=== PATIENT | female | born 1955 | race Caucasian/White ===

== ENCOUNTER 2017-08-16 20:03 | Emergency (ER) | payer BC, OTHER ==
[~2017-08-16] VITALS: Ht 167.6 cm; Wt 54.0 kg
[2017-08-16 20:08] VITALS: TEMP 37.1
[2017-08-16] MEDS ORDERED: SODIUM CHLORIDE 0.9% 1000ML 1,000 ML IV STA ×2 (20:14→21:42)
--- NOTE | 2017-08-16 20:18 | EMERGENCY ROOM VISIT NOTE ---
History Report prepared by Pearl: Efrain Hedrick Under the Supervision of: Dr. Leno Tanner M.D. First contact with patient: 20:05 Chief Complaint: ILLNESS Stated Complaint: ILLNESS History of Present Illness The patient is a 61 year old female who presents to the Emergency Room with complaints of worsening weakness beginning a few days ago. EMS states the patient has had a poor intake for the past few days with worsening lethargy, weakness, and a low grade fever. They report the patient has a history of a brain aneurysm and craniotomy. EMS notes the patient patient's daughter notes she lives at [facility], and she is typically walking around and social. The patient states she is having pain around her right hip. She denies shortness of breath and weakness. HPI limited secondary to the patient's mental state. Source of History: patient, EMS History Limited By: other (mental state) Review of Systems ROS limited secondary to the patient's mental state. Past Medical & Surgical Surgical Problems: (1) H/O craniotomy Family History Unobtainable secondary to the patient's mental state. Social History Marital Status: Housing Status: assisted living Current/Historical Medications Scheduled Acetaminophen (Tylenol), 650 MG PO BID Atorvastatin (Lipitor), 20 MG PO HS Bacitracin-Polymyxin B (Polysporin), 1 APPLN TD Q8 Cefdinir (Omnicef), 300 MG PO Q12H Dextrose W/ Sodium Chloride (Dextrose 5%/Nacl 0.9%), 80 ML IV Q1H Ferrous Sulfate (Ferrous Sulfate), 220 MG PO TID Lansoprazole (Prevacid Solutab), 15 MG PO QAM Levetiractam (Levetiracetam), 1,000 MG PO AMHS Scheduled PRN Acetaminophen (Tylenol), 650 MG PO Q6H PRN for Pain or Fever Bisacodyl (Dulcolax), 1 SUPP [place] DAILY PRN for NO BM IN 3 DAYS. Magnesium Hydroxide (Milk of Magnesia), 30 ML PO DAILY PRN for NO BM IN 3 DAYS. Menthol-Methyl Salicylate (Vonda (Bengay Greaseless), 1 APPLN TD Q8 PRN for RIGHT RIB PAIN Sodium Phosphate/Biphosphate (Fleet Enema), 1 EA IL DAILY PRN for NO BM IN 3 DAYS. Allergies Coded Allergies: Ferrous Sulfate (Verified Allergy, Unknown, [facility] LIST, 08/16/17) Penicillins (Verified Allergy, Unknown, [facility], 08/16/17) Physical Exam Vital Signs Date Time Temp Pulse Resp B/P (MAP) Pulse Ox O2 Delivery O2 Flow Rate FiO2 08/16/17 22:38 90 16 151/99 99 Room Air 08/16/17 21:37 89 16 153/94 96 Room Air 08/16/17 20:43 98 Room Air 08/16/17 20:35 102 08/16/17 20:08 37.1 102 16 136/91 98 Room Air Physical Exam GENERAL: Awake, alert, fatigued, uncomfortable and cachetic-appearing, in no distress HENT: Normocephalic, atraumatic. Oropharynx and mucous membranes are dry and cracked, otherwise unremarkable. EYES: Normal conjunctiva. Sclera non-icteric. NECK: Supple. No nuchal rigidity. FROM. No JVD. RESPIRATORY: Clear to auscultation. CARDIAC: Regular rate, normal rhythm. Extremities warm and well perfused. Pulses equal. ABDOMEN: Soft, non-distended. No tenderness to palpation. No rebound or guarding. No masses. RECTAL: Deferred. MUSCULOSKELETAL: Chest examination reveals no tenderness. The back is symmetrical on inspection without obvious abnormality. There is no CVA tenderness to palpation. No joint edema. LOWER EXTREMITIES: Calves are equal size bilaterally and non-tender. No edema. No discoloration. NEURO: Normal sensorium. No sensory or motor deficits noted. SKIN: No rash or jaundice noted. Medical Decision & Procedures ER Provider Diagnostic Interpretation: Radiology results as stated below per my review and radiologist interpretation: CT SCAN OF THE BRAIN WITHOUT IV CONTRAST CLINICAL HISTORY: Change in mental status. COMPARISON STUDY: No priors. TECHNIQUE: Unenhanced axial CT scan of the brain is performed from the vertex to the skull base. A dose lowering technique was utilized adhering to the principles of ALARA. The examination is degraded by streak artifact from metallic surgical hardware. CT DOSE: 614.27 mGy.cm FINDINGS: Brain parenchyma: Bitemporal encephalomalacia is consistent with a remote insult. There are age-related involutional changes noting advanced confluent subcortical and periventricular microangiopathic change. There is no hemorrhage, mass effect, or evidence of acute territorial ischemia by CT criteria. Reveles-white matter is preserved. No extra-axial fluid collection is seen. Postoperative findings are noted in the suprasellar region bilaterally. Ventricles, sulci, cisterns: Prominent secondary to involutional change. Intracranial vasculature: There is atherosclerotic calcification of the cavernous carotid and vertebral arteries. Calvarium: There are postoperative changes from right temporal craniectomy, left temporal craniotomy, and right frontoparietal craniotomy. Sinuses and mastoids: The visualized paranasal sinuses are clear. There is a small right mastoid effusion. The left mastoid air cells are well pneumatized. Orbits: The bony orbits are grossly intact. There are bilateral ocular lens implants. IMPRESSION: 1. There is no hemorrhage, mass effect, or evidence of acute territorial ischemia by CT criteria. 2. Chronic and postoperative changes as above. Electronically signed by: Angel Anders M.D. 08/16/2017 9:16 PM Dictated Date/Time: 08/16/2017 9:13 PM SINGLE VIEW CHEST CLINICAL HISTORY: Fever. Sepsis. FINDINGS: An AP, portable, upright semierect radiograph is obtained. No prior studies are available for comparison at the time of dictation. The examination is degraded by portable technique and patient rotation. The cardiomediastinal silhouette is unremarkable. Nonspecific interstitial thickening is likely chronic. Emphysematous change is questioned. No airspace consolidation or pleural effusion is identified. No pneumothorax is seen. The skeletal structures are osteopenic. Chronic appearing posterior matter deformity is noted in the right humerus. IMPRESSION: No acute cardiopulmonary abnormality. Electronically signed by: Angel Anders M.D. 08/16/2017 8:52 PM Dictated Date/Time: 08/16/2017 8:50 PM Laboratory Results 08/16/17 20:33 Red Blood Count 4.68, Mean Corpuscular Volume 93.6, Mean Corpuscular Hemoglobin 30.3, Mean Corpuscular Hemoglobin Concent 32.4, Mean Platelet Volume 10.0, Neutrophils (%) (Auto) 81.4, Lymphocytes (%) (Auto) 9.4, Monocytes (%) (Auto) 8.7, Eosinophils (%) (Auto) 0.1, Basophils (%) (Auto) 0.2, Neutrophils # (Auto) 9.79, Lymphocytes # (Auto) 1.13, Monocytes # (Auto) 1.04, Eosinophils # (Auto) 0.01, Basophils # (Auto) 0.03 08/16/17 20:33 Test 08/16/17 20:33 08/16/17 20:40 08/16/17 20:44 White Blood Count 12.02 K/uL (4.8-10.8) Red Blood Count 4.68 M/uL (4.2-5.4) Hemoglobin 14.2 g/dL (12.0-16.0) Hematocrit 43.8 % (37-47) Mean Corpuscular Volume 93.6 fL (80-100) Mean Corpuscular Hemoglobin 30.3 pg (25-34) Mean Corpuscular Hemoglobin Concent 32.4 g/dl (32-36) Platelet Count 300 K/uL (130-400) Mean Platelet Volume 10.0 fL (7.4-10.4) Neutrophils (%) (Auto) 81.4 % Lymphocytes (%) (Auto) 9.4 % Monocytes (%) (Auto) 8.7 % Eosinophils (%) (Auto) 0.1 % Basophils (%) (Auto) 0.2 % Neutrophils # (Auto) 9.79 K/uL (1.4-6.5) Lymphocytes # (Auto) 1.13 K/uL (1.2-3.4) Monocytes # (Auto) 1.04 K/uL (0.11-0.59) Eosinophils # (Auto) 0.01 K/uL (0-0.5) Basophils # (Auto) 0.03 K/uL (0-0.2) RDW Standard Deviation 47.3 fL (36.4-46.3) RDW Coefficient of Variation 13.9 % (11.5-14.5) Immature Granulocyte % (Auto) 0.2 % Immature Granulocyte # (Auto) 0.02 K/uL (0.00-0.02) Prothrombin Time 11.3 SECONDS (9.0-12.0) Prothromb Time International Ratio 1.1 (0.9-1.1) Venous Blood pH 7.47 (7.36-7.41) Venous Blood Partial Pressure CO2 40 mmHg (38.0-50.0) Venous Blood Partial Pressure O2 75 mmHg Venous Blood HCO3 29 mmol/L Venous Blood Oxygen Saturation 95.2 % Venous Blood Base Excess 4.7 mEq/L Anion Gap 8.0 mmol/L (3-11) Est Creatinine Clear Calc Drug Dose 69.0 ml/min Estimated GFR () 103.0 Estimated GFR (Non- 88.9 BUN/Creatinine Ratio 36.7 (10-20) Bedside Lactic Acid Venous 0.98 mmol/L (0.90-1.70) Calcium Level 9.4 mg/dl (8.5-10.1) Phosphorus Level 2.5 mg/dl (2.5-4.9) Magnesium Level 2.3 mg/dl (1.8-2.4) Total Bilirubin 0.6 mg/dl (0.2-1) Direct Bilirubin 0.2 mg/dl (0-0.2) Aspartate Amino Transf (AST/SGOT) 26 U/L (15-37) Alanine Aminotransferase (ALT/SGPT) 16 U/L (12-78) Alkaline Phosphatase 83 U/L (45-117) Troponin I < 0.015 ng/ml (0-0.045) Total Protein 8.1 gm/dl (6.4-8.2) Albumin 3.4 gm/dl (3.4-5.0) Lipase 89 U/L (73-393) Influenza Type A (RT-PCR) Neg for Influ A (NEG) Influenza Type B (RT-PCR) Neg for Influ B (NEG) Urine Color DK YELLOW Urine Appearance TURBID (CLEAR) Urine pH 7.5 (4.5-7.5) Urine Specific [place] 1.023 (1.000-1.030) Urine Protein 2+ (NEG) Urine Glucose (UA) NEG (NEG) Urine Ketones TRACE (NEG) Urine Occult Blood 2+ (NEG) Urine Nitrite POS (NEG) Urine Bilirubin NEG (NEG) Urine Urobilinogen NEG (NEG) Urine Leukocyte Esterase LARGE (NEG) Urine WBC (Auto) >30 /hpf (0-5) Urine RBC (Auto) >30 /hpf (0-4) Urine Hyaline Casts (Auto) 5-10 /lpf (0-5) Urine Epithelial Cells (Auto) >30 /lpf (0-5) Urine Bacteria (Auto) 4+ (NEG) Urine Crystals TRIPLE PHOSPHATE Urine Pathogenic Casts 0-3 GRANULAR CASTS /lpf (0) Urine Yeast (Auto) (NONE PRSENT) Laboratory results reviewed by me Medications Administered Medications (Trade) Dose Ordered Sig/Larry Route Start Time Stop Time Status Last Admin Dose Admin Sodium Chloride 1,000 ml @ 999 mls/hr Q1H1M STAT IV 08/16/17 20:14 08/16/17 21:14 DC 08/16/17 20:51 999 MLS/HR Sodium Chloride 1,000 ml @ 999 mls/hr Q1H1M STAT IV 08/16/17 21:42 08/16/17 22:42 DC 08/16/17 21:51 999 MLS/HR Ceftriaxone Sodium (Rocephin Inj) 1 gm NOW STAT IV 08/16/17 21:55 08/16/17 21:56 DC 08/16/17 21:55 1 GM Nystatin (Mycostatin Susp) 5 ml NOW STAT PO 08/16/17 22:20 08/16/17 22:23 DC 08/16/17 22:59 5 ML ECG Per My Interpretation Indication: weakness Rate (beats per minute): 69 Rhythm: normal sinus Findings: no acute ischemic change, other (Normal axis) ED Course 2010: The patient was evaluated in room A10. A complete history and physical exam was performed. 2128: I reevaluated the patient. She is interacting appropriately. Discussed results and discharge instructions: she verbalized understanding and agreement. The patient is ready for discharge. Medical Decision I reviewed the patient's past medical history, medications, and the nursing notes as described above. Differential diagnosis: Etiologies such as metabolic, infection, hypo/hyperglycemia, electrolyte abnormalities, cardiac sources, intracerebral event, toxicologic, neurologic, as well as others were entertained. The patient is a 61-year-old woman with a past medical history of intracranial aneurysm s/p craniectomy who presents emergency department from her fpc facility, [facility], with generalized weakness in the setting of fever per hpi. On arrival, the patient is fatigued and uncomfortable appearing but no acute distress, afebrile stable vital signs. On exam the patient appears cachectic and clinically dry with dry cracked mucous membranes. She is moving all extremities equally. EKG unremarkable. CT head negative for acute findings. Chest x-ray negative for pneumonia. UA grossly positive for UTI. WBC 12 consistent with infection. Lactate within normal limits. Marked improvement with IV fluid hydration. The patient is hemodynamically stable with normal lactate and otherwise no evidence of sepsis it is reasonable to discharge the patient back to her facility for further hydration and treatment for her UTI. CM contacted [facility] and they are agreeable to receive the patient. We will transfer the patient with her peripheral IV still in place for further IVF hydration as needed. Daughter at the bedside is agreeable with this plan. Findings and plan for follow-up reviewed with patient. Patient agreeable and d/c'd per discharge instructions. Medication Reconcilliation Current Medication List: was personally reviewed by me Blood Pressure Screening Patient's blood pressure: Normal blood pressure Blood pressure disposition: Did not require urgent referral Impression Primary Impression: Urinary tract infection Scribe Attestation The scribe's documentation has been prepared under my direction and personally reviewed by me in its entirety. I confirm that the note above accurately reflects all work, treatment, procedures, and medical decision making performed by me. Departure Information Dispostion Home / Self-Care Prescriptions Cefdinir (OMNICEF) 300 Mg Cap 300 MG PO Q12H for 7 Days, #14 CAP Prov: Leno Tanner M.D. 08/16/17 Referrals [facility] (PCP) Forms HOME CARE DOCUMENTATION FORM, IMPORTANT VISIT INFORMATION, WORK / SCHOOL INSTRUCTIONS Patient Instructions ED UTI Cystitis Female, My [facility] Additional Instructions Please follow up with your providers tomorrow for re-evaluation. Your symptoms are due to a urinary tract infection and associated dehydration. Otherwise, your exam, EKG, chest xray, lab results, CT scan of your brain did not show signs of an emergent condition at this time. Acetaminophen or ibuprofen for pain and fevers as needed. Omnicef for your UTI as directed. Drink plenty of fluids to ensure hydration. Return to the emergency department for worsening symptoms as described in the accompanying instructions.
[2017-08-16 20:24] VITALS: Ht 167.6 cm; Wt 54.0 kg
[2017-08-16 20:42] LABS: BASO % 0.2 %; BASO ABS # 0.03 K/uL (0-0.2); EOS % 0.1 %; EOS ABS # 0.01 K/uL (0-0.5); HEMATOCRIT 43.8 % (37-47); HEMOGLOBIN 14.2 g/dL (12.0-16.0); IG# 0.02 K/uL (0.00-0.02); LYMPH % 9.4 %; LYMPH ABS # 1.13 K/uL (1.2-3.4); MEAN CELL VOLUME 93.6 fL (80-100); MEAN CORPUSCULAR HEMOGLOBIN 30.3 pg (25-34); MEAN CORPUSCULAR HGB CONC 32.4 g/dl (32-36); MONO % 8.7 %; MONO ABS # 1.04 K/uL (0.11-0.59); NEUT % 81.4 %; NEUT ABS # 9.79 K/uL (1.4-6.5); PLATELET COUNT 300 K/uL (130-400); RED CELL DISTRIBUTION WIDTH CV 13.9 % (11.5-14.5); RED CELL DISTRIBUTION WIDTH SD 47.3 fL (36.4-46.3); WHITE BLOOD COUNT 12.02 K/uL (4.8-10.8)
[2017-08-16 20:43] VITALS: O2SAT 98
--- NOTE | 2017-08-16 20:54 | DIAGNOSTIC IMAGING REPORT ---
SINGLE VIEW CHEST CLINICAL HISTORY: Fever. Sepsis. FINDINGS: An AP, portable, upright semierect radiograph is obtained. No prior studies are available for comparison at the time of dictation. The examination is degraded by portable technique and patient rotation. The cardiomediastinal silhouette is unremarkable. Nonspecific interstitial thickening is likely chronic. Emphysematous change is questioned. No airspace consolidation or pleural effusion is identified. No pneumothorax is seen. The skeletal structures are osteopenic. Chronic appearing posterior matter deformity is noted in the right humerus. IMPRESSION: No acute cardiopulmonary abnormality. Electronically signed by: Angel Anders M.D. 08/16/2017 8:52 PM Dictated Date/Time: 08/16/2017 8:50 PM
[2017-08-16] MEDS ORDERED: LINICRE61 TD (20:57)
[2017-08-16] MEDS ORDERED: BISA10SU38 PR (20:57)
[2017-08-16] MEDS ORDERED: BACIOIN TD (20:57)
[2017-08-16] MEDS ORDERED: LEVE500T PO (20:57)
[2017-08-16] MEDS ORDERED: FSLL PO (20:57)
[2017-08-16] MEDS ORDERED: [UNRECOGNIZED DRUG - CODE] IV (20:57)
[2017-08-16] MEDS ORDERED: LANS15TA2 PO (20:57)
[2017-08-16] MEDS ORDERED: MOMLX PO (20:57)
[2017-08-16] MEDS ORDERED: ATOR-22 PO (20:57)
[2017-08-16] MEDS ORDERED: ACET-1311 PO ×2 (20:57)
[2017-08-16] MEDS ORDERED: SODIENE PR (20:57)
[2017-08-16 20:59] LABS: INR 1.1 (0.9-1.1)
[2017-08-16 21:05] LABS: ALBUMIN 3.4 gm/dl (3.4-5.0); ALT/SGPT 16 U/L (12-78); AST/SGOT 26 U/L (15-37); BLOOD UREA NITROGEN 27 mg/dl (7-18); CALCIUM 9.4 mg/dl (8.5-10.1); CARBON DIOXIDE 28 mmol/L (21-32); CREATININE 0.73 mg/dl (0.60-1.20); GLUCOSE 141 mg/dl (70-99); LIPASE 89 U/L (73-393); POTASSIUM 3.9 mmol/L (3.5-5.1); SODIUM 143 mmol/L (136-145)
[2017-08-16 21:08] LABS: ALKALINE PHOSPHATASE 83 U/L (45-117); PHOSPHORUS 2.5 mg/dl (2.5-4.9); TOTAL PROTEIN 8.1 gm/dl (6.4-8.2)
--- NOTE | 2017-08-16 21:18 | DIAGNOSTIC IMAGING REPORT ---
CT SCAN OF THE BRAIN WITHOUT IV CONTRAST CLINICAL HISTORY: Change in mental status. COMPARISON STUDY: No priors. TECHNIQUE: Unenhanced axial CT scan of the brain is performed from the vertex to the skull base. A dose lowering technique was utilized adhering to the principles of ALARA. The examination is degraded by streak artifact from metallic surgical hardware. CT DOSE: 614.27 mGy.cm FINDINGS: Brain parenchyma: Bitemporal encephalomalacia is consistent with a remote insult. There are age-related involutional changes noting advanced confluent subcortical and periventricular microangiopathic change. There is no hemorrhage, mass effect, or evidence of acute territorial ischemia by CT criteria. Reveles-white matter is preserved. No extra-axial fluid collection is seen. Postoperative findings are noted in the suprasellar region bilaterally. Ventricles, sulci, cisterns: Prominent secondary to involutional change. Intracranial vasculature: There is atherosclerotic calcification of the cavernous carotid and vertebral arteries. Calvarium: There are postoperative changes from right temporal craniectomy, left temporal craniotomy, and right frontoparietal craniotomy. Sinuses and mastoids: The visualized paranasal sinuses are clear. There is a small right mastoid effusion. The left mastoid air cells are well pneumatized. Orbits: The bony orbits are grossly intact. There are bilateral ocular lens implants. IMPRESSION: 1. There is no hemorrhage, mass effect, or evidence of acute territorial ischemia by CT criteria. 2. Chronic and postoperative changes as above. Electronically signed by: Angel Anders M.D. 08/16/2017 9:16 PM Dictated Date/Time: 08/16/2017 9:13 PM
[2017-08-16] MEDS ORDERED: CEFTRIAXONE SOD INJ 1 GM ADDVIAL IV STA (21:55)
[2017-08-16] MEDS ORDERED: NYSTATIN SUSP 500,000 U/5 ML UDC PO STA (22:20)
[2017-08-16 22:21] LABS: INFLUENZA A PCR Neg for Influ A (NEG); INFLUENZA B PCR Neg for Influ B (NEG)
[2017-08-16 22:38] VITALS: BP 151/99; PULSE 90; O2SAT 99
[2017-08-16] MEDS ORDERED: CEFD300C2 PO (23:00)
--- NOTE | 2017-08-19 12:03 | Pharmacy Progress Note ---
ED Pharmacist Culture FollowUp Date of Service: Aug 19, 2017. Patient was sent home with a prescription for Cefdinir 300 mg q12H x 7 days, which should cover the E. coli & Proteus mirabilis growing from the patient's urine culture.
[2017-08-25] MEDS ORDERED: POTA20TA16 PO (17:44)
== END 2017-08-16 23:30 | disposition home or self-care (01) ==
LOC: EDBD 20:03 → C.EDA 20:06
DX: N39.0 Urinary tract infection, site not specified (principal); Z79.899 Other long term (current) drug therapy; Z88.0 Allergy status to penicillin; Z88.8 Allergy status to other drugs, medicaments and biological substances

== ENCOUNTER → 2017-08-17 | Outpatient (CLI) | payer OTHER ==
[~2017-08-17] MED LIST: ACET-1311 PO; ACET650S10 PR; ATOR-22 PO; BACIOIN TD; BISA10SU38 PR; CEFD300C2 PO; FSLL PO; LANS15TA2 PO; LEVE500T PO; LINICRE61 TD; MOMLX PO; POTA20TA16 PO; SODIENE PR; [UNRECOGNIZED DRUG - CODE] IV
[2017-08-17 08:33] LABS: BLOOD UREA NITROGEN 18 mg/dl (7-18); CALCIUM 8.9 mg/dl (8.5-10.1); CARBON DIOXIDE 25 mmol/L (21-32); CREATININE 0.49 mg/dl (0.60-1.20); GLUCOSE 96 mg/dl (70-99); POTASSIUM 3.6 mmol/L (3.5-5.1); SODIUM 146 mmol/L (136-145)
== END ==
LOC: C.LABCC 07:56
PROVIDERS: ATTEND Internal Medicine
DX: E86.0 Dehydration (principal)

== ENCOUNTER → 2017-08-19 | Outpatient (CLI) | payer OTHER ==
[2017-08-19 10:08] LABS: BLOOD UREA NITROGEN 9 mg/dl (7-18); CALCIUM 9.3 mg/dl (8.5-10.1); CARBON DIOXIDE 28 mmol/L (21-32); CREATININE 0.38 mg/dl (0.60-1.20); GLUCOSE 88 mg/dl (70-99); POTASSIUM 3.1 mmol/L (3.5-5.1); SODIUM 140 mmol/L (136-145)
== END ==
LOC: C.LABCC 09:12
PROVIDERS: ATTEND Internal Medicine
DX: E87.6 Hypokalemia (principal)

== ENCOUNTER → 2017-08-21 | Outpatient (CLI) | payer OTHER ==
[2017-08-21 09:19] LABS: BLOOD UREA NITROGEN 12 mg/dl (7-18); CALCIUM 9.5 mg/dl (8.5-10.1); CARBON DIOXIDE 25 mmol/L (21-32); CREATININE 0.44 mg/dl (0.60-1.20); GLUCOSE 82 mg/dl (70-99); POTASSIUM 3.8 mmol/L (3.5-5.1); SODIUM 140 mmol/L (136-145)
== END ==
LOC: C.LABCC 07:55
PROVIDERS: ATTEND Internal Medicine
DX: E87.6 Hypokalemia (principal)

== ENCOUNTER → 2017-08-24 | Outpatient (CLI) | payer OTHER ==
[~2017-08-24] MED LIST changes: +POTA-639 PO; -POTA20TA16 PO
[2017-08-24 10:21] LABS: BLOOD UREA NITROGEN 28 mg/dl (7-18); CALCIUM 9.6 mg/dl (8.5-10.1); CARBON DIOXIDE 22 mmol/L (21-32); CREATININE 0.61 mg/dl (0.60-1.20); GLUCOSE 102 mg/dl (70-99); POTASSIUM 3.9 mmol/L (3.5-5.1); SODIUM 142 mmol/L (136-145)
== END ==
LOC: C.LABCC 09:33
PROVIDERS: ATTEND Internal Medicine
DX: E87.6 Hypokalemia (principal)

== ENCOUNTER 2017-08-25 16:19 | Inpatient (IN) | payer OTHER ==
[~2017-08-25] VITALS: Ht 157.5 cm; Wt 50.7 kg
[2017-08-25] VITALS (9 sets, daily range): BP systolic 82–114; BP diastolic 51–78; PULSE 101–122; TEMP 37.8–38.4; O2SAT 78–98; BMI 21.1
[~2017-08-25 16:19] MED LIST changes: -ACET650S10 PR; -POTA-639 PO
[2017-08-25] MEDS ORDERED: SODIUM CHLORIDE 0.9% 1000ML 1,000 ML IV ONE (16:37)
[2017-08-25] MEDS ORDERED: VANCOMYCIN 1GM ED/ASU OMNICELL IV STA (16:37)
[2017-08-25] MEDS ORDERED: CEFEPIME IV 2,000 MG in DEXTROSE 5% 100ML 100 ML IV STA (16:37)
[2017-08-25] MEDS ORDERED: ACETAMINOPHEN 325 MG SUPP PR STA (16:44)
[2017-08-25] MEDS ORDERED: SODIUM CHLORIDE 0.9% 1000ML 1,000 ML IV STA (17:03)
[2017-08-25 17:06] LABS: BASO % 0.1 %; BASO ABS # 0.02 K/uL (0-0.2); HEMATOCRIT 48.5 % (37-47); HEMOGLOBIN 15.5 g/dL (12.0-16.0); IG# 0.06 K/uL (0.00-0.02); LYMPH % 3.8 %; LYMPH ABS # 0.74 K/uL (1.2-3.4); MEAN CELL VOLUME 94.9 fL (80-100); MEAN CORPUSCULAR HEMOGLOBIN 30.3 pg (25-34); MEAN PLATELET VOLUME 11.3 fL (7.4-10.4); MONO % 9.2 %; MONO ABS # 1.81 K/uL (0.11-0.59); NEUT % 86.6 %; NEUT ABS # 17.01 K/uL (1.4-6.5); PLATELET COUNT 400 K/uL (130-400); RED CELL DISTRIBUTION WIDTH CV 13.7 % (11.5-14.5); RED CELL DISTRIBUTION WIDTH SD 47.3 fL (36.4-46.3); WHITE BLOOD COUNT 19.64 K/uL (4.8-10.8)
[2017-08-25] MEDS ORDERED: LORAZEPAM 2 MG/ML 1 ML VIAL IV STA (17:10)
[2017-08-25 17:13] LABS: ALBUMIN 3.3 gm/dl (3.4-5.0); CREATININE 0.91 mg/dl (0.60-1.20); POTASSIUM 3.6 mmol/L (3.5-5.1)
[2017-08-25 17:17] LABS: INR 1.5 (0.9-1.1); PTT PATIENT 28.3 SECONDS (21.0-31.0)
[2017-08-25] MEDS ORDERED: ACET650S10 PR (17:29)
[2017-08-25 17:34] LABS: ISTAT POTASSIUM 3.7 mEq/L (3.3-5.0); ISTAT SODIUM 152 mEq/L (135-144)
--- NOTE | 2017-08-25 17:34 | DIAGNOSTIC IMAGING REPORT ---
CHEST ONE VIEW PORTABLE HISTORY: 61 years-old Female Sepsis acute sepsis with respiratory failure. COMPARISON: Chest radiograph 08/16/2017 TECHNIQUE: Portable AP view of the chest FINDINGS: The patient is rotated to the right. Endotracheal tube overlies the expected region of the trachea terminating 2.8 cm superior to the luann. Cardiac silhouette is within normal limits. There is no pneumothorax, pleural effusion, focal airspace consolidation or overt pulmonary edema. Increased density of the left hemithorax compared to the right is likely secondary to patient rotation. Degenerative changes are noted about the shoulders and spine. IMPRESSION: 1. Limited study secondary to patient positioning. 2. Endotracheal tube overlies the midline, 2.8 cm superior to the luann. 3. No acute process of the chest identified. The above report was generated using voice recognition software. It may contain grammatical, syntax or spelling errors. Electronically signed by: Scar Dillon M.D. 08/25/2017 5:33 PM Dictated Date/Time: 08/25/2017 5:30 PM
[2017-08-25 17:35] LABS: TOTAL PROTEIN 8.3 gm/dl (6.4-8.2)
[2017-08-25] MEDS ORDERED: POTA-639 PO (17:44)
--- NOTE | 2017-08-25 17:57 | DIAGNOSTIC IMAGING REPORT ---
CT SCAN OF THE BRAIN WITHOUT IV CONTRAST CLINICAL HISTORY: Change in mental status. COMPARISON STUDY: CT of the brain dated 08/16/2017. TECHNIQUE: Unenhanced axial CT scan of the brain is performed from the vertex to the skull base. A dose lowering technique was utilized adhering to the principles of ALARA. The examination is degraded by streak artifact from metallic surgical hardware. CT DOSE: 724.83 mGy.cm FINDINGS: Brain parenchyma: Foci of bitemporal encephalomalacia are consistent with remote insults. There are age-related involutional changes noting advanced confluent subcortical and periventricular microangiopathic change. There is no hemorrhage, mass effect, or evidence of acute territorial ischemia by CT criteria. Reveles-white matter is preserved. No extra-axial fluid collection is seen. Postoperative changes, possibly representing aneurysm coils are present in the suprasellar region bilaterally. Ventricles, sulci, cisterns: Prominent secondary to involutional change. Intracranial vasculature: There is atherosclerotic calcification of the cavernous carotid and vertebral arteries. Calvarium: There are postoperative changes from right temporal craniectomy, left temporal craniotomy, and right frontoparietal craniotomy. Sinuses and mastoids: The visualized paranasal sinuses are clear. There is a small right mastoid effusion. The left mastoid air cells are well pneumatized. Orbits: The bony orbits are grossly intact. There are bilateral ocular lens implants. IMPRESSION: 1. There is no hemorrhage, mass effect, or evidence of acute territorial ischemia by CT criteria. There has been no significant change from 08/16/2017. 2. Chronic and postoperative changes as above. Electronically signed by: Angel Anders M.D. 08/25/2017 5:55 PM Dictated Date/Time: 08/25/2017 5:52 PM
[2017-08-25] MEDS ORDERED: OPTIRAY 320 IV PRN (18:00)
--- NOTE | 2017-08-25 18:10 | DIAGNOSTIC IMAGING REPORT ---
ABDOMEN AND PELVIS CT WITH IV CONTRAST CT DOSE: 447.61 mGy.cm HISTORY: Acute generalized abdominal pain ABD PAIN, POSS divertic, IV CONTRAST ONLY TECHNIQUE: Multiaxial CT images of the abdomen and pelvis were performed following the use of intravenous contrast. A dose lowering technique was utilized adhering to the principles of ALARA. COMPARISON STUDY: None. FINDINGS: Mucous plugging of the right lower lobe is noted with centrilobular nodules and patchy subsegmental dependent consolidation. 3 mm solid noncalcified nodule of the basal left lower lobe is noted. There is no pneumatosis or pneumoperitoneum identified. The imaged inferior cardiac chambers are unremarkable. Gallbladder is mildly distended with cholelithiasis. No CT evidence of acute cholecystitis. The liver, spleen, pancreas and right adrenal gland are unremarkable. There is minimal thickening of the left adrenal gland. There are several calculi noted within the left renal pelvis measuring up to 7 mm without obstruction. Layering calculi are also seen within the right renal pelvis measuring up to 4 mm. Nonobstructing calculi of the inferior pole right kidney measure up to 4 mm. No definite obstructing ureteral calculi. Resendiz catheter is noted within the urinary bladder with significant amount of nondependent urinary bladder air. Calcifications of the pelvis suggest phleboliths. Moderate atherosclerosis of the aorta without aneurysm. No bulky adenopathy. Graft there is no bowel obstruction identified. Large stool ball the rectum is noted with moderate volume of formed stool seen throughout the remainder of the colon. Moderate sigmoid colon diverticulosis without CT evidence of acute diverticulitis. No evidence of acute appendicitis. There is asymmetrically increased size of the right. Form a small subtle with minimal surrounding stranding. The remaining soft tissues are unremarkable. Healing nondisplaced subacute appearing fracture of the anterior right seventh rib. Bones appear osteoporotic. Chronic appearing fracture of the left inferior pubic ramus. IMPRESSION: 1. Constipation without evidence of bowel obstruction or focal bowel wall thickening. 2. Diverticulosis without CT evidence of acute diverticulitis. 3. Mildly distended gallbladder with cholelithiasis. No CT evidence of acute cholecystitis. 4. Asymmetrically enlarged right piriformis muscle with minimal adjacent stranding suggests piriformis syndrome. 5. Healing subacute appearing fracture of the anterior right seventh rib. 6. Bilateral nonobstructing nephrolithiasis with nonobstructing calculi seen within the bilateral renal pelves. 7. Air within the urinary bladder lumen is likely secondary to instrumentation with Resendiz catheter. Correlate with urinalysis to exclude cystitis. 8. Mucus plugging of the right lower lobe bronchi with centrilobular nodules and dependent subsegmental consolidative opacities suggesting pneumonitis. Electronically signed by: cSar Dillon M.D. 08/25/2017 6:09 PM Dictated Date/Time: 08/25/2017 5:56 PM
[2017-08-25 18:24] LABS: INFLUENZA A PCR Neg for Influ A (NEG); INFLUENZA B PCR Neg for Influ B (NEG)
[2017-08-25] MEDS ORDERED: PROPOFOL IV EMULSION 10 MG/ML 100 ML VIAL IV ONE (18:27)
[2017-08-25] MEDS ORDERED: SODIUM CHLORIDE 0.9% 500ML 500 ML IV STA (18:27)
[2017-08-25] MEDS ORDERED: PROPOFOL IV EMULSION 10 MG/ML 100 ML VIAL IV PRN (18:28)
--- NOTE | 2017-08-25 18:32 | Critical Care Consultation ---
Critical Care Consultation Date of Consultation: Aug 25, 2017. Attending Physician: Reason for Consultation: Acute hypoxic respiratory failure History of Present Illness Ms. Mcgee presented to the ED with abdominal pain and altered mental status, per HPI unresponsive for a few days, lives at [facility]. Pt is septic with WBC of 19, lactate of 3.15, tachycardic and febrile. Hypoxic 81% on RA in ER, intubated in ED with #7.5 taped at 23. Per nursing unable to insert OG tube, coiled in back of throat, they were able to suction a generous mucus plug from oropharynx. Also given Cefepime HCl 2000 mg/Dextrose 112.5 ml @ 200 mls/hr IV, Vancomycin HCl 1 gm IV, Sodium Chloride 1000 ml @ 999 mls/hr IV, Acetaminophen 975 mg OR, Sodium Chloride 1000 ml @ 999 mls/hr IV, Propofol 1 dose IV. LP done by Dr. Kaur while in B1 showed no briseida evidence of bleeding. Stool collected, unable to disimpact the stool. Past Medical/Surgical History Past Medical History: 1. 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 Anterior cerebral artery aneurysm 3. Anemia 4. Tobacco abuse 5. Vitamin D deficiency 6. SAH in January 2017 8. Idiopathic Epilepsy Past Surgical History 1. Frontal parietal cranioplasty Family History Patient reports no known family medical history. Social History Smoking Status: Former Smoker Marital Status: Housing Status: assisted living Allergies Coded Allergies: Ferrous Sulfate (Verified Allergy, Unknown, [facility], 08/16/17) Penicillins (Verified Allergy, Unknown, [facility], 08/16/17) Home Medications Scheduled Acetaminophen (Tylenol), 650 MG PO BID Atorvastatin (Lipitor), 20 MG PO HS Ferrous Sulfate (Ferrous Sulfate), 220 MG PO TID Lansoprazole (Prevacid Solutab), 15 MG PO QAM Levetiractam (Levetiracetam), 1,000 MG PO AMHS Potassium Ext Rel (Klor-Con), 20 MEQ PO DAILY Scheduled PRN Acetaminophen (Tylenol), 650 MG PO Q6H PRN for Pain or Fever Acetaminophen (Tylenol), 650 MG OR Q6H PRN for Pain or Fever Magnesium Hydroxide (Milk of Magnesia), 30 ML PO DAILY PRN for NO BM IN 3 DAYS. Menthol-Methyl Salicylate (Vonda (Bengay Greaseless), 1 APPLN TD Q8 PRN for RIGHT RIB PAIN Sodium Phosphate/Biphosphate (Fleet Enema), 1 EA OR DAILY PRN for NO BM IN 3 DAYS. Current Inpatient Medications Current Inpatient Medications Medications (Trade) Dose Ordered Sig/Larry Route Start Time Stop Time Status Last Admin Dose Admin Ioversol (Optiray 320) 95 ml UD PRN IV 08/25/17 18:00 08/29/17 17:59 UNV Review of Systems ROS Limited due to pt's mental status. Physical Exam Date Time Temp Pulse Resp B/P (MAP) Pulse Ox O2 Delivery O2 Flow Rate FiO2 08/25/17 18:03 108 24 100/80 98 Mechanical Ventilator 08/25/17 17:36 100 08/25/17 17:21 38.2 110 118/79 94 Mechanical Ventilator 08/25/17 17:17 114 21 119/80 94 Mechanical Ventilator 08/25/17 17:11 127 26 118/86 Mechanical Ventilator 08/25/17 17:02 89 Non-Rebreather 15.0 08/25/17 17:02 38.7 130 28 123/85 77 Room Air 08/25/17 17:00 135 27 114/81 88 Ambu-Bag 08/25/17 16:59 132 08/25/17 16:42 91 GENERAL: Sedated, eyes closed, intubated. HENT: Normocephalic, atraumatic. Oropharynx unremarkable. EYES: Normal conjunctiva. Sclera non-icteric. NECK: Supple. No nuchal rigidity. No JVD. RESPIRATORY: Coarse breath sounds bilaterally. ET tube in place #7.5fr @ 25 CARDIAC: Regular rate, normal rhythm. Extremities warm and well perfused. Pulses equal. ABDOMEN: Moderately firm, non-distended. No tenderness to palpation. No rebound or guarding. No masses. RECTAL: Incontinent of stool, dark, hemoccult negative. LOWER EXTREMITIES: Calves are equal size bilaterally and non-tender. No edema. No discoloration. ACCESS: 2 periph IV's 20, 18 guage respectively in LT arm. RT: 1 IV 20 guage. NEURO: Mildly rigid in extremities, although able to flex at hip for LP. Not actively seizing. SKIN: No rash or jaundice noted. Laboratory Results Last 24 Hours Test 08/25/17 16:06 08/25/17 16:45 4/10/18 17:19 08/25/17 17:29 White Blood Count 19.64 K/uL Red Blood Count 5.11 M/uL Hemoglobin 15.5 g/dL Hematocrit 48.5 % Mean Corpuscular Volume 94.9 fL Mean Corpuscular Hemoglobin 30.3 pg Mean Corpuscular Hemoglobin Concent 32.0 g/dl Platelet Count 400 K/uL Mean Platelet Volume 11.3 fL Neutrophils (%) (Auto) 86.6 % Lymphocytes (%) (Auto) 3.8 % Monocytes (%) (Auto) 9.2 % Eosinophils (%) (Auto) 0.0 % Basophils (%) (Auto) 0.1 % Neutrophils # (Auto) 17.01 K/uL Lymphocytes # (Auto) 0.74 K/uL Monocytes # (Auto) 1.81 K/uL Eosinophils # (Auto) 0.00 K/uL Basophils # (Auto) 0.02 K/uL RDW Standard Deviation 47.3 fL RDW Coefficient of Variation 13.7 % Immature Granulocyte % (Auto) 0.3 % Immature Granulocyte # (Auto) 0.06 K/uL Prothrombin Time 15.3 SECONDS Prothromb Time International Ratio 1.5 Activated Partial Thromboplast Time 28.3 SECONDS Partial Thromboplastin Ratio 1.1 Sodium Level 148 mmol/L Potassium Level 3.6 mmol/L Chloride Level 113 mmol/L Carbon Dioxide Level 24 mmol/L Anion Gap 11.0 mmol/L Blood Urea Nitrogen 49 mg/dl Creatinine 0.91 mg/dl Est Creatinine Clear Calc Drug Dose 51.4 ml/min Estimated GFR () 78.9 Estimated GFR (Non- 68.1 BUN/Creatinine Ratio 53.5 Random Glucose 117 mg/dl Calcium Level 10.0 mg/dl Total Bilirubin 0.5 mg/dl Aspartate Amino Transf (AST/SGOT) 22 U/L Alanine Aminotransferase (ALT/SGPT) 17 U/L Alkaline Phosphatase 90 U/L Total Protein 8.3 gm/dl Albumin 3.3 gm/dl Globulin 5.0 gm/dl Albumin/Globulin Ratio 0.7 Procalcitonin 0.14 ng/ml Thyroid Stimulating Hormone (TSH) 1.010 uIu/ml Urine Color DK YELLOW Urine Appearance TURBID Urine pH 5.0 Urine Specific [place] 1.024 Urine Protein 1+ Urine Glucose (UA) NEG Urine Ketones TRACE Urine Occult Blood 3+ Urine Nitrite NEG Urine Bilirubin NEG Urine Urobilinogen NEG Urine Leukocyte Esterase SMALL Urine WBC (Auto) 1-5 /hpf Urine RBC (Auto) >30 /hpf Urine Hyaline Casts (Auto) 10-30 /lpf Urine Epithelial Cells (Auto) 20-30 /lpf Urine Bacteria (Auto) 3+ Urine Crystals Bedside Hemoglobin 12.6 g/dl Bedside Hematocrit 37 % Bedside Blood Gas pH (LAB) 7.40 Bedside Blood Gas pCO2 (LAB) 35 mmHg Bedside Blood Gas pO2 (LAB) 56 mmHg Bedside Blood Gas HCO3 (LAB) 22 meq/L Bedside Blood Gas Total CO2 23 mEq/l Bedside Blood Gas Base Excess (LAB) -3.0 meq/L Bedside Blood Gas O2 Saturation 89.0 % Bedside Sodium 152 mEq/L Bedside Potassium 3.7 mEq/L Bedside Lactic Acid Venous 3.15 mmol/L Test 08/25/17 17:34 Assessment & Plan (1) Acute respiratory failure with hypoxia (2) Dehydration (3) Respiratory failure (4) Tachycardia (5) Sepsis (6) Change in mental status Reason Critically Ill: 61-year-old female with a significant past medical history of intracranial hemorrhage from cerebral aneurysm requiring craniotomy in Apr 2017, oral phase dysphagia, gait dysfunction and weakness. Presents with septic encephalopathy and acute hypoxic respiratory failure. Neuro - H/o idiopathic epilepsy and cerebral aneurysm CAM ICU: POSITIVE Acute encephalopathy in setting of severe sepsis 2/2 ?metabolic vs enephalitis/meningitis vs CVA/SAH vs electrolyte vs drug-related vs thyrotoxicosis LP consent obtained, performed while in ED by Dr. Kaur. Awaiting CSF results, EEG ordered as well. CT head shows no hemorrhage, mass effect or acute territorial ischemia, compared to CT done 08/16/17. Chronic post op changes right and left temporal/ front parietal craniotomy. Microangiopathic changes. Propofol for sedation. Cardiac - ECG shows sinus Tachycardia 110, QT 449. No evidence of fluid overload on exam or CXR. Likely 2/2 infection. Pt has no history of cardiac issues per medical records from [place]. Pressure currently stable LR running at 125 ml/hr Respiratory - Intubated in ED - ET tube in place #7.5fr @ 25 Oxygenation improved on ventilator. GI - CT abdomen with IV contrast shows no evidence of bowel obstruction or free air. Stool impaction in rectum. NG tube will need placed. Stool cx pending. RENAL/LYTES - Sodium 148, glucose 117. Creatinine 0.91. Replace lytes as needed. - Pt completed treatment for UTI with Cefdinir 300 mg q12H x 7 days, which should have covered the E. coli & Proteus mirabilis found in urine, per pharmacy note. Urine cx pending. ENDO - TSH is normal 1.01 HEME - Leukocytosis 19.6. Stable H&H. ID - No briseida evidence of pneumonia on CXR, although did have mucus plug removed via suction per nursing. Urine and blood cultures pending. 38.7 OR temp in ED, treated with Acetaminophen OR. Monitor fever curve. Elevated lactate 3.0, procal is normal. Vanc and Cefepime x 1 dose given in ED. Zosyn running. LINES/IV ACCESS - At 1823 central line and LP, blood transfusion, arterial line consents obtained by Dr. Kaur via telephone with pt's daughter Poppy Mcgee, witnessed by Dr. Pink. PIVs intact. DVT PROPHYLAXIS - Lovenox sq 40 CODE STATUS - FULL Thank you for allowing us to be part of this patient's care. Please refer to Dr. Dr. Kaur's documentation for any further recommendations. Resident Physician Supervision Note: Dr. Orion Sweet was resident physician during care of patient. I separately evaluated patient and did history and exam. I discussed the case with the resident and generally agree with the findings and plan. Patient with acute encephalopathy and acute hypoxic respiratory failure. I discussed the case with Dr. Salazar of neurology, no seizures noted on EEG. I have personally spent 40 minutes of critical care time in the direct management of this patient. This is a life/limb threatening event. This includes time spent evaluating patient, direct bedside care, chart review, placing orders, interpretation of diagnostic studies, discussion with consultants, patient, and/or family members regarding treatment decisions, as well as other required patient management activities. This time is exclusive of all separately billable procedures, and teaching time and separate from and in addition to any other critical care service time. Documented By: Ajay Kaur DO Resident Tracking Resident Involvement: Resident Care Provided Care Provided: Adult [facility]
[2017-08-25] MEDS ORDERED: XYLOCAINE 1%/SOD BICARB 20 ML VIAL INFIL ONE (18:42)
[2017-08-25] MEDS ORDERED: ICU PROTOCOL FOR HYPERGLYCEMIA PRN (18:45)
[2017-08-25] MEDS ORDERED: ACETAMINOPHEN 325 MG TAB PO PRN (18:45)
[2017-08-25] MEDS ORDERED: FENTANYL CITRATE INJ 50 MCG/1 ML 2 ML VIAL IV PRN (18:45)
[2017-08-25] MEDS ORDERED: FENTANYL CITRATE INJ 50 MCG/1 ML 2 ML VIAL ONE (18:45)
--- NOTE | 2017-08-25 18:48 | History and Physical ---
History & Physical Date & Time of Service: Aug 25, 2017 at 18:07 Chief Complaint: Ams, Non Responsive Primary Care Physician: Dyan Campbell History of Present Illness Source: clinic records, EMS Patient intubated during exam. History obtained from chart and discussion with ER staff. Patient is a 61yo C female with history of intracranial hemorrhages secondary to aneurysm s/p coiling, most recently in January of 2017 presenting with altered mental status and hypoxic respiratory failure. Patient is a resident of [place] [facility]. Per staff she has been experiencing progressive cognitive decline over the last 2-3 days, weight loss. She opens eyes to verbal stimuli but was nonverbal and otherwise not interactive. When she arrived to the ER she was found to be febrile at 38.7 rectal, tachycardic with HR in the 130-140' s and saturations on room air in the 70's which did not improve with supplemental O2. She was intubated for hypoxic respiratory failure and is to be admitted to the MICU. Of note, patient was seen at [facility] in August and was treated for a polymicrobial UTI. ER Course: NSS x 2L, Ativan 0.5mg, Vancomycin 1mg, Cefepime Past Medical/Surgical History Past Medical History: 1. 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 Anterior cerebral artery aneurysm 3. Anemia 4. Tobacco abuse 5. Vitamin D deficiency 6. SAH in January 2017 Past Surgical History 1. Frontal parietal cranioplasty Family History Patient reports no known family medical history. Social History Smoking Status: Former Smoker Smokeless Tobacco Use: No Alcohol Use: none Drug Use: none Marital Status: , Housing status: assisted living Allergies Coded Allergies: Ferrous Sulfate (Verified Allergy, Unknown, [facility], 08/16/17) Penicillins (Verified Allergy, Unknown, [facility], 08/16/17) Home Medications Scheduled Acetaminophen (Tylenol), 650 MG PO BID Atorvastatin (Lipitor), 20 MG PO HS Ferrous Sulfate (Ferrous Sulfate), 220 MG PO TID Lansoprazole (Prevacid Solutab), 15 MG PO QAM Levetiractam (Levetiracetam), 1,000 MG PO AMHS Potassium Ext Rel (Klor-Con), 20 MEQ PO DAILY Scheduled PRN Acetaminophen (Tylenol), 650 MG PO Q6H PRN for Pain or Fever Acetaminophen (Tylenol), [address] Q6H PRN for Pain or Fever Magnesium Hydroxide (Milk of Magnesia), 30 ML PO DAILY PRN for NO BM IN 3 DAYS. Menthol-Methyl Salicylate (Vonda (Bengay Greaseless), 1 APPLN TD Q8 PRN for RIGHT RIB PAIN Sodium Phosphate/Biphosphate (Fleet Enema), [address] DAILY PRN for NO BM IN 3 DAYS. Review of Systems Unable to obtain as patient intubated. Physical Exam Vital Signs Date Time Temp Pulse Resp B/P (MAP) Pulse Ox O2 Delivery O2 Flow Rate FiO2 08/25/17 18:03 108 24 100/80 98 Mechanical Ventilator 08/25/17 17:36 100 08/25/17 17:21 38.2 110 118/79 94 Mechanical Ventilator 08/25/17 17:17 114 21 119/80 94 Mechanical Ventilator 08/25/17 17:11 127 26 118/86 Mechanical Ventilator 08/25/17 17:02 89 Non-Rebreather 15.0 08/25/17 17:02 38.7 130 28 123/85 77 Room Air 08/25/17 17:00 135 27 114/81 88 Ambu-Bag 08/25/17 16:59 132 08/25/17 16:42 91 General: patient intubated, minimally responsive. Follows some commands Skin: warm, dry, intact, no rashes/lesions HEENT: NC/AT, bitemporal wasting, EOMI, anicteric sclera, dry mucus membranes with poor dentition and oral care, ETT in place, neck supple, no JVD, no cervical LAD, no thyromegaly. Heart: +S1/S2, regular, tachycardic, no m/r/g Lungs: equal air entry bilaterally, diminished breath sounds in right, no rales /rhonchi or wheezes Abd: +BS, soft, NT/ND, no masses/organomegaly, no grimacing with abdominal palpation : Resendiz catheter in place with dark, cloudy UOP Ext: warm, well perfused, 2+ pulses Neuro: patient with flexion contractions, PERRL, gently squeezing hand on command Diagnostics Laboratory Results Results Past 24 Hours Test 08/25/17 16:06 08/25/17 16:45 08/25/17 17:19 08/25/17 17:29 Range/Units White Blood Count 19.64 4.8-10.8 K/uL Red Blood Count 5.11 4.2-5.4 M/uL Hemoglobin 15.5 12.0-16.0 g/dL Hematocrit 48.5 37-47 % Mean Corpuscular Volume 94.9 80-100 fL Mean Corpuscular Hemoglobin 30.3 25-34 pg Mean Corpuscular Hemoglobin Concent 32.0 32-36 g/dl Platelet Count 400 130-400 K/uL Mean Platelet Volume 11.3 7.4-10.4 fL Neutrophils (%) (Auto) 86.6 % Lymphocytes (%) (Auto) 3.8 % Monocytes (%) (Auto) 9.2 % Eosinophils (%) (Auto) 0.0 % Basophils (%) (Auto) 0.1 % Neutrophils # (Auto) 17.01 1.4-6.5 K/uL Lymphocytes # (Auto) 0.74 1.2-3.4 K/uL Monocytes # (Auto) 1.81 0.11-0.59 K/uL Eosinophils # (Auto) 0.00 0-0.5 K/uL Basophils # (Auto) 0.02 0-0.2 K/uL RDW Standard Deviation 47.3 36.4-46.3 fL RDW Coefficient of Variation 13.7 11.5-14.5 % Immature Granulocyte % (Auto) 0.3 % Immature Granulocyte # (Auto) 0.06 0.00-0.02 K/uL Prothrombin Time 15.3 9.0-12.0 SECONDS Prothromb Time International Ratio 1.5 0.9-1.1 Activated Partial Thromboplast Time 28.3 21.0-31.0 SECONDS Partial Thromboplastin Ratio 1.1 Sodium Level 148 136-145 mmol/L Potassium Level 3.6 3.5-5.1 mmol/L Chloride Level 113 98-107 mmol/L Carbon Dioxide Level 24 21-32 mmol/L Anion Gap 11.0 3-11 mmol/L Blood Urea Nitrogen 49 7-18 mg/dl Creatinine 0.91 0.60-1.20 mg/dl Est Creatinine Clear Calc Drug Dose 51.4 ml/min Estimated GFR () 78.9 Estimated GFR (Non- 68.1 BUN/Creatinine Ratio 53.5 10-20 Random Glucose 117 70-99 mg/dl Calcium Level 10.0 8.5-10.1 mg/dl Total Bilirubin 0.5 0.2-1 mg/dl Aspartate Amino Transf (AST/SGOT) 22 15-37 U/L Alanine Aminotransferase (ALT/SGPT) 17 12-78 U/L Alkaline Phosphatase 90 45-117 U/L Total Protein 8.3 6.4-8.2 gm/dl Albumin 3.3 3.4-5.0 gm/dl Globulin 5.0 2.5-4.0 gm/dl Albumin/Globulin Ratio 0.7 0.9-2 Procalcitonin 0.14 0-0.5 ng/ml Thyroid Stimulating Hormone (TSH) 1.010 0.300-4.500 uIu/ml Urine Color DK YELLOW Urine Appearance TURBID CLEAR Urine pH 5.0 4.5-7.5 Urine Specific [place] 1.024 1.000-1.030 Urine Protein 1+ NEG Urine Glucose (UA) NEG NEG Urine Ketones TRACE NEG Urine Occult Blood 3+ NEG Urine Nitrite NEG NEG Urine Bilirubin NEG NEG Urine Urobilinogen NEG NEG Urine Leukocyte Esterase SMALL NEG Urine WBC (Auto) 1-5 0-5 /hpf Urine RBC (Auto) >30 0-4 /hpf Urine Hyaline Casts (Auto) 10-30 0-5 /lpf Urine Epithelial Cells (Auto) 20-30 0-5 /lpf Urine Bacteria (Auto) 3+ NEG Urine Crystals NONE PRSENT Bedside Hemoglobin 12.6 12.0-16.0 g/dl Bedside Hematocrit 37 37-47 % Bedside Blood Gas pH (LAB) 7.40 7.35-7.45 Bedside Blood Gas pCO2 (LAB) 35 35-46 mmHg Bedside Blood Gas pO2 (LAB) 56 80-95 mmHg Bedside Blood Gas HCO3 (LAB) 22 19-24 meq/L Bedside Blood Gas Total CO2 23 24-31 mEq/l Bedside Blood Gas Base Excess (LAB) -3.0 -9-1.8 meq/L Bedside Blood Gas O2 Saturation 89.0 90-95 % Bedside Sodium 152 135-144 mEq/L Bedside Potassium 3.7 3.3-5.0 mEq/L Bedside Lactic Acid Venous 3.15 0.90-1.70 mmol/L Test 08/25/17 17:34 Range/Units Microbiology Results 08/25/17 Blood Culture, Received Pending 08/25/17 Blood Culture, Received Pending Diagnostic Radiology Patient Name: YASMIN MCGEE Unit Number: [id number] Dictated: 08/25/171729 Transcribed: 08/25/171729 JRB Printed Date/Time: [~ rep prt dt]/[~ rep prt tm] [~ rep ct labl] - [~ rep ct ivnm] [facility] Radiology Department [place] [id number] Dictated: 08/25/[id number] Transcribed: 08/25/171729 JRB Printed Date/Time: [~ rep prt dt]/[~ rep prt tm] [~ rep ct labl] - [~ rep ct ivnm] CHEST ONE VIEW PORTABLE HISTORY: 61 years-old Female Sepsis acute sepsis with respiratory failure. COMPARISON: Chest radiograph 08/16/2017 TECHNIQUE: Portable AP view of the chest FINDINGS: The patient is rotated to the right. Endotracheal tube overlies the expected region of the trachea terminating 2.8 cm superior to the luann. Cardiac silhouette is within normal limits. There is no pneumothorax, pleural effusion, focal airspace consolidation or overt pulmonary edema. Increased density of the left hemithorax compared to the right is likely secondary to patient rotation. Degenerative changes are noted about the shoulders and spine. IMPRESSION: 1. Limited study secondary to patient positioning. 2. Endotracheal tube overlies the midline, 2.8 cm superior to the luann. 3. No acute process of the chest identified. The above report was generated using voice recognition software. It may contain grammatical, syntax or spelling errors. Electronically signed by: Scar Dillon M.D. 08/25/2017 5:33 PM Dictated Date/Time: 08/25/2017 5:30 PM The status of this report is Signed. Draft = Not yet reviewed or approved by Radiologist. Signed = Reviewed and approved by Radiologist. <AttendingPhy></AttendingPhy> <FamilyPhy>[facility]</FamilyPhy> <PrimaryPhy> [facility]</PrimaryPhy> <UnitNumber>[id number]</UnitNumber> <VisitNumber> [id number]</VisitNumber> <PatientName>YASMIN MCGEE</PatientName> < DateOfBirth>1955</DateOfBirth> <Location>[facility]</Location> <ServiceDate>03/04</ServiceDate> <MNE>ESINDI</MNE> <OrderingPhy>Angel Walters M.D.</ OrderingPhy> <OrderingPhyMNE>f rep ord dr graves</OrderingPhyMNE> <DictatingPhyMNE> f rep dict dr graves</DictatingPhyMNE> <CCListMNE>f rep ct jerrie</CCListMNE> < AdmittingPhyMNE>f pt admit dr graves</AdmittingPhyMNE> <AttendingPhyMNE>f pt attend dr graves</AttendingPhyMNE> <ConsultingPhyMNE>f pt consult dr graves</ConsultingPhyMNE> <FamilyPhyMNE>f pt fam dr graves</FamilyPhyMNE> <OtherPhyMNE>f pt other dr graves</OtherPhyMNE> < PrimaryPhyMNE>f pt prim care dr graves</PrimaryPhyMNE> <ReferringPhyMNE>f pt referring dr graves</ReferringPhyMNE> EKG The study demonstrates sinus tachycardia at 123bpm, no ischemic changes Impression Assessment and Plan 61yo female with history of ICH s/p aneurysm coiling last in January 2017, [place] resident presenting with 2-3 days of progressively worsening AMS. Patient febrile, tachycardic and hypoxic in ER requiring intubation and mechanical ventilation. 1. Neuro - spontaneous eye movement, patient intubated, following some commands - GCS 11T -Sedation protocol -CT head performed and negative for acute intracranial pathology 2. CV - patient presently in sinus tachycardia, blood pressure is stable. No evidence of ischemia on EKG 1. Tachycardia - most likely secondary to underlying infection vs hypoxemia vs clinical dehydration -Will mercer culture, treatment with broad spectrum antibiotics -Intubated, presently saturating well -IVF as below 3. Respiratory - patient with hypoxic respiratory failure requiring intubation. Presently with adequate oxygenation on AC/VC 400/100%/8, she is breathing 24/minute. No underlying pulmonary disease per records. Possibly secondary to sepsis vs increased secretions -Maintain current ventilator settings, repeat ABG. Decrease FiO2 as tolerated -Chest PT for secretion management -humidified o2 and frequent suctioning 4. GI - no active issues. NGT to be placed -Protonix for GI prophylaxis 5. - Patient with normal BUN and Cr, +UOP. Possible UTI see below in ID -Resendiz catheter in place, routine care q shift. -Monitor I/O, electrolytes and renal function 6. Heme - patient with leukocytosis, WBC=19.64, neutrophil predominant, elevated Hct at 48.5 suggestive of underlying infection and volume contraction, respectively -Mercer culture -Zosyn and Vancomycin -MRSA swab -IVF 7. ID - patient with severe sepsis - meets SIRS criteria 4/4 with a positive lactate, most likely source is urine at this time -Mercer culture -Antibiotic coverage with Zosyn and Vancomycin, adjust antibiotics based on culture data -IVF -Repeat lactate 8. Endo - TOMEKA, RW=680 9. F/E/N - LR at 125mL/hr x 2 liters (Tp=338, mildly elevated), monitor electroytes and replete as needed, NPO for now, NGT being placed 10. Ppx - Lovenox and Protonix 11. Code - Full per review of outpatient paperwork 12. Dispo - Admit to MICU 13. Patient's daughter Poppy Mcgee updated on her mother's condition at the number listed in the chart. Resuscitation Status Full VTE Prophylaxis Will order VTE Prophylaxis: Yes
--- NOTE | 2017-08-25 18:55 | EMERGENCY ROOM VISIT NOTE ---
History Report prepared by Pearl: Isaiah Flores Under the Supervision of: Dr. Angel Walters M.D. First contact with patient: 16:30 Stated Complaint: AMS, NON RESPONSIVE History of Present Illness The patient is a 61 year old female who presents to the Emergency Room with complaints of worsening altered mental status that began at least two days ago. Per the patient's medical record, she was here in the ER on August 16, 2017. She was diagnosed with a UTI and discharged on Omnicef. Review of medical records shows her white blood cell count has been increasing. Her urinalysis report seems to be improving. Per nursing, the patient lives at [facility] where they state the patient "has been declining the last two days, if not longer". The staff reports the patient has become more and more unresponsive but report she will respond if they are talking loudly in her face. Today, the patient has become even more unresponsive and is only blinking. At [facility], the patient was 90% on Room Air. The patient was found to be around 81% on Room Air here in the ED. Her heart rate was found to be in the 130s and her blood sugar was 113. The patient does have a history of brain bleeds. According to the staff , there was no evidence of trauma. The HPI is limited secondary to the patient's altered mental status. Source of History: nursing staff Onset: two days or longer Position: other (global) Quality: other (unresponsive) Timing: worsening Review of Systems The ROS is limited secondary to the patient's altered mental status. Past Medical & Surgical Medical Problems: (1) Acute respiratory failure with hypoxia (2) Brain bleed Surgical Problems: (1) H/O craniotomy Family History Patient reports no known family medical history. Social History Smoking Status: Unknown if Ever Smoked Marital Status: Housing Status: assisted living Occupation Status: retired Current/Historical Medications Scheduled Acetaminophen (Tylenol), 650 MG PO BID Atorvastatin (Lipitor), 20 MG PO HS Ferrous Sulfate (Ferrous Sulfate), 220 MG PO TID Lansoprazole (Prevacid Solutab), 15 MG PO QAM Levetiractam (Levetiracetam), 1,000 MG PO AMHS Potassium Ext Rel (Klor-Con), 20 MEQ PO DAILY Scheduled PRN Acetaminophen (Tylenol), 650 MG PO Q6H PRN for Pain or Fever Acetaminophen (Tylenol), 650 MG RI Q6H PRN for Pain or Fever Magnesium Hydroxide (Milk of Magnesia), 30 ML PO DAILY PRN for NO BM IN 3 DAYS. Menthol-Methyl Salicylate (Vonda (Bengay Greaseless), 1 APPLN TD Q8 PRN for RIGHT RIB PAIN Sodium Phosphate/Biphosphate (Fleet Enema), 1 EA RI DAILY PRN for NO BM IN 3 DAYS. Allergies Coded Allergies: Ferrous Sulfate (Verified Allergy, Unknown, CENTRE CREST LIST, 08/16/17) Penicillins (Verified Allergy, Unknown, CENTRE CREST LIST, 08/16/17) Physical Exam Vital Signs Date Time Temp Pulse Resp B/P (MAP) Pulse Ox O2 Delivery O2 Flow Rate FiO2 08/25/17 18:20 130/107 08/25/17 18:19 111 25 98 08/25/17 18:15 134/96 08/25/17 18:14 113 25 100 08/25/17 18:11 146/100 08/25/17 18:09 110 17 92 08/25/17 18:05 117/87 08/25/17 18:04 109 24 97 08/25/17 18:03 108 24 100/80 98 Mechanical Ventilator 08/25/17 18:00 100/81 08/25/17 17:59 108 25 98 08/25/17 17:57 115/85 08/25/17 17:54 109 24 91 08/25/17 17:49 0 08/25/17 17:44 0 08/25/17 17:39 0 08/25/17 17:36 100 08/25/17 17:34 26 08/25/17 17:30 124/82 08/25/17 17:29 20 08/25/17 17:25 125/89 08/25/17 17:24 105 30 97 08/25/17 17:21 38.2 110 118/79 94 Mechanical Ventilator 08/25/17 17:20 118/79 08/25/17 17:19 106 28 95 08/25/17 17:17 114 21 119/80 94 Mechanical Ventilator 08/25/17 17:15 119/80 08/25/17 17:14 120 23 84 08/25/17 17:11 127 26 118/86 Mechanical Ventilator 08/25/17 17:11 118/86 08/25/17 17:09 121 22 79 08/25/17 17:04 129 24 08/25/17 17:02 89 Non-Rebreather 15.0 08/25/17 17:02 38.7 130 28 123/85 77 Room Air 08/25/17 17:00 135 27 114/81 88 Ambu-Bag 08/25/17 17:00 114/81 08/25/17 16:59 132 08/25/17 16:59 136 0 86 08/25/17 16:54 120 0 90 08/25/17 16:53 116/84 08/25/17 16:44 119 26 88 08/25/17 16:42 91 08/25/17 16:30 123/85 Physical Exam GENERAL: Patient is in no acute distress. HEENT: No acute trauma, normocephalic atraumatic, mucous membranes remarkably dry, no nasal congestion, no scleral icterus, pupils are equal round and reactive to light. NECK: No stridor, no adenopathy, no meningismus, trachea is midline. LUNGS: Decreased breath sounds on the right. Left lung seems clear. No wheezing or rhonchi. HEART: Tachycardic with a subtle systolic murmur and a regular rhythm. ABDOMEN: Soft, nontender, bowel sounds positive, no hernias, no peritonitis. EXTREMITIES: No cyanosis or edema, full range of motion of all the joints without pain or difficulty, no signs for acute trauma. NEUROLOGIC: Opens eyes to pain or loud voice. Nonverbal. Does not follow commands. Does move all extremities. SKIN: No rash, no jaundice, no diaphoresis. Medical Decision & Procedures ER Provider Diagnostic Interpretation: Radiology results as stated below per my review and radiologist interpretation: CHEST ONE VIEW PORTABLE HISTORY: 61 years-old Female Sepsis acute sepsis with respiratory failure. COMPARISON: Chest radiograph 08/16/2017 TECHNIQUE: Portable AP view of the chest FINDINGS: The patient is rotated to the right. Endotracheal tube overlies the expected region of the trachea terminating 2.8 cm superior to the luann. Cardiac silhouette is within normal limits. There is no pneumothorax, pleural effusion, focal airspace consolidation or overt pulmonary edema. Increased density of the left hemithorax compared to the right is likely secondary to patient rotation. Degenerative changes are noted about the shoulders and spine. IMPRESSION: 1. Limited study secondary to patient positioning. 2. Endotracheal tube overlies the midline, 2.8 cm superior to the luann. 3. No acute process of the chest identified. The above report was generated using voice recognition software. It may contain grammatical, syntax or spelling errors. Electronically signed by: Scar Dillon M.D. 08/25/2017 5:33 PM Dictated Date/Time: 08/25/2017 5:[address] SCAN OF THE BRAIN WITHOUT IV CONTRAST CLINICAL HISTORY: Change in mental status. COMPARISON STUDY: CT of the brain dated 08/16/2017. TECHNIQUE: Unenhanced axial CT scan of the brain is performed from the vertex to the skull base. A dose lowering technique was utilized adhering to the principles of ALARA. The examination is degraded by streak artifact from metallic surgical hardware. CT DOSE: 724.83 mGy.cm FINDINGS: Brain parenchyma: Foci of bitemporal encephalomalacia are consistent with remote insults. There are age-related involutional changes noting advanced confluent subcortical and periventricular microangiopathic change. There is no hemorrhage, mass effect, or evidence of acute territorial ischemia by CT criteria. Reveles-white matter is preserved. No extra-axial fluid collection is seen. Postoperative changes, possibly representing aneurysm coils are present in the suprasellar region bilaterally. Ventricles, sulci, cisterns: Prominent secondary to involutional change. Intracranial vasculature: There is atherosclerotic calcification of the cavernous carotid and vertebral arteries. Calvarium: There are postoperative changes from right temporal craniectomy, left temporal craniotomy, and right frontoparietal craniotomy. Sinuses and mastoids: The visualized paranasal sinuses are clear. There is a small right mastoid effusion. The left mastoid air cells are well pneumatized. Orbits: The bony orbits are grossly intact. There are bilateral ocular lens implants. IMPRESSION: 1. There is no hemorrhage, mass effect, or evidence of acute territorial ischemia by CT criteria. There has been no significant change from 08/16/2017. 2. Chronic and postoperative changes as above. Electronically signed by: Angel Anders M.D. 08/25/2017 5:55 PM Dictated Date/Time: 08/25/2017 5:52 PM ABDOMEN AND PELVIS CT WITH IV CONTRAST CT DOSE: 447.61 mGy.cm HISTORY: Acute generalized abdominal pain ABD PAIN, POSS divertic, IV CONTRAST ONLY TECHNIQUE: Multiaxial CT images of the abdomen and pelvis were performed following the use of intravenous contrast. A dose lowering technique was utilized adhering to the principles of ALARA. COMPARISON STUDY: None. FINDINGS: Mucous plugging of the right lower lobe is noted with centrilobular nodules and patchy subsegmental dependent consolidation. 3 mm solid noncalcified nodule of the basal left lower lobe is noted. There is no pneumatosis or pneumoperitoneum identified. The imaged inferior cardiac chambers are unremarkable. Gallbladder is mildly distended with cholelithiasis. No CT evidence of acute cholecystitis. The liver, spleen, pancreas and right adrenal gland are unremarkable. There is minimal thickening of the left adrenal gland. There are several calculi noted within the left renal pelvis measuring up to 7 mm without obstruction. Layering calculi are also seen within the right renal pelvis measuring up to 4 mm. Nonobstructing calculi of the inferior pole right kidney measure up to 4 mm. No definite obstructing ureteral calculi. Resendiz catheter is noted within the urinary bladder with significant amount of nondependent urinary bladder air. Calcifications of the pelvis suggest phleboliths. Moderate atherosclerosis of the aorta without aneurysm. No bulky adenopathy. Graft there is no bowel obstruction identified. Large stool ball the rectum is noted with moderate volume of formed stool seen throughout the remainder of the colon. Moderate sigmoid colon diverticulosis without CT evidence of acute diverticulitis. No evidence of acute appendicitis. There is asymmetrically increased size of the right. Form a small subtle with minimal surrounding stranding. The remaining soft tissues are unremarkable. Healing nondisplaced subacute appearing fracture of the anterior right seventh rib. Bones appear osteoporotic. Chronic appearing fracture of the left inferior pubic ramus. IMPRESSION: 1. Constipation without evidence of bowel obstruction or focal bowel wall thickening. 2. Diverticulosis without CT evidence of acute diverticulitis. 3. Mildly distended gallbladder with cholelithiasis. No CT evidence of acute cholecystitis. 4. Asymmetrically enlarged right piriformis muscle with minimal adjacent stranding suggests piriformis syndrome. 5. Healing subacute appearing fracture of the anterior right seventh rib. 6. Bilateral nonobstructing nephrolithiasis with nonobstructing calculi seen within the bilateral renal pelves. 7. Air within the urinary bladder lumen is likely secondary to instrumentation with Resendiz catheter. Correlate with urinalysis to exclude cystitis. 8. Mucus plugging of the right lower lobe bronchi with centrilobular nodules and dependent subsegmental consolidative opacities suggesting pneumonitis. Electronically signed by: Scar Dillon M.D. 08/25/2017 6:09 PM Dictated Date/Time: 08/25/2017 5:56 PM Laboratory Results 08/25/17 16:06 Red Blood Count 5.11, Mean Corpuscular Volume 94.9, Mean Corpuscular Hemoglobin 30.3, Mean Corpuscular Hemoglobin Concent 32.0, Mean Platelet Volume 11.3, Neutrophils (%) (Auto) 86.6, Lymphocytes (%) (Auto) 3.8, Monocytes (%) (Auto) 9.2, Eosinophils (%) (Auto) 0.0, Basophils (%) (Auto) 0.1, Neutrophils # (Auto) 17.01, Lymphocytes # (Auto) 0.74, Monocytes # (Auto) 1.81, Eosinophils # (Auto) 0.00, Basophils # (Auto) 0.02 08/25/17 16:06 Test 08/25/17 16:06 08/25/17 16:45 08/25/17 17:19 08/25/17 17:29 White Blood Count 19.64 K/uL (4.8-10.8) Red Blood Count 5.11 M/uL (4.2-5.4) Hemoglobin 15.5 g/dL (12.0-16.0) Hematocrit 48.5 % (37-47) Mean Corpuscular Volume 94.9 fL (80-100) Mean Corpuscular Hemoglobin 30.3 pg (25-34) Mean Corpuscular Hemoglobin Concent 32.0 g/dl (32-36) Platelet Count 400 K/uL (130-400) Mean Platelet Volume 11.3 fL (7.4-10.4) Neutrophils (%) (Auto) 86.6 % Lymphocytes (%) (Auto) 3.8 % Monocytes (%) (Auto) 9.2 % Eosinophils (%) (Auto) 0.0 % Basophils (%) (Auto) 0.1 % Neutrophils # (Auto) 17.01 K/uL (1.4-6.5) Lymphocytes # (Auto) 0.74 K/uL (1.2-3.4) Monocytes # (Auto) 1.81 K/uL (0.11-0.59) Eosinophils # (Auto) 0.00 K/uL (0-0.5) Basophils # (Auto) 0.02 K/uL (0-0.2) RDW Standard Deviation 47.3 fL (36.4-46.3) RDW Coefficient of Variation 13.7 % (11.5-14.5) Immature Granulocyte % (Auto) 0.3 % Immature Granulocyte # (Auto) 0.06 K/uL (0.00-0.02) Prothrombin Time 15.3 SECONDS (9.0-12.0) Prothromb Time International Ratio 1.5 (0.9-1.1) Activated Partial Thromboplast Time 28.3 SECONDS (21.0-31.0) Partial Thromboplastin Ratio 1.1 Anion Gap 11.0 mmol/L (3-11) Est Creatinine Clear Calc Drug Dose 51.4 ml/min Estimated GFR () 78.9 Estimated GFR (Non- 68.1 BUN/Creatinine Ratio 53.5 (10-20) Calcium Level 10.0 mg/dl (8.5-10.1) Phosphorus Level 3.1 mg/dl (2.5-4.9) Magnesium Level 2.8 mg/dl (1.8-2.4) Total Bilirubin 0.5 mg/dl (0.2-1) Aspartate Amino Transf (AST/SGOT) 22 U/L (15-37) Alanine Aminotransferase (ALT/SGPT) 17 U/L (12-78) Alkaline Phosphatase 90 U/L (45-117) Total Protein 8.3 gm/dl (6.4-8.2) Albumin 3.3 gm/dl (3.4-5.0) Globulin 5.0 gm/dl (2.5-4.0) Albumin/Globulin Ratio 0.7 (0.9-2) Lipase 77 U/L (73-393) Procalcitonin 0.14 ng/ml (0-0.5) Thyroid Stimulating Hormone (TSH) 1.010 uIu/ml (0.300-4.500) Urine Color DK YELLOW Urine Appearance TURBID (CLEAR) Urine pH 5.0 (4.5-7.5) Urine Specific [place] 1.024 (1.000-1.030) Urine Protein 1+ (NEG) Urine Glucose (UA) NEG (NEG) Urine Ketones TRACE (NEG) Urine Occult Blood 3+ (NEG) Urine Nitrite NEG (NEG) Urine Bilirubin NEG (NEG) Urine Urobilinogen NEG (NEG) Urine Leukocyte Esterase SMALL (NEG) Urine WBC (Auto) 1-5 /hpf (0-5) Urine RBC (Auto) >30 /hpf (0-4) Urine Hyaline Casts (Auto) 10-30 /lpf (0-5) Urine Epithelial Cells (Auto) 20-30 /lpf (0-5) Urine Bacteria (Auto) 3+ (NEG) Urine Crystals (NONE PRSENT) Bedside Hemoglobin 12.6 g/dl (12.0-16.0) Bedside Hematocrit 37 % (37-47) Bedside Sodium 152 mEq/L (135-144) Bedside Potassium 3.7 mEq/L (3.3-5.0) Bedside Lactic Acid Venous 3.15 mmol/L (0.90-1.70) Test 08/25/17 17:34 Influenza Type A (RT-PCR) Neg for Influ A (NEG) Influenza Type B (RT-PCR) Neg for Influ B (NEG) Laboratory results reviewed by me. Medications Administered Medications (Trade) Dose Ordered Sig/Larry Route Start Time Stop Time Status Last Admin Dose Admin Sodium Chloride 1,000 ml @ 999 mls/hr Q1H1M ONCE IV 08/25/17 16:37 08/25/17 17:37 DC 08/25/17 16:37 999 MLS/HR Vancomycin HCl (Vancomycin 1gm Ed/Asu Omnicell) 1 gm ONE STAT IV 08/25/17 16:37 08/25/17 16:42 DC 08/25/17 17:26 1 GM Cefepime HCl 2000 mg/Dextrose 112.5 ml @ 200 mls/hr ONE STAT IV 08/25/17 16:37 08/25/17 17:10 DC 08/25/17 17:29 200 MLS/HR Acetaminophen (Tylenol Supp) 975 mg NOW STAT RI 08/25/17 16:44 08/25/17 16:45 DC 08/25/17 16:44 975 MG Sodium Chloride 1,000 ml @ 999 mls/hr Q1H1M STAT IV 08/25/17 17:03 08/25/17 18:03 DC 4/10/18 17:03 999 MLS/HR Lorazepam (Ativan Inj) 0.5 mg NOW STAT IV 08/25/17 17:10 08/25/17 17:11 DC 08/25/17 17:56 0.5 MG Propofol (Diprivan Iv Emulsion 100ml Vial) 1 dose STK-MED ONCE IV 08/25/17 18:27 08/25/17 18:28 DC 08/25/17 18:31 1 DOSE Sodium Chloride 500 ml @ 999 mls/hr Q31M STAT IV 08/25/17 18:27 08/25/17 18:57 DC 08/25/17 18:33 999 MLS/HR Lidocaine HCl (Buffered Lidocaine 1% Inj) 20 ml STK-MED ONCE INFIL 08/25/17 18:42 08/25/17 18:43 DC 08/25/17 18:51 20 ML Fentanyl Citrate (Fentanyl Inj) 100 mcg STK-MED ONCE .ROUTE 08/25/17 18:45 08/25/17 18:46 DC 08/25/17 18:51 100 MCG Procedure Endotracheal Intubation Indication Hypoxia. The patient was on 100% oxygen via NRB prior to the procedure. Suction, airway equipment, RSI drugs, respiratory equipment, and appropriate personnel were prepared prior to the initiation of the procedure. A time out was taken. Induction was performed with 10 mg of Etomidate and 80 mg of Succinyl Choline. After observing the clinical benefit of the medications, the airway was easily visualized utilizing a Heath 2 blade. A 7.5 size ETT tube was placed atraumatically to 23 cm using standard technique. The cuff inflated without signs of malfunction. There were bilateral breath sounds, positive colormetric change, no gastric sounds, a good capnography waveform, and post procedure pulse oximetry was 95%. Post intubation sedation was administered using IV Ativan 0.5 mg and eventually a Propofol drip. There were no complications. ECG Per My Interpretation Indication: altered mental status Rate (beats per minute): 123 Rhythm: sinus tachycardia Findings: no ectopy, other (No ST elevation, No PVCs) ED Course 1626: The patient was evaluated in room A09B. A complete history and physical exam was performed. 1637: Ordered Cefepime HCl 2000 mg/Dextrose 112.5 ml @ 200 mls/hr IV, Vancomycin HCl 1 gm IV, Sodium Chloride 1000 ml @ 999 mls/hr IV. 1644: Ordered Acetaminophen 975 mg RI. 1651: I performed a endotracheal intubation. See procedure notes for further detail. 1703: Ordered Sodium Chloride 1000 ml @ 999 mls/hr IV. 1710: Ordered Lorazepam 0.5 mg IV. 1718: I discussed the patient's case with Dr. Kaur, [facility] Social Work Program Coordinator. He understands the patient's condition and agrees to further evaluate the patient. He reports that while the patient is at CT, she should get a CT of her abdomen. 1731: Dr. Kaur is in the room at the patient's bedside. He reports he will accept the patient. 1738: I discussed the patient's case with Dr. Pink, [facility] Hospitalist. She understands the patient's condition and agrees to accept the patient. The patient will be further evaluated. 1828: Ordered Propofol 1 dose IV. Medical Decision The patient is a 61 year old female who presents to the Emergency Room with complaints of worsening altered mental status that began at least two days ago. Differential diagnoses considered include sepsis, pneumonia, UTI, dehydration , electrolyte imbalance., renal failure, stroke, intracranial bleeding. There is a significant leukocytosis at 19,000, this is consistent with infection. No worrisome anemia. Lactic acid level is quite elevated at over 3. Renal panel testing shows a mild hypernatremia. No kidney failure. No hepatitis. INR was slightly elevated at 1.5. Urinalysis is suggestive of possible infection, urine culture is pending. Blood cultures are pending. Influenza testing returned negative. Chest film did not show pneumonia or CHF. Brain CT showed no acute bleed or mass-effect. Abdominal CT showed a distended gallbladder, no evidence for an acute surgical process, no abscess. A potential pneumonia was noted on the abdominal and pelvis CT in the right lower lung. ABG does not show acidosis. The patient presented hypoxic. She had a change in mental status to the point where she could not verbalize. I was concerned about her airway. Intubation was performed as noted above without difficulty. I should note a large mucous plug was removed from the area around her vocal cords. She had 3 peripheral lines placed. A Resendiz catheter was placed to monitor urine output. She received 2.5 L of IV saline for hydration. She was given IV cefepime and IV vancomycin. She was given IV Ativan and eventually placed on a Propofol drip. She received rectal Tylenol for her fever. The patient was aggressively managed. Her heart rate has decreased, her O2 saturation is now adequate. She is tolerating the ventilator. Her blood pressure is reasonable. I discussed the case with the special services director, I did talk to the hospitalist as well. Case management has been involved. Admission/observation is required. She is septic, the source is unclear, although, with the hypoxia, the lung seems the most likely culprit. Medication Reconcilliation Current Medication List: was personally reviewed by me Blood Pressure Screening Patient's blood pressure: Elevated blood pressure Referred To Hospitalist. Consults Time Called: 1718 Consulting Physician: Dr. Kaur [facility] Social Work Program Coordinator Returned Call: 1718 I discussed the patient's case with Dr. Kaur [facility] Social Work Program Coordinator. He understands the patient's condition and agrees to further evaluate the patient. He reports that while the patient is at CT, she should get a CT of her abdomen. Additional Consults: Time Called: 1731 Consulted Physician: Dr. Kaur [facility] Social Work Program Coordinator Returned Call: 1731 Additional Comments: Dr. Kaur is in the room at the patient's bedside. He reports he will accept the patient. Time Called: 1738 Consulted Physician: Dr. Pink, [facility] Hospitlaist Returned Call: 1738 Additional Comments: I discussed the patient's case with Dr. Pink [facility] Hospitalist. She understands the patient's condition and agrees to accept the patient. The patient will be further evaluated. Impression Primary Impression: Respiratory failure Additional Impressions: Sepsis Tachycardia Dehydration Change in mental status Critical Care I have personally spent greater than 40 minutes of critical care time in the direct management of this patient. This includes bedside care, interpretation of diagnostic studies, and testing, discussion with consultants, patient, and family members, and other required patient management activities. This 40 minutes is in excess of all separately billable procedures. Scribe Attestation The scribe's documentation has been prepared under my direction and personally reviewed by me in its entirety. I confirm that the note above accurately reflects all work, treatment, procedures, and medical decision making performed by me. Departure Information Dispostion Being Evaluated By Hospitalist [facility] (PCP) Problem Qualifiers
[2017-08-25] MEDS ORDERED: PIPERACILL/TAZOBAC CONSULT ACTIVE PRN (19:00)
[2017-08-25] MEDS ORDERED: PIPERACILL/TAZOBAC IV 4.5 GM in DEXTROSE 5% 100ML 100 ML IV SCH (19:00)
[2017-08-25 19:15] LABS: PHOSPHORUS 3.1 mg/dl (2.5-4.9)
[2017-08-25] MEDS ORDERED: LACTATED RINGER'S 1000ML 1,000 ML IV ONE (19:30)
--- NOTE | 2017-08-25 19:40 | Procedure Note ---
Procedure Note Date of Service Aug 25, 2017. Procedure Note Critical Care Medicine Procedure Date: August 25, 2017 Procedure: Lumbar puncture Pre-procedure Diagnosis: Altered mental status, febrile illness, acute encephalopathy Post-procedure Diagnosis: same as above Prior to Procedure: Informed Consent: The risks, benefits, indications, potential complications, and alternatives were explained to the family and informed consent obtained, via telephone as the patient is intubated and unable to consent patient's daughter Poppy provided consent Attending Staff: Michelle Kaur DO Resident/Physician Community Outreach Director: Jerman Sweet Indications: Claudia Mcgee is a 61-year-old female patient with who presents from a outside nursing facility after 2 day history of reported decreased mental status. She has a history of brain aneurysms status post clipping and coiling along with intracranial hemorrhage The identity of the patient was confirmed and a bedside time out was performed. Description of Procedure: Patient was positioned in the right lateral decubitus position, prepped and draped in usual sterile fashion. The L5-S1 space located with bilateral iliac crests as landmarks. 1% Lidocaine without epinephrine was used to anesthetize the area. A 18 gauge spinal needle was introduced into the subarachnoid space. Stylet was removed with appropriate fluid return. Needle removed after adequate fluid collected and sterile bandage placed at puncture site. 8 mL of CSF fluid collected. Fluid was colorless. Specimen(s): sent for Gram Stain, culture, cell count, glucose, protein Lyme titers Complications: None Findings: Clear CSF without xanthochromia Estimated Blood Loss: trace
[2017-08-25] MEDS ORDERED: VANCOMYCIN CONSULT ACTIVE PRN (19:45)
[2017-08-25] MEDS: ENOXAPARIN 40 MG/0.4 ML SYR SQ SCH (21:20)
[2017-08-25] MEDS: LACTATED RINGER'S 1000ML 1,000 ML IV SCH (21:21)
--- NOTE | 2017-08-25 21:48 | EEG Procedure Note ---
EEG Procedure Note Date of Service Aug 25, 2017. Start / End Times Start Time: 2052 End Time: [address] Kaur History 61 year old with unresponsive state Home Medication List Scheduled Acetaminophen (Tylenol), 650 MG PO BID Atorvastatin (Lipitor), 20 MG PO HS Ferrous Sulfate (Ferrous Sulfate), 220 MG PO TID Lansoprazole (Prevacid Solutab), 15 MG PO QAM Levetiractam (Levetiracetam), 1,000 MG PO AMHS Potassium Ext Rel (Klor-Con), 20 MEQ PO DAILY Scheduled PRN Acetaminophen (Tylenol), 650 MG PO Q6H PRN for Pain or Fever Acetaminophen (Tylenol), 650 MG ND Q6H PRN for Pain or Fever Magnesium Hydroxide (Milk of Magnesia), 30 ML PO DAILY PRN for NO BM IN 3 DAYS. Menthol-Methyl Salicylate (Vonda (Bengay Greaseless), 1 APPLN TD Q8 PRN for RIGHT RIB PAIN Sodium Phosphate/Biphosphate (Fleet Enema), 1 EA ND DAILY PRN for NO BM IN 3 DAYS. Inpatient Medication List Current Inpatient Medications Medications (Trade) Dose Ordered Sig/Larry Route Start Time Stop Time Status Last Admin Dose Admin Ioversol (Optiray 320) 95 ml UD PRN IV 08/25/17 18:00 08/29/17 17:59 Propofol (Diprivan Iv Emulsion 100ml Vial) 1 dose UD PRN IV 08/25/17 18:28 08/28/17 18:27 Enoxaparin Sodium (Lovenox Inj) 40 mg Q24H SQ 08/25/17 21:00 09/24/17 20:59 08/25/17 21:20 40 MG Acetaminophen (Tylenol Tab) 650 mg Q4H PRN PO 08/25/17 18:45 09/24/17 18:44 Pantoprazole Sodium (Protonix Tab) 40 mg DAILY PO 08/26/17 09:00 09/25/17 08:59 Miscellaneous Information (Icu Protocol For Hyperglycemia) 1 ea PRN PRN N/A 08/25/17 18:45 08/27/17 18:44 Lactated Ringer's 1,000 ml @ 125 mls/hr Q8H IV 08/25/17 20:00 08/26/17 11:59 08/25/17 21:21 125 MLS/HR Fentanyl Citrate (Fentanyl Inj) 50 mcg Q1H PRN IV 08/25/17 18:45 09/08/17 18:44 Piperacillin Sod/ Tazobactam Sod 4.5 gm/Dextrose 120 ml @ 200 mls/hr Q6H IV 08/25/17 19:00 09/04/17 18:59 UNV Miscellaneous Information (Consult) 1 ea UD PRN N/A 08/25/17 19:00 09/24/17 18:59 Vancomycin HCl 750 mg/Sodium Chloride 265 ml @ 125 mls/hr Q18H IV 08/26/17 00:00 09/05/17 00:00 Miscellaneous Information (Consult) 1 ea UD PRN N/A 08/25/17 19:45 09/24/17 19:44 Description This is a 21 electrode EEG with a single channel dedicated to limited EKG. The electrodes were placed in accordance with the International 10-20 system. Interpretation The predominate background activity consists of an irregular 6-8 Hz rhythm seen over all head regions. There was superimposed 3-5 Hz activity intermittently. A minimal amount of movement artifact activity was present. No focal abnormalities were present, and no potentially epileptogenic discharges were seen Clinical Correlation The abnormalities seen correlate with a moderate encephalopathy. Clinical correlation is needed.
[2017-08-25] MEDS ORDERED: PIPERACILL/TAZOBAC IV 4.5 GM in NSS 100 ML IV ONE (22:00)
[2017-08-25] MEDS: ACETAMINOPHEN IV 100 ML IV PRN (22:51)
[2017-08-26] VITALS (14 sets, daily range): BP systolic 98–135; BP diastolic 61–90; PULSE 81–105; TEMP 36.3–38.7; O2SAT 95–100; Ht 157.5 cm; Wt 50.7 kg
[2017-08-26] MEDS ORDERED: VANCOMYCIN IV 750 MG in SODIUM CHLORIDE 0.9% 250ML 250 ML IV SCH ×2
[2017-08-26] MEDS: PIPERACILL/TAZOBAC IV 4.5 GM in NSS 100 ML IV SCH ×3 (03:44→19:54)
[2017-08-26] MEDS: LACTATED RINGER'S 1000ML 1,000 ML IV SCH (03:45)
[2017-08-26 05:43] LABS: INR 1.5 (0.9-1.1)
[2017-08-26 06:00] LABS: BASO % 0.1 %; BASO ABS # 0.01 K/uL (0-0.2); HEMATOCRIT 37.8 % (37-47); HEMOGLOBIN 12.1 g/dL (12.0-16.0); IG# 0.04 K/uL (0.00-0.02); LYMPH % 6.2 %; LYMPH ABS # 0.94 K/uL (1.2-3.4); MEAN CELL VOLUME 95.7 fL (80-100); MEAN CORPUSCULAR HEMOGLOBIN 30.6 pg (25-34); MEAN PLATELET VOLUME 11.1 fL (7.4-10.4); MONO ABS # 0.91 K/uL (0.11-0.59); NEUT % 87.4 %; NEUT ABS # 13.21 K/uL (1.4-6.5); PLATELET COUNT 257 K/uL (130-400); RED CELL DISTRIBUTION WIDTH CV 13.8 % (11.5-14.5); RED CELL DISTRIBUTION WIDTH SD 48.3 fL (36.4-46.3); WHITE BLOOD COUNT 15.11 K/uL (4.8-10.8)
[2017-08-26 06:09] LABS: CALCIUM 8.5 mg/dl (8.5-10.1); CREATININE 0.6 mg/dl (0.60-1.20); PHOSPHORUS 2.1 mg/dl (2.5-4.9); POTASSIUM 2.9 mmol/L (3.5-5.1)
[2017-08-26] MEDS ORDERED: POTASSIUM PHOS 3 MMOL/1 ML INFUSION IV STA (06:13)
[2017-08-26] MEDS ORDERED: POTASSIUM PHOSPHATE INJ 15 MMOL in SODIUM CHLORIDE 0.9% 250ML 250 ML IV ONE (06:30)
[2017-08-26] MEDS: POTASSIUM CHLR 10 MEQ / WTR 10 MEQ in PREMIXED WATER 100 ML IV SCH ×2 (06:31→07:37)
--- NOTE | 2017-08-26 07:03 | DIAGNOSTIC IMAGING REPORT ---
CHEST ONE VIEW PORTABLE CLINICAL HISTORY: 61 years-old Female presenting with AMS Resp Fail. TECHNIQUE: Portable upright AP view of the chest was obtained. COMPARISON: 08/25/2017. FINDINGS: Endotracheal tube positioned in the lower thoracic trachea 2.6 cm from the luann. Nasogastric tube descends below the diaphragm. Numerous external leads and tubing projects over the thorax degrade image quality. Cardiac mediastinal silhouette normal. Lungs mildly hyperinflated. Patchy hazy opacity in the right lung base. No large pleural effusion or pneumothorax. IMPRESSION: 1. Patchy infiltrates at the right lung base concerning for pneumonia. 2. Endotracheal tube appropriately positioned. Electronically signed by: Juliano Piedra M.D. 08/26/2017 7:02 AM Dictated Date/Time: 08/26/2017 7:00 AM
[2017-08-26] MEDS ORDERED: POLYETHYLENE (MIRALAX) 17 GM PACK PO STA (08:58)
[2017-08-26] MEDS ORDERED: DEXTROSE 5% 1000ML 1,000 ML IV SCH (09:15)
[2017-08-26] MEDS ORDERED: POTASSIUM CHLORIDE 20 MEQ/15 ML UDC PO ONE (09:15)
[2017-08-26] MEDS ORDERED: MINERAL OIL 30 ML UDC PO ONE (09:30)
[2017-08-26] MEDS: LEVETIRACETAM ORAL SOLN 100MG/ML PO SCH ×2 (11:05→21:01)
[2017-08-26] MEDS ORDERED: POLYETHYLENE (MIRALAX) 17 GM PACK ONE (11:10)
[2017-08-26] MEDS: PANTOprazole SOD 40 MG TAB PO SCH (11:15)
--- NOTE | 2017-08-26 11:27 | Neurology Consultation ---
Neurology Consultation Date of Consultation: Aug 26, 2017. Attending Physician: Sarai Pink D.O. Primary Care Physician: Dyan Campbell Reason for Consultation: Patient is a 61-year-old, who I was asked to see at the request of Dr. Kaur , for neurologic consultation regarding encephalopathy and history of intracranial surgery and seizure disorder History of Present Illness Source: patient, caregiver, hospital records This patient is a resident of [facility]. Apparently her history, of which I have no details, is that she had an aneurysm clipping or coiling in the past including KONRAD and right supraclinoid. Apparently she had a subarachnoid hemorrhage in January of 2017. I have no records of any of these procedures or events. She is on levetiracetam 1000 mg twice a day for seizures but I do not know the seizure history. She came in to our emergency room August 16 and was diagnosed with a UTI. Patient apparently had been declining with altered mental status for couple of days. She has been more confused and sleepy and less responsive. Apparently she fell and hit her forehead a day or so before admission. She was brought to the emergency room August 25 at 1630 hours. Temperature was 38.7, blood pressure 123/85, and O2 saturation 77% on room air. CT scan of the head showed old postop changes and nothing acute. Chest x-ray and no acute changes White count was elevated and she was not anemic. BUN was mildly elevated Chem profile was otherwise unremarkable. TSH was normal. When she was intubated they noted material on her larynx and had to be removed. There is a question that she had aspirated. EEG last evening showed moderate generalized dysrhythmia and slowing without focal abnormalities or spikes. This morning the patient was extubated and she is following commands and speaking. She has no complaint of pain or headache. She has no chest pain or abdominal pain. She does not have a sore throat. She is not dizzy and has no new vision problems. Past Medical/Surgical History Medical Problems: (1) Change in mental status Status: Acute (2) Dehydration Status: Acute (3) Respiratory failure Status: Acute (4) Sepsis Status: Acute (5) Tachycardia Status: Acute (6) Urinary tract infection Status: Acute History of subarachnoid hemorrhage January of 2017. History of multiple [employer] aneurysms clipped or coiled. Seizures secondary to above History of vitamin-D deficiency Family History I can obtain no family history from the patient. Social History I can gather no history regarding her previous occupation Smoking Status: Unknown if ever smoked Smokeless Tobacco Use: No Alcohol Use: none Drug Use: none Marital Status: Housing Status: assisted living Occupation Status: retired Allergies Coded Allergies: Ferrous Sulfate (Verified Allergy, Unknown, CENTRE CREST LIST, 08/16/17) Penicillins (Verified Allergy, Unknown, CENTRE CREST LIST, 08/16/17) Current Inpatient Medications Current Inpatient Medications Medications (Trade) Dose Ordered Sig/Larry Route Start Time Stop Time Status Last Admin Dose Admin Ioversol (Optiray 320) 95 ml UD PRN IV 08/25/17 18:00 08/29/17 17:59 Propofol (Diprivan Iv Emulsion 100ml Vial) 1 dose UD PRN IV 08/25/17 18:28 08/28/17 18:27 Enoxaparin Sodium (Lovenox Inj) 40 mg Q24H SQ 08/25/17 21:00 09/24/17 20:59 08/25/17 21:20 40 MG Acetaminophen (Tylenol Tab) 650 mg Q4H PRN PO 08/25/17 18:45 09/24/17 18:44 Pantoprazole Sodium (Protonix Tab) 40 mg DAILY PO 08/26/17 09:00 09/25/17 08:59 Miscellaneous Information (Icu Protocol For Hyperglycemia) 1 ea PRN PRN N/A 08/25/17 18:45 08/27/17 18:44 Fentanyl Citrate (Fentanyl Inj) 50 mcg Q1H PRN IV 08/25/17 18:45 09/08/17 18:44 Miscellaneous Information (Consult) 1 ea UD PRN N/A 08/25/17 19:00 09/24/17 18:59 Piperacillin Sod/ Tazobactam Sod 4.5 gm/Sodium Chloride 120 ml @ 30 mls/hr Q8H IV 08/26/17 04:00 09/05/17 03:59 08/26/17 03:44 30 MLS/HR Acetaminophen 100 ml @ 400 mls/hr Q8H PRN IV 08/25/17 22:45 09/24/17 22:44 08/25/17 22:51 400 MLS/HR Levetiracetam (Keppra Soln) 1,000 mg BID PO 08/26/17 09:00 09/25/17 08:59 Doxycycline Hyclate 100 mg/ Dextrose 110 ml @ 55 mls/hr BID IV 08/26/17 09:00 09/02/17 08:59 Dextrose 1,000 ml @ 45 mls/hr [id number] IV 08/26/17 09:15 09/25/17 09:14 Polyethylene (Miralax Powder Packet) 17 gm BID PO 08/26/17 21:00 09/25/17 20:59 Review of Systems Constitutional: + weakness, + fatigue Eyes: No worsening of vision ENT: No hearing loss Respiratory: No cough, No shortness of breath Cardiovascular: No chest pain, No palpitations Abdomen: No pain, No nausea Musculoskeletal: No joint pain, No muscle pain Genitourinary - Female: No dysuria, No urinary incontinence Neurologic: + weakness, No memory loss, No numbness/tingling Psychiatric: No depression symptoms Endocrine: + fatigue Hematologic / Lymphatic: No abnormal bleeding/bruising Integumentary: No rash Allergic / Immunologic: No hives Physical Exam Vital Signs (Past 24 Hrs): Date Time Temp Pulse Resp B/P (MAP) Pulse Ox O2 Delivery O2 Flow Rate FiO2 08/26/17 08:00 Mechanical Ventilator 40 08/26/17 08:00 37.5 103 23 121/82 (95) 98 Mechanical Ventilator 40 08/26/17 08:00 40 08/26/17 08:00 Mechanical Ventilator 40 08/26/17 07:05 40 08/26/17 06:02 37.8 94 20 107/75 (86) 95 Mechanical Ventilator 40 08/26/17 05:21 37.8 08/26/17 04:53 60 08/26/17 04:01 38.3 97 20 103/66 (78) 96 Mechanical Ventilator 60 08/26/17 04:01 Mechanical Ventilator 60 08/26/17 04:01 60 08/26/17 02:37 38.2 08/26/17 02:00 38.3 101 20 109/77 (88) 99 Mechanical Ventilator 08/26/17 01:52 80 08/26/17 00:50 38.4 102 20 108/76 (87) 100 Mechanical Ventilator 80 08/26/17 00:01 38.7 105 23 102/69 (80) 100 Mechanical Ventilator 80 08/26/17 00:01 80 08/26/17 00:01 Mechanical Ventilator 80 08/25/17 22:50 80 08/25/17 22:15 38.4 103 25 84/53 (67) 91 08/25/17 22:00 38.3 102 25 82/55 (61) 94 08/25/17 22:00 Mechanical Ventilator 80 08/25/17 21:46 38.2 105 26 88/55 (65) 91 08/25/17 21:15 38.2 111 25 94/78 (84) 78 08/25/17 21:00 38.2 103 23 105/70 (73) 93 08/25/17 20:51 80 08/25/17 20:45 38.2 122 27 99/69 (91) 82 08/25/17 20:30 38.0 108 24 114/68 (81) 94 08/25/17 20:01 80 08/25/17 20:01 Mechanical Ventilator 80 08/25/17 20:01 Mechanical Ventilator 80 08/25/17 20:00 37.9 102 21 88/63 (76) 08/25/17 19:57 37.8 101 22 90/51 98 Mechanical Ventilator 100 08/25/17 19:49 100 08/25/17 19:36 37.4 106 20 95/65 97 08/25/17 19:12 37.4 106 20 95/65 97 Mechanical Ventilator 08/25/17 18:20 130/107 08/25/17 18:19 111 25 98 08/25/17 18:15 134/96 08/25/17 18:14 113 25 100 08/25/17 18:11 146/100 08/25/17 18:09 110 17 92 08/25/17 18:05 117/87 08/25/17 18:04 109 24 97 08/25/17 18:03 108 24 100/80 98 Mechanical Ventilator 08/25/17 18:00 100/81 08/25/17 17:59 108 25 98 08/25/17 17:57 115/85 08/25/17 17:54 109 24 91 08/25/17 17:49 0 08/25/17 17:44 0 08/25/17 17:39 0 08/25/17 17:36 100 08/25/17 17:34 26 08/25/17 17:30 124/82 08/25/17 17:29 20 08/25/17 17:25 125/89 08/25/17 17:24 105 30 97 08/25/17 17:21 38.2 110 118/79 94 Mechanical Ventilator 08/25/17 17:20 118/79 08/25/17 17:19 106 28 95 08/25/17 17:17 114 21 119/80 94 Mechanical Ventilator 08/25/17 17:15 119/80 08/25/17 17:14 120 23 84 08/25/17 17:11 127 26 118/86 Mechanical Ventilator 08/25/17 17:11 118/86 08/25/17 17:09 121 22 79 08/25/17 17:04 129 24 08/25/17 17:02 89 Non-Rebreather 15.0 08/25/17 17:02 38.7 130 28 123/85 77 Room Air 08/25/17 17:00 135 27 114/81 88 Ambu-Bag 08/25/17 17:00 114/81 08/25/17 16:59 132 08/25/17 16:59 136 0 86 08/25/17 16:54 120 0 90 08/25/17 16:53 116/84 08/25/17 16:44 119 26 88 08/25/17 16:42 91 08/25/17 16:30 123/85 Patient is right-handed. The patient is awake and fairly alert. She will follow one-step commands fairly well and is cooperative. She still dates her name and her age. I cannot assess her enough to completely ascertain her fund of knowledge or full orientation. She is too weak and asthenic. Her voice is very soft and very difficult to hear. It is not aphasic or dysarthric otherwise. Her mood is difficult to assess but she does not have any inappropriate mood or affect. The discs are sharp with positive venous pulsations. There are no exudates, hemorrhages, or blood vessel changes seen. Pupils are 3mm bilaterally and reactive to light. Extraocular eye muscles are slow to mood but ultimately intact without nystagmus. She has right greater than left ptosis present. Visual acuity and visual myrick was difficult to assess but seem normal grossly to confrontation. There are no deficits to sensation of the face bilaterally. Corneal reflexes are positive bilaterally. Facial strength and symmetry is normal bilaterally. Hearing seems intact grossly to voice. Palate moves well without asymmetry. There is normal sternocleidomastoid and trapezius strength bilaterally. Tongue is midline with weak strength bilaterally. Neck is with full range of motion without discomfort. There are no cervical bruits. There are no cranial or ocular bruits. Heart is without murmur. Cervical, thoracic, and lumbar spine are nontender to palpation. Gait is not testable as she is bed-bound. Stance is poor in bed. With outstretched arm on the right there is no drift. She cannot raise her left arm. There are no resting, postural, or action tremors. There is no ataxia with [id number] testing on the right. There is good facility and rapid alternating movements in the right hand. There are no abnormal involuntary movements noted. Motor strength is 4/5 with spasticity in the right upper extremity. It is 1-2/ 5 in the left upper extremity and in the legs bilaterally. There is considerable spasticity in all limbs and contractures at the knees and in the left hand. The limbs have increased tone with spasticity, and there is marked distal atrophy noted diffusely. Muscle bulk is quite thin, there is no tenderness, no myotonia noted to percussion, and no fasciculations seen. Sensory examination is intact to pin and touch throughout all four limbs. Reflexes are 2/4 in the biceps, triceps, and brachioradialis tendons bilaterally. Quadriceps and Achilles tendon reflexes are absent bilaterally. Toes are upgoing with plantar stimulation bilaterally. Peripheral pulses are present and of normal quality distally in all four limbs. There is no peripheral edema noted. Laboratory Results Past 24 Hours: 08/26/17 05:12 Red Blood Count 3.95, Mean Corpuscular Volume 95.7, Mean Corpuscular Hemoglobin 30.6, Mean Corpuscular Hemoglobin Concent 32.0, Mean Platelet Volume 11.1, Neutrophils (%) (Auto) 87.4, Lymphocytes (%) (Auto) 6.2, Monocytes (%) (Auto) 6.0, Eosinophils (%) (Auto) 0.0, Basophils (%) (Auto) 0.1, Neutrophils # (Auto) 13.21, Lymphocytes # (Auto) 0.94, Monocytes # (Auto) 0.91, Eosinophils # (Auto) 0.00, Basophils # (Auto) 0.01 08/26/17 05:12 Test 08/25/17 16:06 08/25/17 16:45 08/25/17 17:19 08/25/17 17:29 Activated Partial Thromboplast Time 28.3 SECONDS (21.0-31.0) Partial Thromboplastin Ratio 1.1 Total Bilirubin 0.5 mg/dl (0.2-1) Aspartate Amino Transf (AST/SGOT) 22 U/L (15-37) Alanine Aminotransferase (ALT/SGPT) 17 U/L (12-78) Alkaline Phosphatase 90 U/L (45-117) Total Protein 8.3 gm/dl (6.4-8.2) Albumin 3.3 gm/dl (3.4-5.0) Globulin 5.0 gm/dl (2.5-4.0) Albumin/Globulin Ratio 0.7 (0.9-2) Lipase 77 U/L (73-393) Procalcitonin 0.14 ng/ml (0-0.5) Thyroid Stimulating Hormone (TSH) 1.010 uIu/ml (0.300-4.500) Urine Color DK YELLOW Urine Appearance TURBID (CLEAR) Urine pH 5.0 (4.5-7.5) Urine Specific [place] 1.024 (1.000-1.030) Urine Protein 1+ (NEG) Urine Glucose (UA) NEG (NEG) Urine Ketones TRACE (NEG) Urine Occult Blood 3+ (NEG) Urine Nitrite NEG (NEG) Urine Bilirubin NEG (NEG) Urine Urobilinogen NEG (NEG) Urine Leukocyte Esterase SMALL (NEG) Urine WBC (Auto) 1-5 /hpf (0-5) Urine RBC (Auto) >30 /hpf (0-4) Urine Hyaline Casts (Auto) 10-30 /lpf (0-5) Urine Epithelial Cells (Auto) 20-30 /lpf (0-5) Urine Bacteria (Auto) 3+ (NEG) Urine Crystals (NONE PRSENT) Bedside Hemoglobin 12.6 g/dl (12.0-16.0) Bedside Hematocrit 37 % (37-47) Bedside Sodium 152 mEq/L (135-144) Bedside Potassium 3.7 mEq/L (3.3-5.0) Bedside Lactic Acid Venous 3.15 mmol/L (0.90-1.70) Test 08/25/17 17:34 4/10/18 19:00 08/26/17 05:04 08/26/17 05:12 Influenza Type A (RT-PCR) Neg for Influ A (NEG) Influenza Type B (RT-PCR) Neg for Influ B (NEG) CSF Color COLORLESS CSF Appearance CLEAR CSF WBC 2 /uL (0-5) CSF RBC 4 /uL (0) CSF Xanthrochromic NO XANTHOCHROMIA CSF Cell Count Tube # 4 CSF Chemistry Tube # 1 CSF Glucose 73 mg/dl (40-70) CSF Total Protein 48.0 mg/dl (15.0-45.0) Blood Gas Sample Site L Radial Bedside Blood Gas pH (LAB) 7.39 (7.35-7.45) Bedside Blood Gas pCO2 (LAB) 34 mmHg (35-46) Bedside Blood Gas pO2 (LAB) 105 mmHg (80-95) Bedside Blood Gas HCO3 (LAB) 21 meq/L (19-24) Bedside Blood Gas Total CO2 22 mEq/l (24-31) Bedside Blood Gas Base Excess (LAB) -4.0 meq/L (-9-1.8) Bedside Blood Gas O2 Saturation 98.0 % (90-95) Darian Test Pass Oxygen Delivery Device Ventilator Bedside Oxygen Rate (breaths/min) 20 Blood Gas Minute Ventilation 8 Bedside FiO2 60 % Blood Gas Tidal Volume 400 Blood Gas PEEP 8 White Blood Count 15.11 K/uL (4.8-10.8) Red Blood Count 3.95 M/uL (4.2-5.4) Hemoglobin 12.1 g/dL (12.0-16.0) Hematocrit 37.8 % (37-47) Mean Corpuscular Volume 95.7 fL (80-100) Mean Corpuscular Hemoglobin 30.6 pg (25-34) Mean Corpuscular Hemoglobin Concent 32.0 g/dl (32-36) Platelet Count 257 K/uL (130-400) Mean Platelet Volume 11.1 fL (7.4-10.4) Neutrophils (%) (Auto) 87.4 % Lymphocytes (%) (Auto) 6.2 % Monocytes (%) (Auto) 6.0 % Eosinophils (%) (Auto) 0.0 % Basophils (%) (Auto) 0.1 % Neutrophils # (Auto) 13.21 K/uL (1.4-6.5) Lymphocytes # (Auto) 0.94 K/uL (1.2-3.4) Monocytes # (Auto) 0.91 K/uL (0.11-0.59) Eosinophils # (Auto) 0.00 K/uL (0-0.5) Basophils # (Auto) 0.01 K/uL (0-0.2) RDW Standard Deviation 48.3 fL (36.4-46.3) RDW Coefficient of Variation 13.8 % (11.5-14.5) Immature Granulocyte % (Auto) 0.3 % Immature Granulocyte # (Auto) 0.04 K/uL (0.00-0.02) Prothrombin Time 16.1 SECONDS (9.0-12.0) Prothromb Time International Ratio 1.5 (0.9-1.1) Anion Gap 6.0 mmol/L (3-11) Est Creatinine Clear Calc Drug Dose 77.9 ml/min Estimated GFR () 114.0 Estimated GFR (Non- 98.4 BUN/Creatinine Ratio 52.2 (10-20) Calcium Level 8.5 mg/dl (8.5-10.1) Phosphorus Level 2.1 mg/dl (2.5-4.9) Magnesium Level 2.2 mg/dl (1.8-2.4) Test 08/26/17 05:58 08/26/17 09:16 08/26/17 09:17 Bedside Glucose 111 mg/dl (70-90) Lactic Acid Level 3.3 mmol/L (0.4-2.0) Date/Time Source Procedure Growth Status 08/25/17 19:50 Nasal MRSA DNA Surveillance Screen - Final Specimen Negative for MRSA by DNA Probe Complete Impression 1. This patient has a chronic, spastic quadriparesis, left greater than right side likely secondary to [employer] aneurysm procedures and subarachnoid hemorrhage event January of 2011 She has upper motor neuron signs bilaterally. Her voice is weak and she is generally weak. Mental status seems to be reasonable as she is pleasant and cooperative and can answer some questions. I cannot ascertain her full cognitive functioning today. I believe she is probably close to her baseline now but I have never seen her before so I am not sure if she isn't more alert or more functional as a baseline. 2. Acute hypoxia requiring intubation and admission. This has improved. She may have aspirated or had a mucus plug. I am uncertain if her mental status is back to baseline but it may be close. 3. Unknown history of seizures on Keppra. I am not certain if she actually had seizures or the Keppra is prophylactically to prevent seizures in lieu of her [employer] conditions. Plan 1. Continue levetiracetam 1000 mg IV or p.o. b.i.d., for now. 2. Check a trough levetiracetam level tomorrow morning. 3. Will monitor and follow neurologically. We will try to obtain some old records from [facility] as well. I spoke with Dr. Kaur regarding this case. I spent a total of 70 minutes with this case including records review, discussion with clinicians and staff caring for the patient, and direct bedside evaluation of the patient.
--- NOTE | 2017-08-26 11:34 | Progress Note ---
Progress Note Date of Service Aug 26, 2017. Progress Note ID Consult Dictated #[id number] A/P: 1. Pna 2. Leukocytosis 3. Fever -Continue abx, suspect aspiration, gu source less likely with negative ua -Doubt meningitis, follow cultures, continue emperic abx for now -Will follow, thank you
--- NOTE | 2017-08-26 12:01 | INFECT. DISEASE CONSULTATION ---
DATE OF CONSULTATION: 08/26/2017 HISTORY OF PRESENT ILLNESS: This is a 61-year-old female who was admitted from her local nursing facility secondary to a change in mental status yesterday. She recently had an intracranial hemorrhage with coiling in January 2017 and subsequently been at a local nursing facility. She was found to be hypoxic in the Emergency Room and was intubated. She did have a CAT scan, which showed significant mucus plugging. She was suctioned successfully and is now extubated. She remains lethargic. She does shake her head yes to her name, but is nonverbal and unable to provide any review of systems. As part of her workup in the ER, she was found to be febrile with a temperature of 38.4. She had a leukocytosis of 19,000. She was given vancomycin in the ER and then placed on Zosyn and doxycycline. A flu swab was negative. A lactic acid is elevated at 3.3. Procalcitonin, however, is negative. UA is negative. CAT scan of the abdomen and pelvis was unremarkable. Her chest x-ray is unremarkable. She was also found to be hyponatremic. As part of her workup, she did undergo a lumbar puncture, which showed only 2 WBCs. Her Gram stain is negative and culture so far is negative. Blood cultures are pending. She did have an elevated protein and glucose. Urinalysis had +3 bacteria, but no WBCs and a culture is growing E. coli. She remains on antibiotics. Infectious diseases was consulted for antibiotic stewardship. PAST MEDICAL HISTORY: Significant for subarachnoid intracranial bleed, cerebral artery aneurysm, anemia, vitamin D deficiency. SURGICAL HISTORY: Significant for frontoparietal cranioplasty. FAMILY HISTORY: Noncontributory. SOCIAL HISTORY: Significant for history of tobacco use. She currently lives at a nursing facility. ALLERGIES: SHE HAS REPORTED ALLERGIES TO IRON AND PENICILLIN, but is tolerating Zosyn. CURRENT MEDICATIONS: Include MiraLax, Protonix, Keppra, doxycycline, Zosyn, acetaminophen, Tylenol, Fentanyl. PHYSICAL EXAMINATION: VITAL SIGNS: She is currently afebrile, but had significant fevers overnight with a T-max of 38.7, pulse 103, respiratory rate 23, blood pressure 121/82, oxygen saturation was 98% on 40% FIO2. However, she has been recently extubated and is on nasal cannula oxygen. GENERAL: On my exam, she is lethargic, but does respond to her name. She does not follow any commands. She is nonverbal. HEENT: Mucous membranes are dry. I do not elicit any nuchal rigidity. HEART: Regular. LUNGS: Clear with decreased breath sounds at the bases. ABDOMEN: Nondistended. There is no edema. SKIN: Without rash. LABORATORY STUDIES: CBC reveals a white blood cell count of 15.1, hemoglobin 12.1, platelets 257. Chemistry panel reveals a sodium of 151, potassium 2.9, chloride 123, bicarbonate 22, BUN 31, creatinine 0.6, glucose 111. Lactic acid is 3.3. Procalcitonin is negative. LFTs were normal. TSH is 1. Urinalysis is as above. CSF analysis again a clear colorless fluid with only 2 WBCs. Flu swab was negative. A Lyme screen is pending. C. diff is pending. CSF culture, no WBCs, no organisms on Gram stain. A urine culture is growing E. coli. Blood cultures are pending. Chest x-ray this morning shows concerning infiltrates for pneumonia, which is a change from her initial chest x-ray in the ER. ASSESSMENT AND PLAN: 1. Febrile illness. 2. Leukocytosis. Certainly there is a broad differential. I doubt urinary tract infection. She does not have any evidence of pyuria; however, she will remain on empiric antibiotic. She did have significant mucus plugging and hypoxia on admission and I would be more concerned for an aspiration event. I doubt meningitis or Lyme disease based on her CSF findings and her placement at a nursing facility for several months. She will remain on empiric antibiotics and we will follow along with you.
--- NOTE | 2017-08-26 12:02 | DIAGNOSTIC IMAGING REPORT ---
KUB CLINICAL HISTORY: 61 years-old Female presenting with Check feeding tube placement . TECHNIQUE: Upright and supine views of the chest and upper abdomen were obtained. COMPARISON: CT of the abdomen and pelvis from 08/25/2017. FINDINGS: Weighted feeding catheter containing a guidewire is within the left lung, likely lower lobe segmental bronchus. Lungs and pleural spaces grossly clear otherwise. No gross evidence of bowel obstruction in the upper abdomen. Osseous structures normal. IMPRESSION: Weighted feeding catheter positioned in the left lung. Repositioning needed. The report will be called/faxed according to standard departmental protocol. Electronically signed by: Juliano Piedra M.D. 08/26/2017 12:01 PM Dictated Date/Time: 08/26/2017 11:48 AM
[2017-08-26] MEDS: DOXYCYCLINE HYCLATE 100 MG in DEXTROSE 5% 100ML IV SCH ×2 (12:16→21:00)
[2017-08-26 12:25] LABS: CALCIUM 8.7 mg/dl (8.5-10.1); CREATININE 0.6 mg/dl (0.60-1.20); POTASSIUM 3.6 mmol/L (3.5-5.1)
--- NOTE | 2017-08-26 12:32 | DIAGNOSTIC IMAGING REPORT ---
KUB HISTORY: replace feeding tube COMPARISON: KUB 08/26/2017. FINDINGS: The feeding tube is now curled within the body of the stomach. No evidence for bowel obstruction. No renal calculi. No ureteral calculi. No pneumoperitoneum or pneumatosis. IMPRESSION: The feeding tube is curled within the body of the stomach. Electronically signed by: Mark Ray M.D. 08/26/2017 12:30 PM Dictated Date/Time: 08/26/2017 12:30 PM
--- NOTE | 2017-08-26 12:53 | Critical Care Progress Note ---
Critical Care Progress Note Date of Service Aug 26, 2017. ICU Day ICU Day Number: [address] Kaur Subjective Pt is alert and calm after extubation today, which she tolerated well. Pt not able to focus her gaze. Denies any pain, however when asked about her scalp wound, she states she fell a few days ago per nursing. Febrile overnight despite tylenol IV q8. SBP overnight in the 80s, responded well to fluids 2L given. Seen by Dr. Salazar neurology. Suspect neurological deficit is not new given extensive h/o brain aneurysms and idiopathic epilepsy. Objective GENERAL: Awake, alert. HENT: 1 cm laceration on front scalp with out obvious infection of cellulitis with granulation tissue. Oropharynx unremarkable. EYES: Normal conjunctiva. Sclera non-icteric. Eye movements are slow, does not focus on me. NECK: Neck is somewhat rigid, and flexed to the right. No JVD. RESPIRATORY: Coarse breath sounds bilaterally. CARDIAC: Regular rate, normal rhythm. Extremities warm and well perfused. Pulses equal. ABDOMEN: Non-distended. No tenderness to palpation. No rebound or guarding. No masses. LOWER EXTREMITIES: Calves are equal size bilaterally and non-tender. No edema. No discoloration. ACCESS: 2 periph IV's 20, 18 guage respectively in LT arm. RT: 1 IV 20 guage. NEURO: Mildly rigid in extremities, although able to flex at hip for LP. Not actively seizing. SKIN: No rash or jaundice noted. Assessment & Plan (1) Acute respiratory failure with hypoxia (2) Dehydration (3) Respiratory failure (4) Tachycardia (5) Sepsis (6) Change in mental status Reason Critically Ill: 61-year-old female with a significant past medical history of intracranial hemorrhage from cerebral aneurysm requiring craniotomy in Apr 2017, oral phase dysphagia, gait dysfunction and weakness. Presents with septic encephalopathy and acute hypoxic respiratory failure. Neuro - Stable, mildly improved now that she is extubated. RASS 0. H/o idiopathic epilepsy and cerebral aneurysm CAM ICU: NEGATIVE Acute encephalopathy in setting of severe sepsis 2/2 ?metabolic vs encephalitis/meningitis vs CVA/SAH vs electrolyte vs drug-related vs thyrotoxicosis LP consent obtained, performed while in ED by Dr. Kaur. Awaiting CSF results EEG unremarkable. No evidence of active seizure. CT head shows no hemorrhage, mass effect or acute territorial ischemia, compared to CT done 08/16/17. Chronic post op changes right and left temporal/ front parietal craniotomy. Microangiopathic changes. Neurology consulted, appreciate recs. Pt has chronic, spastic quadriparesis, left greater than right side likely secondary to [employer] aneurysm procedures and subarachnoid hemorrhage event January of 2011 with upper motor neuron signs bilaterally. Continue Keppra, check trough. Follow. Cardiac - Improved heart rate, BP remains stable. Pt has no history of cardiac issues per medical records from [facility]. 2 L given overnight, changed today to D5 at lower rate to continue rehydration gently and correct hypernatremia as below. Respiratory - Extubated. Tolerated well. 99L on 2 L NC currently. CXR shows patchy infiltrates on RLL. Will treat as HCAP with Zosyn (day 2 of 7) and Doxy (day 1 of 7) GI - CT abdomen with IV contrast shows no evidence of bowel obstruction or free air. Stool impaction in rectum. 30 ml mineral oil given, miralax BID ordered till has a bowel movement. c. diff toxin pending. RENAL/LYTES - Hypernatremia. Free water deficit 2.1.LR changed to D5 at 45 ml/hr. K repleted. Serial PRP. Replace lytes as needed. - Pt completed treatment for UTI with Cefdinir 300 mg q12H x 7 days, which should have covered the E. coli & Proteus mirabilis found in urine, per pharmacy note. Urine cx preliminary E. coli. Abx as above. Resendiz draining clear urine. ENDO - TSH is normal 1.01 HEME - Leukocytosis trending down. Stable H&H. ID - No briseida evidence of pneumonia on CXR, although did have mucus plug removed via suction per nursing. Monitor fever curve. Elevated lactate 3.3, procal is normal. Vanc and Cefepime x 1 dose given in ED. Changed to Zosyn and Doxy as above. LINES/IV ACCESS - PIVs intact. DVT PROPHYLAXIS - Lovenox sq 40 qdaily CODE STATUS - FULL Thank you for allowing us to be part of this patient's care. Please refer to Dr. Dr. Kaur's documentation for any further recommendations. Resident Physician Supervision Note: Dr. Orion Sweet was resident physician during care of patient. I separately evaluated patient and did history and exam. I discussed the case with the resident and generally agree with the findings and plan. Patient was discussed on multidisciplinary rounds as well as examined on bedside rounds Patient successfully extubated today. Continue antibiotics given recent urinary tract infection and febrile illness, Zosyn and will have urinary coverage as well as possible respiratory coverage. Added doxycycline for atypical coverage discontinue vancomycin Scalp lesion photographed by wound care, granulation tissue and base, later additional history patient reports falling recently this is likely the cause of the scalp lesion. I have personally spent 40 minutes of critical care time in the direct management of this patient. This is a life/limb threatening event. This includes time spent evaluating patient, direct bedside care, chart review, placing orders, interpretation of diagnostic studies, discussion with consultants, patient, and/or family members regarding treatment decisions, as well as other required patient management activities. This time is exclusive of all separately billable procedures, and teaching time and separate from and in addition to any other critical care service time. Documented By: Ajay Kaur DO Consults & Procedures Consultants: Neurology Wound Care Procedures: Intubated 08/25/17 Extubated 08/26/17 EEG 08/25/17 Data Medications: Current Inpatient Medications Medications (Trade) Dose Ordered Sig/Larry Route Start Time Stop Time Status Last Admin Dose Admin Ioversol (Optiray 320) 95 ml UD PRN IV 08/25/17 18:00 08/29/17 17:59 Propofol (Diprivan Iv Emulsion 100ml Vial) 1 dose UD PRN IV 08/25/17 18:28 08/28/17 18:27 Enoxaparin Sodium (Lovenox Inj) 40 mg Q24H SQ 08/25/17 21:00 09/24/17 20:59 08/25/17 21:20 40 MG Acetaminophen (Tylenol Tab) 650 mg Q4H PRN PO 08/25/17 18:45 09/24/17 18:44 Pantoprazole Sodium (Protonix Tab) 40 mg DAILY PO 08/26/17 09:00 09/25/17 08:59 08/26/17 11:15 40 MG Miscellaneous Information (Icu Protocol For Hyperglycemia) 1 ea PRN PRN N/A 08/25/17 18:45 08/27/17 18:44 Fentanyl Citrate (Fentanyl Inj) 50 mcg Q1H PRN IV 08/25/17 18:45 09/08/17 18:44 Miscellaneous Information (Consult) 1 ea UD PRN N/A 08/25/17 19:00 09/24/17 18:59 Piperacillin Sod/ Tazobactam Sod 4.5 gm/Sodium Chloride 120 ml @ 30 mls/hr Q8H IV 08/26/17 04:00 09/05/17 03:59 08/26/17 03:44 30 MLS/HR Acetaminophen 100 ml @ 400 mls/hr Q8H PRN IV 08/25/17 22:45 09/24/17 22:44 08/25/17 22:51 400 MLS/HR Levetiracetam (Keppra Soln) 1,000 mg BID PO 08/26/17 09:00 09/25/17 08:59 08/26/17 11:05 1,000 MG Doxycycline Hyclate 100 mg/ Dextrose 110 ml @ 55 mls/hr BID IV 08/26/17 09:00 09/02/17 08:59 Dextrose 1,000 ml @ 45 mls/hr [id number] IV 08/26/17 09:15 09/25/17 09:14 08/26/17 11:05 45 MLS/HR Polyethylene (Miralax Powder Packet) 17 gm BID PO 08/26/17 21:00 09/25/17 20:59 Vital Signs: Date Time Temp Pulse Resp B/P (MAP) Pulse Ox O2 Delivery O2 Flow Rate FiO2 08/26/17 08:00 Mechanical Ventilator 40 08/26/17 08:00 37.5 103 23 121/82 (95) 98 Mechanical Ventilator 40 08/26/17 08:00 40 08/26/17 08:00 Mechanical Ventilator 40 08/26/17 07:05 40 08/26/17 06:02 37.8 94 20 107/75 (86) 95 Mechanical Ventilator 40 08/26/17 05:21 37.8 08/26/17 04:53 60 08/26/17 04:01 38.3 97 20 103/66 (78) 96 Mechanical Ventilator 60 08/26/17 04:01 Mechanical Ventilator 60 08/26/17 04:01 60 08/26/17 02:37 38.2 08/26/17 02:00 38.3 101 20 109/77 (88) 99 Mechanical Ventilator 08/26/17 01:52 80 08/26/17 00:50 38.4 102 20 108/76 (87) 100 Mechanical Ventilator 80 08/26/17 00:01 38.7 105 23 102/69 (80) 100 Mechanical Ventilator 80 08/26/17 00:01 80 08/26/17 00:01 Mechanical Ventilator 80 08/25/17 22:50 80 08/25/17 22:15 38.4 103 25 84/53 (67) 91 08/25/17 22:00 38.3 102 25 82/55 (61) 94 08/25/17 22:00 Mechanical Ventilator 80 08/25/17 21:46 38.2 105 26 88/55 (65) 91 08/25/17 21:15 38.2 111 25 94/78 (84) 78 08/25/17 21:00 38.2 103 23 105/70 (73) 93 08/25/17 20:51 80 08/25/17 20:45 38.2 122 27 99/69 (91) 82 08/25/17 20:30 38.0 108 24 114/68 (81) 94 08/25/17 20:01 80 08/25/17 20:01 Mechanical Ventilator 80 08/25/17 20:01 Mechanical Ventilator 80 08/25/17 20:00 37.9 102 21 88/63 (76) 08/25/17 19:57 37.8 101 22 90/51 98 Mechanical Ventilator 100 08/25/17 19:49 100 08/25/17 19:36 37.4 106 20 95/65 97 08/25/17 19:12 37.4 106 20 95/65 97 Mechanical Ventilator 08/25/17 18:20 130/107 08/25/17 18:19 111 25 98 08/25/17 18:15 134/96 08/25/17 18:14 113 25 100 08/25/17 18:11 146/100 08/25/17 18:09 110 17 92 08/25/17 18:05 117/87 08/25/17 18:04 109 24 97 08/25/17 18:03 108 24 100/80 98 Mechanical Ventilator 08/25/17 18:00 100/81 08/25/17 17:59 108 25 98 08/25/17 17:57 115/85 08/25/17 17:54 109 24 91 08/25/17 17:49 0 4/10/18 17:44 0 08/25/17 17:39 0 08/25/17 17:36 100 08/25/17 17:34 26 08/25/17 17:30 124/82 08/25/17 17:29 20 08/25/17 17:25 125/89 08/25/17 17:24 105 30 97 08/25/17 17:21 38.2 110 118/79 94 Mechanical Ventilator 08/25/17 17:20 118/79 08/25/17 17:19 106 28 95 08/25/17 17:17 114 21 119/80 94 Mechanical Ventilator 08/25/17 17:15 119/80 08/25/17 17:14 120 23 84 08/25/17 17:11 127 26 118/86 Mechanical Ventilator 08/25/17 17:11 118/86 08/25/17 17:09 121 22 79 08/25/17 17:04 129 24 08/25/17 17:02 89 Non-Rebreather 15.0 08/25/17 17:02 38.7 130 28 123/85 77 Room Air 08/25/17 17:00 135 27 114/81 88 Ambu-Bag 08/25/17 17:00 114/81 08/25/17 16:59 132 08/25/17 16:59 136 0 86 08/25/17 16:54 120 0 90 08/25/17 16:53 116/84 08/25/17 16:44 119 26 88 08/25/17 16:42 91 08/25/17 16:30 123/85 Laboratory Results: Last 24 Hours Test 08/25/17 16:06 08/25/17 16:45 08/25/17 17:19 08/25/17 17:29 White Blood Count 19.64 K/uL Red Blood Count 5.11 M/uL Hemoglobin 15.5 g/dL Hematocrit 48.5 % Mean Corpuscular Volume 94.9 fL Mean Corpuscular Hemoglobin 30.3 pg Mean Corpuscular Hemoglobin Concent 32.0 g/dl Platelet Count 400 K/uL Mean Platelet Volume 11.3 fL Neutrophils (%) (Auto) 86.6 % Lymphocytes (%) (Auto) 3.8 % Monocytes (%) (Auto) 9.2 % Eosinophils (%) (Auto) 0.0 % Basophils (%) (Auto) 0.1 % Neutrophils # (Auto) 17.01 K/uL Lymphocytes # (Auto) 0.74 K/uL Monocytes # (Auto) 1.81 K/uL Eosinophils # (Auto) 0.00 K/uL Basophils # (Auto) 0.02 K/uL RDW Standard Deviation 47.3 fL RDW Coefficient of Variation 13.7 % Immature Granulocyte % (Auto) 0.3 % Immature Granulocyte # (Auto) 0.06 K/uL Prothrombin Time 15.3 SECONDS Prothromb Time International Ratio 1.5 Activated Partial Thromboplast Time 28.3 SECONDS Partial Thromboplastin Ratio 1.1 Sodium Level 148 mmol/L Potassium Level 3.6 mmol/L Chloride Level 113 mmol/L Carbon Dioxide Level 24 mmol/L Anion Gap 11.0 mmol/L Blood Urea Nitrogen 49 mg/dl Creatinine 0.91 mg/dl Est Creatinine Clear Calc Drug Dose 51.4 ml/min Estimated GFR () 78.9 Estimated GFR (Non- 68.1 BUN/Creatinine Ratio 53.5 Random Glucose 117 mg/dl Calcium Level 10.0 mg/dl Phosphorus Level 3.1 mg/dl Magnesium Level 2.8 mg/dl Total Bilirubin 0.5 mg/dl Aspartate Amino Transf (AST/SGOT) 22 U/L Alanine Aminotransferase (ALT/SGPT) 17 U/L Alkaline Phosphatase 90 U/L Total Protein 8.3 gm/dl Albumin 3.3 gm/dl Globulin 5.0 gm/dl Albumin/Globulin Ratio 0.7 Lipase 77 U/L Procalcitonin 0.14 ng/ml Thyroid Stimulating Hormone (TSH) 1.010 uIu/ml Urine Color DK YELLOW Urine Appearance TURBID Urine pH 5.0 Urine Specific [place] 1.024 Urine Protein 1+ Urine Glucose (UA) NEG Urine Ketones TRACE Urine Occult Blood 3+ Urine Nitrite NEG Urine Bilirubin NEG Urine Urobilinogen NEG Urine Leukocyte Esterase SMALL Urine WBC (Auto) 1-5 /hpf Urine RBC (Auto) >30 /hpf Urine Hyaline Casts (Auto) 10-30 /lpf Urine Epithelial Cells (Auto) 20-30 /lpf Urine Bacteria (Auto) 3+ Urine Crystals Bedside Hemoglobin 12.6 g/dl Bedside Hematocrit 37 % Bedside Blood Gas pH (LAB) 7.40 Bedside Blood Gas pCO2 (LAB) 35 mmHg Bedside Blood Gas pO2 (LAB) 56 mmHg Bedside Blood Gas HCO3 (LAB) 22 meq/L Bedside Blood Gas Total CO2 23 mEq/l Bedside Blood Gas Base Excess (LAB) -3.0 meq/L Bedside Blood Gas O2 Saturation 89.0 % Bedside Sodium 152 mEq/L Bedside Potassium 3.7 mEq/L Bedside Lactic Acid Venous 3.15 mmol/L Test 08/25/17 17:34 08/25/17 19:00 08/25/17 19:10 08/25/17 20:23 Influenza Type A (RT-PCR) Neg for Influ A Influenza Type B (RT-PCR) Neg for Influ B CSF Color COLORLESS CSF Appearance CLEAR CSF WBC 2 /uL CSF RBC 4 /uL CSF Xanthrochromic NO XANTHOCHROMIA CSF Cell Count Tube # 4 CSF Chemistry Tube # 1 CSF Glucose 73 mg/dl CSF Total Protein 48.0 mg/dl Lactic Acid Level 3.0 mmol/L Blood Gas Sample Site L Radial Bedside Blood Gas pH (LAB) 7.31 Bedside Blood Gas pCO2 (LAB) 37 mmHg Bedside Blood Gas pO2 (LAB) 68 mmHg Bedside Blood Gas HCO3 (LAB) 19 meq/L Bedside Blood Gas Total CO2 20 mEq/l Bedside Blood Gas Base Excess (LAB) -7.0 meq/L Bedside Blood Gas O2 Saturation 93.0 % Darian Test Pass Oxygen Delivery Device Ventilator Bedside Oxygen Rate (breaths/min) 20 Blood Gas Minute Ventilation 11 Bedside FiO2 100 % Blood Gas Tidal Volume 400 Blood Gas PEEP 8 Test 08/25/17 20:28 08/25/17 23:18 08/26/17 00:05 08/26/17 02:10 Blood Gas Sample Site L Radial R Radial R Radial Bedside Blood Gas pH (LAB) 7.33 7.35 7.36 Bedside Blood Gas pCO2 (LAB) 36 mmHg 34 mmHg 37 mmHg Bedside Blood Gas pO2 (LAB) 90 mmHg 71 mmHg 144 mmHg Bedside Blood Gas HCO3 (LAB) 19 meq/L 19 meq/L 21 meq/L Bedside Blood Gas Total CO2 20 mEq/l 20 mEq/l 22 mEq/l Bedside Blood Gas Base Excess (LAB) -7.0 meq/L -6.0 meq/L -5.0 meq/L Bedside Blood Gas O2 Saturation 96.0 % 92.0 % 99.0 % Darian Test Pass Pass Pass Oxygen Delivery Device Ventilator Ventilator Ventilator Bedside Oxygen Rate (breaths/min) 20 20 20 Blood Gas Minute Ventilation 11 9.2 7 Bedside FiO2 100 % 80 % 80 % Blood Gas Tidal Volume 400 400 400 Blood Gas PEEP 8 8 8 Bedside Glucose 103 mg/dl Test 08/26/17 05:04 08/26/17 05:12 08/26/17 05:58 08/26/17 09:16 Blood Gas Sample Site L Radial Bedside Blood Gas pH (LAB) 7.39 Bedside Blood Gas pCO2 (LAB) 34 mmHg Bedside Blood Gas pO2 (LAB) 105 mmHg Bedside Blood Gas HCO3 (LAB) 21 meq/L Bedside Blood Gas Total CO2 22 mEq/l Bedside Blood Gas Base Excess (LAB) -4.0 meq/L Bedside Blood Gas O2 Saturation 98.0 % Darian Test Pass Oxygen Delivery Device Ventilator Bedside Oxygen Rate (breaths/min) 20 Blood Gas Minute Ventilation 8 Bedside FiO2 60 % Blood Gas Tidal Volume 400 Blood Gas PEEP 8 White Blood Count 15.11 K/uL Red Blood Count 3.95 M/uL Hemoglobin 12.1 g/dL Hematocrit 37.8 % Mean Corpuscular Volume 95.7 fL Mean Corpuscular Hemoglobin 30.6 pg Mean Corpuscular Hemoglobin Concent 32.0 g/dl Platelet Count 257 K/uL Mean Platelet Volume 11.1 fL Neutrophils (%) (Auto) 87.4 % Lymphocytes (%) (Auto) 6.2 % Monocytes (%) (Auto) 6.0 % Eosinophils (%) (Auto) 0.0 % Basophils (%) (Auto) 0.1 % Neutrophils # (Auto) 13.21 K/uL Lymphocytes # (Auto) 0.94 K/uL Monocytes # (Auto) 0.91 K/uL Eosinophils # (Auto) 0.00 K/uL Basophils # (Auto) 0.01 K/uL RDW Standard Deviation 48.3 fL RDW Coefficient of Variation 13.8 % Immature Granulocyte % (Auto) 0.3 % Immature Granulocyte # (Auto) 0.04 K/uL Prothrombin Time 16.1 SECONDS Prothromb Time International Ratio 1.5 Sodium Level 151 mmol/L Potassium Level 2.9 mmol/L Chloride Level 123 mmol/L Carbon Dioxide Level 22 mmol/L Anion Gap 6.0 mmol/L Blood Urea Nitrogen 31 mg/dl Creatinine 0.60 mg/dl Est Creatinine Clear Calc Drug Dose 77.9 ml/min Estimated GFR () 114.0 Estimated GFR (Non- 98.4 BUN/Creatinine Ratio 52.2 Random Glucose 106 mg/dl Calcium Level 8.5 mg/dl Phosphorus Level 2.1 mg/dl Magnesium Level 2.2 mg/dl Bedside Glucose 111 mg/dl Test 08/26/17 09:17 08/26/17 11:20 08/26/17 11:44 Lactic Acid Level 3.3 mmol/L Resident Tracking Resident Involvement: Resident Care Provided Care Provided: Adult Hospital Medicine
--- NOTE | 2017-08-26 13:44 | DIAGNOSTIC IMAGING REPORT ---
KUB HISTORY: Status post placement of a feeding tube Feeding tube placement COMPARISON: KUB 08/26/2017 FINDINGS: The bowel gas pattern is non-obstructive. There is no organomegaly. Status post placement of a feeding tube with distal tip terminating within the right upper abdomen in the expected location of the distal stomach. Moderate volume of formed stool throughout the colon No renal calculi. No ureteral calculi. No pneumoperitoneum or pneumatosis. No fracture. IMPRESSION: Repositioned feeding tube terminates within the right upper abdomen within the expected region of the distal gastric lumen. Electronically signed by: Scar Dillon M.D. 08/26/2017 1:42 PM Dictated Date/Time: 08/26/2017 1:41 PM
[2017-08-26] MEDS ORDERED: SUCCINYLCHOLINE CHLORIDE 20 MG/ML 10 ML VIAL IV ONE (14:02)
[2017-08-26] MEDS ORDERED: ETOMIDATE 2 MG/ML 20 ML VIAL IV ONE (14:02)
--- NOTE | 2017-08-26 17:52 | Hospitalist Progress Note ---
Hospitalist Progress Note Date of Service Aug 26, 2017. (Janki Che ., RONALDO) Subjective Pt evaluation today including: conversation w/ patient, physical exam, chart review, lab review, review of studies, conversation w/ sustainable design consultant (dispatcher tow truck) , review of inpatient medication list Voiding: coffey catheter in place Unable to obtain ROS due to pt condition Additional Comments: Unable to obtain ROS (Janki Che PA-C) Objective Vital Signs Date Time Temp Pulse Resp B/P (MAP) Pulse Ox O2 Delivery O2 Flow Rate FiO2 08/26/17 16:00 Nasal Cannula 08/26/17 16:00 36.3 81 23 98/61 (73) 97 Nasal Cannula 1.0 08/26/17 14:00 92 23 135/90 (105) 100 Nasal Cannula 2.0 08/26/17 12:00 Nasal Cannula 08/26/17 12:00 87 23 120/78 (92) 96 Nasal Cannula 2.0 08/26/17 10:00 85 23 115/77 (90) 96 Nasal Cannula 2.0 08/26/17 08:00 Mechanical Ventilator 40 08/26/17 08:00 37.5 103 23 121/82 (95) 98 Mechanical Ventilator 40 08/26/17 08:00 40 08/26/17 08:00 Mechanical Ventilator 40 08/26/17 07:05 40 08/26/17 06:02 37.8 94 20 107/75 (86) 95 Mechanical Ventilator 40 08/26/17 05:21 37.8 08/26/17 04:53 60 08/26/17 04:01 38.3 97 20 103/66 (78) 96 Mechanical Ventilator 60 08/26/17 04:01 Mechanical Ventilator 60 08/26/17 04:01 60 08/26/17 02:37 38.2 08/26/17 02:00 38.3 101 20 109/77 (88) 99 Mechanical Ventilator 08/26/17 01:52 80 08/26/17 00:50 38.4 102 20 108/76 (87) 100 Mechanical Ventilator 80 08/26/17 00:01 38.7 105 23 102/69 (80) 100 Mechanical Ventilator 80 08/26/17 00:01 80 08/26/17 00:01 Mechanical Ventilator 80 08/25/17 22:50 80 08/25/17 22:15 38.4 103 25 84/53 (67) 91 08/25/17 22:00 38.3 102 25 82/55 (61) 94 08/25/17 22:00 Mechanical Ventilator 80 08/25/17 21:46 38.2 105 26 88/55 (65) 91 08/25/17 21:15 38.2 111 25 94/78 (84) 78 08/25/17 21:00 38.2 103 23 105/70 (73) 93 08/25/17 20:51 80 08/25/17 20:45 38.2 122 27 99/69 (91) 82 08/25/17 20:30 38.0 108 24 114/68 (81) 94 08/25/17 20:01 80 08/25/17 20:01 Mechanical Ventilator 80 08/25/17 20:01 Mechanical Ventilator 80 08/25/17 20:00 37.9 102 21 88/63 (76) 08/25/17 19:57 37.8 101 22 90/51 98 Mechanical Ventilator 100 08/25/17 19:49 100 08/25/17 19:36 37.4 106 20 95/65 97 08/25/17 19:12 37.4 106 20 95/65 97 Mechanical Ventilator 08/25/17 18:20 130/107 08/25/17 18:19 111 25 98 08/25/17 18:15 134/96 08/25/17 18:14 113 25 100 08/25/17 18:11 146/100 08/25/17 18:09 110 17 92 08/25/17 18:05 117/87 08/25/17 18:04 109 24 97 08/25/17 18:03 108 24 100/80 98 Mechanical Ventilator 08/25/17 18:00 100/81 08/25/17 17:59 108 25 98 08/25/17 17:57 115/85 08/25/17 17:54 109 24 91 08/25/17 17:49 0 08/25/17 17:44 0 08/25/17 17:39 0 08/25/17 17:36 100 08/25/17 17:34 26 08/25/17 17:30 124/82 08/25/17 17:29 20 (Janki Che, PA-C) Physical Exam Notes: General appearance: +Lethargic. Well-developed, well-nourished, no apparent distress Head: Normocephalic, atraumatic Eyes: Normal inspection, PERRL, EOMI ENT: +Coresafe in place. Normal ENT inspection, hearing grossly normal, pharynx normal Neck: Supple, no JVD, trachea midline Respiratory/Chest: +Decreased breath sounds. On 2L NC during my visit. Lungs clear to auscultation, no respiratory distress Cardiovascular: Regular rate & rhythm, no gallop, no murmur Abdomen/GI: Normal bowel sounds, non-tender, soft Extremities/Musculoskeletal: Normal inspection, no calf tenderness, no pedal edema Neurological/Psych: +Not verbally responsive. Will open eyes to stimuli. Unable to assess mood/orientation. Skin: Normal color, warm/dry, no rash (Janki Che ., DANITZAC) Laboratory Results Last 24 Hours Test 08/25/17 17:29 08/25/17 17:34 08/25/17 19:00 08/25/17 19:10 Bedside Lactic Acid Venous 3.15 mmol/L Influenza Type A (RT-PCR) Neg for Influ A Influenza Type B (RT-PCR) Neg for Influ B CSF Color COLORLESS CSF Appearance CLEAR CSF WBC 2 /uL CSF RBC 4 /uL CSF Xanthrochromic NO XANTHOCHROMIA CSF Cell Count Tube # 4 CSF Chemistry Tube # 1 CSF Glucose 73 mg/dl CSF Total Protein 48.0 mg/dl Lactic Acid Level 3.0 mmol/L Test 08/25/17 20:23 08/25/17 20:28 08/25/17 23:18 08/26/17 00:05 Blood Gas Sample Site L Radial L Radial R Radial Bedside Blood Gas pH (LAB) 7.31 7.33 7.35 Bedside Blood Gas pCO2 (LAB) 37 mmHg 36 mmHg 34 mmHg Bedside Blood Gas pO2 (LAB) 68 mmHg 90 mmHg 71 mmHg Bedside Blood Gas HCO3 (LAB) 19 meq/L 19 meq/L 19 meq/L Bedside Blood Gas Total CO2 20 mEq/l 20 mEq/l 20 mEq/l Bedside Blood Gas Base Excess (LAB) -7.0 meq/L -7.0 meq/L -6.0 meq/L Bedside Blood Gas O2 Saturation 93.0 % 96.0 % 92.0 % Darian Test Pass Pass Pass Oxygen Delivery Device Ventilator Ventilator Ventilator Bedside Oxygen Rate (breaths/min) 20 20 20 Blood Gas Minute Ventilation 11 11 9.2 Bedside FiO2 100 % 100 % 80 % Blood Gas Tidal Volume 400 400 400 Blood Gas PEEP 8 8 8 Bedside Glucose 103 mg/dl Test 08/26/17 02:10 08/26/17 05:04 08/26/17 05:12 08/26/17 05:58 Blood Gas Sample Site R Radial L Radial Bedside Blood Gas pH (LAB) 7.36 7.39 Bedside Blood Gas pCO2 (LAB) 37 mmHg 34 mmHg Bedside Blood Gas pO2 (LAB) 144 mmHg 105 mmHg Bedside Blood Gas HCO3 (LAB) 21 meq/L 21 meq/L Bedside Blood Gas Total CO2 22 mEq/l 22 mEq/l Bedside Blood Gas Base Excess (LAB) -5.0 meq/L -4.0 meq/L Bedside Blood Gas O2 Saturation 99.0 % 98.0 % Darian Test Pass Pass Oxygen Delivery Device Ventilator Ventilator Bedside Oxygen Rate (breaths/min) 20 20 Blood Gas Minute Ventilation 7 8 Bedside FiO2 80 % 60 % Blood Gas Tidal Volume 400 400 Blood Gas PEEP 8 8 White Blood Count 15.11 K/uL Red Blood Count 3.95 M/uL Hemoglobin 12.1 g/dL Hematocrit 37.8 % Mean Corpuscular Volume 95.7 fL Mean Corpuscular Hemoglobin 30.6 pg Mean Corpuscular Hemoglobin Concent 32.0 g/dl Platelet Count 257 K/uL Mean Platelet Volume 11.1 fL Neutrophils (%) (Auto) 87.4 % Lymphocytes (%) (Auto) 6.2 % Monocytes (%) (Auto) 6.0 % Eosinophils (%) (Auto) 0.0 % Basophils (%) (Auto) 0.1 % Neutrophils # (Auto) 13.21 K/uL Lymphocytes # (Auto) 0.94 K/uL Monocytes # (Auto) 0.91 K/uL Eosinophils # (Auto) 0.00 K/uL Basophils # (Auto) 0.01 K/uL RDW Standard Deviation 48.3 fL RDW Coefficient of Variation 13.8 % Immature Granulocyte % (Auto) 0.3 % Immature Granulocyte # (Auto) 0.04 K/uL Prothrombin Time 16.1 SECONDS Prothromb Time International Ratio 1.5 Sodium Level 151 mmol/L Potassium Level 2.9 mmol/L Chloride Level 123 mmol/L Carbon Dioxide Level 22 mmol/L Anion Gap 6.0 mmol/L Blood Urea Nitrogen 31 mg/dl Creatinine 0.60 mg/dl Est Creatinine Clear Calc Drug Dose 77.9 ml/min Estimated GFR () 114.0 Estimated GFR (Non- 98.4 BUN/Creatinine Ratio 52.2 Random Glucose 106 mg/dl Calcium Level 8.5 mg/dl Phosphorus Level 2.1 mg/dl Magnesium Level 2.2 mg/dl Bedside Glucose 111 mg/dl Test 08/26/17 09:16 08/26/17 09:17 08/26/17 11:20 08/26/17 11:44 Lactic Acid Level 3.3 mmol/L Sodium Level 151 mmol/L Potassium Level 3.6 mmol/L Chloride Level 120 mmol/L Carbon Dioxide Level 24 mmol/L Anion Gap 8.0 mmol/L Blood Urea Nitrogen 26 mg/dl Creatinine 0.60 mg/dl Est Creatinine Clear Calc Drug Dose 77.9 ml/min Estimated GFR () 114.0 Estimated GFR (Non- 98.4 BUN/Creatinine Ratio 42.6 Random Glucose 88 mg/dl Calcium Level 8.7 mg/dl (Janki Che, PA-C) Diagnostic Results ABDOMEN AND PELVIS CT WITH IV CONTRAST CT DOSE: 447.61 mGy.cm HISTORY: Acute generalized abdominal pain ABD PAIN, POSS divertic, IV CONTRAST ONLY TECHNIQUE: Multiaxial CT images of the abdomen and pelvis were performed following the use of intravenous contrast. A dose lowering technique was utilized adhering to the principles of ALARA. COMPARISON STUDY: None. FINDINGS: Mucous plugging of the right lower lobe is noted with centrilobular nodules and patchy subsegmental dependent consolidation. 3 mm solid noncalcified nodule of the basal left lower lobe is noted. There is no pneumatosis or pneumoperitoneum identified. The imaged inferior cardiac chambers are unremarkable. Gallbladder is mildly distended with cholelithiasis. No CT evidence of acute cholecystitis. The liver, spleen, pancreas and right adrenal gland are unremarkable. There is minimal thickening of the left adrenal gland. There are several calculi noted within the left renal pelvis measuring up to 7 mm without obstruction. Layering calculi are also seen within the right renal pelvis measuring up to 4 mm. Nonobstructing calculi of the inferior pole right kidney measure up to 4 mm. No definite obstructing ureteral calculi. Coffey catheter is noted within the urinary bladder with significant amount of nondependent urinary bladder air. Calcifications of the pelvis suggest phleboliths. Moderate atherosclerosis of the aorta without aneurysm. No bulky adenopathy. Graft there is no bowel obstruction identified. Large stool ball the rectum is noted with moderate volume of formed stool seen throughout the remainder of the colon. Moderate sigmoid colon diverticulosis without CT evidence of acute diverticulitis. No evidence of acute appendicitis. There is asymmetrically increased size of the right. Form a small subtle with minimal surrounding stranding. The remaining soft tissues are unremarkable. Healing nondisplaced subacute appearing fracture of the anterior right seventh rib. Bones appear osteoporotic. Chronic appearing fracture of the left inferior pubic ramus. IMPRESSION: 1. Constipation without evidence of bowel obstruction or focal bowel wall thickening. 2. Diverticulosis without CT evidence of acute diverticulitis. 3. Mildly distended gallbladder with cholelithiasis. No CT evidence of acute cholecystitis. 4. Asymmetrically enlarged right piriformis muscle with minimal adjacent stranding suggests piriformis syndrome. 5. Healing subacute appearing fracture of the anterior right seventh rib. 6. Bilateral nonobstructing nephrolithiasis with nonobstructing calculi seen within the bilateral renal pelves. 7. Air within the urinary bladder lumen is likely secondary to instrumentation with Coffey catheter. Correlate with urinalysis to exclude cystitis. 8. Mucus plugging of the right lower lobe bronchi with centrilobular nodules and dependent subsegmental consolidative opacities suggesting pneumonitis. 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 Acute respiratory failure with hypoxia requiring intubation secondary to dehydration and mucous plugging--improving -Admit to ICU. Pt more stable. Spoke with dispatcher tow truck, stable to transfer to tele -Pt extubated today -O2 by protocol -CXR with possible RLL pneumonia -Concern for aspiration. Continue empiric doxy and Zosyn -Infectious disease consulted, appreciate recs: Continue empiric abx -Continue chest physiotherapy Acute encephalopathy--ongoing -Not verbally responsive -Continue Coffey -Due to dehydration vs sepsis vs respiratory failure? -NGT in place Sepsis vs febrile illness w/leukocytosis--improving -Afebrile since last night -Leukocytosis improved. WBC 15k, down from 19k -Urine culture with E. coli, sensitivities pending -Lumbar puncture, CSF with elevated BSG, protein -CSF culture NGTD -Blood cultures pending -MRSA swab negative -Abx as above H/o seizure disorder -Continue Keppra 1000 mg PO BID -Neurology consulted, appreciate recs: Continue Keppra either IV or PO. Check Keppra trough level. 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 Patient deteriorated in her cognitive ability over 2-3 days at [facility]. Brought to the ED with fever and acute hypoxic respiratory failure requiring intubation. Patient was extubated successfully, chest x-ray showed possible right lower lobe pneumonia, concern for aspiration or mucous plug, started doxycycline/Zosyn with pulmonary toilet Patient is already following commands but requires strong verbal or tactile stimulus. Neurology and critical care consult appreciated I personally interviewed and examined the patient. I agree with history of present illness and physical exam mentioned above, I also performed my own history taking and examination. Past medical history and review of system has been obtained by myself I reviewed all pertinent labs and studies Reviewed current medications I discussed and formulated of the assessment and plan mentioned above. Please refer to the Summary mentioned below. General Appearance: In mild acute distress Eyes: normal Sclerae, extraocular muscle intact ENT: hearing grossly normal Neck: supple Respiratory/Chest: Decreased air entry, decreased chest wall expansion, scattered rhonchi Cardiovascular: regular rate, rhythm, no murmur Abdomen: non tender, soft, no masses Extremities: no edema musculoskeletal: no significant swelling or inflammation in any joint, noticeable muscle wasting secondary to quadriparesis Neurologic/Psychiatric: Lethargic but requires strong stimulus to wake up, followed simple commands Skin: normal color, warm/dry, no rash Alexis Monsivais MD, [facility] (Randall Monsivais, Alexis Mo MD)
[2017-08-26 19:05] LABS: CALCIUM 8.2 mg/dl (8.5-10.1); CREATININE 0.57 mg/dl (0.60-1.20); POTASSIUM 3.5 mmol/L (3.5-5.1)
[2017-08-26] MEDS: POLYETHYLENE (MIRALAX) 17 GM PACK PO SCH (21:01)
[2017-08-26] MEDS: ENOXAPARIN 40 MG/0.4 ML SYR SQ SCH (21:02)
[2017-08-27] VITALS (10 sets, daily range): BP systolic 96–134; BP diastolic 62–85; PULSE 70–86; TEMP 36.4–37.3; O2SAT 91–97
[2017-08-27] MEDS: VANCOMYCIN HCL 125 MG/2.5ML SOLN PO SCH ×5 (00:28→19:42)
[2017-08-27] MEDS: RASPBERRY SYRUP 5 ML UDP PO SCH ×5 (00:28→19:42)
[2017-08-27 01:00] LABS: CALCIUM 8.3 mg/dl (8.5-10.1); CREATININE 0.56 mg/dl (0.60-1.20); POTASSIUM 3.2 mmol/L (3.5-5.1)
[2017-08-27] MEDS: POTASSIUM CHLORIDE INJ 20 MEQ in DEXTROSE 5% 1000ML 1,000 ML IV SCH (01:53)
[2017-08-27] MEDS: PIPERACILL/TAZOBAC IV 4.5 GM in NSS 100 ML IV SCH ×2 (04:29→12:55)
[2017-08-27 06:16] LABS: BASO % 0.1 %; BASO ABS # 0.01 K/uL (0-0.2); HEMATOCRIT 36.4 % (37-47); HEMOGLOBIN 11.4 g/dL (12.0-16.0); IG# 0.04 K/uL (0.00-0.02); LYMPH % 6.7 %; LYMPH ABS # 0.92 K/uL (1.2-3.4); MEAN CORPUSCULAR HEMOGLOBIN 29.8 pg (25-34); MEAN CORPUSCULAR HGB CONC 31.3 g/dl (32-36); MEAN PLATELET VOLUME 10.8 fL (7.4-10.4); MONO % 3.9 %; MONO ABS # 0.53 K/uL (0.11-0.59); NEUT ABS # 12.26 K/uL (1.4-6.5); NUCLEATED RED BLOOD CELL ABS 0.02 K/uL (0-0); PLATELET COUNT 202 K/uL (130-400); RED CELL DISTRIBUTION WIDTH CV 13.9 % (11.5-14.5); RED CELL DISTRIBUTION WIDTH SD 48.4 fL (36.4-46.3); WHITE BLOOD COUNT 13.76 K/uL (4.8-10.8)
[2017-08-27 06:23] LABS: INR 1.5 (0.9-1.1)
[2017-08-27 06:39] LABS: CALCIUM 8.4 mg/dl (8.5-10.1); CREATININE 0.51 mg/dl (0.60-1.20); POTASSIUM 3.2 mmol/L (3.5-5.1)
[2017-08-27 06:42] LABS: PHOSPHORUS 1.6 mg/dl (2.5-4.9)
[2017-08-27] MEDS ORDERED: POTASSIUM PHOS 3 MMOL/1 ML INFUSION IV STA (08:30)
[2017-08-27] MEDS: DOXYCYCLINE HYCLATE 100 MG in DEXTROSE 5% 100ML IV SCH (09:01)
[2017-08-27] MEDS ORDERED: POTASSIUM PHOSPHATE INJ 21 MMOL in SODIUM CHLORIDE 0.9% 500ML 500 ML IV ONE (09:15)
--- NOTE | 2017-08-27 10:04 | Neurology Progress Notes ---
Neurology Progress Note Date of Service Aug 27, 2017. Subjective Patient is very sleepy today but arousable. She is not as alert or talkative as yesterday. Nursing reports no new events and no seizure activity. Objective Date Time Temp Pulse Resp B/P (MAP) Pulse Ox O2 Delivery O2 Flow Rate FiO2 08/27/17 07:47 36.4 70 16 113/73 (86) 97 Room Air 08/27/17 05:15 36.9 81 16 111/72 (85) 95 Nasal Cannula 1.0 08/27/17 04:01 Nasal Cannula 1.0 08/27/17 00:02 Nasal Cannula 1.0 08/27/17 00:00 36.5 75 20 96/62 (73) 93 Nasal Cannula 1.0 08/26/17 20:24 36.6 88 16 114/73 (87) 97 Nasal Cannula 1.0 08/26/17 20:00 97 Nasal Cannula 1.0 08/26/17 16:00 Nasal Cannula 08/26/17 16:00 36.3 81 23 98/61 (73) 97 Nasal Cannula 1.0 08/26/17 14:00 92 23 135/90 (105) 100 Nasal Cannula 2.0 08/26/17 12:00 Nasal Cannula 08/26/17 12:00 87 23 120/78 (92) 96 Nasal Cannula 2.0 Last 24 Hours Test 08/26/17 11:20 08/26/17 11:44 08/26/17 18:07 08/27/17 00:17 Sodium Level 151 mmol/L 151 mmol/L 150 mmol/L Potassium Level 3.6 mmol/L 3.5 mmol/L 3.2 mmol/L Chloride Level 120 mmol/L 121 mmol/L 119 mmol/L Carbon Dioxide Level 24 mmol/L 25 mmol/L 25 mmol/L Anion Gap 8.0 mmol/L 5.0 mmol/L 6.0 mmol/L Blood Urea Nitrogen 26 mg/dl 19 mg/dl 17 mg/dl Creatinine 0.60 mg/dl 0.57 mg/dl 0.56 mg/dl Est Creatinine Clear Calc Drug Dose 77.9 ml/min 82.0 ml/min 83.5 ml/min Estimated GFR () 114.0 116.0 116.6 Estimated GFR (Non- 98.4 100.1 100.6 BUN/Creatinine Ratio 42.6 33.6 30.3 Random Glucose 88 mg/dl 91 mg/dl 82 mg/dl Calcium Level 8.7 mg/dl 8.2 mg/dl 8.3 mg/dl Test 08/27/17 06:00 White Blood Count 13.76 K/uL Red Blood Count 3.83 M/uL Hemoglobin 11.4 g/dL Hematocrit 36.4 % Mean Corpuscular Volume 95.0 fL Mean Corpuscular Hemoglobin 29.8 pg Mean Corpuscular Hemoglobin Concent 31.3 g/dl Platelet Count 202 K/uL Mean Platelet Volume 10.8 fL Neutrophils (%) (Auto) 89.0 % Lymphocytes (%) (Auto) 6.7 % Monocytes (%) (Auto) 3.9 % Eosinophils (%) (Auto) 0.0 % Basophils (%) (Auto) 0.1 % Neutrophils # (Auto) 12.26 K/uL Lymphocytes # (Auto) 0.92 K/uL Monocytes # (Auto) 0.53 K/uL Eosinophils # (Auto) 0.00 K/uL Basophils # (Auto) 0.01 K/uL RDW Standard Deviation 48.4 fL RDW Coefficient of Variation 13.9 % Immature Granulocyte % (Auto) 0.3 % Immature Granulocyte # (Auto) 0.04 K/uL Nucleated RBC Absolute Count (auto) 0.02 K/uL Nucleated Red Blood Cells % 0.1 % Prothrombin Time 15.4 SECONDS Prothromb Time International Ratio 1.5 Sodium Level 148 mmol/L Potassium Level 3.2 mmol/L Chloride Level 118 mmol/L Carbon Dioxide Level 24 mmol/L Anion Gap 6.0 mmol/L Blood Urea Nitrogen 13 mg/dl Creatinine 0.51 mg/dl Est Creatinine Clear Calc Drug Dose 91.6 ml/min Estimated GFR () 120.3 Estimated GFR (Non- 103.8 BUN/Creatinine Ratio 25.2 Random Glucose 89 mg/dl Calcium Level 8.4 mg/dl Phosphorus Level 1.6 mg/dl Magnesium Level 2.2 mg/dl Exam: The patient is arousable with voice. She will follow one-step commands. Her voice is very soft. 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 There are no abnormal involuntary movements seen. Current Inpatient Medications Medications (Trade) Dose Ordered Sig/Larry Route Start Time Stop Time Status Last Admin Dose Admin Ioversol (Optiray 320) 95 ml UD PRN IV 08/25/17 18:00 08/29/17 17:59 Propofol (Diprivan Iv Emulsion 100ml Vial) 1 dose UD PRN IV 08/25/17 18:28 08/28/17 18:27 Enoxaparin Sodium (Lovenox Inj) 40 mg Q24H SQ 08/25/17 21:00 09/24/17 20:59 08/26/17 21:02 40 MG Acetaminophen (Tylenol Tab) 650 mg Q4H PRN PO 08/25/17 18:45 09/24/17 18:44 Pantoprazole Sodium (Protonix Tab) 40 mg DAILY PO 08/26/17 09:00 09/25/17 08:59 08/26/17 11:15 40 MG Miscellaneous Information (Icu Protocol For Hyperglycemia) 1 ea PRN PRN N/A 08/25/17 18:45 08/27/17 18:44 Fentanyl Citrate (Fentanyl Inj) 50 mcg Q1H PRN IV 08/25/17 18:45 09/08/17 18:44 Miscellaneous Information (Consult) 1 ea UD PRN N/A 08/25/17 19:00 09/24/17 18:59 Piperacillin Sod/ Tazobactam Sod 4.5 gm/Sodium Chloride 120 ml @ 30 mls/hr Q8H IV 08/26/17 04:00 09/05/17 03:59 08/27/17 04:29 30 MLS/HR Acetaminophen 100 ml @ 400 mls/hr Q8H PRN IV 08/25/17 22:45 09/24/17 22:44 08/25/17 22:51 400 MLS/HR Levetiracetam (Keppra Soln) 1,000 mg BID PO 08/26/17 09:00 09/25/17 08:59 08/26/17 21:01 1,000 MG Doxycycline Hyclate 100 mg/ Dextrose 110 ml @ 55 mls/hr BID IV 08/26/17 09:00 09/02/17 08:59 08/27/17 09:01 55 MLS/HR Polyethylene (Miralax Powder Packet) 17 gm BID PO 08/26/17 21:00 09/25/17 20:59 08/26/17 21:01 17 GM Vancomycin HCl (Vancomycin Oral Soln) 125 mg QID PO 08/27/17 00:00 09/10/17 00:00 08/27/17 00:28 125 MG Raspberry (Raspberry Syrup 5ml Cup) 5 ml QID PO 08/27/17 00:00 09/10/17 00:00 08/27/17 00:28 5 ML Potassium Chloride 20 meq/ Dextrose 1,010 ml @ 45 mls/hr [id number] IV 08/27/17 01:45 09/25/17 01:44 08/27/17 01:53 45 MLS/HR Potassium Phosphate 21 mmol/ Sodium Chloride 507 ml @ 88 mls/hr ONE ONCE IV 08/27/17 09:15 08/27/17 15:00 Impression 1. This patient has a chronic, spastic quadriparesis, left greater than right side likely secondary to [employer] aneurysm procedures and subarachnoid hemorrhage event January of 2011 She has upper motor neuron signs bilaterally. Her voice is weak and she is generally weak. Mental status seems to be reasonable as she is pleasant and cooperative and can answer some questions. I believe she is probably close to her baseline now but I have never seen her before so I am not sure if she isn't more alert or more functional as a baseline. I still have no records to review from [facility] 2. Acute hypoxia requiring intubation and admission. This has improved. She may have aspirated or had a mucus plug. I am uncertain if her mental status is back to baseline 3. Unknown history of seizures on Keppra. I am not certain if she actually had seizures or the Keppra is prophylactically to prevent seizures in lieu of her [employer] conditions. Keppra can certainly cause sedation and confusion Plan 1. Continue levetiracetam 1000 mg IV or p.o. b.i.d., for now. 2. Check a trough levetiracetam level tomorrow morning. 3. I have no further neurologic testing or treatment recommendations to make on this patient, at this time. I would be happy to follow this patient as an outpatient and make additional recommendations, particularly after obtaining old records.
[2017-08-27] MEDS: LEVETIRACETAM ORAL SOLN 100MG/ML PO SCH ×2 (10:50→19:43)
[2017-08-27] MEDS: POLYETHYLENE (MIRALAX) 17 GM PACK PO SCH ×2 (10:50→19:42)
[2017-08-27] MEDS: PANTOprazole SOD 40 MG TAB PO SCH (10:50)
--- NOTE | 2017-08-27 11:26 | Progress Note ---
Subjective Date of Service: Aug 27, 2017. Subjective Patient seen in follow-up. She been transferred out of the intensive care unit. She remains nonverbal on my examination. I am unable to obtain any review of systems. She remains on IV doxycycline and Zosyn. Her C diff did return positive and she now is on vancomycin as well. dht is in place. She is tolerating antibiotics well. She remains afebrile. Her white blood cell is decreased to 13,000. Michelle and blood cultures remain negative. Problem List Medical Problems: (1) Change in mental status Status: Acute (2) Dehydration Status: Acute (3) Respiratory failure Status: Acute (4) Sepsis Status: Acute (5) Tachycardia Status: Acute (6) Urinary tract infection Status: Acute Objective Vital Signs Date Time Temp Pulse Resp B/P (MAP) Pulse Ox O2 Delivery O2 Flow Rate FiO2 08/27/17 08:00 97 Room Air 08/27/17 07:47 36.4 70 16 113/73 (86) 97 Room Air 08/27/17 05:15 36.9 81 16 111/72 (85) 95 Nasal Cannula 1.0 08/27/17 04:01 Nasal Cannula 1.0 08/27/17 00:02 Nasal Cannula 1.0 08/27/17 00:00 36.5 75 20 96/62 (73) 93 Nasal Cannula 1.0 08/26/17 20:24 36.6 88 16 114/73 (87) 97 Nasal Cannula 1.0 08/26/17 20:00 97 Nasal Cannula 1.0 08/26/17 16:00 Nasal Cannula 08/26/17 16:00 36.3 81 23 98/61 (73) 97 Nasal Cannula 1.0 08/26/17 14:00 92 23 135/90 (105) 100 Nasal Cannula 2.0 08/26/17 12:00 Nasal Cannula 08/26/17 12:00 87 23 120/78 (92) 96 Nasal Cannula 2.0 Physical Exam General Appearance: WD/WN Neck: supple, + pertinent finding (No nuchal rigidity) Respiratory/Chest: lungs clear, normal breath sounds, + decreased breath sounds Cardiovascular: regular rate, rhythm, no edema Abdomen: soft Extremities: non-tender, no pedal edema Neurologic/Psychiatric: alert, oriented x 3 Skin: normal color Laboratory Results Item Value Date Time C.difficile Toxin B Gene (PCR) - Final Complete 08/26/17 2140 Stool Positive for C. difficile toxin B gene Blood Culture - Preliminary Resulted 08/25/17 1712 Blood NO GROWTH TO DATE. Blood Culture - Preliminary Resulted 08/25/17 1723 Blood NO GROWTH TO DATE. Gram Stain - Final Resulted 08/25/17 1900 Cerebral Spinal Fluid Last 24 Hours Test 08/26/17 11:44 08/26/17 18:07 08/27/17 00:17 08/27/17 06:00 Sodium Level 151 mmol/L 151 mmol/L 150 mmol/L 148 mmol/L Potassium Level 3.6 mmol/L 3.5 mmol/L 3.2 mmol/L 3.2 mmol/L Chloride Level 120 mmol/L 121 mmol/L 119 mmol/L 118 mmol/L Carbon Dioxide Level 24 mmol/L 25 mmol/L 25 mmol/L 24 mmol/L Anion Gap 8.0 mmol/L 5.0 mmol/L 6.0 mmol/L 6.0 mmol/L Blood Urea Nitrogen 26 mg/dl 19 mg/dl 17 mg/dl 13 mg/dl Creatinine 0.60 mg/dl 0.57 mg/dl 0.56 mg/dl 0.51 mg/dl Est Creatinine Clear Calc Drug Dose 77.9 ml/min 82.0 ml/min 83.5 ml/min 91.6 ml/min Estimated GFR () 114.0 116.0 116.6 120.3 Estimated GFR (Non- 98.4 100.1 100.6 103.8 BUN/Creatinine Ratio 42.6 33.6 30.3 25.2 Random Glucose 88 mg/dl 91 mg/dl 82 mg/dl 89 mg/dl Calcium Level 8.7 mg/dl 8.2 mg/dl 8.3 mg/dl 8.4 mg/dl White Blood Count 13.76 K/uL Red Blood Count 3.83 M/uL Hemoglobin 11.4 g/dL Hematocrit 36.4 % Mean Corpuscular Volume 95.0 fL Mean Corpuscular Hemoglobin 29.8 pg Mean Corpuscular Hemoglobin Concent 31.3 g/dl Platelet Count 202 K/uL Mean Platelet Volume 10.8 fL Neutrophils (%) (Auto) 89.0 % Lymphocytes (%) (Auto) 6.7 % Monocytes (%) (Auto) 3.9 % Eosinophils (%) (Auto) 0.0 % Basophils (%) (Auto) 0.1 % Neutrophils # (Auto) 12.26 K/uL Lymphocytes # (Auto) 0.92 K/uL Monocytes # (Auto) 0.53 K/uL Eosinophils # (Auto) 0.00 K/uL Basophils # (Auto) 0.01 K/uL RDW Standard Deviation 48.4 fL RDW Coefficient of Variation 13.9 % Immature Granulocyte % (Auto) 0.3 % Immature Granulocyte # (Auto) 0.04 K/uL Nucleated RBC Absolute Count (auto) 0.02 K/uL Nucleated Red Blood Cells % 0.1 % Prothrombin Time 15.4 SECONDS Prothromb Time International Ratio 1.5 Phosphorus Level 1.6 mg/dl Magnesium Level 2.2 mg/dl Assessment and Plan (1) C. difficile colitis Assessment & Plan: Certainly her clinical osteo date could be explained C diff in dehydration related diarrhea. I am in agreement with continuing her on oral vancomycin. She did have mucous plugging and significant hypoxemia which could be inside sales representative an aspiration event. She could be transitioned to oral Augmentin. Her Zosyn and doxycycline can be discontinued from an infectious standpoint. I would give her a total of 7 days of Augmentin for suspected aspiration at least 21 days of oral vancomycin for positive C diff. Clinically she is improving and her leukocytosis is improving her hypernatremia is improving as well.
[2017-08-27] MEDS: LANSOPRAZOLE SOLUTAB 15 MG NG SCH (12:55)
--- NOTE | 2017-08-27 14:19 | Hospitalist Progress Note ---
Hospitalist Progress Note Date of Service Aug 27, 2017. (Janki Che ., SIDNEY-C) Subjective Pt evaluation today including: conversation w/ patient, physical exam, chart review, lab review, review of inpatient medication list Unable to obtain reliable ROS from patient. She is somewhat more awake today for me and opens her eyes to voice. She does slightly shake her head yes/no to limited questions but cannot elaborate. Additional Comments: Unable to obtain reliable ROS from patient. (Janki Che ., SIDNEY-C) Objective Vital Signs Date Time Temp Pulse Resp B/P (MAP) Pulse Ox O2 Delivery O2 Flow Rate FiO2 08/27/17 12:00 95 Room Air 08/27/17 11:37 36.4 83 24 122/85 (97) 94 Room Air 08/27/17 08:00 97 Room Air 08/27/17 07:47 36.4 70 16 113/73 (86) 97 Room Air 08/27/17 05:15 36.9 81 16 111/72 (85) 95 Nasal Cannula 1.0 08/27/17 04:01 Nasal Cannula 1.0 08/27/17 00:02 Nasal Cannula 1.0 08/27/17 00:00 36.5 75 20 96/62 (73) 93 Nasal Cannula 1.0 08/26/17 20:24 36.6 88 16 114/73 (87) 97 Nasal Cannula 1.0 08/26/17 20:00 97 Nasal Cannula 1.0 08/26/17 16:00 Nasal Cannula 08/26/17 16:00 36.3 81 23 98/61 (73) 97 Nasal Cannula 1.0 08/26/17 14:00 92 23 135/90 (105) 100 Nasal Cannula 2.0 (Janki Che ., SIDNEY-C) Physical Exam Notes: General appearance: +Lethargy improved. Well-developed, well-nourished, no apparent distress Head: Normocephalic, atraumatic Eyes: Normal inspection, PERRL, EOMI ENT: +Coresafe in place. +Very dry oral mucosa. Per nursing, pt would not open mouth for oral care. Normal ENT inspection, hearing grossly normal Neck: Supple, no JVD, trachea midline Respiratory/Chest: +Decreased breath sounds. On room air. Lungs clear to auscultation, no respiratory distress Cardiovascular: Regular rate & rhythm, no gallop, no murmur Abdomen/GI: Normal bowel sounds, non-tender, soft Extremities/Musculoskeletal: Normal inspection, no calf tenderness, no pedal edema Neurological/Psych: +Not verbally responsive. More alert today and attempts to respond to simple commands. Shakes head yes or no to some questions. Unable to assess mood/orientation. Skin: Normal color, warm/dry, no rash (Janki Che ., PA-C) Laboratory Results Last 24 Hours Test 08/26/17 18:07 08/27/17 00:17 08/27/17 06:00 Sodium Level 151 mmol/L 150 mmol/L 148 mmol/L Potassium Level 3.5 mmol/L 3.2 mmol/L 3.2 mmol/L Chloride Level 121 mmol/L 119 mmol/L 118 mmol/L Carbon Dioxide Level 25 mmol/L 25 mmol/L 24 mmol/L Anion Gap 5.0 mmol/L 6.0 mmol/L 6.0 mmol/L Blood Urea Nitrogen 19 mg/dl 17 mg/dl 13 mg/dl Creatinine 0.57 mg/dl 0.56 mg/dl 0.51 mg/dl Est Creatinine Clear Calc Drug Dose 82.0 ml/min 83.5 ml/min 91.6 ml/min Estimated GFR () 116.0 116.6 120.3 Estimated GFR (Non- 100.1 100.6 103.8 BUN/Creatinine Ratio 33.6 30.3 25.2 Random Glucose 91 mg/dl 82 mg/dl 89 mg/dl Calcium Level 8.2 mg/dl 8.3 mg/dl 8.4 mg/dl White Blood Count 13.76 K/uL Red Blood Count 3.83 M/uL Hemoglobin 11.4 g/dL Hematocrit 36.4 % Mean Corpuscular Volume 95.0 fL Mean Corpuscular Hemoglobin 29.8 pg Mean Corpuscular Hemoglobin Concent 31.3 g/dl Platelet Count 202 K/uL Mean Platelet Volume 10.8 fL Neutrophils (%) (Auto) 89.0 % Lymphocytes (%) (Auto) 6.7 % Monocytes (%) (Auto) 3.9 % Eosinophils (%) (Auto) 0.0 % Basophils (%) (Auto) 0.1 % Neutrophils # (Auto) 12.26 K/uL Lymphocytes # (Auto) 0.92 K/uL Monocytes # (Auto) 0.53 K/uL Eosinophils # (Auto) 0.00 K/uL Basophils # (Auto) 0.01 K/uL RDW Standard Deviation 48.4 fL RDW Coefficient of Variation 13.9 % Immature Granulocyte % (Auto) 0.3 % Immature Granulocyte # (Auto) 0.04 K/uL Nucleated RBC Absolute Count (auto) 0.02 K/uL Nucleated Red Blood Cells % 0.1 % Prothrombin Time 15.4 SECONDS Prothromb Time International Ratio 1.5 Phosphorus Level 1.6 mg/dl Magnesium Level 2.2 mg/dl (Janki Che ., RONALDO) Assessment and Plan 61 y/o female with a history of ICH s/p aneurysm coiling last in January 2017 who presented on 08/25 from [facility] with fevers, altered mental status, tachycardia and hypoxia. Intubated on admission and sent to ICU. Acute respiratory failure with hypoxia requiring intubation secondary to dehydration and mucous plugging--improving -Admit to ICU. Pt more stable. Spoke with attendant honor bar, stable to transfer to [facility]. No acute events overnight. Pt in sinus rhythm with HR 70s-90s -Pt extubated 08/26 -O2 by protocol. Currently on room air -CXR with possible RLL pneumonia -Monitor off of doxycycline for now -D/C Zosyn, change to ertapenem 1 gm IV qd -Infectious disease consulted, appreciate recs: Continue oral vancomycin for at least 21 days for C. diff. D/C doxy and Zosyn -Continue chest physiotherapy Acute encephalopathy--improving -Not verbally responsive but more alert today -Continue Resendiz -Due to dehydration vs sepsis vs respiratory failure? -NGT in place, NPO Sepsis due to UTI--improving -Afebrile since 08/26 -Leukocytosis continues to improve. WBC 13.76 on 08/27, down from 15.11 -Urine culture with E. coli ESBL. Zosyn changed to ertapenem for better coverage for both UTI/aspiration PNA -Lumbar puncture, CSF with elevated BSG, protein -CSF culture no growth, final -Blood cultures NGTD -MRSA swab negative -Abx as above C. diff colitis -Vancomycin 125 mg PO QID x 21 days per ID Hypophosphatemia, hypokalemia -Potassium 3.2 on 08/27, stable from 3.2 -Phosphorus 1.6, down from 2.1 -K phos 21 mmol IV x 1, continue to monitor H/o seizure disorder -Continue Keppra 1000 mg PO BID -Neurology consulted, appreciate recs: Spoke with Dr. Salazar. Will need [facility] records to help determine baseline. Continue Keppra either IV or PO. Check Keppra trough level. -EEG w/moderate encephalopathy -Release of records signed, awaiting [place] records DVT prophylaxis -Enoxaparin 40 mg SC q24h Code Status -Level I, FULL RESUSCITATION STATUS Dispo -From [facility] (Janki Che, RONALDO) I personally interviewed and examined the patient. I agree with history of present illness and physical exam mentioned above, I also performed my own history taking and examination. Past medical history and review of system has been obtained by myself I reviewed all pertinent labs and studies Reviewed current medications I discussed and formulated of the assessment and plan mentioned above. Please refer to the Summary mentioned below. 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 Patient deteriorated in her cognitive ability over 2-3 days at [facility]. Brought to the ED with fever and acute hypoxic respiratory failure requiring intubation. Patient was extubated successfully, chest x-ray showed possible right lower lobe pneumonia, concern for aspiration or mucous plug, started doxycycline/Zosyn with pulmonary toilet Patient is already following commands but requires strong verbal or tactile stimulus. Neurology and critical care consult appreciated Patient urine grew ESBL, Zosyn/doxycycline was switched to ertapenem Also her stool was positive for C. difficile, started an oral Vanco General Appearance: Not in acute distress Eyes: normal Sclerae, extraocular muscle intact ENT: hearing grossly normal Neck: supple Respiratory/Chest: Decreased air entry, decreased chest wall expansion, scattered rhonchi Cardiovascular: regular rate, rhythm, no murmur Abdomen: non tender, soft, no masses Extremities: no edema musculoskeletal: no significant swelling or inflammation in any joint, noticeable muscle wasting secondary to quadriparesis Neurologic/Psychiatric: Lethargic and, has quadriparesis as baseline , requires strong stimulus to wake up, followed simple commands Skin: normal color, warm/dry, no rash Alexis Monsivais MD, [facility] hospitalist group (Alexis Goode MD)
[2017-08-27] MEDS: ERTAPENEM IV 1 GM in SODIUM CHLOR 0.9% AD-VAN 50ML 50 ML IV SCH (14:43)
[2017-08-27] MEDS: ENOXAPARIN 40 MG/0.4 ML SYR SQ SCH (19:43)
[2017-08-28 04:33] VITALS: BP 148/96; PULSE 80; TEMP 36.5; O2SAT 92
[2017-08-28] MEDS ORDERED: VANCOMYCIN TROUGH ONE (05:30)
[2017-08-28] MEDS: POTASSIUM CHLORIDE INJ 20 MEQ in DEXTROSE 5% 1000ML 1,000 ML IV SCH (06:25)
[2017-08-28 07:31] VITALS: BP 131/81; PULSE 73; TEMP 36.5; O2SAT 95
[2017-08-28] MEDS: VANCOMYCIN HCL 125 MG/2.5ML SOLN PO SCH ×4 (07:57→20:20)
[2017-08-28] MEDS: LEVETIRACETAM ORAL SOLN 100MG/ML PO SCH ×2 (07:57→20:22)
[2017-08-28] MEDS: RASPBERRY SYRUP 5 ML UDP PO SCH ×4 (07:57→20:20)
[2017-08-28] MEDS: LANSOPRAZOLE SOLUTAB 15 MG NG SCH (07:58)
--- NOTE | 2017-08-28 08:02 | Neurology Progress Notes ---
Neurology Progress Note Date of Service Aug 28, 2017. Subjective More alert today and communicative. She has no complaint of pain in her spine or limbs. She has no headache or dizziness. She has no new vision problems. She does complain of some buttocks pain. She has been noted to have C difficile and is on vancomycin. I have spent some time reviewing all records from [facility], which includes her admission records from July 22, 2017 as well as some records from April 2017 from [facility]. 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 I have no details regarding this. In 2011 she had an intracranial hemorrhage and right-sided supraclinoid aneurysm coiling. She was fairly stable after this and I have no record of what her neurologic baseline was at that time. In January of 2017 she was noted to have a right-sided subdural hematoma. She was sent to [facility] this was evacuated, and she had a Re rupture with intracranial hemorrhage of her aneurysm requiring coil embolization. The bone flap on the right frontotemporoparietal head region was removed in order to let the swelling going down. In April of 2017 she had right-sided cranioplasty to replace the bone flap. Apparently, she was left with dysphagia gait dysfunction and generalized weakness by the time she got to [facility] for long-term care Patient has been on Keppra which I believe is for seizure prophylaxis. I am uncertain if she ever actually had a seizure or epilepsy. Patient denies that she ever had a seizure. Objective Date Time Temp Pulse Resp B/P (MAP) Pulse Ox O2 Delivery O2 Flow Rate FiO2 08/28/17 04:33 36.5 80 20 148/96 (113) 92 Room Air 08/28/17 04:02 Room Air 08/28/17 00:02 Room Air 08/27/17 23:49 36.4 86 19 134/83 (100) 93 Room Air 08/27/17 20:00 Room Air 08/27/17 19:30 37.2 75 18 119/76 (90) 92 Room Air 08/27/17 15:57 37.3 79 18 119/82 (94) 91 Room Air 08/27/17 15:55 95 Room Air 08/27/17 12:00 95 Room Air 08/27/17 11:37 36.4 83 24 122/85 (97) 94 Room Air 08/27/17 08:00 97 Room Air Last 24 Hours Test 08/28/17 04:44 Exam: Patient is awake and alert. She makes eye contact and tracks well horizontally bilaterally without dysconjugate gaze. Pupils are 3-4 millimeters bilaterally and reactive to light. There is no facial droop although she moves the left side of her face better than the right. Tongue is midline and can protrude. Patient is bed bound under stance is poor in bed unable to sit up on her own. She can hold out her right upper extremity some and touch her nose and there is no resting postural or action tremor noted. She does not have ataxia. She has the ability to wiggle her toes some but otherwise seems contracted with minimal movement in the legs otherwise. The left upper extremity does not move as well as the right and is more spastic. Toes are upgoing to plantar stimulation bilaterally. Current Inpatient Medications Medications (Trade) Dose Ordered Sig/Larry Route Start Time Stop Time Status Last Admin Dose Admin Ioversol (Optiray 320) 95 ml UD PRN IV 08/25/17 18:00 08/29/17 17:59 Propofol (Diprivan Iv Emulsion 100ml Vial) 1 dose UD PRN IV 08/25/17 18:28 08/28/17 18:27 Enoxaparin Sodium (Lovenox Inj) 40 mg Q24H SQ 08/25/17 21:00 09/24/17 20:59 08/27/17 19:43 40 MG Acetaminophen (Tylenol Tab) 650 mg Q4H PRN PO 08/25/17 18:45 09/24/17 18:44 Fentanyl Citrate (Fentanyl Inj) 50 mcg Q1H PRN IV 08/25/17 18:45 09/08/17 18:44 Acetaminophen 100 ml @ 400 mls/hr Q8H PRN IV 08/25/17 22:45 09/24/17 22:44 08/25/17 22:51 400 MLS/HR Levetiracetam (Keppra Soln) 1,000 mg BID PO 08/26/17 09:00 09/25/17 08:59 08/27/17 19:43 1,000 MG Vancomycin HCl (Vancomycin Oral Soln) 125 mg QID PO 08/27/17 00:00 09/10/17 00:00 08/27/17 19:42 125 MG Raspberry (Raspberry Syrup 5ml Cup) 5 ml QID PO 08/27/17 00:00 09/10/17 00:00 08/27/17 19:42 5 ML Potassium Chloride 20 meq/ Dextrose 1,010 ml @ 45 mls/hr [id number] IV 08/27/17 01:45 09/25/17 01:44 08/28/17 06:25 45 MLS/HR Lansoprazole (Prevacid Solutab) 15 mg DAILY NG 08/27/17 12:15 09/26/17 12:14 08/27/17 12:55 15 MG Ertapenem 1 gm/ Sodium Chloride 50 ml @ 120 mls/hr Q24H IV 08/27/17 15:00 09/06/17 14:59 08/27/17 14:43 120 MLS/HR Impression 1. This patient has a chronic, spastic quadriparesis, left greater than right side likely secondary to [employer] aneurysm procedures and interest cerebral hemorrhage events January of 2011 (and probably before). She has upper motor neuron signs bilaterally. Her voice is weak and she is generally weak. Mental status seems to be reasonable as she is pleasant and cooperative and can answer some questions. I believe she is probably close to her neurologic baseline now, but I have never seen her before so I am not sure if she isn't more alert or more functional at baseline. 2. Acute hypoxia August 25, requiring intubation and admission. This has improved. She may have aspirated or had a mucus plug. I am uncertain if her mental status is back to baseline, but she is much better than admission and stable over the last couple of days 3. Unknown history of seizures, on Keppra. I suspect Keppra has been given prophylactically to prevent seizures in lieu of her [employer] conditions. Keppra can certainly cause sedation and confusion and she is on a relatively high dose for her size. A Keppra level is pending from this morning. This will take a couple of days to come back. Plan 1. Continue levetiracetam 1000 mg IV or p.o. b.i.d., for now., but depending on the level I may cut back to 750 milligrams twice a day or even 500 milligrams twice a day, especially if I get a history that she has never actually had seizures in the [facility] is for seizure prophylaxis. Nevertheless, I will not change the levetiracetam dose before I see what the level is. 2. This patient needs physical, occupational, and speech therapy on a regular basis 3. I have no further neurologic testing or treatment recommendations to make on this patient, at this time. I would be happy to follow this patient as an outpatient
[2017-08-28 08:38] LABS: BASO % 0.1 %; BASO ABS # 0.01 K/uL (0-0.2); EOS % 0.2 %; EOS ABS # 0.03 K/uL (0-0.5); HEMATOCRIT 35.6 % (37-47); HEMOGLOBIN 11.9 g/dL (12.0-16.0); IG# 0.18 K/uL (0.00-0.02); LYMPH % 6.1 %; LYMPH ABS # 0.91 K/uL (1.2-3.4); MEAN CELL VOLUME 91.5 fL (80-100); MEAN CORPUSCULAR HEMOGLOBIN 30.6 pg (25-34); MEAN CORPUSCULAR HGB CONC 33.4 g/dl (32-36); MEAN PLATELET VOLUME 10.4 fL (7.4-10.4); MONO % 2.9 %; MONO ABS # 0.43 K/uL (0.11-0.59); NEUT % 89.5 %; NEUT ABS # 13.41 K/uL (1.4-6.5); PLATELET COUNT 246 K/uL (130-400); RED CELL DISTRIBUTION WIDTH CV 13.6 % (11.5-14.5); RED CELL DISTRIBUTION WIDTH SD 45.3 fL (36.4-46.3); WHITE BLOOD COUNT 14.97 K/uL (4.8-10.8)
--- NOTE | 2017-08-28 08:47 | Hospitalist Progress Note ---
Hospitalist Progress Note Date of Service Aug 28, 2017. (Sherrie Perdomo PA-C) Subjective Pt evaluation today including: conversation w/ patient, physical exam, chart review, lab review, review of studies Pain: None Voiding: coffey catheter in place The patient was seen and examined this morning. Pt is essentially unable to verbally communicate. She is unable to speak clearly although is attempting to. Pt does shake her head yes or no to my questions. She has a notepad and pen at bedside but her movements are slow and she has difficulty trying to write. ROS: no pain, no fever/chills/sweats, cp, shortness of breath, abd pain, diarrhea. (Sherrie Perdomo PA-C) Objective Vital Signs Date Time Temp Pulse Resp B/P (MAP) Pulse Ox O2 Delivery O2 Flow Rate FiO2 08/28/17 07:31 36.5 73 20 131/81 (98) 95 Room Air 08/28/17 04:33 36.5 80 20 148/96 (113) 92 Room Air 08/28/17 04:02 Room Air 08/28/17 00:02 Room Air 08/27/17 23:49 36.4 86 19 134/83 (100) 93 Room Air 08/27/17 20:00 Room Air 08/27/17 19:30 37.2 75 18 119/76 (90) 92 Room Air 08/27/17 15:57 37.3 79 18 119/82 (94) 91 Room Air 08/27/17 15:55 95 Room Air 08/27/17 12:00 95 Room Air 08/27/17 11:37 36.4 83 24 122/85 (97) 94 Room Air (Sherrie Perdomo PA-C) Physical Exam General Appearance: WD/WN, no apparent distress, + thin, + pertinent finding ( NGT in place, appears fatigued, + small scalp abrasion over the right frontal region) Eyes: PERRL, EOMI ENT: hearing grossly normal, + pertinent finding (MM dry, no exudate or thrush , NTG visualized in posterior pharynx. ) Neck: supple, no JVD Respiratory/Chest: lungs clear, no accessory muscle use, + pertinent finding ( on RA) Cardiovascular: regular rate, rhythm, no murmur Abdomen: normal bowel sounds, non tender, soft, + pertinent finding (Coffey cath in place draining clear yellow urine) Extremities: non-tender, no calf tenderness, + pedal edema (faint nonpitting in the RLE compared to the LLE. ) Neurologic/Psychiatric: alert, + pertinent finding (orientation unable to be assessed.) (Sherrie Perdomo, RONALDO) Laboratory Results Last 24 Hours Test 08/28/17 08:18 (Sherrie Perdomo PA-C) Assessment and Plan 61 y/o female with a history of ICH s/p aneurysm coiling last in January 2017 who presented on 08/[address] [facility] with fevers, altered mental status, tachycardia and hypoxia. Intubated on admission and sent to ICU, extuabated on 08/26. Acute respiratory failure with hypoxia requiring intubation secondary to dehydration and mucous plugging vs RLL pneumonia--improving - Initially in ICU due to above, required intubation, then extubated 08/26 - Continue ertapenem 1 gm IV daily, off doxy and zosyn. - O2 protocol, chest PT Acute encephalopathy - improving Sepsis secondary to UTI - Due to dehydration vs sepsis vs respiratory failure? - UCx with E. coli ESBL, WBC trending down, afebrile - Continue ertapenem as above per ID - S/p LP and cultures without growth, BCx negative. - NGT in place for med administration - NPO. C. diff colitis -Vancomycin 125 mg PO QID x 21 days per ID (started 08/27) Hypophosphatemia, hypokalemia - Follow PRP, replace as needed. H/o seizure disorder -Neurology consulted, appreciate recs: Continue levetiracetam 1000 mg IV or PO BID for now- Level pending, possible that we may cut back to 750mg BID or 500 mg BID. Awaiting [facility] records to help determine baseline. Continue Keppra either IV or PO. -EEG w/ moderate encephalopathy DVT ppx: lovenox Code Status: Full Dispo: [facility], CM to assist (Sherrie Perdomo, RONALDO) I personally interviewed and examined the patient. I agree with history of present illness and physical exam mentioned above, I also performed my own history taking and examination. Past medical history and review of system has been obtained by myself I reviewed all pertinent labs and studies Reviewed current medications I discussed and formulated of the assessment and plan mentioned above. Please refer to the Summary mentioned below. 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 Patient deteriorated in her cognitive ability over 2-3 days at [facility]. Brought to the ED with fever and acute hypoxic respiratory failure requiring intubation. Patient was extubated successfully, chest x-ray showed possible right lower lobe pneumonia, concern for aspiration or mucous plug, started doxycycline/Zosyn with pulmonary toilet Patient is already following commands but requires strong verbal or tactile stimulus. Neurology and critical care consult appreciated Patient urine grew ESBL, Zosyn/doxycycline was switched to ertapenem Also her stool was positive for C. difficile, started on oral Vanco D/W dr Richards who agreed with the plan continue levetiracetam, will leave dose reduction up to Dr. Salazar General Appearance: Not in acute distress Eyes: normal Sclerae, extraocular muscle intact ENT: hearing grossly normal Neck: supple Respiratory/Chest: Decreased air entry, decreased chest wall expansion, scattered rhonchi Cardiovascular: regular rate, rhythm, no murmur Abdomen: non tender, soft, no masses Extremities: no edema musculoskeletal: no significant swelling or inflammation in any joint, noticeable muscle wasting secondary to quadriparesis Neurologic/Psychiatric: Lethargic and, has quadriparesis as baseline , requires strong stimulus to wake up, followed simple commands Skin: normal color, warm/dry, no rash Alexis Monsivais MD, [facility] hospitalist group (Alexis Goode MD)
[2017-08-28 08:49] LABS: INR 1.5 (0.9-1.1)
[2017-08-28 09:06] LABS: CALCIUM 8.4 mg/dl (8.5-10.1); CREATININE 0.43 mg/dl (0.60-1.20); PHOSPHORUS 2.1 mg/dl (2.5-4.9); POTASSIUM 3.4 mmol/L (3.5-5.1)
--- NOTE | 2017-08-28 10:59 | Progress Note ---
Subjective Date of Service: Aug 28, 2017. Subjective Pt evaluation today including: conversation w/ patient, physical exam, chart review, lab review pt much more awake and interactive today, dht in place. remains on po vanco for c diff, tolerating. Na normal today. changed to ertapenem by primary yesterday due to e. coli in urine - ua with only 1-5 wbc. denies f/c, denies abd pain. breathing comfortable. remaining ros reviewed and are negative but limited. csf and blood cultures negative. Problem List Medical Problems: (1) Change in mental status Status: Acute (2) Dehydration Status: Acute (3) Respiratory failure Status: Acute (4) Sepsis Status: Acute (5) Tachycardia Status: Acute (6) Urinary tract infection Status: Acute Objective Vital Signs Date Time Temp Pulse Resp B/P (MAP) Pulse Ox O2 Delivery O2 Flow Rate FiO2 08/28/17 08:00 Room Air 08/28/17 07:31 36.5 73 20 131/81 (98) 95 Room Air 08/28/17 04:33 36.5 80 20 148/96 (113) 92 Room Air 08/28/17 04:02 Room Air 08/28/17 00:02 Room Air 08/27/17 23:49 36.4 86 19 134/83 (100) 93 Room Air 08/27/17 20:00 Room Air 08/27/17 19:30 37.2 75 18 119/76 (90) 92 Room Air 08/27/17 15:57 37.3 79 18 119/82 (94) 91 Room Air 08/27/17 15:55 95 Room Air 08/27/17 12:00 95 Room Air 08/27/17 11:37 36.4 83 24 122/85 (97) 94 Room Air Physical Exam General Appearance: WD/WN, no apparent distress Eyes: normal inspection, EOMI Neck: supple Respiratory/Chest: lungs clear, + decreased breath sounds Cardiovascular: regular rate, rhythm Abdomen: non tender, soft Extremities: non-tender, no pedal edema Neurologic/Psychiatric: alert Skin: normal color Laboratory Results Item Value Date Time C.difficile Toxin B Gene (PCR) - Final Complete 08/26/17 2140 Stool Positive for C. difficile toxin B gene Gram Stain - Final Complete 08/25/17 1900 Cerebral Spinal Fluid Blood Culture - Preliminary Resulted 08/25/17 1723 Blood NO GROWTH TO DATE. Blood Culture - Preliminary Resulted 08/25/17 1712 Blood NO GROWTH TO DATE. Last 24 Hours Test 08/28/17 08:18 White Blood Count 14.97 K/uL Red Blood Count 3.89 M/uL Hemoglobin 11.9 g/dL Hematocrit 35.6 % Mean Corpuscular Volume 91.5 fL Mean Corpuscular Hemoglobin 30.6 pg Mean Corpuscular Hemoglobin Concent 33.4 g/dl Platelet Count 246 K/uL Mean Platelet Volume 10.4 fL Neutrophils (%) (Auto) 89.5 % Lymphocytes (%) (Auto) 6.1 % Monocytes (%) (Auto) 2.9 % Eosinophils (%) (Auto) 0.2 % Basophils (%) (Auto) 0.1 % Neutrophils # (Auto) 13.41 K/uL Lymphocytes # (Auto) 0.91 K/uL Monocytes # (Auto) 0.43 K/uL Eosinophils # (Auto) 0.03 K/uL Basophils # (Auto) 0.01 K/uL RDW Standard Deviation 45.3 fL RDW Coefficient of Variation 13.6 % Immature Granulocyte % (Auto) 1.2 % Immature Granulocyte # (Auto) 0.18 K/uL Prothrombin Time 15.9 SECONDS Prothromb Time International Ratio 1.5 Sodium Level 144 mmol/L Potassium Level 3.4 mmol/L Chloride Level 114 mmol/L Carbon Dioxide Level 24 mmol/L Anion Gap 6.0 mmol/L Blood Urea Nitrogen 6 mg/dl Creatinine 0.43 mg/dl Est Creatinine Clear Calc Drug Dose 108.7 ml/min Estimated GFR () 127.2 Estimated GFR (Non- 109.8 BUN/Creatinine Ratio 14.1 Random Glucose 103 mg/dl Calcium Level 8.4 mg/dl Phosphorus Level 2.1 mg/dl Magnesium Level 1.9 mg/dl Assessment and Plan (1) C. difficile colitis Assessment & Plan: continue vanco. doubt e. coli in urine is contributing, now on ertapenem. would give 7 days for aspiration, can change to po augmentin. would give 21 days vanco for c diff.
[2017-08-28 11:07] VITALS: BP 136/87; PULSE 77; TEMP 37; O2SAT 99
[2017-08-28] MEDS: ERTAPENEM IV 1 GM in SODIUM CHLOR 0.9% AD-VAN 50ML 50 ML IV SCH (14:18)
[2017-08-28 15:48] VITALS: BP 142/87; PULSE 79; TEMP 36.6; O2SAT 96
[2017-08-28 20:00] VITALS: BP 128/81; PULSE 65; TEMP 36.7; O2SAT 97
[2017-08-28] MEDS: ENOXAPARIN 40 MG/0.4 ML SYR SQ SCH (20:23)
[2017-08-28 23:25] VITALS: BP 127/79; PULSE 67; TEMP 36.5; O2SAT 97
[2017-08-29 03:35] VITALS: BP 121/69; PULSE 57; TEMP 36.4; O2SAT 97
[2017-08-29] MEDS: POTASSIUM CHLORIDE INJ 20 MEQ in DEXTROSE 5% 1000ML 1,000 ML IV SCH ×2 (04:20→20:31)
[2017-08-29 07:41] LABS: BASO % 0.2 %; BASO ABS # 0.02 K/uL (0-0.2); EOS % 0.5 %; EOS ABS # 0.05 K/uL (0-0.5); HEMATOCRIT 38.6 % (37-47); HEMOGLOBIN 12.7 g/dL (12.0-16.0); IG# 0.13 K/uL (0.00-0.02); LYMPH % 8.9 %; LYMPH ABS # 0.94 K/uL (1.2-3.4); MEAN CELL VOLUME 91.9 fL (80-100); MEAN CORPUSCULAR HEMOGLOBIN 30.2 pg (25-34); MEAN CORPUSCULAR HGB CONC 32.9 g/dl (32-36); MEAN PLATELET VOLUME 10.7 fL (7.4-10.4); MONO % 5.4 %; MONO ABS # 0.57 K/uL (0.11-0.59); NEUT % 83.8 %; NEUT ABS # 8.81 K/uL (1.4-6.5); PLATELET COUNT 268 K/uL (130-400); RED CELL DISTRIBUTION WIDTH CV 13.5 % (11.5-14.5); RED CELL DISTRIBUTION WIDTH SD 44.7 fL (36.4-46.3); WHITE BLOOD COUNT 10.52 K/uL (4.8-10.8)
[2017-08-29 07:51] VITALS: BP 150/94; PULSE 73; TEMP 37.1; O2SAT 96
[2017-08-29 07:52] LABS: INR 1.6 (0.9-1.1)
[2017-08-29] MEDS: LEVETIRACETAM ORAL SOLN 100MG/ML PO SCH (08:14)
[2017-08-29] MEDS: LANSOPRAZOLE SOLUTAB 15 MG NG SCH (08:15)
[2017-08-29] MEDS: VANCOMYCIN HCL 125 MG/2.5ML SOLN PO SCH (08:15)
[2017-08-29 08:21] LABS: CALCIUM 8.9 mg/dl (8.5-10.1); CREATININE 0.39 mg/dl (0.60-1.20); PHOSPHORUS 2.9 mg/dl (2.5-4.9); POTASSIUM 3.5 mmol/L (3.5-5.1)
[2017-08-29] MEDS: RASPBERRY SYRUP 5 ML UDP PO SCH ×2 (09:40→13:00)
[2017-08-29] MEDS ORDERED: ACETAMINOPHEN SOLN 650MG/20.3 ML UDC PO PRN (09:45)
[2017-08-29 11:37] VITALS: BP 131/83; PULSE 71; TEMP 36.6; O2SAT 97
--- NOTE | 2017-08-29 12:54 | Progress Note ---
Subjective Date of Service: Aug 29, 2017. Subjective Pt evaluation today including: conversation w/ patient, physical exam Patient reports feeling well. She communicates with nodding head or giving thumbs up. From nurse: Discussed with speech therapy, she failed today her speech swallow. Will try again tomorrow. May need video swallow on Thursday. Problem List Medical Problems: (1) Change in mental status Status: Acute (2) Dehydration Status: Acute (3) Respiratory failure Status: Acute (4) Sepsis Status: Acute (5) Tachycardia Status: Acute (6) Urinary tract infection Status: Acute Review of Systems Constitutional: No fever Eyes: No worsening of vision Respiratory: No sputum Cardiac: No chest pain Abdomen: No pain Musculoskeletal: No joint pain All Other Systems: Reviewed and Negative Objective Vital Signs Date Time Temp Pulse Resp B/P (MAP) Pulse Ox O2 Delivery O2 Flow Rate FiO2 08/29/17 12:32 Room Air 08/29/17 11:37 36.6 71 20 131/83 (99) 97 Room Air 08/29/17 08:00 Room Air 08/29/17 07:51 37.1 73 20 150/94 (112) 96 Room Air 08/29/17 04:00 Room Air 08/29/17 03:35 36.4 57 14 121/69 (86) 97 Room Air 08/29/17 00:00 Room Air 08/28/17 23:25 36.5 67 14 127/79 (95) 97 Room Air 08/28/17 20:00 Room Air 08/28/17 20:00 36.7 65 20 128/81 (97) 97 Room Air 08/28/17 16:00 Room Air 08/28/17 15:48 36.6 79 18 142/87 (105) 96 Room Air Physical Exam Comments: General Appearance: WD/WN, no apparent distress, + thin, + pertinent finding ( NGT in place, appears fatigued, + small scalp abrasion over the right frontal region) Eyes: PERRL, EOMI ENT: hearing grossly normal, + pertinent finding (MM dry, no exudate or thrush , NTG visualized in posterior pharynx. ) Neck: supple, no JVD Respiratory/Chest: lungs clear, no accessory muscle use, + pertinent finding ( on RA) Cardiovascular: regular rate, rhythm, no murmur Abdomen: normal bowel sounds, non tender, soft, + pertinent finding (Resendiz cath in place draining clear yellow urine) Extremities: non-tender, no calf tenderness, + pedal edema (faint nonpitting in the RLE compared to the LLE. ) Neurologic/Psychiatric: alert, + pertinent finding (orientation unable to be assessed.) Laboratory Results Last 24 Hours Test 08/29/17 07:16 White Blood Count 10.52 K/uL Red Blood Count 4.20 M/uL Hemoglobin 12.7 g/dL Hematocrit 38.6 % Mean Corpuscular Volume 91.9 fL Mean Corpuscular Hemoglobin 30.2 pg Mean Corpuscular Hemoglobin Concent 32.9 g/dl Platelet Count 268 K/uL Mean Platelet Volume 10.7 fL Neutrophils (%) (Auto) 83.8 % Lymphocytes (%) (Auto) 8.9 % Monocytes (%) (Auto) 5.4 % Eosinophils (%) (Auto) 0.5 % Basophils (%) (Auto) 0.2 % Neutrophils # (Auto) 8.81 K/uL Lymphocytes # (Auto) 0.94 K/uL Monocytes # (Auto) 0.57 K/uL Eosinophils # (Auto) 0.05 K/uL Basophils # (Auto) 0.02 K/uL RDW Standard Deviation 44.7 fL RDW Coefficient of Variation 13.5 % Immature Granulocyte % (Auto) 1.2 % Immature Granulocyte # (Auto) 0.13 K/uL Prothrombin Time 16.2 SECONDS Prothromb Time International Ratio 1.6 Sodium Level 145 mmol/L Potassium Level 3.5 mmol/L Chloride Level 112 mmol/L Carbon Dioxide Level 26 mmol/L Anion Gap 6.0 mmol/L Blood Urea Nitrogen 3 mg/dl Creatinine 0.39 mg/dl Est Creatinine Clear Calc Drug Dose 119.8 ml/min Estimated GFR () 131.4 Estimated GFR (Non- 113.4 BUN/Creatinine Ratio 8.5 Random Glucose 86 mg/dl Calcium Level 8.9 mg/dl Phosphorus Level 2.9 mg/dl Magnesium Level 2.1 mg/dl Chemistry Specimen Hemolysis Assessment and Plan 61 y/o female with a history of ICH s/p aneurysm coiling last in January 2017 who presented on 08/25 from [facility] with fevers, altered mental status, tachycardia and hypoxia. Intubated on admission and sent to ICU, extuabated on 08/26. Acute respiratory failure with hypoxia requiring intubation secondary to dehydration and mucous plugging vs RLL pneumonia--improving - Initially in ICU due to above, required intubation, then extubated 08/26 - Continue ertapenem 1 gm IV daily, off doxy and zosyn. - O2 protocol, chest PT Acute encephalopathy - improving Sepsis secondary to UTI vs aspiration - Due to dehydration vs sepsis vs respiratory failure? - UCx with E. coli ESBL, WBC trending down, afebrile - Continue ertapenem as above per ID -ID does not believe ESBL is a big contributor, will continue ertapenem -may consider switching to PO antibiotics at discharge to augmentin - S/p LP and cultures without growth, BCx negative. - NGT in place for med administration - NPO. -Patient receiving fluids via peg tube -awaiting speech eval: failed today, will repeat tomorrow. -May need video swallow on Thursday. C. diff colitis -Vancomycin 125 mg PO QID x 21 days per ID (started 08/27) Hypophosphatemia, hypokalemia - Follow PRP, replace as needed. H/o seizure disorder -Neurology consulted, appreciate recs: Continue levetiracetam 1000 mg IV or PO BID for now- Level pending, possible that we may cut back to 750mg BID or 500 mg BID. Awaiting [facility] [place] [facility] records to help determine baseline. Continue Keppra either IV or PO. -EEG w/ moderate encephalopathy DVT ppx: lovenox Code Status: Full Dispo: Adrian Zaidi CM to assist Continued [facility] stay due to: multiple IV medications needed
[2017-08-29] MEDS ORDERED: NURSING VERBAL MED ORDER ONE (13:00)
[2017-08-29] MEDS: VANCOMYCIN HCL 125 MG/2.5ML SOLN NG SCH ×3 (13:10→20:29)
[2017-08-29] MEDS ORDERED: ACETAMINOPHEN SOLN 650MG/20.3 ML UDC NG PRN (13:15)
[2017-08-29 15:30] VITALS: BP 155/94; PULSE 74; TEMP 36.7; O2SAT 98
[2017-08-29] MEDS: ERTAPENEM IV 1 GM in SODIUM CHLOR 0.9% AD-VAN 50ML 50 ML IV SCH (15:36)
[2017-08-29] MEDS: PEPTAMEN 1.5 CAL 1000ML BAG NG SCH (15:54)
[2017-08-29] MEDS ORDERED: VANCOMYCIN HCL 125 MG/2.5ML SOLN NG SCH (17:00)
[2017-08-29] MEDS: ACETAMINOPHEN IV 100 ML IV PRN (18:01)
[2017-08-29 19:29] VITALS: BP 142/87; PULSE 72; TEMP 36.8; O2SAT 96
[2017-08-29] MEDS: ENOXAPARIN 40 MG/0.4 ML SYR SQ SCH (20:32)
[2017-08-29] MEDS: LEVETIRACETAM ORAL SOLN 100MG/ML NG SCH (20:45)
[2017-08-29 23:45] VITALS: BP 125/77; PULSE 67; TEMP 36.4; O2SAT 95
[2017-08-30 03:48] VITALS: BP 128/80; PULSE 67; TEMP 36.4; O2SAT 97
[2017-08-30 07:27] VITALS: BP 153/98; PULSE 81; TEMP 37.2; O2SAT 94
[2017-08-30 07:46] LABS: BASO % 0.1 %; BASO ABS # 0.01 K/uL (0-0.2); EOS % 0.9 %; EOS ABS # 0.09 K/uL (0-0.5); HEMATOCRIT 38.4 % (37-47); HEMOGLOBIN 12.5 g/dL (12.0-16.0); IG# 0.14 K/uL (0.00-0.02); INR 1.3 (0.9-1.1); LYMPH % 9.4 %; MEAN CELL VOLUME 91.9 fL (80-100); MEAN CORPUSCULAR HEMOGLOBIN 29.9 pg (25-34); MEAN CORPUSCULAR HGB CONC 32.6 g/dl (32-36); MEAN PLATELET VOLUME 11.1 fL (7.4-10.4); MONO % 6.2 %; MONO ABS # 0.59 K/uL (0.11-0.59); NEUT % 81.9 %; PLATELET COUNT 285 K/uL (130-400); RED CELL DISTRIBUTION WIDTH CV 13.3 % (11.5-14.5); RED CELL DISTRIBUTION WIDTH SD 44.5 fL (36.4-46.3); WHITE BLOOD COUNT 9.53 K/uL (4.8-10.8)
[2017-08-30 08:07] LABS: CALCIUM 8.4 mg/dl (8.5-10.1); CREATININE 0.33 mg/dl (0.60-1.20); PHOSPHORUS 2.7 mg/dl (2.5-4.9); POTASSIUM 3.1 mmol/L (3.5-5.1)
[2017-08-30] MEDS: LEVETIRACETAM ORAL SOLN 100MG/ML NG SCH ×2 (08:29→20:52)
[2017-08-30] MEDS: LANSOPRAZOLE SOLUTAB 15 MG NG SCH (08:30)
[2017-08-30] MEDS: VANCOMYCIN HCL 125 MG/2.5ML SOLN NG SCH ×4 (08:30→20:52)
[2017-08-30 11:02] VITALS: BP 146/93; PULSE 90; TEMP 37.1; O2SAT 98
[2017-08-30] MEDS: ERTAPENEM IV 1 GM in SODIUM CHLOR 0.9% AD-VAN 50ML 50 ML IV SCH (14:52)
[2017-08-30] MEDS: POTASSIUM CHLORIDE PWD 20 MEQ PACK PO SCH ×2 (14:52→20:51)
[2017-08-30 16:00] VITALS: BP 132/95; PULSE 83; TEMP 36.9; O2SAT 96
[2017-08-30 20:00] VITALS: BP 157/103; PULSE 111; TEMP 36.7; O2SAT 92
[2017-08-30] MEDS: ENOXAPARIN 40 MG/0.4 ML SYR SQ SCH (20:52)
[2017-08-30] MEDS: POTASSIUM CHLORIDE INJ 20 MEQ in DEXTROSE 5% 1000ML 1,000 ML IV SCH (20:52)
--- NOTE | 2017-08-30 22:13 | Progress Note ---
Subjective Date of Service: Aug 30, 2017. Subjective 61 yo female is more awake today. Does not provide significant history and denies any complaints today. Communicates via nodding and thumbs up. She also speaks but very low pitch. Problem List Medical Problems: (1) Change in mental status Status: Acute (2) Dehydration Status: Acute (3) Respiratory failure Status: Acute (4) Sepsis Status: Acute (5) Tachycardia Status: Acute (6) Urinary tract infection Status: Acute Review of Systems Constitutional: No fever Respiratory: No cough Cardiac: No chest pain Endo: No fatigue Skin: No rash All Other Systems: Reviewed and Negative Medications Current Inpatient Medications Medications (Trade) Dose Ordered Sig/Larry Route Start Time Stop Time Status Last Admin Dose Admin Enoxaparin Sodium (Lovenox Inj) 40 mg Q24H SQ 08/25/17 21:00 09/24/17 20:59 08/30/17 20:52 40 MG Fentanyl Citrate (Fentanyl Inj) 50 mcg Q1H PRN IV 08/25/17 18:45 09/08/17 18:44 Acetaminophen 100 ml @ 400 mls/hr Q8H PRN IV 08/25/17 22:45 09/24/17 22:44 08/29/17 18:01 400 MLS/HR Raspberry (Raspberry Syrup 5ml Cup) 5 ml QID PO 08/27/17 00:00 09/10/17 00:00 Future Hold 08/28/17 20:20 5 ML Potassium Chloride 20 meq/ Dextrose 1,010 ml @ 45 mls/hr [id number] IV 08/27/17 01:45 09/25/17 01:44 08/30/17 20:52 45 MLS/HR Lansoprazole (Prevacid Solutab) 15 mg DAILY NG 08/27/17 12:15 09/26/17 12:14 08/30/17 08:30 15 MG Ertapenem 1 gm/ Sodium Chloride 50 ml @ 120 mls/hr Q24H IV 08/27/17 15:00 09/06/17 14:59 08/30/17 14:52 120 MLS/HR Levetiracetam (Keppra Soln) 1,000 mg BID NG 08/29/17 21:00 09/28/17 20:59 08/30/17 20:52 1,000 MG Acetaminophen (Tylenol Soln) 650 mg Q4H PRN NG 08/29/17 13:15 09/28/17 13:14 Vancomycin HCl (Vancomycin Oral Soln) 125 mg QID NG 08/29/17 13:00 09/10/17 00:00 08/30/17 20:52 125 MG Enteral Nutritional Formula (Peptamen 1.5) 1,000 ml UD NG 08/29/17 14:00 09/28/17 13:59 08/29/17 15:54 1,000 ML Potassium Chloride (Klor-Con Pwd) 20 meq TID PO 08/30/17 14:00 09/01/17 09:01 08/30/17 20:51 20 MEQ Objective Vital Signs Date Time Temp Pulse Resp B/P (MAP) Pulse Ox O2 Delivery O2 Flow Rate FiO2 08/30/17 20:00 36.7 111 18 157/103 (121) 92 Room Air 08/30/17 20:00 Room Air 08/30/17 16:00 36.9 83 18 132/95 (107) 96 08/30/17 16:00 Room Air 08/30/17 12:00 Room Air 08/30/17 11:02 37.1 90 20 146/93 (110) 98 08/30/17 08:00 Room Air 08/30/17 07:27 37.2 81 20 153/98 (116) 94 Room Air 08/30/17 04:00 Room Air 08/30/17 03:48 36.4 67 16 128/80 (96) 97 Room Air 08/30/17 00:00 Room Air 08/29/17 23:45 36.4 67 16 125/77 (93) 95 Room Air Physical Exam Comments: General Appearance: WD/WN, no apparent distress, + thin, + pertinent finding ( NGT in place, appears fatigued, + small scalp abrasion over the right frontal region) Eyes: PERRL, EOMI ENT: hearing grossly normal, + pertinent finding (MM dry, no exudate or thrush , NTG visualized in posterior pharynx. ) Neck: supple, no JVD Respiratory/Chest: lungs clear, no accessory muscle use, + pertinent finding ( on RA) Cardiovascular: regular rate, rhythm, no murmur Abdomen: normal bowel sounds, non tender, soft, + pertinent finding (Resendiz cath in place draining clear yellow urine) Extremities: non-tender, no calf tenderness, + pedal edema (faint nonpitting in the RLE compared to the LLE. ) Neurologic/Psychiatric: alert, + pertinent finding (orientation unable to be assessed.) Laboratory Results Last 24 Hours Test 08/30/17 06:53 White Blood Count 9.53 K/uL Red Blood Count 4.18 M/uL Hemoglobin 12.5 g/dL Hematocrit 38.4 % Mean Corpuscular Volume 91.9 fL Mean Corpuscular Hemoglobin 29.9 pg Mean Corpuscular Hemoglobin Concent 32.6 g/dl Platelet Count 285 K/uL Mean Platelet Volume 11.1 fL Neutrophils (%) (Auto) 81.9 % Lymphocytes (%) (Auto) 9.4 % Monocytes (%) (Auto) 6.2 % Eosinophils (%) (Auto) 0.9 % Basophils (%) (Auto) 0.1 % Neutrophils # (Auto) 7.80 K/uL Lymphocytes # (Auto) 0.90 K/uL Monocytes # (Auto) 0.59 K/uL Eosinophils # (Auto) 0.09 K/uL Basophils # (Auto) 0.01 K/uL RDW Standard Deviation 44.5 fL RDW Coefficient of Variation 13.3 % Immature Granulocyte % (Auto) 1.5 % Immature Granulocyte # (Auto) 0.14 K/uL Prothrombin Time 14.0 SECONDS Prothromb Time International Ratio 1.3 Sodium Level 143 mmol/L Potassium Level 3.1 mmol/L Chloride Level 109 mmol/L Carbon Dioxide Level 28 mmol/L Anion Gap 6.0 mmol/L Blood Urea Nitrogen 4 mg/dl Creatinine 0.33 mg/dl Est Creatinine Clear Calc Drug Dose 141.6 ml/min Estimated GFR () 138.8 Estimated GFR (Non- 119.8 BUN/Creatinine Ratio 11.2 Random Glucose 117 mg/dl Calcium Level 8.4 mg/dl Phosphorus Level 2.7 mg/dl Magnesium Level 1.9 mg/dl Assessment and Plan 61 y/o female with a history of ICH s/p aneurysm coiling last in January 2017 who presented on 08/25 from [facility] with fevers, altered mental status, tachycardia and hypoxia. Intubated on admission and sent to ICU, extuabated on 08/26. Acute respiratory failure with hypoxia requiring intubation secondary to dehydration and mucous plugging vs RLL pneumonia--improving - Initially in ICU due to above, required intubation, then extubated 08/26 - Continue ertapenem 1 gm IV daily, off doxy and zosyn. - O2 protocol, chest PT -ID on case, will switch to PO augmentin once patient is discharged -ID does not believe bacteria in urine is contributing to overall clinical picture. Acute encephalopathy - improving Sepsis secondary to UTI vs aspiration - Due to dehydration vs sepsis vs respiratory failure? - UCx with E. coli ESBL, WBC trending down, afebrile - Continue ertapenem as above per ID -ID does not believe ESBL is a big contributor, will continue ertapenem -may consider switching to PO antibiotics at discharge to augmentin - S/p LP and cultures without growth, BCx negative. - NGT in place for med administration -will continue NPO for now. -Patient receiving fluids via corsafe -awaiting speech eval: failed today, - -May need video swallow on Thursday. C. diff colitis -Vancomycin 125 mg PO QID x 21 days per ID (started 08/27) Hypophosphatemia, hypokalemia - Follow PRP, replace as needed. H/o seizure disorder -Neurology consulted, appreciate recs: Continue levetiracetam 1000 mg IV or PO BID for now- Level pending, possible that we may cut back to 750mg BID or 500 mg BID. Awaiting [facility] records to help determine baseline. Continue Keppra either IV or PO. -EEG w/ moderate encephalopathy DVT ppx: lovenox Code Status: Full Dispo: Adrian Zaidi CM to assist Awaiting for final speech input prior to discharge. Continued [facility] stay due to: multiple IV medications needed Discharge planning: detention facility
[2017-08-30 23:12] VITALS: BP 93/58; PULSE 100; TEMP 36.5; O2SAT 91
--- NOTE | 2017-08-30 23:13 | Progress Note ---
Post ICU Progress Note Date & Time Aug 30, 2017 at 22:55 Vital Signs Vital Signs Past 12 Hours Date Time Temp Pulse Resp B/P (MAP) Pulse Ox O2 Delivery O2 Flow Rate FiO2 08/30/17 20:00 36.7 111 18 157/103 (121) 92 Room Air 08/30/17 20:00 Room Air 08/30/17 16:00 36.9 83 18 132/95 (107) 96 08/30/17 16:00 Room Air 08/30/17 12:00 Room Air 08/30/17 11:02 37.1 90 20 146/93 (110) 98 Notes Mental Status: see Notes (See notes below) Nausea / Vomiting: adequately controlled Pain: adequately controlled Airway Patency, RR, SpO2: stable & adequate BP & HR: stable & adequate Claudia Mcgee is a 61yo with a past medical history including intracranial hemorrhage from cerebral aneurysm requiring craniotomy, oral dysphasia, gait dysfunction and weakness who was admitted to the ICU on August 25 after transfer from [facility] halfway for a change in mental status with abdominal pain. Patient required intubation in the emergency department. Patient was consented for central line and arterial line; however, she did not undergo these procedures. Patient did undergo stat EEG did not demonstrate active seizures but did show generalized slowing. Patient underwent lumbar puncture by Dr. Ajay Kaur that did not demonstrate meningitis or hemorrhage. Patient was successfully extubated the following day August 26. She was treated for urinary tract infection as well as covered for atypical respiratory bacteria. Patient is being followed by Dr. Salaazr of neurology. At this point he has no further neurologic testing or treatment recommendations aside from the patient's obvious need for physical, occupational and speech therapy on a regular basis. He has ordered a Keppra level in order to follow patient's current antiseizure medications and will change dose according to that level. Upon my examination patient is contracted and difficult to communicate with. She does nod her head occasionally to answers. I have spoken with her nurse who has cared for her for approximately the past 3 days and states that she has become less responsive over this period of time. At this time we are awaiting records from [facility] to help determine the patient's normal baseline mentally. Patient's blood pressure and heart rate have remained stable she is on room air with adequate saturations. At this point she has stabilized from a respiratory and cardiac standpoint. Repeat imaging needed: Per Neurology Follow up cultures: Not indicated Reviewed progress notes, labs, and inpatient medication list Continue current management Additional recommendations: None Critical care will sign off at this time. Thank you for including us in the care of this patient; please feel free to reconsult as needed. [facility] inpatient billing Thank you for including us in the care of this patient. Please review Dr. Emigdio Kaur's addendum for further recommendations. Consults & Procedures Consultants: Neurology Wound Care Procedures: Intubated 08/25/17 Extubated 08/26/17 Lumbar puncture: 08/25/17 EEG 08/25/17
[2017-08-31] VITALS (7 sets, daily range): BP systolic 115–141; BP diastolic 78–91; PULSE 82–102; TEMP 36.5–36.8; O2SAT 86–97
[2017-08-31] MEDS: PEPTAMEN 1.5 CAL 1000ML BAG NG SCH (01:08)
[2017-08-31 06:17] LABS: HEMATOCRIT 37.1 % (37-47); HEMOGLOBIN 12.2 g/dL (12.0-16.0); MEAN CELL VOLUME 91.4 fL (80-100); MEAN CORPUSCULAR HGB CONC 32.9 g/dl (32-36); MEAN PLATELET VOLUME 10.5 fL (7.4-10.4); PLATELET COUNT 308 K/uL (130-400); RED CELL DISTRIBUTION WIDTH CV 13.5 % (11.5-14.5); RED CELL DISTRIBUTION WIDTH SD 44.8 fL (36.4-46.3); WHITE BLOOD COUNT 8.47 K/uL (4.8-10.8)
[2017-08-31 07:02] LABS: CALCIUM 8.5 mg/dl (8.5-10.1); CREATININE 0.28 mg/dl (0.60-1.20); POTASSIUM 3.9 mmol/L (3.5-5.1)
[2017-08-31] MEDS: LEVETIRACETAM ORAL SOLN 100MG/ML NG SCH ×2 (08:19→21:00)
[2017-08-31] MEDS: LANSOPRAZOLE SOLUTAB 15 MG NG SCH (08:19)
[2017-08-31] MEDS: POTASSIUM CHLORIDE PWD 20 MEQ PACK PO SCH ×3 (08:19→21:00)
[2017-08-31] MEDS: VANCOMYCIN HCL 125 MG/2.5ML SOLN NG SCH ×4 (08:22→21:10)
--- NOTE | 2017-08-31 14:46 | Progress Note ---
Subjective Date of Service: Aug 31, 2017. Subjective Pt evaluation today including: conversation w/ patient, physical exam, lab review, conversation w/ nurse consultant, review of inpatient medication list Pain: cannot respond PO Intake: NPO Voiding: coffey catheter in place patient laying in bed, no distress, no verbal responses per RN, not really responding today, responded a little better over the weekend reviewed labs, WBC 8k discussed with speech therapy, patient did not do well at all, could not initiate a swallow they doubt she has strength to swallow and provide enough nourishment going forward recommend discussing PEG tube with family per RN, she had one formed stool and one loose stool Problem List Medical Problems: (1) Change in mental status Status: Acute (2) Dehydration Status: Acute (3) Respiratory failure Status: Acute (4) Sepsis Status: Acute (5) Tachycardia Status: Acute (6) Urinary tract infection Status: Acute Review of Systems cannot review, no responses Medications Current Inpatient Medications Medications (Trade) Dose Ordered Sig/Larry Route Start Time Stop Time Status Last Admin Dose Admin Enoxaparin Sodium (Lovenox Inj) 40 mg Q24H SQ 08/25/17 21:00 09/24/17 20:59 08/30/17 20:52 40 MG Fentanyl Citrate (Fentanyl Inj) 50 mcg Q1H PRN IV 08/25/17 18:45 09/08/17 18:44 Acetaminophen 100 ml @ 400 mls/hr Q8H PRN IV 08/25/17 22:45 09/24/17 22:44 08/29/17 18:01 400 MLS/HR Raspberry (Raspberry Syrup 5ml Cup) 5 ml QID PO 08/27/17 00:00 09/10/17 00:00 Future Hold 08/28/17 20:20 5 ML Potassium Chloride 20 meq/ Dextrose 1,010 ml @ 45 mls/hr [id number] IV 08/27/17 01:45 09/25/17 01:44 08/30/17 20:52 45 MLS/HR Lansoprazole (Prevacid Solutab) 15 mg DAILY NG 08/27/17 12:15 09/26/17 12:14 08/31/17 08:19 15 MG Ertapenem 1 gm/ Sodium Chloride 50 ml @ 120 mls/hr Q24H IV 08/27/17 15:00 09/06/17 14:59 08/30/17 14:52 120 MLS/HR Levetiracetam (Keppra Soln) 1,000 mg BID NG 08/29/17 21:00 09/28/17 20:59 08/31/17 08:19 1,000 MG Acetaminophen (Tylenol Soln) 650 mg Q4H PRN NG 08/29/17 13:15 09/28/17 13:14 Vancomycin HCl (Vancomycin Oral Soln) 125 mg QID NG 08/29/17 13:00 09/10/17 00:00 08/31/17 08:22 125 MG Enteral Nutritional Formula (Peptamen 1.5) 1,000 ml UD NG 08/29/17 14:00 09/28/17 13:59 08/31/17 01:08 1,000 ML Potassium Chloride (Klor-Con Pwd) 20 meq TID PO 08/30/17 14:00 09/01/17 09:01 08/31/17 08:19 20 MEQ Objective Vital Signs Date Time Temp Pulse Resp B/P (MAP) Pulse Ox O2 Delivery O2 Flow Rate FiO2 08/31/17 11:20 36.7 91 20 134/91 (105) 97 Room Air 08/31/17 08:00 Room Air 08/31/17 07:54 36.8 92 20 141/90 (107) 96 Room Air 08/31/17 04:00 Room Air 08/31/17 03:35 36.6 82 17 115/78 (90) 94 Room Air 08/31/17 00:00 Room Air 08/30/17 23:12 36.5 100 20 93/58 (70) 91 Nasal Cannula 3.0 08/30/17 20:00 36.7 111 18 157/103 (121) 92 Room Air 08/30/17 20:00 Room Air 08/30/17 16:00 36.9 83 18 132/95 (107) 96 08/30/17 16:00 Room Air Physical Exam General Appearance: no apparent distress, + thin Eyes: normal inspection, EOMI, sclerae normal ENT: normal ENT inspection, hearing grossly normal, pharynx normal Neck: supple, no adenopathy, no JVD, trachea midline Respiratory/Chest: chest non-tender, lungs clear, no respiratory distress, no accessory muscle use, + decreased breath sounds (bases) Cardiovascular: regular rate, rhythm, no gallop, no JVD, no murmur Abdomen: normal bowel sounds, non tender, soft, no organomegaly Extremities: non-tender, normal inspection, no calf tenderness, normal capillary refill, pelvis stable, + pedal edema Neurologic/Psychiatric: + motor weakness, + depressed affect, + disoriented Skin: normal color, warm/dry, no rash Lymphatic: no adenopathy Laboratory Results Last 24 Hours Test 08/31/17 05:22 White Blood Count 8.47 K/uL Red Blood Count 4.06 M/uL Hemoglobin 12.2 g/dL Hematocrit 37.1 % Mean Corpuscular Volume 91.4 fL Mean Corpuscular Hemoglobin 30.0 pg Mean Corpuscular Hemoglobin Concent 32.9 g/dl RDW Standard Deviation 44.8 fL RDW Coefficient of Variation 13.5 % Platelet Count 308 K/uL Mean Platelet Volume 10.5 fL Sodium Level 139 mmol/L Potassium Level 3.9 mmol/L Chloride Level 109 mmol/L Carbon Dioxide Level 25 mmol/L Anion Gap 5.0 mmol/L Blood Urea Nitrogen 5 mg/dl Creatinine 0.28 mg/dl Est Creatinine Clear Calc Drug Dose 166.9 ml/min Estimated GFR () 146.5 Estimated GFR (Non- 126.4 BUN/Creatinine Ratio 19.3 Random Glucose 151 mg/dl Calcium Level 8.5 mg/dl Assessment and Plan 61 y/o female with a history of ICH s/p aneurysm coiling last in January 2017 who presented on 08/25 from [facility] with fevers, altered mental status, tachycardia and hypoxia. Intubated on admission and sent to ICU, extuabated on 08/26. Acute respiratory failure with hypoxia requiring intubation secondary to dehydration and mucous plugging, RLL pneumonia, suspected aspiration initially intubated and admitted to ICU, extubated on 08/26, breathing well on RA today, no distress continue Ertapenem IV for now, cannot take PO antibiotics since swallowing is an issue will likely complete a 7 day course of IV antibiotics here in the hospital. Acute encephalopathy - no real responses today, cannot follow commands certainly not at baseline since she takes oral medications and was feeding herself CT head normal on admission can MRI be obtained with prior coiling of aneurysm? Sepsis secondary to aspiration pneumonia sepsis resolved, afebrile, vitals stable, WBC 8k continue Ertapenem urine culture with ESBL but more likely colonization Aspiration: cannot swallow safely currently will continue Corsafe for feedings if no improvement in mentation then will need to discuss PEG with family C. diff colitis -Vancomycin 125 mg PO QID x 21 days per ID (started 08/27) - responding to treatment, stools less loose Hypophosphatemia, hypokalemia - corrected today H/o seizure disorder -Neurology consulted, appreciate recs: Continue levetiracetam 1000 mg IV or PO BID for now- Level pending, possible that we may cut back to 750mg BID or 500 mg BID. Awaiting [place] [facility] records to help determine baseline. Continue Keppra IV since not eating or taking PO meds -EEG w/ moderate encephalopathy DVT ppx: lovenox Code Status: Full Dispo: [facility] CM to assist need to see if encephalopathy will improve so that she can eat Continued [facility] stay due to: multiple IV medications needed Discharge planning: [facility] facility
[2017-08-31] MEDS: ERTAPENEM IV 1 GM in SODIUM CHLOR 0.9% AD-VAN 50ML 50 ML IV SCH (15:04)
[2017-08-31] MEDS: POTASSIUM CHLORIDE INJ 20 MEQ in DEXTROSE 5% 1000ML 1,000 ML IV SCH (17:45)
[2017-08-31] MEDS: ENOXAPARIN 40 MG/0.4 ML SYR SQ SCH (21:01)
[2017-09-01] MEDS: PEPTAMEN 1.5 CAL 1000ML BAG NG SCH (01:09)
[2017-09-01 03:52] VITALS: BP 114/78; PULSE 99; TEMP 36.8; O2SAT 96
[2017-09-01 06:16] VITALS: O2SAT 94
[2017-09-01 07:13] VITALS: BP 111/71; PULSE 95; TEMP 36.7; O2SAT 92
[2017-09-01] MEDS: POTASSIUM CHLORIDE PWD 20 MEQ PACK PO SCH (08:24)
[2017-09-01] MEDS: LANSOPRAZOLE SOLUTAB 15 MG NG SCH (08:24)
[2017-09-01] MEDS: VANCOMYCIN HCL 125 MG/2.5ML SOLN NG SCH ×4 (08:24→21:18)
[2017-09-01] MEDS: LEVETIRACETAM ORAL SOLN 100MG/ML NG SCH ×2 (08:24→21:18)
[2017-09-01 09:26] LABS: CREATININE 0.39 mg/dl (0.60-1.20)
--- NOTE | 2017-09-01 10:01 | DIAGNOSTIC IMAGING REPORT ---
CHEST ONE VIEW PORTABLE CLINICAL HISTORY: aspiration dyspnea COMPARISON STUDY: 08/26/2017 FINDINGS: Interval extubation. Lungs are considered grossly clear. There is small caliber feeding tube within the stomach. There is a small cortical in the proximal esophagus. Lungs remain grossly clear. Diaphragms smooth. IMPRESSION: 1. Lungs are clear. Interval extubation. Small caliber catheter within the stomach. The above report was generated using voice recognition software. It may contain grammatical, syntax or spelling errors. Electronically signed by: Lenny Banuelos M.D. 09/01/2017 9:59 AM Dictated Date/Time: 09/01/2017 9:59 AM
[2017-09-01 12:00] VITALS: BP 162/70; PULSE 69; TEMP 37.1; O2SAT 93
--- NOTE | 2017-09-01 13:04 | DIAGNOSTIC IMAGING REPORT ---
HEAD WITHOUT CONTRAST (CT) CT DOSE: 729.78 mGycm HISTORY: Mental status change Encephalopathy, h/o ICH, h/o aneurysms with clips TECHNIQUE: Multiaxial CT images of the head were performed without the use of intravenous contrast. A dose lowering technique was utilized adhering to the principles of ALARA. Comparison: 08/25/2017 Findings: Craniotomy defects appear stable. Operative aneurysm clips are identified in the parasellar region. Considerable chronic small vessel change is noted bilaterally. Similar. There are no new or interval findings. There is no acute intracranial hemorrhage. Impression: Considerable postoperative and chronic change. No acute intracranial abnormality. The above report was generated using voice recognition software. It may contain grammatical, syntax or spelling errors. Electronically signed by: Lenny Banuelos M.D. 09/01/2017 1:03 PM Dictated Date/Time: 09/01/2017 12:56 PM
--- NOTE | 2017-09-01 14:09 | Progress Note ---
Subjective Date of Service: Sep 01, 2017. Subjective Pt evaluation today including: conversation w/ patient, conversation w/ family , physical exam, lab review, review of studies, review of inpatient medication list Pain: no pain PO Intake: NPO Voiding: coffey catheter in place patient still not responsive today, slight shaking of head, certainly no verbal response breathing comfortably discussed situation with patient's daughter Poppy she says that patient was previously talking and feeding herself however, over past month she was declining, getting weaker, not doing therapy discussed possible need for PEG tube if no improvement CT head: showed postoperative changes, no bleeding, nothing acute Problem List Medical Problems: (1) Change in mental status Status: Acute (2) Dehydration Status: Acute (3) Respiratory failure Status: Acute (4) Sepsis Status: Acute (5) Tachycardia Status: Acute (6) Urinary tract infection Status: Acute Review of Systems cannot review due to non-responsive state Medications Current Inpatient Medications Medications (Trade) Dose Ordered Sig/Larry Route Start Time Stop Time Status Last Admin Dose Admin Enoxaparin Sodium (Lovenox Inj) 40 mg Q24H SQ 08/25/17 21:00 09/24/17 20:59 08/31/17 21:01 40 MG Fentanyl Citrate (Fentanyl Inj) 50 mcg Q1H PRN IV 08/25/17 18:45 09/08/17 18:44 Acetaminophen 100 ml @ 400 mls/hr Q8H PRN IV 08/25/17 22:45 09/24/17 22:44 08/29/17 18:01 400 MLS/HR Raspberry (Raspberry Syrup 5ml Cup) 5 ml QID PO 08/27/17 00:00 09/10/17 00:00 Future Hold 08/28/17 20:20 5 ML Potassium Chloride 20 meq/ Dextrose 1,010 ml @ 45 mls/hr [id number] IV 08/27/17 01:45 09/25/17 01:44 08/31/17 17:45 45 MLS/HR Lansoprazole (Prevacid Solutab) 15 mg DAILY NG 08/27/17 12:15 09/26/17 12:14 09/01/17 08:24 15 MG Ertapenem 1 gm/ Sodium Chloride 50 ml @ 120 mls/hr Q24H IV 08/27/17 15:00 09/06/17 14:59 4/16/18 15:04 120 MLS/HR Levetiracetam (Keppra Soln) 1,000 mg BID NG 08/29/17 21:00 09/28/17 20:59 09/01/17 08:24 1,000 MG Acetaminophen (Tylenol Soln) 650 mg Q4H PRN NG 08/29/17 13:15 09/28/17 13:14 Vancomycin HCl (Vancomycin Oral Soln) 125 mg QID NG 08/29/17 13:00 09/10/17 00:00 09/01/17 13:14 125 MG Enteral Nutritional Formula (Peptamen 1.5) 1,000 ml UD NG 08/29/17 14:00 09/28/17 13:59 09/01/17 01:09 1,000 ML Objective Vital Signs Date Time Temp Pulse Resp B/P (MAP) Pulse Ox O2 Delivery O2 Flow Rate FiO2 09/01/17 12:00 37.1 69 18 162/70 (100) 93 Room Air 09/01/17 12:00 Room Air 09/01/17 08:00 Room Air 09/01/17 07:13 36.7 95 20 111/71 (84) 92 Room Air 09/01/17 06:16 94 Room Air 09/01/17 04:00 Nasal Cannula 3.0 09/01/17 03:52 36.8 99 17 114/78 (90) 96 Nasal Cannula 2.0 09/01/17 00:01 Nasal Cannula 3.0 08/31/17 23:45 36.6 101 19 117/84 (95) 94 Nasal Cannula 2.0 08/31/17 20:05 36.6 94 Nasal Cannula 3.0 08/31/17 20:00 Nasal Cannula 3.0 08/31/17 19:40 36.6 102 18 126/82 (97) 86 Room Air 08/31/17 16:00 Room Air 08/31/17 15:10 36.5 94 20 130/90 (103) 95 Room Air Physical Exam General Appearance: no apparent distress, + thin Neck: supple, no adenopathy, no JVD, trachea midline Respiratory/Chest: chest non-tender, normal breath sounds, no respiratory distress, no accessory muscle use, + decreased breath sounds (bases) Cardiovascular: regular rate, rhythm, no edema, no gallop, no JVD, no murmur Abdomen: normal bowel sounds, non tender, soft, no organomegaly Extremities: normal range of motion, non-tender, normal inspection, no pedal edema, no calf tenderness, pelvis stable Neurologic/Psychiatric: 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 Intubated on admission and sent to ICU, extuabated on 08/26. Acute respiratory failure with hypoxia requiring intubation secondary to dehydration and mucous plugging, RLL pneumonia, suspected aspiration initially intubated and admitted to ICU, extubated on 08/26, breathing well on RA for several days, no distress continue Ertapenem IV, stop after today which would be 7 days Acute encephalopathy - still no real responses today, cannot follow commands shook head slightly to deny any pain certainly not at baseline since she takes oral medications and was feeding herself CT head normal on admission repeat CT head today shows no acute changes discussed with daughter, she confirmed that she has clips in brain that were placed a long time ago, cannot get MRI will order another EEG to look for seizures as cause of encephalopathy, initial EEG on 08/25 showed encephalopathy 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 diff colitis -Vancomycin 125 mg PO QID x 21 days per ID (started 08/27) - can place down Corsafe Hypophosphatemia, hypokalemia - corrected today H/o seizure disorder -Neurology consulted, appreciate recs: Continue levetiracetam 1000 mg IV- Level pending, possible that we may cut back to 750mg BID or 500 mg BID. -EEG w/ moderate encephalopathy DVT ppx: lovenox Code Status: Full Dispo: Adrian Zaidi CM to assist transfer to medical floor today Continued [facility] stay due to: multiple IV medications needed Discharge planning: senior care facility
[2017-09-01] MEDS: ERTAPENEM IV 1 GM in SODIUM CHLOR 0.9% AD-VAN 50ML 50 ML IV SCH (15:57)
[2017-09-01] MEDS: POTASSIUM CHLORIDE INJ 20 MEQ in DEXTROSE 5% 1000ML 1,000 ML IV SCH (15:57)
[2017-09-01 16:00] VITALS: BP 112/79; PULSE 108; TEMP 36.4; O2SAT 91
[2017-09-01] MEDS: ENOXAPARIN 40 MG/0.4 ML SYR SQ SCH (21:19)
[2017-09-01 23:42] VITALS: BP 111/72; PULSE 117; TEMP 36.7; O2SAT 91
[2017-09-02] MEDS: PEPTAMEN 1.5 CAL 1000ML BAG NG SCH (02:49)
[2017-09-02 07:12] VITALS: BP 112/70; PULSE 101; TEMP 36.3; O2SAT 92
[2017-09-02 08:20] VITALS: O2SAT 92
--- NOTE | 2017-09-02 08:23 | EEG Procedure Note ---
EEG Procedure Note Date of Service Sep 02, 2017. Start / End Times Start Time: 6:20 a.m. End Time: 6:40 a.m. Referring Physician Shay Jones D.O. History Delirium Home Medication List Scheduled Acetaminophen (Tylenol), 650 MG PO BID Atorvastatin (Lipitor), 20 MG PO HS Ferrous Sulfate (Ferrous Sulfate), 220 MG PO TID Lansoprazole (Prevacid Solutab), 15 MG PO QAM Levetiractam (Levetiracetam), 1,000 MG PO AMHS Potassium Ext Rel (Klor-Con), 20 MEQ PO DAILY Scheduled PRN Acetaminophen (Tylenol), 650 MG PO Q6H PRN for Pain or Fever Acetaminophen (Tylenol), 650 MG MN Q6H PRN for Pain or Fever Magnesium Hydroxide (Milk of Magnesia), 30 ML PO DAILY PRN for NO BM IN 3 DAYS. Menthol-Methyl Salicylate (Vonda (Bengay Greaseless), 1 APPLN TD Q8 PRN for RIGHT RIB PAIN Sodium Phosphate/Biphosphate (Fleet Enema), 1 EA MN DAILY PRN for NO BM IN 3 DAYS. Inpatient Medication List Current Inpatient Medications Medications (Trade) Dose Ordered Sig/Larry Route Start Time Stop Time Status Last Admin Dose Admin Enoxaparin Sodium (Lovenox Inj) 40 mg Q24H SQ 08/25/17 21:00 09/24/17 20:59 09/01/17 21:19 40 MG Fentanyl Citrate (Fentanyl Inj) 50 mcg Q1H PRN IV 08/25/17 18:45 09/08/17 18:44 Acetaminophen 100 ml @ 400 mls/hr Q8H PRN IV 08/25/17 22:45 09/24/17 22:44 08/29/17 18:01 400 MLS/HR Raspberry (Raspberry Syrup 5ml Cup) 5 ml QID PO 08/27/17 00:00 09/10/17 00:00 Future Hold 08/28/17 20:20 5 ML Potassium Chloride 20 meq/ Dextrose 1,010 ml @ 45 mls/hr [id number] IV 08/27/17 01:45 09/25/17 01:44 09/01/17 15:57 45 MLS/HR Lansoprazole (Prevacid Solutab) 15 mg DAILY NG 08/27/17 12:15 09/26/17 12:14 09/01/17 08:24 15 MG Levetiracetam (Keppra Soln) 1,000 mg BID NG 08/29/17 21:00 09/28/17 20:59 09/01/17 21:18 1,000 MG Acetaminophen (Tylenol Soln) 650 mg Q4H PRN NG 08/29/17 13:15 09/28/17 13:14 Vancomycin HCl (Vancomycin Oral Soln) 125 mg QID NG 08/29/17 13:00 09/10/17 00:00 09/01/17 21:18 125 MG Enteral Nutritional Formula (Peptamen 1.5) 1,000 ml UD NG 08/29/17 14:00 09/28/17 13:59 09/02/17 02:49 1,000 ML Description This is a 21 electrode EEG with a single channel dedicated to limited EKG. The electrodes were placed in accordance with the International 10-20 system. This is a bedside EEG completed on the medical floor. The posterior dominant rhythm consists of persistent, poorly organized, mixed, alpha and theta frequencies. Intermittent symmetric, frontal delta activity is also observed. No epileptiform abnormalities appreciated. Interpretation The generalized slowing observed on this EEG is consistent with nonspecific encephalopathy. No focal or epileptiform discharges are appreciated. No significant change compared with the previous EEG completed August 25, 2017. Clinical Correlation The observed EEG findings are consistent with encephalopathy. No evidence of subclinical seizure activity.
[2017-09-02] MEDS: VANCOMYCIN HCL 125 MG/2.5ML SOLN NG SCH ×4 (09:01→21:13)
[2017-09-02] MEDS: LEVETIRACETAM ORAL SOLN 100MG/ML NG SCH ×2 (09:01→21:19)
[2017-09-02] MEDS: LANSOPRAZOLE SOLUTAB 15 MG NG SCH (09:02)
--- NOTE | 2017-09-02 12:11 | Hospitalist Progress Note ---
Hospitalist Progress Note Date of Service Sep 02, 2017. Subjective Pt evaluation today including: conversation w/ patient, physical exam, lab review, review of studies Voiding: coffey catheter in place Patient resting in bed. Awake, nonverbal. Shakes head no to any pain. Shakes head yes when asked if in hospital. ROS not completed due to AMS. Per RN, no acute events. Medications Current Inpatient Medications Medications (Trade) Dose Ordered Sig/Larry Route Start Time Stop Time Status Last Admin Dose Admin Enoxaparin Sodium (Lovenox Inj) 40 mg Q24H SQ 08/25/17 21:00 09/24/17 20:59 09/01/17 21:19 40 MG Fentanyl Citrate (Fentanyl Inj) 50 mcg Q1H PRN IV 08/25/17 18:45 09/08/17 18:44 Acetaminophen 100 ml @ 400 mls/hr Q8H PRN IV 08/25/17 22:45 09/24/17 22:44 08/29/17 18:01 400 MLS/HR Raspberry (Raspberry Syrup 5ml Cup) 5 ml QID PO 08/27/17 00:00 09/10/17 00:00 Future Hold 08/28/17 20:20 5 ML Potassium Chloride 20 meq/ Dextrose 1,010 ml @ 45 mls/hr [id number] IV 08/27/17 01:45 09/25/17 01:44 09/01/17 15:57 45 MLS/HR Lansoprazole (Prevacid Solutab) 15 mg DAILY NG 08/27/17 12:15 09/26/17 12:14 09/02/17 09:02 15 MG Acetaminophen (Tylenol Soln) 650 mg Q4H PRN NG 08/29/17 13:15 09/28/17 13:14 Vancomycin HCl (Vancomycin Oral Soln) 125 mg QID NG 08/29/17 13:00 09/10/17 00:00 09/02/17 09:01 125 MG Enteral Nutritional Formula (Peptamen 1.5) 1,000 ml UD NG 08/29/17 14:00 09/28/17 13:59 09/02/17 02:49 1,000 ML Levetiracetam (Keppra Soln) 500 mg BID NG 09/02/17 21:00 5/14/18 20:59 Objective Vital Signs Date Time Temp Pulse Resp B/P (MAP) Pulse Ox O2 Delivery O2 Flow Rate FiO2 09/02/17 08:20 92 Room Air 09/02/17 07:12 36.3 101 20 112/70 (84) 92 Room Air 09/02/17 00:00 Room Air 09/01/17 23:42 36.7 117 18 111/72 (85) 91 Room Air 09/01/17 16:00 Room Air 09/01/17 16:00 36.4 108 18 112/79 (90) 91 Room Air 09/01/17 12:00 37.1 69 18 162/70 (100) 93 Room Air 09/01/17 12:00 Room Air Physical Exam General Appearance: no apparent distress Eyes: PERRL ENT: hearing grossly normal Neck: supple Respiratory/Chest: no respiratory distress, no accessory muscle use, + decreased breath sounds (throughout ), + pertinent finding (course breath sounds throughout ) Cardiovascular: + tachycardia (regular rhythm ) Abdomen: normal bowel sounds, non tender, soft Extremities: no pedal edema, no calf tenderness Neurologic/Psychiatric: alert, + disoriented Skin: normal color, warm/dry, no rash Assessment and Plan 61 y/o female with a history of ICH s/p aneurysm coiling last in January 2017 who presented on 08/25 from [facility] with fevers, altered mental status, tachycardia and hypoxia. Intubated on admission and sent to ICU, extubated on . Acute respiratory failure w/ hypoxia requiring intubation and sepsis secondary to dehydration and mucous plugging, RLL pneumonia, suspected aspiration- s/p extubated on 08/26: - Admitted to ICU- STABLE- transferred to med/surg - Completed 7 days of IV Ertapenem- repeat CXR on 09/01 w/out acute findings - UCx w/ ESBL- Ertapenem as above Acute encephalopathy, unsure etiology, h/o seizure disorder: - s/p lumbar puncture on 08/25- negative for meningitis or hemorrhage - Repeat head CT on 09/01- negative for acute intracranial findings - TSH, B12/folate WNL - PNA/UTI treatment completed - EEG w/out seizure activity, moderate encephalopathy - Neurology consulted- Keppra level high- decrease Keppra from 1000 mg BID to 500 mg BID Aspiration: - Continue Corsafe for feedings- nutrition following - If no improvement, may require PEG- daughter open to idea - Speech therapy following C. diff colitis: - Vancomycin 125 mg QID x 21 days per ID- started 08/27- treatment complete on 09/16 - Contact precautions Hypophosphatemia- RESOLVED Hypokalemia- RESOLVED GI prophylaxis: Prevacid DVT prophylaxis: Lovenox SQ daily Code status: LEVEL I, FULL Dispo: From [place]- bed hold- CM following
[2017-09-02] MEDS: POTASSIUM CHLORIDE INJ 20 MEQ in DEXTROSE 5% 1000ML 1,000 ML IV SCH (12:12)
[2017-09-02 15:19] VITALS: BP 105/72; PULSE 111; TEMP 36.9; O2SAT 96
[2017-09-02 23:01] VITALS: BP 116/69; PULSE 100; TEMP 36.7; O2SAT 96
--- NOTE | 2017-09-03 01:15 | GASTROINTESTINAL CONSULTATION ---
DATE OF CONSULTATION: 09/02/2017 ATTENDING PHYSICIAN: Shay Jones DO CONSULTING PHYSICIAN: Capo Hayes DO REASON FOR CONSULTATION: Feeding difficulty, need for PEG tube, and C. diff colitis. HISTORY OF PRESENT ILLNESS: Guzman Mcgee is a 61-year-old female who presented to the Department of Emergency Medicine on 08/25/2017 secondary to mental status change. She was residing at [facility] due to a history of intracranial hemorrhage with history of craniotomy and acute respiratory failure with hypoxia. On arrival to the ER, she was noted to have pulse ox of approximately 81% on room air with a pulse in 130s. There was no evidence of trauma. CT scan of the head was unremarkable. She was subsequently admitted to the ICU and did have a consultation with neurology and was diagnosed with nonspecific encephalopathy per the neurology team. She did require ICU stay with acute respiratory failure from hypoxia, which was felt to be secondary to sepsis from the right lower lobe pneumonia and there was questionable aspiration. She subsequently has been receiving tube feeds via Corsafe. She developed diarrhea throughout the course of her hospitalization and was found to be positive for C. diff on 08/26/2017. She has been receiving vancomycin at 125 mg via Corsafe q.i.d. and recommendation was that she receive this for 21 days per infectious disease. We are seeing the patient in consultation for a more permanent feeding tube as well as feeding difficulties. At the time that I saw the patient, she was resting. She is nonverbal and not able to respond to questioning therefore, the history of present illness is obtained via the patient's chart. PAST MEDICAL HISTORY: Significant for a subarachnoid hemorrhage, cerebral artery aneurysm, vitamin D deficiency, anemia, C. diff colitis, acute respiratory failure with hypoxia, nonspecific encephalopathy. PAST SURGICAL HISTORY: Includes a frontoparietal cranioplasty. ALLERGIES: IRON AND PENICILLIN. MEDICATIONS: Keppra 500 mg via NG b.i.d., Peptamen 1.5 enteral nutritional formula via NG, vancomycin 125 mg via NG q.i.d., Prevacid 15 mg via NG daily, Tylenol IV q. 8 hours p.r.n. fever, fentanyl 50 mcg IV q. 1 hour p.r.n. pain. SOCIAL HISTORY: She is resident of [facility]. No alcohol, tobacco, or illicit drug use. FAMILY HISTORY: Unobtainable. REVIEW OF SYSTEMS: Unobtainable. PHYSICAL EXAMINATION: VITAL SIGNS: Temp 36.9, pulse 111, respirations 24, blood pressure 105/72, pulse ox 96% on room air. GENERAL: She is resting comfortably, chronic ill appearing in no acute distress. She is nonverbal. HEAD: Bilateral temporal wasting. ENT: Corsafe feeding tube is inserted in the right naris. NECK: Soft, supple. CHEST: Decreased breath sounds throughout. CARDIOVASCULAR SYSTEM: Regular rate and rhythm. Heart sounds are distant. ABDOMEN: Soft, nontender, nondistended. Positive bowel sounds. There is no appreciable hepatosplenomegaly. EXTREMITIES: No pitting edema. LABORATORY STUDIES: From today include a white blood cell count of 8.47, hemoglobin 12.2, hematocrit 37.1, and a platelet count of 308, PT of 14.0, INR 1.3. IMPRESSION: A 61-year-old female with a history of intracranial hemorrhage status post aneurysm coiling on 02/04/2017 who presented with acute mental status change, acute respiratory failure with hypoxia requiring intubation, questionable aspiration and was noted to be Clostridium difficile positive with no ability for oral intake. PLAN: I had a long discussion with Dr. Jones regarding this patient. Currently, the patient has an active GI infection with C. diff. I would not recommend that the patient receive a PEG tube in this due to this active infection. I would recommend that they continue Corsafe for approximately 10 days. We will reevaluate the patient at that time and determine an appropriate time for PEG tube placement if the family wishes for this. The patient is nonverbal and cannot make her own decisions. Therefore, I will have to discuss the risks and benefits with a family and will follow the wishes of the healthcare power of wait staff in this regard based on what they believe the patient would want done. I would recommend continuing vancomycin 125 mg p.o. via NG q.i.d. for 21 days as per ID and in that regard would recommend routine contact precautions and I would continue tube feeds as per Dr. Jones. Once again, thanks for allowing me to participate in the care of this patient. If you have any further questions, please do not hesitate in contacting me.
[2017-09-03] MEDS: PEPTAMEN 1.5 CAL 1000ML BAG NG SCH (03:53)
[2017-09-03 07:53] VITALS: BP 96/67; PULSE 97; TEMP 36.7; O2SAT 95
[2017-09-03] MEDS: LANSOPRAZOLE SOLUTAB 15 MG NG SCH (08:49)
[2017-09-03] MEDS: VANCOMYCIN HCL 125 MG/2.5ML SOLN NG SCH ×4 (09:25→20:56)
[2017-09-03] MEDS: LEVETIRACETAM ORAL SOLN 100MG/ML NG SCH ×2 (09:26→20:56)
--- NOTE | 2017-09-03 10:43 | Hospitalist Progress Note ---
Hospitalist Progress Note Date of Service Sep 03, 2017. Subjective Pt evaluation today including: conversation w/ patient, physical exam, lab review, review of studies, review of inpatient medication list Voiding: coffey catheter in place Patient resting in bed. States she is having bilateral leg pain. Shakes head "no" when asked if any other concerns/issues beside leg pain. Corsafe feedings continue. Daughter interest in PEG tube if swallow issues continue. GI consulted- needs to complete C.diff course first. Complete ROS can not be completed due to AMS. Spoke with RN- no acute issues. Continues w/ diarrhea. Will given Tylenol for leg pain. Medications Current Inpatient Medications Medications (Trade) Dose Ordered Sig/Larry Route Start Time Stop Time Status Last Admin Dose Admin Enoxaparin Sodium (Lovenox Inj) 40 mg Q24H SQ 08/25/17 21:00 09/24/17 20:59 Future Hold 09/01/17 21:19 40 MG Fentanyl Citrate (Fentanyl Inj) 50 mcg Q1H PRN IV 08/25/17 18:45 09/08/17 18:44 Acetaminophen 100 ml @ 400 mls/hr Q8H PRN IV 08/25/17 22:45 09/24/17 22:44 08/29/17 18:01 400 MLS/HR Raspberry (Raspberry Syrup 5ml Cup) 5 ml QID PO 08/27/17 00:00 09/10/17 00:00 Future Hold 08/28/17 20:20 5 ML Potassium Chloride 20 meq/ Dextrose 1,010 ml @ 45 mls/hr [id number] IV 08/27/17 01:45 09/25/17 01:44 09/02/17 12:12 45 MLS/HR Lansoprazole (Prevacid Solutab) 15 mg DAILY NG 08/27/17 12:15 09/26/17 12:14 09/03/17 08:49 15 MG Acetaminophen (Tylenol Soln) 650 mg Q4H PRN NG 08/29/17 13:15 09/28/17 13:14 09/03/17 09:32 650 MG Vancomycin HCl (Vancomycin Oral Soln) 125 mg QID NG 08/29/17 13:00 09/10/17 00:00 09/03/17 09:25 125 MG Enteral Nutritional Formula (Peptamen 1.5) 1,000 ml UD NG 08/29/17 14:00 09/28/17 13:59 Future Hold 09/03/17 03:53 1,000 ML Levetiracetam (Keppra Soln) 500 mg BID NG 09/02/17 21:00 09/28/17 20:59 09/03/17 09:26 500 MG Objective Vital Signs Date Time Temp Pulse Resp B/P (MAP) Pulse Ox O2 Delivery O2 Flow Rate FiO2 09/03/17 09:50 Room Air 09/03/17 07:53 36.7 97 15 96/67 (77) 95 Room Air 09/03/17 03:20 Room Air 09/03/17 00:00 Room Air 09/02/17 23:01 36.7 100 20 116/69 (85) 96 Room Air 09/02/17 16:00 Room Air 09/02/17 15:19 36.9 111 24 105/72 (83) 96 Room Air Physical Exam General Appearance: no apparent distress Eyes: normal inspection, PERRL ENT: hearing grossly normal Neck: supple Respiratory/Chest: no respiratory distress, no accessory muscle use, + decreased breath sounds (throughout, poor inspiratory effort ), + pertinent finding (coarse throughout ) Cardiovascular: regular rate, rhythm Abdomen: normal bowel sounds, non tender, soft Extremities: no pedal edema, no calf tenderness, + pertinent finding (Waffle boots in place; ) Laboratory Results Last 24 Hours Test 09/02/17 11:35 Vitamin B12 Level 787 pg/mL Folate 22.71 ng/mL Assessment and Plan 61 y/o female with a history of ICH s/p aneurysm coiling last in January 2017 who presented on 08/25 from [facility] with fevers, altered mental status, tachycardia and hypoxia. Intubated on admission and sent to ICU, extubated on . Acute respiratory failure w/ hypoxia requiring intubation/sepsis secondary to dehydration/mucous plugging/RLL PNA, suspected aspiration, UTI- s/p extubated on 08/26- RESOLVED: - Admitted to ICU- STABLE- transferred to med/surg - Completed 7 days of IV Ertapenem- repeat CXR on 09/01 w/out acute findings - UCx w/ ESBL- Ertapenem as above Acute encephalopathy, unsure etiology, h/o seizure disorder- STABLE: - s/p lumbar puncture on 08/25- negative for meningitis or hemorrhage - Repeat head CT on 09/01- negative for acute intracranial findings - TSH, B12/folate WNL - PNA/UTI treatment completed as above - EEG w/out seizure activity, moderate encephalopathy - Neurology consulted- Keppra level high- decrease Keppra from 1000 mg BID to 500 mg BID Aspiration: - Continue Corsafe for feedings- nutrition following - If no improvement, may require PEG- daughter open to idea - Speech therapy following - GI consulted- needs to complete C.diff treatment before PEG tube can be considered C. diff colitis: - Vancomycin 125 mg QID x 21 days per ID- started 08/27- treatment complete on 09/16 - Contact precautions Hypophosphatemia- RESOLVED Hypokalemia- RESOLVED GI prophylaxis: Prevacid DVT prophylaxis: Lovenox SQ daily Code status: LEVEL I, FULL Dispo: From [facility]- bed hold- CM following [facility] cannot take patient w/ temporary feeding tube
[2017-09-03] MEDS: POTASSIUM CHLORIDE INJ 20 MEQ in DEXTROSE 5% 1000ML 1,000 ML IV SCH (13:30)
[2017-09-03 15:03] VITALS: BP 112/76; PULSE 90; TEMP 37; O2SAT 97
[2017-09-03] MEDS ORDERED: PEPTAMEN 1.5 CAL 1000ML BAG NG SCH (19:00)
[2017-09-03 23:16] VITALS: BP 131/66; PULSE 66; TEMP 36.6; O2SAT 93
[2017-09-04 07:18] VITALS: BP 126/79; PULSE 93; TEMP 36.8; O2SAT 95
[2017-09-04] MEDS: POTASSIUM CHLORIDE INJ 20 MEQ in DEXTROSE 5% 1000ML 1,000 ML IV SCH (08:09)
[2017-09-04] MEDS: VANCOMYCIN HCL 125 MG/2.5ML SOLN NG SCH (08:09)
[2017-09-04] MEDS: LEVETIRACETAM ORAL SOLN 100MG/ML NG SCH (08:11)
[2017-09-04] MEDS: LANSOPRAZOLE SOLUTAB 15 MG NG SCH (08:44)
--- NOTE | 2017-09-04 11:15 | Hospitalist Progress Note ---
Hospitalist Progress Note Date of Service Sep 04, 2017. Subjective Pt evaluation today including: conversation w/ patient, physical exam, lab review, review of inpatient medication list Voiding: coffey catheter in place Patient resting in bed. Significant improvement in mental status. Able to state year is 2017. Thought month was April- told her it was August and she was able to state "I have a birthday this month. [birth year]." Per RN, requesting to move more. When questioning patient, she states "Yeah, I can't take just laying here." States breakfast was good. Wants Corsafe removed. Will discontinue and follow PO intake. +bilateral leg pain- controlled with PRN Tylenol. Limited ROS due to AMS- denies chest pain, SOB, abdominal pain. Per RN- doing very well this AM. Able to have meaningful conversation. Requesting to eat/move more. Tolerated breakfast w/out issues. Medications Current Inpatient Medications Medications (Trade) Dose Ordered Sig/Larry Route Start Time Stop Time Status Last Admin Dose Admin Enoxaparin Sodium (Lovenox Inj) 40 mg Q24H SQ 08/25/17 21:00 09/24/17 20:59 Future Hold 09/01/17 21:19 40 MG Fentanyl Citrate (Fentanyl Inj) 50 mcg Q1H PRN IV 08/25/17 18:45 09/08/17 18:44 Acetaminophen 100 ml @ 400 mls/hr Q8H PRN IV 08/25/17 22:45 09/24/17 22:44 08/29/17 18:01 400 MLS/HR Raspberry (Raspberry Syrup 5ml Cup) 5 ml QID PO 08/27/17 00:00 09/10/17 00:00 Future Hold 08/28/17 20:20 5 ML Potassium Chloride 20 meq/ Dextrose 1,010 ml @ 45 mls/hr [id number] IV 08/27/17 01:45 09/25/17 01:44 09/04/17 08:09 45 MLS/HR Lansoprazole (Prevacid Solutab) 15 mg DAILY NG 08/27/17 12:15 09/26/17 12:14 09/04/17 08:44 15 MG Acetaminophen (Tylenol Soln) 650 mg Q4H PRN NG 08/29/17 13:15 09/28/17 13:14 09/03/17 09:32 650 MG Vancomycin HCl (Vancomycin Oral Soln) 125 mg QID NG 08/29/17 13:00 09/10/17 00:00 09/04/17 08:09 125 MG Enteral Nutritional Formula (Peptamen 1.5) 1,000 ml UD NG 08/29/17 14:00 09/28/17 13:59 Future Hold 09/03/17 03:53 1,000 ML Levetiracetam (Keppra Soln) 500 mg BID NG 09/02/17 21:00 09/28/17 20:59 09/04/17 08:11 500 MG Enteral Nutritional Formula (Peptamen 1.5) 1,000 ml DAILY@1900 NG 09/03/17 19:00 10/03/17 18:59 09/03/17 19:26 1,000 ML Miscellaneous (Stop Order) 1 ea DAILY@0700 N/A 09/04/17 07:00 10/04/17 06:59 09/04/17 07:03 1 EA Lactobacillus Acidophilus (Lactinex Granules Pack) 1 gm TIDM PO 09/04/17 12:00 10/04/17 11:59 Objective Vital Signs Date Time Temp Pulse Resp B/P (MAP) Pulse Ox O2 Delivery O2 Flow Rate FiO2 09/04/17 07:18 36.8 93 18 126/79 (95) 95 Room Air 09/04/17 00:00 Room Air 09/03/17 23:16 36.6 66 16 131/66 (87) 93 Room Air 09/03/17 16:00 Room Air 09/03/17 15:03 37.0 90 15 112/76 (88) 97 Room Air 09/03/17 09:50 Room Air Physical Exam General Appearance: no apparent distress Eyes: normal inspection, PERRL ENT: hearing grossly normal Neck: supple Respiratory/Chest: lungs clear, no respiratory distress, no accessory muscle use Cardiovascular: + tachycardia (regular rhythm ) Abdomen: normal bowel sounds, non tender, soft Extremities: no calf tenderness, + pertinent finding (+bilateral waffle boots ) Neurologic/Psychiatric: alert, + disoriented Skin: normal color, warm/dry, no rash Assessment and Plan 61 y/o female with a history of ICH s/p aneurysm coiling last in January 2017 who presented on 08/25 from [facility] with fevers, altered mental status, tachycardia and hypoxia. Intubated on admission and sent to ICU, extubated on . Acute respiratory failure w/ hypoxia requiring intubation/sepsis secondary to dehydration/mucous plugging/RLL PNA, suspected aspiration, UTI- s/p extubated on 08/26- RESOLVED: - Admitted to ICU- STABLE- transferred to med/surg - Completed 7 days of IV Ertapenem- repeat CXR on 09/01 w/out acute findings - UCx w/ ESBL- Ertapenem as above Acute encephalopathy, unsure etiology, h/o seizure disorder- IMPROVING: - s/p lumbar puncture on 08/25- negative for meningitis or hemorrhage - Repeat head CT on 09/01- negative for acute intracranial findings - TSH, B12/folate WNL - PNA/UTI treatment completed as above - EEG w/out seizure activity, moderate encephalopathy - Neurology consulted- Keppra level high- decrease Keppra from 1000 mg BID to 500 mg BID Aspiration: - Continue Corsafe for feedings- nutrition following- tolerating PO, will discontinue Corsafe today - If no improvement, may require PEG- daughter open to idea - Speech therapy following- started on moist pureed, aspiration precautions- tolerating well - GI consulted- needs to complete C.diff treatment before PEG tube can be considered C. diff colitis: - Vancomycin 125 mg QID x 21 days per ID- started 08/27- treatment complete on 09/16 - Probiotic TID - Contact precautions Hypophosphatemia- RESOLVED Hypokalemia- RESOLVED GI prophylaxis: Prevacid DVT prophylaxis: Lovenox SQ daily Code status: LEVEL I, FULL Dispo: From [facility]- bed hold- CM and PT/OT following [facility] cannot take patient w/ temporary feeding tube- tube removed today, continue to follow PO intake -- If continues to do well with PO intake- possible discharge in the next 1- 2 days
[2017-09-04] MEDS: LACTOBACILLUS ACIDOPHILUS 1 GM PACK PO SCH ×2 (11:37→17:51)
--- NOTE | 2017-09-04 14:17 | DIAGNOSTIC IMAGING REPORT ---
VIDEO SWALLOW HISTORY: Acute respiratory failure with hypoxia. Assess for aspiration. TECHNIQUE: Video fluoroscopic evaluation of swallowing was performed in the AP and lateral projections by the speech pathology staff. The patient was fed thin liquid barium. FLUOROSCOPY TIME: 2.4 minutes. A cine loop was submitted.. COMPARISON STUDY: None. FINDINGS: The patient was only able to tolerate a small amount of the thin liquid area due to the delayed swallow initiation. However, there is no aspiration identified during the examination. Once the swallowing was performed was normal hyoid excursion and epiglottic deflection. IMPRESSION: 1. Delayed swallow initiation. No aspiration identified. 2. Please see the speech pathologist report for detailed findings and recommendations. Electronically signed by: Mark Ray M.D. 09/04/2017 2:16 PM Dictated Date/Time: 09/04/2017 2:13 PM
[2017-09-04 15:30] VITALS: O2SAT 95
[2017-09-04] MEDS: RASPBERRY SYRUP 5 ML UDP PO SCH ×2 (15:39→18:21)
[2017-09-04] MEDS: VANCOMYCIN HCL 125 MG/2.5ML SOLN PO SCH ×2 (15:39→18:20)
[2017-09-04 15:45] VITALS: BP 117/75; PULSE 92; TEMP 36.8; O2SAT 97
[2017-09-04] MEDS ORDERED: NURSING VERBAL MED ORDER ONE (18:30)
[2017-09-04] MEDS: LEVETIRACETAM SOLN 500 MG/5 ML UDP PO SCH (21:50)
[2017-09-05 00:07] VITALS: BP 127/78; PULSE 90; TEMP 36.4; O2SAT 96
[2017-09-05] MEDS: RASPBERRY SYRUP 5 ML UDP PO SCH ×5 (00:33→23:29)
[2017-09-05] MEDS: VANCOMYCIN HCL 125 MG/2.5ML SOLN PO SCH ×5 (00:34→23:29)
[2017-09-05 06:48] LABS: CALCIUM 9.1 mg/dl (8.5-10.1); CREATININE 0.38 mg/dl (0.60-1.20)
[2017-09-05 07:23] VITALS: BP 122/76; PULSE 86; TEMP 36.8; O2SAT 98
[2017-09-05] MEDS: POTASSIUM CHLORIDE INJ 20 MEQ in DEXTROSE 5% 1000ML 1,000 ML IV SCH (08:42)
[2017-09-05] MEDS: LANSOPRAZOLE SOLUTAB 15 MG NG SCH (08:43)
[2017-09-05] MEDS: LEVETIRACETAM SOLN 500 MG/5 ML UDP PO SCH ×2 (08:43→19:50)
[2017-09-05] MEDS: LACTOBACILLUS ACIDOPHILUS 1 GM PACK PO SCH ×3 (08:43→16:44)
--- NOTE | 2017-09-05 15:34 | Progress Note ---
Subjective Date of Service: Sep 05, 2017. Subjective Pt evaluation today including: conversation w/ patient, physical exam, review of inpatient medication list Pain: no pain PO Intake: adequate Voiding: coffey catheter in place patient eating more today, talking more clearly knows it is her birthday says that she was in worse shape 3 weeks ago she agrees with getting PEG tube Problem List Medical Problems: (1) Change in mental status Status: Acute (2) Dehydration Status: Acute (3) Respiratory failure Status: Acute (4) Sepsis Status: Acute (5) Tachycardia Status: Acute (6) Urinary tract infection Status: Acute Review of Systems Constitutional: + weakness, + fatigue Neurologic: + weakness All Other Systems: Reviewed and Negative Medications Current Inpatient Medications Medications (Trade) Dose Ordered Sig/Larry Route Start Time Stop Time Status Last Admin Dose Admin Enoxaparin Sodium (Lovenox Inj) 40 mg Q24H SQ 08/25/17 21:00 09/24/17 20:59 Future Hold 09/01/17 21:19 40 MG Fentanyl Citrate (Fentanyl Inj) 50 mcg Q1H PRN IV 08/25/17 18:45 09/08/17 18:44 Acetaminophen 100 ml @ 400 mls/hr Q8H PRN IV 08/25/17 22:45 09/24/17 22:44 08/29/17 18:01 400 MLS/HR Potassium Chloride 20 meq/ Dextrose 1,010 ml @ 45 mls/hr [id number] IV 08/27/17 01:45 09/25/17 01:44 09/05/17 08:42 45 MLS/HR Lansoprazole (Prevacid Solutab) 15 mg DAILY NG 08/27/17 12:15 09/26/17 12:14 09/05/17 08:43 15 MG Lactobacillus Acidophilus (Lactinex Granules Pack) 1 gm TIDM PO 09/04/17 12:00 10/04/17 11:59 09/05/17 13:40 1 GM Levetiracetam (Keppra Soln) 500 mg Q12 PO 09/04/17 21:00 10/04/17 20:59 09/05/17 08:43 500 MG Vancomycin HCl (Vancomycin Oral Soln) 125 mg Q6H PO 09/04/17 12:00 09/18/17 11:59 09/05/17 13:40 125 MG Raspberry (Raspberry Syrup 5ml Cup) 5 ml Q6H PO 09/04/17 12:00 09/18/17 11:59 09/05/17 13:40 5 ML Acetaminophen (Tylenol Tab) 650 mg Q4H PRN PO 09/04/17 11:15 10/04/17 11:14 Objective Vital Signs Date Time Temp Pulse Resp B/P (MAP) Pulse Ox O2 Delivery O2 Flow Rate FiO2 09/05/17 09:50 Room Air 09/05/17 07:23 36.8 86 18 122/76 (91) 98 09/05/17 00:07 36.4 90 18 127/78 (94) 96 Room Air 09/05/17 00:00 Room Air 09/04/17 15:45 36.8 92 18 117/75 (89) 97 Room Air 09/04/17 15:30 95 Room Air Physical Exam General Appearance: no apparent distress, + thin Eyes: normal inspection, EOMI, sclerae normal ENT: normal ENT inspection, hearing grossly normal, pharynx normal Neck: supple, no adenopathy, no JVD, trachea midline Respiratory/Chest: chest non-tender, lungs clear, no respiratory distress, no accessory muscle use, + decreased breath sounds (bases) Cardiovascular: regular rate, rhythm, no edema, no gallop, no JVD, no murmur Abdomen: normal bowel sounds, non tender, soft, no organomegaly Extremities: normal range of motion, non-tender, normal inspection, no pedal edema, no calf tenderness, pelvis stable Neurologic/Psychiatric: 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, alert, oriented x 3, + motor weakness, + depressed affect Skin: normal color, warm/dry, no rash Laboratory Results Last 24 Hours Test 09/05/17 05:50 Sodium Level 139 mmol/L Potassium Level 4.0 mmol/L Chloride Level 105 mmol/L Carbon Dioxide Level 30 mmol/L Anion Gap 4.0 mmol/L Blood Urea Nitrogen 9 mg/dl Creatinine 0.38 mg/dl Est Creatinine Clear Calc Drug Dose 121.4 ml/min Estimated GFR () 131.6 Estimated GFR (Non- 113.5 BUN/Creatinine Ratio 23.5 Random Glucose 92 mg/dl Calcium Level 9.1 mg/dl Assessment and Plan Acute respiratory failure with hypoxia requiring intubation secondary to dehydration and mucous plugging, RLL pneumonia, suspected aspiration initially intubated and admitted to ICU, extubated on 08/26, breathing well on RA for several days, no distress completed 7 days of Ertapenem, no further signs of pneumonia Acute encephalopathy - no response for 7 days, now resolved, she is oriented likely just the acute illness, hypoxia on top of prior brain damage caused the encephalopathy CT head normal on admission repeat CT head 09/01 shows no acute changes discussed with daughter, she confirmed that she has clips in brain that were placed a long time ago, cannot get MRI repeat EEG showed encephalopathy, no seizure activity, initial EEG on 08/25 showed encephalopathy 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 Bonner, decreased Keppra to 500mg BID could have corresponded with her improving Sepsis secondary to aspiration pneumonia sepsis resolved, afebrile, vitals stable finished course of Ertapenem urine culture with ESBL but more likely colonization Aspiration: Corsafe removed safe to swallow but delayed response will need PEG for nutrition, she agrees with this plan she ate more today C. diff colitis -Vancomycin 125 mg PO QID x 21 days per ID (started 08/27) - will give PO now - will be done on 09/17 could return to [facility] next week Continued [facility] stay due to: multiple IV medications needed Discharge planning: intermediate facility
[2017-09-05 16:11] VITALS: BP 144/84; PULSE 93; TEMP 36.5; O2SAT 98
[2017-09-05 23:04] VITALS: BP 141/91; PULSE 91; TEMP 36.4; O2SAT 95
[2017-09-05] MEDS: ACETAMINOPHEN 325 MG TAB PO PRN (23:30)
[2017-09-06] VITALS (7 sets, daily range): BP systolic 110–150; BP diastolic 65–90; PULSE 72–101; TEMP 36.3–37; O2SAT 94–99
[2017-09-06] MEDS: RASPBERRY SYRUP 5 ML UDP PO SCH ×3 (05:45→17:36)
[2017-09-06] MEDS: VANCOMYCIN HCL 125 MG/2.5ML SOLN PO SCH ×3 (05:47→17:35)
[2017-09-06] MEDS: POTASSIUM CHLORIDE INJ 20 MEQ in DEXTROSE 5% 1000ML 1,000 ML IV SCH (08:29)
[2017-09-06] MEDS: LANSOPRAZOLE SOLUTAB 15 MG NG SCH (08:30)
[2017-09-06] MEDS: LEVETIRACETAM SOLN 500 MG/5 ML UDP PO SCH (08:30)
[2017-09-06] MEDS: LACTOBACILLUS ACIDOPHILUS 1 GM PACK PO SCH ×3 (08:30→17:36)
--- NOTE | 2017-09-06 13:56 | Progress Note ---
Subjective Date of Service: Sep 06, 2017. Subjective Pt evaluation today including: conversation w/ patient, physical exam, review of inpatient medication list Pain: denies pain PO Intake: improving everyday Voiding: no voiding problems patient more alert today, pleasant, oriented she is eating more, taking medications RN able to get her in chair with help of therapy coffey d/c since she does not have one at SNF vitals stable discussed going back to [place] Problem List Medical Problems: (1) Change in mental status Status: Acute (2) Dehydration Status: Acute (3) Respiratory failure Status: Acute (4) Sepsis Status: Acute (5) Tachycardia Status: Acute (6) Urinary tract infection Status: Acute Review of Systems Constitutional: + weakness, + fatigue Neurologic: + memory loss, + weakness All Other Systems: Reviewed and Negative Medications Current Inpatient Medications Medications (Trade) Dose Ordered Sig/Larry Route Start Time Stop Time Status Last Admin Dose Admin Enoxaparin Sodium (Lovenox Inj) 40 mg Q24H SQ 08/25/17 21:00 09/24/17 20:59 Future Hold 09/01/17 21:19 40 MG Fentanyl Citrate (Fentanyl Inj) 50 mcg Q1H PRN IV 08/25/17 18:45 09/08/17 18:44 Acetaminophen 100 ml @ 400 mls/hr Q8H PRN IV 08/25/17 22:45 09/24/17 22:44 08/29/17 18:01 400 MLS/HR Potassium Chloride 20 meq/ Dextrose 1,010 ml @ 45 mls/hr [id number] IV 08/27/17 01:45 09/25/17 01:44 09/06/17 08:29 45 MLS/HR Lansoprazole (Prevacid Solutab) 15 mg DAILY NG 08/27/17 12:15 09/26/17 12:14 09/06/17 08:30 15 MG Lactobacillus Acidophilus (Lactinex Granules Pack) 1 gm TIDM PO 09/04/17 12:00 10/04/17 11:59 09/06/17 13:01 1 GM Levetiracetam (Keppra Soln) 500 mg Q12 PO 09/04/17 21:00 10/04/17 20:59 09/06/17 08:30 500 MG Vancomycin HCl (Vancomycin Oral Soln) 125 mg Q6H PO 09/04/17 12:00 5/4/18 11:59 09/06/17 13:02 125 MG Raspberry (Raspberry Syrup 5ml Cup) 5 ml Q6H PO 09/04/17 12:00 09/18/17 11:59 09/06/17 13:01 5 ML Acetaminophen (Tylenol Tab) 650 mg Q4H PRN PO 09/04/17 11:15 10/04/17 11:14 09/05/17 23:30 650 MG Objective Vital Signs Date Time Temp Pulse Resp B/P (MAP) Pulse Ox O2 Delivery O2 Flow Rate FiO2 09/06/17 12:00 72 94 09/06/17 09:24 99 Room Air 09/06/17 07:03 36.5 85 18 110/65 (80) 99 09/06/17 00:00 Room Air 09/05/17 23:04 36.4 91 20 141/91 (108) 95 Room Air 09/05/17 16:11 36.5 93 20 144/84 (104) 98 Room Air 09/05/17 15:35 Room Air Physical Exam General Appearance: no apparent distress, + thin Eyes: normal inspection, EOMI, sclerae normal ENT: normal ENT inspection, hearing grossly normal, pharynx normal Neck: supple, no adenopathy, no JVD, trachea midline Respiratory/Chest: chest non-tender, lungs clear, normal breath sounds, no respiratory distress, no accessory muscle use Cardiovascular: regular rate, rhythm, no edema, no gallop, no JVD, no murmur Abdomen: normal bowel sounds, non tender, soft, no organomegaly Extremities: normal inspection, no pedal edema, no calf tenderness, normal capillary refill, pelvis stable Neurologic/Psychiatric: 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, alert, oriented x 3, + motor weakness (generalized), + depressed affect Skin: normal color, warm/dry, no rash Assessment and Plan Acute respiratory failure with hypoxia requiring intubation secondary to dehydration and mucous plugging, RLL pneumonia, suspected aspiration initially intubated and admitted to ICU, extubated on 08/26, breathing well on RA for over a week, no distress completed 7 days of Ertapenem, no further signs of pneumonia Acute encephalopathy - no response for 7 days, now resolved, she is oriented x 3 likely just the acute illness, hypoxia on top of prior brain damage caused the encephalopathy CT head normal on admission repeat CT head 09/01 shows no acute changes discussed with daughter, she confirmed that she has clips in brain that were placed a long time ago, cannot get MRI repeat EEG showed encephalopathy, no seizure activity, initial EEG on 08/25 showed encephalopathy 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 Bonner , decreased Keppra to 500mg BID could have corresponded with her improving will change Keppra to 500mg PO BID and can continue this dose at [facility] , will draw level tomorrow AM Sepsis secondary to aspiration pneumonia sepsis resolved, afebrile, vitals stable finished course of Ertapenem urine culture with ESBL but more likely colonization Aspiration: Corsafe removed on 09/04 safe to swallow but delayed response will need PEG for nutrition, she agrees with this plan she continues to eat more every day Dr. Hayes recommends waiting until treatment for C diff complete prior to PEG placement can follow up with him after 09/17 C. diff colitis -Vancomycin 125 mg PO QID x 21 days per ID (started 08/27) - tolerating PO now - will be done on 09/17 could return to [facility] tomorrow if she continues to be stable Medication changes - Keppra decreased to 500mg BID - Vancomycin 125mg qid until 09/17 Continued [facility] stay due to: multiple IV medications needed Discharge planning: residential facility
[2017-09-06] MEDS: LEVETIRACETAM 500 MG TAB PO SCH (21:38)
[2017-09-07] MEDS: VANCOMYCIN HCL 125 MG/2.5ML SOLN PO SCH ×3 (00:15→12:45)
[2017-09-07] MEDS: RASPBERRY SYRUP 5 ML UDP PO SCH ×3 (00:16→12:45)
[2017-09-07 07:17] VITALS: BP 146/82; PULSE 96; TEMP 36.3; O2SAT 95
[2017-09-07] MEDS: POTASSIUM CHLORIDE INJ 20 MEQ in DEXTROSE 5% 1000ML 1,000 ML IV SCH (07:23)
[2017-09-07] MEDS: LANSOPRAZOLE SOLUTAB 15 MG NG SCH (07:23)
[2017-09-07] MEDS: LEVETIRACETAM 500 MG TAB PO SCH (07:23)
[2017-09-07] MEDS: LACTOBACILLUS ACIDOPHILUS 1 GM PACK PO SCH ×2 (07:23→12:45)
[2017-09-07] MEDS: ACETAMINOPHEN 325 MG TAB PO PRN (07:23)
[2017-09-07 08:00] VITALS: O2SAT 95
[2017-09-07] MEDS ORDERED: VANC1SUS PO (10:11)
[2017-09-07] MEDS ORDERED: KPP/250 PO (10:11)
[2017-09-07] MEDS ORDERED: LCTXP PO (10:18)
--- NOTE | 2017-09-07 10:22 | Discharge Instructions ---
Discharge Instructions Date of Service Sep 07, 2017. Admission Reason for Admission: Acute Respiratory Failure With Hypoxia Discharge Discharge Diagnosis / Problem: Acute respiratory failure with hypoxia Discharge Goals Goal(s): Decrease discomfort, Improve function, Increase independence, Improve disease control, Improve nutritional status, Learn about illness, Diagnostic testing, Therapeutic intervention, Prevent Disease Progression Activity Recommendations Activity Level: Assistance Required Therapies: Physical Therapy, Occupational Therapy, Speech Therapy . Additional Information Patient informed of condition: Yes Advance Directives: No DNR: No Level of Care: Skilled Communicable Disease: No Prognosis: Stable Resendiz Catheter: No Instructions / Follow-Up Instructions / Follow-Up Acute respiratory failure w/ hypoxia requiring intubation/sepsis secondary to dehydration/mucous plugging/RLL PNA, suspected aspiration, UTI- s/p extubated on 08/26- RESOLVED Acute encephalopathy, unsure etiology, h/o seizure disorder- STABLE: Keppra decreased from 1000 mg BID to 500 mg BID Aspiration: - Speech therapy recommendations: 1. Pureed diet, thin liquids with thins is recommended. Pt. will need fed with verbal cues to swallow. 2. Safe Swallow strategies (small bites, small sips, slow rate) 3. Aspiration precautions (upright and alert for all intake, alternate consistencies, straws ok) 4. Would benefit from continued SENIOR LINUX SYSTEMS ENGINEER services upon discharge at the SNF for carryover of diet and safe swallow strategies. - Will likely still require PEG tube placement for adequate nutrition- f/u w/ Dr Freddy CHAPPELL after c.diff treatment completed on 09/16 C. diff colitis: - Vancomycin 125 mg QID x 21 days per ID- started 08/27- treatment complete on 09/16 - Probiotic TID - Contact precautions Hypophosphatemia- RESOLVED Hypokalemia- RESOLVED GI prophylaxis: Prevacid DVT prophylaxis: Lovenox SQ daily Code status: LEVEL I, FULL Dispo: Discharge to [facility] FOLLOW-UPS: Please follow-up with [facility] provider within 24-48 hours Please follow-up with Dr. Freddy CHAPPELL after 09/16 to discuss PEG tube placement Please follow-up/keep all of your subspecialty appointments Current Hospital Diet Patient's current hospital diet: Regular Diet Discharge Diet Recommended Diet: Regular Diet Diet Texture: Pureed (blended smooth) Pending Studies Studies pending at discharge: yes List of pending studies: Repeat Keppra level Physician Orders On Transfer Special Precautions: Fall and aspiration precautions, contact precautions IV Therapy: None Vital Signs: Routine POLST Discussion: without POLST completion Medical Emergencies . Who to Call and When: Medical Emergencies: If at any time you feel your situation is an emergency, please call 911 immediately. . Non-Emergent Contact Non-Emergency issues call your: Primary Care Provider . . "Provider Documentation" section prepared by Lizbeth Freedman. . Core Measure Problem Core Measures: None
--- NOTE | 2017-09-07 10:33 | Discharge Summary ---
Discharge Summary Date of Service Sep 07, 2017. Discharge Summary Admission Date: Aug 25, 2017 at 18:51 Discharge Date: Sep 07, 2017 Discharge Disposition: residential facility Principal Diagnosis: Acute respiratory failure with hypoxia Problems/Secondary Diagnoses: Acute respiratory failure w/ hypoxia requiring intubation sepsis secondary to dehydration/mucous plugging/RLL PNA suspected aspiration UTI Acute encephalopathy h/o seizure disorder toxic Keppra level Aspiration C. 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 Assess for aspiration. TECHNIQUE: Video fluoroscopic evaluation of swallowing was performed in the AP and lateral projections by the speech pathology staff. The patient was fed thin liquid barium. FLUOROSCOPY TIME: 2.4 minutes. A cine loop was submitted.. COMPARISON STUDY: None. FINDINGS: The patient was only able to tolerate a small amount of the thin liquid area due to the delayed swallow initiation. However, there is no aspiration identified during the examination. Once the swallowing was performed was normal hyoid excursion and epiglottic deflection. IMPRESSION: 1. Delayed swallow initiation. No aspiration identified. 2. Please see the speech pathologist report for detailed findings and recommendations. Electronically signed by: Mark Ray M.D. 09/04/2017 2:16 PM Dictated Date/Time: 09/04/2017 2:13 PM The status of this report is Signed. Draft = Not yet reviewed or approved by Radiologist. Signed = Reviewed and approved by Radiologist. HEAD WITHOUT CONTRAST (CT) CT DOSE: 729.78 mGycm HISTORY: Mental status change Encephalopathy, h/o ICH, h/o aneurysms with clips TECHNIQUE: Multiaxial CT images of the head were performed without the use of intravenous contrast. A dose lowering technique was utilized adhering to the principles of ALARA. Comparison: 08/25/2017 Findings: Craniotomy defects appear stable. Operative aneurysm clips are identified in the parasellar region. Considerable chronic small vessel change is noted bilaterally. Similar. There are no new or interval findings. There is no acute intracranial hemorrhage. Impression: Considerable postoperative and chronic change. No acute intracranial abnormality. The above report was generated using voice recognition software. It may contain grammatical, syntax or spelling errors. Electronically signed by: Lenny Banuelos M.D. 09/01/2017 1:03 PM Dictated Date/Time: 09/01/2017 12:56 PM The status of this report is Signed. Draft = Not yet reviewed or approved by Radiologist. Signed = Reviewed and approved by Radiologist CHEST ONE VIEW PORTABLE CLINICAL HISTORY: aspiration dyspnea COMPARISON STUDY: 08/26/2017 FINDINGS: Interval extubation. Lungs are considered grossly clear. There is small caliber feeding tube within the stomach. There is a small cortical in the proximal esophagus. Lungs remain grossly clear. Diaphragms smooth. IMPRESSION: 1. Lungs are clear. Interval extubation. Small caliber catheter within the stomach. The above report was generated using voice recognition software. It may contain grammatical, syntax or spelling errors. Electronically signed by: Lenny Banuelos M.D. 09/01/2017 9:59 AM Dictated Date/Time: 09/01/2017 9:59 AM The status of this report is Signed. Draft = Not yet reviewed or approved by Radiologist. Signed = Reviewed and approved by Radiologist KUB HISTORY: Status post placement of a feeding tube Feeding tube placement COMPARISON: KUB 08/26/2017 FINDINGS: The bowel gas pattern is non-obstructive. There is no organomegaly. Status post placement of a feeding tube with distal tip terminating within the right upper abdomen in the expected location of the distal stomach. Moderate volume of formed stool throughout the colon No renal calculi. No ureteral calculi. No pneumoperitoneum or pneumatosis. No fracture. IMPRESSION: Repositioned feeding tube terminates within the right upper abdomen within the expected region of the distal gastric lumen. Electronically signed by: Scar Dillon M.D. 08/26/2017 1:42 PM Dictated Date/Time: 08/26/2017 1:41 PM The status of this report is Signed. Draft = Not yet reviewed or approved by Radiologist. Signed = Reviewed and approved by Radiologist. Procedure Note Date of Service Aug 25, 2017. Procedure Note Critical Care Medicine Procedure Date: August 25, 2017 Procedure: Lumbar puncture Pre-procedure Diagnosis: Altered mental status, febrile illness, acute encephalopathy Post-procedure Diagnosis: same as above Prior to Procedure: Informed Consent: The risks, benefits, indications, potential complications, and alternatives were explained to the family and informed consent obtained, via telephone as the patient is intubated and unable to consent patient's daughter Poppy provided consent Attending Staff: Michelle Kaur DO Resident/Physician Carton Marker Machine: Jerman Sweet Indications: Claudia Mcgee is a 61-year-old female patient with who presents from a outside nursing facility after 2 day history of reported decreased mental status. She has a history of brain aneurysms status post clipping and coiling along with intracranial hemorrhage The identity of the patient was confirmed and a bedside time out was performed. Description of Procedure: Patient was positioned in the right lateral decubitus position, prepped and draped in usual sterile fashion. The L5-S1 space located with bilateral iliac crests as landmarks. 1% Lidocaine without epinephrine was used to anesthetize the area. A 18 gauge spinal needle was introduced into the subarachnoid space. Stylet was removed with appropriate fluid return. Needle removed after adequate fluid collected and sterile bandage placed at puncture site. 8 mL of CSF fluid collected. Fluid was colorless. Specimen(s): sent for Gram Stain, culture, cell count, glucose, protein Lyme titers Complications: None Findings: Clear CSF without xanthochromia Estimated Blood Loss: trace <Electronically signed by Ajay Kaur D.O.> Signed: 08/25/171939 Signed: The status of this report is Signed * If report status is Draft, the document has not been finalized by the responsible provider. EEG: Description This is a 21 electrode EEG with a single channel dedicated to limited EKG. The electrodes were placed in accordance with the International 10-20 system. This is a bedside EEG completed on the medical floor. The posterior dominant rhythm consists of persistent, poorly organized, mixed, alpha and theta frequencies. Intermittent symmetric, frontal delta activity is also observed. No epileptiform abnormalities appreciated. Interpretation The generalized slowing observed on this EEG is consistent with nonspecific encephalopathy. No focal or epileptiform discharges are appreciated. No significant change compared with the previous EEG completed August 25, 2017. Clinical Correlation The observed EEG findings are consistent with encephalopathy. No evidence of subclinical seizure activity. <Electronically signed by Ajay Bonner MD> Signed: 09/02/17 [id number] Signed: The status of this report is Signed * If report status is Draft, the document has not been finalized by the responsible provider. Consultations: Infectious disease GI Neurology Critical care Medication Reconciliation New Medications: Lactobacillus Acidophilus (Lactinex Granules) 1 Gm Pack 1 GM PO TIDM for 12 Days Vancomycin HCl (Vancomycin HCl + Syrspend) 50 Mg/Ml Dominique 125 MG PO Q6H for 10 Days last day of treatment on 09/16 Changed Medications: Levetiractam (Keppra) 250 Mg Tab 500 MG PO BID for 30 Days, #120 TAB (Changed from: Levetiractam (Levetiracetam) 500 Mg Tab 1,000 Mg PO AMHS) Continued Medications: Acetaminophen (Tylenol) 325 Mg Tab 650 MG PO BID, TAB NTE 3GM APAP/24HRS Acetaminophen (Tylenol) 325 Mg Tab 650 MG PO Q6H PRN for Pain or Fever, TAB NTE 3GM APAP/24HRS Acetaminophen (Tylenol) 650 Mg Supp 650 MG NJ Q6H PRN for Pain or Fever NTE 3GM APAP/24HRS Atorvastatin (Lipitor) 20 Mg Tab 20 MG PO HS, TAB Ferrous Sulfate (Ferrous Sulfate) 220 Mg/5 Ml Elix 220 MG PO TID Lansoprazole (Prevacid Solutab) 15 Mg Bev 15 MG PO QAM, TAB Magnesium Hydroxide (Milk of Magnesia) 30 Ml Susp 30 ML PO DAILY PRN for NO BM IN 3 DAYS. Menthol-Methyl Salicylate (Vonda (Bengay Greaseless) 1 Cre Cre 1 APPLN TD Q8 PRN for RIGHT RIB PAIN Potassium Ext Rel (Klor-Con) 20 Meq Tabcr 20 MEQ PO DAILY, TAB Sodium Phosphate/Biphosphate (Fleet Enema) Brigette 1 EA NJ DAILY PRN for NO BM IN 3 DAYS., BTL Referrals At Discharge Follow up Referrals: Proctologist Referral - Within a Month with Capo Hayes D.O. Discharge Exam Limited ROS due to patient's status- denies significant pain, chest pain, shortness of breath, abdominal pain Physical Exam: General Appearance: no apparent distress, + thin Eyes: normal inspection, PERRL ENT: hearing grossly normal Neck: supple Respiratory/Chest: lungs clear, no respiratory distress, no accessory muscle use Cardiovascular: regular rate, rhythm Abdomen / GI: normal bowel sounds, non tender, soft Extremities: no calf tenderness, no pedal edema, + pertinent finding ( bilateral waffle boots on ) Neurologic/Psychiatric: alert, + depressed affect, + disoriented Skin: normal color, warm/dry, no rash Hospital Course 61 y/o female with a history of ICH s/p aneurysm coiling last in January 2017 who presented on 08/25 from [facility] with fevers, altered mental status, tachycardia and hypoxia. Intubated on admission and sent to ICU, extubated on . Acute respiratory failure w/ hypoxia requiring intubation/sepsis secondary to dehydration/mucous plugging/RLL PNA, suspected aspiration, UTI- s/p extubated on 08/26- RESOLVED: - Admitted to ICU- STABLE- transferred to med/surg - Completed 7 days of IV Ertapenem- repeat CXR on 09/01 w/out acute findings - UCx w/ ESBL- Ertapenem as above Acute encephalopathy, unsure etiology, h/o seizure disorder- IMPROVING: - s/p lumbar puncture on 08/25- negative for meningitis or hemorrhage - Repeat head CT on 09/01- negative for acute intracranial findings - TSH, B12/folate WNL - PNA/UTI treatment completed as above - EEG w/out seizure activity, moderate encephalopathy - Neurology consulted- Keppra level high- decrease Keppra from 1000 mg BID to 500 mg BID- repeat Keppra level taken on 09/07 pending Aspiration: - Corsafe for feedings- nutrition following- tolerating PO, discontinued Corsafe feedings - Speech therapy following- started on moist pureed, aspiration precautions- tolerating well - GI consulted- needs to complete C.diff treatment before PEG tube can be considered- f/u after 09/16 C. diff colitis: - Vancomycin 125 mg QID x 21 days per ID- started 08/27- treatment complete on 09/16 - Probiotic TID - Contact precautions Hypophosphatemia- RESOLVED Hypokalemia- RESOLVED GERD: Prevacid DVT prophylaxis: Lovenox SQ daily Code status: LEVEL I, FULL Dispo: Discharge to [facility] Total Time Spent: Greater than 30 minutes This includes examination of the patient, discharge planning, medication reconciliation, and communication with other providers. Discharge Instructions Please refer to the electronic Patient Visit Report (Discharge Instructions) for additional information. Follow-Up Please follow-up with [place] [facility] provider within 24-48 hours Please follow-up with Dr. Hayes after 09/16 Please follow-up/keep all of your subspecialty appointments Additional Copies To [facility] Campbell
[2017-09-07 13:02] VITALS: BP 146/82; PULSE 96; TEMP 36.3; O2SAT 95
== END 2017-09-07 15:01 | DRG 871 ==
LOC: C.EDA 16:19 → EDBD 16:19 → C.MSICU 18:51 → UNDOADMIN 18:51 → ENRESERV 19:18 → C.2T 08-26 18:53 → C.MSICU 08-26 18:53 → ENRESERV 08-26 23:48 → C.2T 08-26 23:54 → ENRESERV 09-01 14:21 → C.MS2W 09-01 15:44
PROVIDERS: ADMIT Internal Medicine; ATTEND Hospitalist
PROC: 0BH17EZ Insertion of Endotracheal Airway into Trachea, Via Natural or Artificial Opening (ICD-10-PCS; principal; 2017-08-25)
PROC: 5A1935Z Respiratory Ventilation, Less than 24 Consecutive Hours (ICD-10-PCS; principal; 2017-08-25)
PROC: 009U3ZX Drainage of Spinal Canal, Percutaneous Approach, Diagnostic (ICD-10-PCS; 2017-08-25)
DX: A41.9 Sepsis, unspecified organism (principal); J96.01 Acute respiratory failure with hypoxia; G82.50 Quadriplegia, unspecified; G93.41 Metabolic encephalopathy; J69.0 Pneumonitis due to inhalation of food and vomit; N39.0 Urinary tract infection, site not specified; A04.7 Enterocolitis due to Clostridium difficile; R65.20 Severe sepsis without septic shock; E86.0 Dehydration; E87.6 Hypokalemia; E83.39 Other disorders of phosphorus metabolism; S01.01XA Laceration without foreign body of scalp, initial encounter; Z79.899 Other long term (current) drug therapy; Z87.891 Personal history of nicotine dependence; Z88.0 Allergy status to penicillin; Z88.8 Allergy status to other drugs, medicaments and biological substances; W19.XXXA Unspecified fall, initial encounter

== ENCOUNTER → 2017-08-25 | Outpatient (CLI) | payer OTHER ==
[~2017-08-25] MED LIST changes: -CEFD300C2 PO
[2017-08-25 09:17] LABS: BASO % 0.1 %; BASO ABS # 0.01 K/uL (0-0.2); HEMATOCRIT 47.6 % (37-47); HEMOGLOBIN 15.6 g/dL (12.0-16.0); IG# 0.04 K/uL (0.00-0.02); LYMPH % 4.6 %; LYMPH ABS # 0.78 K/uL (1.2-3.4); MEAN CELL VOLUME 94.6 fL (80-100); MEAN CORPUSCULAR HGB CONC 32.8 g/dl (32-36); MEAN PLATELET VOLUME 11.9 fL (7.4-10.4); MONO % 6.4 %; MONO ABS # 1.09 K/uL (0.11-0.59); NEUT % 88.7 %; NEUT ABS # 14.99 K/uL (1.4-6.5); PLATELET COUNT 377 K/uL (130-400); RED CELL DISTRIBUTION WIDTH CV 13.8 % (11.5-14.5); RED CELL DISTRIBUTION WIDTH SD 47.4 fL (36.4-46.3); WHITE BLOOD COUNT 16.91 K/uL (4.8-10.8)
[2017-08-25 09:27] LABS: ALBUMIN 3.3 gm/dl (3.4-5.0); ALT/SGPT 16 U/L (12-78); BLOOD UREA NITROGEN 39 mg/dl (7-18); CALCIUM 9.9 mg/dl (8.5-10.1); CARBON DIOXIDE 24 mmol/L (21-32); CREATININE 0.81 mg/dl (0.60-1.20); GLUCOSE 118 mg/dl (70-99); SODIUM 146 mmol/L (136-145)
[2017-08-25 09:30] LABS: ALKALINE PHOSPHATASE 85 U/L (45-117); AST/SGOT 13 U/L (15-37); TOTAL PROTEIN 8.1 gm/dl (6.4-8.2)
[2017-08-25 12:29] LABS: INFLUENZA B ANTIGEN Neg for Influ B (NEG)
== END ==
LOC: C.LABCC 08:58
PROVIDERS: ATTEND Internal Medicine
DX: R50.9 Fever, unspecified (principal); R53.81 Other malaise

== ENCOUNTER → 2017-09-09 | Outpatient (CLI) | payer OTHER ==
[~2017-09-09] MED LIST changes: +ACET650S10 PR; -BACIOIN TD; +KPP/250 PO; +LACT1GRA PO; +LCTXP PO; -LEVE500T PO; +ORVANCOMY1 PO; +POTA-639 PO; +SIMV40TA2 PO; +SKIN PREP TD; +VANC1SUS PO; +WOUN1PAD TD; -[UNRECOGNIZED DRUG - CODE] IV
[2017-09-09 09:37] LABS: BASO % 0.2 %; BASO ABS # 0.01 K/uL (0-0.2); EOS % 0.9 %; EOS ABS # 0.05 K/uL (0-0.5); HEMATOCRIT 35.6 % (37-47); HEMOGLOBIN 11.3 g/dL (12.0-16.0); IG# 0.02 K/uL (0.00-0.02); LYMPH % 12.3 %; MEAN CELL VOLUME 93.7 fL (80-100); MEAN CORPUSCULAR HEMOGLOBIN 29.7 pg (25-34); MEAN CORPUSCULAR HGB CONC 31.7 g/dl (32-36); MEAN PLATELET VOLUME 9.9 fL (7.4-10.4); NEUT % 79.2 %; NEUT ABS # 4.52 K/uL (1.4-6.5); PLATELET COUNT 351 K/uL (130-400); RED CELL DISTRIBUTION WIDTH CV 14.1 % (11.5-14.5); RED CELL DISTRIBUTION WIDTH SD 48.3 fL (36.4-46.3)
[2017-09-09 09:50] LABS: BLOOD UREA NITROGEN 9 mg/dl (7-18); CALCIUM 9.1 mg/dl (8.5-10.1); CARBON DIOXIDE 27 mmol/L (21-32); CREATININE 0.35 mg/dl (0.60-1.20); GLUCOSE 93 mg/dl (70-99); POTASSIUM 3.7 mmol/L (3.5-5.1); SODIUM 142 mmol/L (136-145)
== END ==
LOC: C.LABCC 08:45
PROVIDERS: ATTEND Internal Medicine
DX: A04.72 Enterocolitis due to Clostridium difficile, not specified as recurrent (principal)

== ENCOUNTER 2017-09-13 16:38 | Inpatient (IN) | payer OTHER ==
[~2017-09-13] VITALS: Ht 157.5 cm; Wt 55.4 kg
[~2017-09-13 16:38] MED LIST changes: -BISA10SU38 PR; +KETAMINE HCL INJ 50 MG/ML 10 ML VIAL IV ONE; -LACT1GRA PO; -ORVANCOMY1 PO; +ROCURONIUM BROMIDE 10 MG/ML 10 ML VIAL IV ONE; -SIMV40TA2 PO; -SKIN PREP TD; -WOUN1PAD TD
[2017-09-13] MEDS ORDERED: ACETAMINOPHEN 325 MG SUPP PR STA (16:44)
[2017-09-13] MEDS ORDERED: SODIUM CHLORIDE 0.9% 1000ML 1,000 ML IV ONE (16:44)
[2017-09-13] MEDS ORDERED: BISA10SU38 PR (17:12)
[2017-09-13] MEDS ORDERED: SKIN PREP TD (17:12)
[2017-09-13] MEDS ORDERED: LACT1GRA PO (17:12)
[2017-09-13] MEDS ORDERED: KPP/250 PO (17:12)
[2017-09-13] MEDS ORDERED: WOUN1PAD TD (17:12)
[2017-09-13] MEDS ORDERED: ORVANCOMY1 PO (17:12)
[2017-09-13] MEDS ORDERED: SIMV40TA2 PO (17:12)
--- NOTE | 2017-09-13 17:16 | DIAGNOSTIC IMAGING REPORT ---
SINGLE VIEW CHEST CLINICAL HISTORY: Sepsis. FINDINGS: An AP, portable, upright chest radiograph is compared to study dated 09/01/2017. The examination is significantly degraded by portable technique and patient rotation. The cardiomediastinal silhouette is unremarkable. Chronic interstitial thickening is similar to previous. Patchy airspace opacities are present at the left lung base. The right lung appears clear. No large pleural effusion or pneumothorax is seen. The skeletal structures are osteopenic. Chronic posttraumatic deformity is seen in the right proximal humerus. IMPRESSION: There are patchy airspace opacities at the left lung base, likely representing pneumonia/aspiration pneumonitis. Clinical correlation will be required and radiographic follow-up to resolution is recommended. Electronically signed by: Angel Anders M.D. 09/13/2017 5:15 PM Dictated Date/Time: 09/13/2017 5:12 PM
[2017-09-13 17:18] LABS: BASO % 0.1 %; BASO ABS # 0.01 K/uL (0-0.2); HEMATOCRIT 43.7 % (37-47); HEMOGLOBIN 13.8 g/dL (12.0-16.0); IG# 0.02 K/uL (0.00-0.02); LYMPH % 8.6 %; LYMPH ABS # 0.83 K/uL (1.2-3.4); MEAN CELL VOLUME 96.7 fL (80-100); MEAN CORPUSCULAR HEMOGLOBIN 30.5 pg (25-34); MEAN CORPUSCULAR HGB CONC 31.6 g/dl (32-36); MEAN PLATELET VOLUME 9.9 fL (7.4-10.4); MONO % 6.8 %; MONO ABS # 0.65 K/uL (0.11-0.59); NEUT % 84.3 %; NEUT ABS # 8.09 K/uL (1.4-6.5); PLATELET COUNT 409 K/uL (130-400); RED CELL DISTRIBUTION WIDTH CV 14.7 % (11.5-14.5); RED CELL DISTRIBUTION WIDTH SD 52.4 fL (36.4-46.3)
[2017-09-13] MEDS ORDERED: VANCOMYCIN 1GM ED/ASU OMNICELL IV STA (17:28)
[2017-09-13] MEDS ORDERED: LEVAQUIN 750MG / 150ML D5W IV STA (17:28)
[2017-09-13] MEDS ORDERED: RAPID SEQUENCE INDUCTION BAG ONE (17:31)
[2017-09-13 17:33] LABS: INR 1.4 (0.9-1.1)
[2017-09-13] MEDS ORDERED: PROPOFOL IV EMULSION 10 MG/ML 100 ML VIAL ONE (17:36)
[2017-09-13 17:46] LABS: ALT/SGPT 49 U/L (12-78); AST/SGOT 44 U/L (15-37); BLOOD UREA NITROGEN 23 mg/dl (7-18); CALCIUM 9.4 mg/dl (8.5-10.1); CARBON DIOXIDE 28 mmol/L (21-32); CREATININE 0.65 mg/dl (0.60-1.20); GLUCOSE 105 mg/dl (70-99); LIPASE 333 U/L (73-393); SODIUM 153 mmol/L (136-145)
[2017-09-13 17:51] LABS: ALKALINE PHOSPHATASE 119 U/L (45-117); CKMB 0.9 ng/ml (0.5-3.6); PHOSPHORUS 3.5 mg/dl (2.5-4.9); TOTAL PROTEIN 8.1 gm/dl (6.4-8.2)
[2017-09-13] MEDS ORDERED: IMIPENEM/CILASTATIN IV 500 MG in DEXTROSE 5% 100ML 100 ML IV STA (18:06)
--- NOTE | 2017-09-13 18:23 | DIAGNOSTIC IMAGING REPORT ---
CT SCAN OF THE BRAIN WITHOUT IV CONTRAST CLINICAL HISTORY: Change in mental status COMPARISON STUDY: CT of the brain dated 09/01/2017. TECHNIQUE: Unenhanced axial CT scan of the brain is performed from the vertex to the skull base. A dose lowering technique was utilized adhering to the principles of ALARA. The examination is degraded by streak artifact from metallic surgical hardware. CT DOSE: 614.27 mGy.cm FINDINGS: Brain parenchyma: Foci of bitemporal encephalomalacia as well as the encephalomalacia in the left basal ganglia are consistent with remote insults. There are age-related involutional changes noting advanced confluent subcortical and periventricular microangiopathic change. There is no hemorrhage, mass effect, or evidence of acute territorial ischemia by CT criteria. Reveles-white matter is preserved. No extra-axial fluid collection is seen. Postoperative changes, possibly representing aneurysm coils are present in the suprasellar region bilaterally. Ventricles, sulci, cisterns: Prominent secondary to involutional change. Intracranial vasculature: There is atherosclerotic calcification of the cavernous carotid and vertebral arteries. Calvarium: There are postoperative changes from right temporal craniectomy, left temporal craniotomy, and right frontoparietal craniotomy. Sinuses and mastoids: The visualized paranasal sinuses are clear. There is a right mastoid effusion. The left mastoid air cells are well pneumatized. Fluid is seen in the pharynx. Orbits: The bony orbits are grossly intact. There are bilateral ocular lens implants. IMPRESSION: 1. There is no hemorrhage, mass effect, or evidence of acute territorial ischemia by CT criteria. There has been no significant change from 09/01/2017. 2. Chronic and postoperative changes as above. Electronically signed by: Angel Anders M.D. 09/13/2017 6:21 PM Dictated Date/Time: 09/13/2017 6:18 PM
--- NOTE | 2017-09-13 18:28 | DIAGNOSTIC IMAGING REPORT ---
SINGLE VIEW CHEST CLINICAL HISTORY: Respiratory failure. FINDINGS: 2 AP, portable, upright chest radiographs are compared to study performed earlier the same day 09/13/2017. The examination is significantly degraded by portable technique and patient rotation. An endotracheal tube has been placed. The tip projects approximately 3 cm above the luann. The cardiomediastinal silhouette is unremarkable. Chronic interstitial thickening is similar to previous. Patchy airspace opacities are again seen at the left lung base. The right lung appears clear. No large pleural effusion or pneumothorax is identified. The skeletal structures are osteopenic. Chronic posttraumatic deformity is seen in the right proximal humerus. IMPRESSION: 1. An endotracheal tube has been placed. The tip projects approximately 3 cm above the luann. 2. Patchy airspace opacities are again seen at the left lung base, likely representing pneumonia/aspiration pneumonitis. Clinical correlation will be required and radiographic follow-up to resolution is recommended. Electronically signed by: Angel Anders M.D. 09/13/2017 6:27 PM Dictated Date/Time: 09/13/2017 6:25 PM
[2017-09-13] MEDS ORDERED: OPTIRAY 320 IV PRN (18:30)
--- NOTE | 2017-09-13 18:34 | DIAGNOSTIC IMAGING REPORT ---
CT ANGIOGRAM OF THE CHEST CLINICAL HISTORY: Dyspnea. COMPARISON STUDY: Chest radiograph performed the same day 09/13/2017. TECHNIQUE: Following the IV administration of 116 cc of Optiray 320, CT angiogram of the chest was performed from the upper abdomen to the thoracic inlet utilizing the pulmonary embolus protocol. Images are reviewed in the axial, sagittal, and coronal planes. 3-D MIPS images are created and assessed. IV contrast was administered without complication. A dose lowering technique was utilized adhering to the principles of ALARA. The examination is degraded by motion artifact, as well as by streak artifact from the arms which could not be elevated above the chest. CT DOSE: 335.16 mGy.cm FINDINGS: Thyroid: Imaged portions of the thyroid gland are normal in size and attenuation. Thoracic aorta: There is mild atherosclerotic calcification of the thoracic aorta, which is normal in caliber and demonstrates standard 3-vessel arch anatomy. No dissection is seen. Pulmonary vasculature: The pulmonary trunk is normal in caliber. There are no filling defects identified in main, lobar, or segmental pulmonary branches to suggest pulmonary embolus. Heart: The heart is normal in size and configuration, and without pericardial effusion. Lungs and pleural spaces: An endotracheal tube terminates above the luann. Evaluation of the lung parenchyma is degraded by motion artifact. There is elevation of the left hemidiaphragm. There is airspace consolidation throughout the left lower lobe. Milder patchy airspace consolidation is seen in the left upper lobe and the right lower lobe. No pleural effusion is identified. X secretions are noted in the trachea. Debris fills the left mainstem bronchus in the left lower lobe airways. Mild diffuse peribronchial thickening is observed. Mediastinum: There is no mediastinal lymphadenopathy. Judith: Clear. Axillae: There is no axillary lymphadenopathy. Upper abdomen: Cholelithiasis is noted. Partially visualized upper abdominal viscera is otherwise within normal limits. Skeletal structures: The skeletal structures are osteopenic. Chronic posttraumatic deformity seen in the right humerus. Arthritic change is noted in the shoulders and thoracic spine. There is a mild and age indeterminant compression deformity of L1. No lytic or blastic bony lesions are seen. IMPRESSION: 1. Streak and motion compromised examination. 2. There is no evidence of pulmonary embolus in the main, lobar, or segmental pulmonary arteries. 3. There is airspace consolidation throughout the left lower lobe. Mild patchy consolidative change is seen in the left upper lobe and the right lower lobe. The appearance is most consistent with pneumonia/aspiration pneumonitis. Radiographic follow-up to resolution is recommended. 4. An Endotracheal tube terminates above the luann. 5. Secretions are noted in the trachea. The left mainstem bronchus is filled with fluid/debris. The appearance suggests aspiration. Clinical correlation will be required. 6. Cholelithiasis. 7. Additional findings as above. Electronically signed by: Angel Anders M.D. 09/13/2017 6:32 PM Dictated Date/Time: 09/13/2017 6:27 PM
[2017-09-13] MEDS ORDERED: SODIUM CHLORIDE 0.9% 1000ML 1,000 ML IV STA ×2 (18:44→20:19)
[2017-09-13] MEDS ORDERED: PEPTAMEN 1.5 CAL 1000ML BAG PO SCH (18:45)
[2017-09-13] MEDS ORDERED: VANCOMYCIN CONSULT ACTIVE PRN (18:45)
--- NOTE | 2017-09-13 19:08 | EMERGENCY ROOM VISIT NOTE ---
History Report prepared by Pearl: Therese Mills Under the Supervision of: Dr. Trent Leger D.O. First contact with patient: 16:40 Chief Complaint: UNRESPONSIVE Stated Complaint: DIAPHORETIC, UNRESPONSIVE / [facility] Nursing Triage Summary: pt arrived to ed awake and follow commands. attempts to verbally respond. pt is from [facility] was last normal at 1445 when checked on at 1530 pt was unresponsive even to painful stimuli per medic. found to be diaphorectic. has hx of nontramatic intracranial hemmorhage. and seizures. wound on sacral area covered by dressing area around is red and blanchable. History of Present Illness The patient is a 62 year old female who presents to the Emergency Room with persistent altered mental status starting earlier today. The patient presents to the ED by EMS. She was at baseline when [facility] staff checked on her at 1445. At 1530, they found her unresponsive. EMS reports that she was warm and diaphoretic. She was found to be hypoxic and placed on oxygen. There was no reported seizure activity. She has a history of nontraumatic ICH and idiopathic epilepsy. She is a full code. The history is limited secondary to patient's altered mental status. Source of History: EMS History Limited By: AMS Onset: earlier today Position: other (mental status) Quality: other (altered) Timing: other (persistent) Associated Symptoms: + fevers, + diaphoresis Review of Systems Limited secondary to patient's altered mental status. Past Medical & Surgical Medical Problems: (1) Acute respiratory failure with hypoxia (2) Brain bleed (3) C. difficile colitis (4) Encounter for PEG (percutaneous endoscopic gastrostomy) Surgical Problems: (1) H/O craniotomy Family History Patient reports no known family medical history. Social History Smoking Status: Unknown if Ever Smoked Drug Use: none Marital Status: Housing Status: assisted living Occupation Status: retired Current/Historical Medications Scheduled Acetaminophen (Tylenol), 650 MG PO BID Ferrous Sulfate (Ferrous Sulfate), 220 MG PO TIDM Lactobacillus Acidophilus (Lactinex Granules), 1 GM PO TIDM Lansoprazole (Prevacid Solutab), 15 MG PO QAM Levetiractam (Keppra), 500 MG PO BID Potassium Ext Rel (Klor-Con), 20 MEQ PO DAILY Simvastatin (Zocor), 40 MG PO QPM Vancomycin HCl (Vancomycin HCl), 125 MG PO Q6H Wound Dressings (Aquacel Foam 3.2"X3.2"), 1 APPLN TD Q3DAYS. [Skin Prep], 1 APPLN TD DAILY Scheduled PRN Acetaminophen (Tylenol), 650 MG PO Q6H PRN for Pain or Fever Bisacodyl (Dulcolax), 1 SUPP MA DAILY PRN for NO BM AFTER MOM Magnesium Hydroxide (Milk of Magnesia), 30 ML PO DAILY PRN for NO BM IN 3 DAYS. Menthol-Methyl Salicylate (Vonda (Bengay Greaseless), 1 APPLN TD Q8 PRN for RIGHT RIB PAIN Sodium Phosphate/Biphosphate (Fleet Enema), 1 EA MA DAILY PRN for NO BM IN 3 DAYS. Allergies Coded Allergies: Ferrous Sulfate (Verified Allergy, Unknown, CENTRE CREST LIST, 09/13/17) Penicillins (Verified Allergy, Unknown, UNADILLA CREST LIST, 09/13/17) Physical Exam Vital Signs Date Time Temp Pulse Resp B/P (MAP) Pulse Ox O2 Delivery O2 Flow Rate FiO2 09/13/17 19:38 Mechanical Ventilator 09/13/17 19:31 120/80 09/13/17 19:30 102 24 92 09/13/17 19:16 127/94 09/13/17 19:15 97 19 95 09/13/17 19:11 37.5 09/13/17 19:07 97 09/13/17 19:01 114/62 09/13/17 19:00 99 16 94 09/13/17 18:46 98/70 09/13/17 18:45 102 16 98/70 93 Mechanical Ventilator 70 09/13/17 18:45 99 16 09/13/17 18:29 70 09/13/17 18:17 95 16 98/68 94 Mechanical Ventilator 70 09/13/17 16:52 121 09/13/17 16:43 38.7 120 24 130/98 100 Non-Rebreather 15.0 Physical Exam GENERAL: Patient is listless and slow to respond to questions. She appears to attempt to follow commands. EYES: The conjunctivae are clear. The pupils are round and reactive. EARS, NOSE, MOUTH AND THROAT: The nose is without any evidence of any deformity. Mucous membranes are dry tongue is midline NECK: The neck is nontender and supple. RESPIRATORY: Lungs sounds diminished throughout with scattered rhonchi. CARDIOVASCULAR: Tachycardic, but regular. No definite murmur appreciated. GASTROINTESTINAL: The abdomen is soft. Bowel sounds are present in all quadrants. Abdomen is nontender MUSCULOSKELETAL/EXTREMITIES: Contracted, but no deformities appreciated. SKIN: Warm and diaphoretic. There was no edema appreciated. NEUROLOGIC: Patient does not answer questions appropriately. Teacher strength was diminished bilaterally. Medical Decision & Procedures ER Provider Diagnostic Interpretation: X-ray results as stated below per interpretation by me and the radiologist. Radiology results as stated below per my review and radiologist interpretation: SINGLE VIEW CHEST CLINICAL HISTORY: Sepsis. FINDINGS: An AP, portable, upright chest radiograph is compared to study dated 09/01/2017. The examination is significantly degraded by portable technique and patient rotation. The cardiomediastinal silhouette is unremarkable. Chronic interstitial thickening is similar to previous. Patchy airspace opacities are present at the left lung base. The right lung appears clear. No large pleural effusion or pneumothorax is seen. The skeletal structures are osteopenic. Chronic posttraumatic deformity is seen in the right proximal humerus. IMPRESSION: There are patchy airspace opacities at the left lung base, likely representing pneumonia/aspiration pneumonitis. Clinical correlation will be required and radiographic follow-up to resolution is recommended. Electronically signed by: Angel Anders M.D. 09/13/2017 5:15 PM Dictated Date/Time: 09/13/2017 5:12 PM SINGLE VIEW CHEST CLINICAL HISTORY: Respiratory failure. FINDINGS: 2 AP, portable, upright chest radiographs are compared to study performed earlier the same day 09/13/2017. The examination is significantly degraded by portable technique and patient rotation. An endotracheal tube has been placed. The tip projects approximately 3 cm above the luann. The cardiomediastinal silhouette is unremarkable. Chronic interstitial thickening is similar to previous. Patchy airspace opacities are again seen at the left lung base. The right lung appears clear. No large pleural effusion or pneumothorax is identified. The skeletal structures are osteopenic. Chronic posttraumatic deformity is seen in the right proximal humerus. IMPRESSION: 1. An endotracheal tube has been placed. The tip projects approximately 3 cm above the luann. 2. Patchy airspace opacities are again seen at the left lung base, likely representing pneumonia/aspiration pneumonitis. Clinical correlation will be required and radiographic follow-up to resolution is recommended. Electronically signed by: Angel Anders M.D. 09/13/2017 6:27 PM Dictated Date/Time: 09/13/2017 6:[address] SCAN OF THE BRAIN WITHOUT IV CONTRAST CLINICAL HISTORY: Change in mental status COMPARISON STUDY: CT of the brain dated 09/01/2017. TECHNIQUE: Unenhanced axial CT scan of the brain is performed from the vertex to the skull base. A dose lowering technique was utilized adhering to the principles of ALARA. The examination is degraded by streak artifact from metallic surgical hardware. CT DOSE: 614.27 mGy.cm FINDINGS: Brain parenchyma: Foci of bitemporal encephalomalacia as well as the encephalomalacia in the left basal ganglia are consistent with remote insults. There are age-related involutional changes noting advanced confluent subcortical and periventricular microangiopathic change. There is no hemorrhage, mass effect, or evidence of acute territorial ischemia by CT criteria. Reveles-white matter is preserved. No extra-axial fluid collection is seen. Postoperative changes, possibly representing aneurysm coils are present in the suprasellar region bilaterally. Ventricles, sulci, cisterns: Prominent secondary to involutional change. Intracranial vasculature: There is atherosclerotic calcification of the cavernous carotid and vertebral arteries. Calvarium: There are postoperative changes from right temporal craniectomy, left temporal craniotomy, and right frontoparietal craniotomy. Sinuses and mastoids: The visualized paranasal sinuses are clear. There is a right mastoid effusion. The left mastoid air cells are well pneumatized. Fluid is seen in the pharynx. Orbits: The bony orbits are grossly intact. There are bilateral ocular lens implants. IMPRESSION: 1. There is no hemorrhage, mass effect, or evidence of acute territorial ischemia by CT criteria. There has been no significant change from 09/01/2017. 2. Chronic and postoperative changes as above. Electronically signed by: Angel Anders M.D. 09/13/2017 6:21 PM Dictated Date/Time: 09/13/2017 6:[address] ANGIOGRAM OF THE CHEST CLINICAL HISTORY: Dyspnea. COMPARISON STUDY: Chest radiograph performed the same day 09/13/2017. TECHNIQUE: Following the IV administration of 116 cc of Optiray 320, CT angiogram of the chest was performed from the upper abdomen to the thoracic inlet utilizing the pulmonary embolus protocol. Images are reviewed in the axial, sagittal, and coronal planes. 3-D MIPS images are created and assessed. IV contrast was administered without complication. A dose lowering technique was utilized adhering to the principles of ALARA. The examination is degraded by motion artifact, as well as by streak artifact from the arms which could not be elevated above the chest. CT DOSE: 335.16 mGy.cm FINDINGS: Thyroid: Imaged portions of the thyroid gland are normal in size and attenuation. Thoracic aorta: There is mild atherosclerotic calcification of the thoracic aorta, which is normal in caliber and demonstrates standard 3-vessel arch anatomy. No dissection is seen. Pulmonary vasculature: The pulmonary trunk is normal in caliber. There are no filling defects identified in main, lobar, or segmental pulmonary branches to suggest pulmonary embolus. Heart: The heart is normal in size and configuration, and without pericardial effusion. Lungs and pleural spaces: An endotracheal tube terminates above the luann. Evaluation of the lung parenchyma is degraded by motion artifact. There is elevation of the left hemidiaphragm. There is airspace consolidation throughout the left lower lobe. Milder patchy airspace consolidation is seen in the left upper lobe and the right lower lobe. No pleural effusion is identified. X secretions are noted in the trachea. Debris fills the left mainstem bronchus in the left lower lobe airways. Mild diffuse peribronchial thickening is observed. Mediastinum: There is no mediastinal lymphadenopathy. Judith: Clear. Axillae: There is no axillary lymphadenopathy. Upper abdomen: Cholelithiasis is noted. Partially visualized upper abdominal viscera is otherwise within normal limits. Skeletal structures: The skeletal structures are osteopenic. Chronic posttraumatic deformity seen in the right humerus. Arthritic change is noted in the shoulders and thoracic spine. There is a mild and age indeterminant compression deformity of L1. No lytic or blastic bony lesions are seen. IMPRESSION: 1. Streak and motion compromised examination. 2. There is no evidence of pulmonary embolus in the main, lobar, or segmental pulmonary arteries. 3. There is airspace consolidation throughout the left lower lobe. Mild patchy consolidative change is seen in the left upper lobe and the right lower lobe. The appearance is most consistent with pneumonia/aspiration pneumonitis. Radiographic follow-up to resolution is recommended. 4. An Endotracheal tube terminates above the luann. 5. Secretions are noted in the trachea. The left mainstem bronchus is filled with fluid/debris. The appearance suggests aspiration. Clinical correlation will be required. 6. Cholelithiasis. 7. Additional findings as above. Electronically signed by: Angel Anders M.D. 09/13/2017 6:32 PM Dictated Date/Time: 09/13/2017 6:27 PM Laboratory Results 09/13/17 16:54 Red Blood Count 4.52, Mean Corpuscular Volume 96.7, Mean Corpuscular Hemoglobin 30.5, Mean Corpuscular Hemoglobin Concent 31.6, Mean Platelet Volume 9.9, Neutrophils (%) (Auto) 84.3, Lymphocytes (%) (Auto) 8.6, Monocytes (%) (Auto) 6.8, Eosinophils (%) (Auto) 0.0, Basophils (%) (Auto) 0.1, Neutrophils # (Auto) 8.09, Lymphocytes # (Auto) 0.83, Monocytes # (Auto) 0.65, Eosinophils # (Auto) 0.00, Basophils # (Auto) 0.01 09/13/17 16:54 Test 09/13/17 16:54 09/13/17 16:59 09/13/17 17:05 09/13/17 17:44 White Blood Count 9.60 K/uL (4.8-10.8) Red Blood Count 4.52 M/uL (4.2-5.4) Hemoglobin 13.8 g/dL (12.0-16.0) Hematocrit 43.7 % (37-47) Mean Corpuscular Volume 96.7 fL (80-100) Mean Corpuscular Hemoglobin 30.5 pg (25-34) Mean Corpuscular Hemoglobin Concent 31.6 g/dl (32-36) Platelet Count 409 K/uL (130-400) Mean Platelet Volume 9.9 fL (7.4-10.4) Neutrophils (%) (Auto) 84.3 % Lymphocytes (%) (Auto) 8.6 % Monocytes (%) (Auto) 6.8 % Eosinophils (%) (Auto) 0.0 % Basophils (%) (Auto) 0.1 % Neutrophils # (Auto) 8.09 K/uL (1.4-6.5) Lymphocytes # (Auto) 0.83 K/uL (1.2-3.4) Monocytes # (Auto) 0.65 K/uL (0.11-0.59) Eosinophils # (Auto) 0.00 K/uL (0-0.5) Basophils # (Auto) 0.01 K/uL (0-0.2) RDW Standard Deviation 52.4 fL (36.4-46.3) RDW Coefficient of Variation 14.7 % (11.5-14.5) Immature Granulocyte % (Auto) 0.2 % Immature Granulocyte # (Auto) 0.02 K/uL (0.00-0.02) Erythrocyte Sedimentation Rate 58 mm/hr (0-21) Prothrombin Time 14.2 SECONDS (9.0-12.0) Prothromb Time International Ratio 1.4 (0.9-1.1) Activated Partial Thromboplast Time 24.0 SECONDS (21.0-31.0) Partial Thromboplastin Ratio 0.9 Anion Gap 6.0 mmol/L (3-11) Estimated GFR () 110.3 Estimated GFR (Non- 95.2 BUN/Creatinine Ratio 35.8 (10-20) Osmolality 328 mOsm/kg (280-300) Calcium Level 9.4 mg/dl (8.5-10.1) Phosphorus Level 3.5 mg/dl (2.5-4.9) Magnesium Level 2.5 mg/dl (1.8-2.4) Total Bilirubin 0.5 mg/dl (0.2-1) Aspartate Amino Transf (AST/SGOT) 44 U/L (15-37) Alanine Aminotransferase (ALT/SGPT) 49 U/L (12-78) Alkaline Phosphatase 119 U/L (45-117) Total Creatine Kinase 15 U/L (26-192) Creatine Kinase MB 0.9 ng/ml (0.5-3.6) Creatine Kinase MB Ratio 6.0 (0-3.0) Troponin I < 0.015 ng/ml (0-0.045) C-Reactive Protein 0.57 mg/dl (0-0.29) Pro-B-Type Natriuretic Peptide 325 pg/ml (0-900) Total Protein 8.1 gm/dl (6.4-8.2) Albumin 3.0 gm/dl (3.4-5.0) Globulin 5.1 gm/dl (2.5-4.0) Albumin/Globulin Ratio 0.6 (0.9-2) Lipase 333 U/L (73-393) Bedside Lactic Acid Venous 1.42 mmol/L (0.90-1.70) Venous Blood pH 7.44 (7.36-7.41) Venous Blood Partial Pressure CO2 42 mmHg (38.0-50.0) Venous Blood Partial Pressure O2 87 mmHg Venous Blood HCO3 28 mmol/L Venous Blood Oxygen Saturation 96.6 % Venous Blood Base Excess 3.5 mEq/L Urine Color DK YELLOW Urine Appearance TURBID (CLEAR) Urine pH 5.5 (4.5-7.5) Urine Specific [place] 1.025 (1.000-1.030) Urine Protein 2+ (NEG) Urine Glucose (UA) NEG (NEG) Urine Ketones 1+ (NEG) Urine Occult Blood 3+ (NEG) Urine Nitrite POS (NEG) Urine Bilirubin NEG (NEG) Urine Urobilinogen NEG (NEG) Urine Leukocyte Esterase LARGE (NEG) Urine WBC (Auto) >30 /hpf (0-5) Urine RBC (Auto) >30 /hpf (0-4) Urine Hyaline Casts (Auto) 0 /lpf (0-5) Urine Epithelial Cells (Auto) 20-30 /lpf (0-5) Urine Bacteria (Auto) 4+ (NEG) Urine Pathogenic Casts /lpf (0) Urine Yeast (Auto) (NONE PRSENT) Laboratory results per my review. Medications Administered Medications (Trade) Dose Ordered Sig/Larry Route Start Time Stop Time Status Last Admin Dose Admin Sodium Chloride 1,000 ml @ 999 mls/hr Q1H1M ONCE IV 09/13/17 16:44 09/13/17 17:44 DC 09/13/17 17:26 999 MLS/HR Acetaminophen (Tylenol Supp) 975 mg NOW STAT MA 09/13/17 16:44 09/13/17 16:46 DC 09/13/17 17:15 975 MG Levofloxacin (Levaquin / D5W) 750 mg NOW STAT IV 09/13/17 17:28 09/13/17 17:29 DC 09/13/17 18:27 750 MG Vancomycin HCl (Vancomycin 1gm Ed/Asu Omnicell) 1 gm NOW STAT IV 09/13/17 17:28 09/13/17 17:29 DC 09/13/17 18:27 1 GM Miscellaneous (Rapid Sequence Induction Bag) 1 ea STK-MED ONCE N/A 09/13/17 17:31 09/13/17 17:32 DC 09/13/17 17:39 1 EA Propofol (Diprivan Iv Emulsion 100ml Vial) 1 dose STK-MED ONCE .ROUTE 09/13/17 17:36 09/13/17 17:37 DC 09/13/17 17:36 1 DOSE Imipenem/ Cilastatin Sodium 500 mg/Dextrose 110 ml @ 100 mls/hr NOW STAT IV 09/13/17 18:06 09/13/17 19:11 DC 09/13/17 18:06 100 MLS/HR Sodium Chloride 1,000 ml @ 999 mls/hr Q1H1M STAT IV 09/13/17 18:44 09/13/17 19:44 DC 09/13/17 18:44 999 MLS/HR Procedure Endotracheal Intubation Indication hypoxia. The patient was on 100% oxygen via NRB prior to the procedure. Suction, airway equipment, RSI drugs, respiratory equipment, and appropriate personnel were prepared prior to the initiation of the procedure. A time out was taken. Induction was performed with ketamine and rocuronium. After observing the clinical benefit of the medications, the airway was easily visualized utilizing a GlideScope. A 7.5 size ETT tube was placed atraumatically to 22 cm using standard technique. The cuff inflated without signs of malfunction. There were bilateral breath sounds, positive colormetric change, no gastric sounds, a good capnography waveform, and post procedure pulse oximetry was 88%. There were no complications. ECG Per My Interpretation Indication: altered mental status Rate (beats per minute): 122 Rhythm: sinus tachycardia Findings: no ectopy, other (right atrial enlargement) Comparison ECG Date: 25-Aug-2017 Change: no significant change ED Course 1638: The patient was evaluated in room B1. A complete history and physical examination were performed. 1644: Acetaminophen 975 mg MA, NSS 1,000 ml @ 999 mls/hr IV. 1728: Vancomycin HCl 1 gm IV, Levofloxacin 750 mg IV. 1733: I reevaluated the patient. I spoke with the patient's daughter. She is aware of the patient's condition and that the patient will be intubated. 1737: The patient was intubated according to the procedure note above. 1747: I discussed the patient's case with GREER Venegas pin game machine inspector. 1804: I spoke with Dr. Kaur again. 1805: Imipenem/Cilastatin Sodium 500 mg/Dextrose 110 ml @ 100 mls/hr IV. 1843: NSS 1,000 ml @ 999 mls/hr IV. 1932: I discussed the patient's case with GREER Cullen hospitalist. The patient will be evaluated for further management. Medical Decision Prior records/ancillary studies reviewed and summarized above. Nursing notes reviewed. Additional history obtained from EMS. The patient's history was concerning for altered mental status. Differential diagnosis: Etiologies such as metabolic, infection, hypoglycemia, electrolyte abnormalities , cardiac sources, intracerebral event, toxicologic, neurologic, as well as others were entertained. The patient is a 62-year-old female who [facility] of altered mental status. The patient reportedly had an acute change in her mental status at approximately 230 this p.m. the patient was found to have fever. She also had abnormal lung sounds and hypoxia. We continue to increase the patient's oxygenation however her oxygen saturation continue to drop. For this reason decision was made to intubate the patient. I discussed patient's condition with her daughter. She was agreeable to further airway management including intubation. The patient was intubated without complication. The patient's oxygenation continued to improve after intubation. Patient was also treated with IV fluids and IV antibiotics. She had presumed pneumonia as well as urinary tract infection. I discussed the patient's laboratory and radiographic studies with the pin game machine inspector. I also discussed this case with the on-call [facility] hospitalist. The patient was reevaluated multiple times. Her condition slowly improved. She had some episodes of hypotension but with IV fluid hydration this improved. Medication Reconcilliation Current Medication List: was personally reviewed by me Blood Pressure Screening Referred to hospitalist. Consults Time Called: 1744 Consulting Physician: GREER Venegas pin game machine inspector Returned Call: [phone] I discussed the patient's case with him. Additional Consults: Time Called: 1749 Consulted Physician: GREER Cullen hospitalist Returned Call: [phone] Additional Comments: I discussed the patient's case with him. The patient will be evaluated for further management. Impression Primary Impression: Sepsis Additional Impressions: Respiratory failure Pneumonia Hypoxia UTI (urinary tract infection) Dehydration Critical Care I have personally spent greater than 120 minutes of critical care time in the direct management of this patient. This includes bedside care, interpretation of diagnostic studies, and testing, discussion with consultants, patient, and family members, and other required patient management activities. This 120 minutes is in excess of all separately billable procedures. Scribe Attestation The scribe's documentation has been prepared under my direction and personally reviewed by me in its entirety. I confirm that the note above accurately reflects all work, treatment, procedures, and medical decision making performed by me. Departure Information Dispostion Being Evaluated By Hospitalist Referrals [facility] (PCP) Patient Instructions [facility] Problem Qualifiers Primary Impression: Sepsis Sepsis type: sepsis due to unspecified organism Qualified Codes: A41.9 - Sepsis, unspecified organism Additional Impressions: Respiratory failure Chronicity: acute Respiratory failure complication: hypoxia Qualified Codes : J96.01 - Acute respiratory failure with hypoxia Pneumonia Pneumonia type: due to unspecified organism Laterality: left Lung location : lower lobe of lung Qualified Codes: J18.1 - Lobar pneumonia, unspecified organism UTI (urinary tract infection) Urinary tract infection type: site unspecified Hematuria presence: with hematuria Qualified Codes: N39.0 - Urinary tract infection, site not specified ; R31.9 - Hematuria, unspecified
[2017-09-13] MEDS ORDERED: ALUMINUM/MAGNESIUM/SIMETH (MAALOX MAX) 30 ML UDC PO PRN (20:45)
[2017-09-13] MEDS ORDERED: ONDANSETRON INJ 2 MG/ML 2 ML VIAL IV PRN (20:45)
[2017-09-13] MEDS ORDERED: ICU PROTOCOL FOR HYPERGLYCEMIA PRN (20:45)
[2017-09-13] MEDS ORDERED: MAGNESIUM HYDROXIDE SUSP 30 ML UDC PO PRN (20:45)
[2017-09-13] MEDS ORDERED: PATIENT'S HEIGHT AND/OR WEIGHT NEEDED SCH (21:00)
[2017-09-13] MEDS ORDERED: LEVETIRACETAM IV 500 MG in DEXTROSE 5% 100ML 100 ML IV STA (21:33)
--- NOTE | 2017-09-13 21:42 | Critical Care Consultation ---
Critical Care Consultation Date of Consultation: Sep 13, 2017. Attending Physician: Reason for Consultation: Hypoxia History of Present Illness 62-year-old female brought into the ED via EMS from her [facility] correction. Reportedly patient was found unresponsive around 1530 today. Apparently she was at baseline around 1445 earlier in the day. She was found to be hypoxic and diaphoretic. No further history was acutely obtainable. In the ED the patient was intubated. On my initial encounter with the patient, she was s/ p intubation and partially sedated on propofol. History is purely by discussion with ED staff and medical record review. Past Medical/Surgical History PMH: Acute respiratory failure with hypoxia, C. difficile, ICH, seizure disorder , GERD, anemia, tobacco use. PSH: PEG tube placement, frontoparietal cranioplasty and right-sided supraclinoid aneurysm coil. - Note: Recent hospitalization from for acute respiratory failure requiring intubation, acute encephalopathy, aspiration, and C. difficile colitis. See related discharge summary. Family History Patient reports no known family medical history. Social History Smoking Status: Unknown if Ever Smoked Drug Use: none Marital Status: Housing Status: assisted living Occupation Status: retired Allergies Coded Allergies: Ferrous Sulfate (Verified Allergy, Unknown, [place] CREST LIST, 09/13/17) Penicillins (Verified Allergy, Unknown, C[place] CREST LIST, 09/13/17) Home Medications Scheduled Acetaminophen (Tylenol), 650 MG PO BID Ferrous Sulfate (Ferrous Sulfate), 220 MG PO TIDM Lactobacillus Acidophilus (Lactinex Granules), 1 GM PO TIDM Lansoprazole (Prevacid Solutab), 15 MG PO QAM Levetiractam (Keppra), 500 MG PO BID Potassium Ext Rel (Klor-Con), 20 MEQ PO DAILY Simvastatin (Zocor), 40 MG PO QPM Vancomycin HCl (Vancomycin HCl), 125 MG PO Q6H Wound Dressings (Aquacel Foam 3.2"X3.2"), 1 APPLN TD Q3DAYS. [Skin Prep], 1 APPLN TD DAILY Scheduled PRN Acetaminophen (Tylenol), 650 MG PO Q6H PRN for Pain or Fever Bisacodyl (Dulcolax), 1 SUPP W[place] DAILY PRN for NO BM AFTER MOM Magnesium Hydroxide (Milk of Magnesia), 30 ML PO DAILY PRN for NO BM IN 3 DAYS. Menthol-Methyl Salicylate (Vonda (Bengay Greaseless), 1 APPLN TD Q8 PRN for RIGHT RIB PAIN Sodium Phosphate/Biphosphate (Fleet Enema), 1 EA [place] DAILY PRN for NO BM IN 3 DAYS. Current Inpatient Medications Current Inpatient Medications Medications (Trade) Dose Ordered Sig/Larry Route Start Time Stop Time Status Last Admin Dose Admin Vancomycin HCl (Vancomycin Oral Soln) 250 mg Q6H PO 09/13/17 18:00 09/27/17 17:59 UNV Potassium Chloride/Dextrose/ Sod Cl 1,000 ml @ 80 mls/hr [id number] IV 09/13/17 18:00 10/13/17 17:59 UNV Ioversol (Optiray 320) 116 ml UD PRN IV 09/13/17 18:30 09/17/17 18:29 Imipenem/ Cilastatin Sodium 500 mg/Dextrose 110 ml @ 100 mls/hr Q12 IV 09/13/17 21:00 09/20/17 20:59 UNV Miscellaneous Information (Consult) 1 ea UD PRN N/A 09/13/17 18:45 10/13/17 18:44 Enteral Nutritional Formula (Peptamen 1.5) 1 ml DAILY PO 09/13/17 18:45 10/14/17 08:59 UNV Al Hydrox/Mg Hydrox/Simethicone (Maalox Max Susp) 15 ml Q4H PRN PO 09/13/17 20:45 10/13/17 20:44 Magnesium Hydroxide (Milk Of Magnesia Susp) 30 ml Q12H PRN PO 09/13/17 20:45 10/13/17 20:44 Ondansetron HCl (Zofran Inj) 4 mg Q6H PRN IV 09/13/17 20:45 10/13/17 20:44 Morphine Sulfate (MoRPHine SULFATE INJ) 4 mg Q2H PRN IV 09/13/17 20:45 09/27/17 20:44 Miscellaneous Information (Icu Protocol For Hyperglycemia) 1 ea PRN PRN N/A 09/13/17 20:45 09/15/17 20:44 Levetiracetam 500 mg/Dextrose 105 ml @ 420 mls/hr Q12 IV 09/14/17 09:00 10/14/17 08:59 UNV Levetiracetam 500 mg/Dextrose 105 ml @ 420 mls/hr NOW STAT IV 09/13/17 21:33 09/13/17 21:47 09/13/17 21:39 420 MLS/HR Enoxaparin Sodium (Lovenox Inj) 40 mg Q24H SQ 09/13/17 21:30 10/13/17 21:29 UNV Review of Systems Unable to obtain due to intubation. Physical Exam Date Time Temp Pulse Resp B/P (MAP) Pulse Ox O2 Delivery O2 Flow Rate FiO2 09/13/17 21:16 103/75 09/13/17 21:06 102 28 100 09/13/17 21:01 114/78 09/13/17 20:51 100 21 100 09/13/17 20:46 114/73 09/13/17 20:36 96 29 100 09/13/17 20:31 106/70 09/13/17 20:21 100 26 09/13/17 20:16 92/71 09/13/17 20:06 102 20 98 09/13/17 20:01 98/68 09/13/17 19:51 102 21 09/13/17 19:46 97/72 09/13/17 19:38 Mechanical Ventilator 09/13/17 19:36 100 21 93 09/13/17 19:31 120/80 09/13/17 19:30 102 24 92 09/13/17 19:16 127/94 09/13/17 19:15 97 19 95 09/13/17 19:11 37.5 09/13/17 19:07 97 09/13/17 19:01 114/62 09/13/17 19:00 99 16 94 09/13/17 18:46 98/70 09/13/17 18:45 102 16 98/70 93 Mechanical Ventilator 70 09/13/17 18:45 99 16 09/13/17 18:29 70 09/13/17 18:17 95 16 98/68 94 Mechanical Ventilator 70 09/13/17 16:52 121 09/13/17 16:43 38.7 120 24 130/98 100 Non-Rebreather 15.0 Initial examination in ED: General Appearance: Patient was sedated and intubated. However, she did respond to commands to squeeze with her right hand. CV: +S1S2 regular but borderline tachycardia, no murmur. Pulm: Scattered rhonchi throughout. Intubated. Abdomen: +BS, soft, non-distended. Resendiz cath in place. Extremities: No pretibial edema bilaterally. Bilateral waffle boots in place. Neuro: Unable to fully assess due to sedation. Mild right upper extremity resting tremor. Will squeeze very lightly with right hand on command. No current movement of left arm or bilateral lower extremities. Laboratory Results Last 24 Hours Test 09/13/17 16:54 09/13/17 16:59 09/13/17 17:05 09/13/17 17:44 White Blood Count 9.60 K/uL Red Blood Count 4.52 M/uL Hemoglobin 13.8 g/dL Hematocrit 43.7 % Mean Corpuscular Volume 96.7 fL Mean Corpuscular Hemoglobin 30.5 pg Mean Corpuscular Hemoglobin Concent 31.6 g/dl Platelet Count 409 K/uL Mean Platelet Volume 9.9 fL Neutrophils (%) (Auto) 84.3 % Lymphocytes (%) (Auto) 8.6 % Monocytes (%) (Auto) 6.8 % Eosinophils (%) (Auto) 0.0 % Basophils (%) (Auto) 0.1 % Neutrophils # (Auto) 8.09 K/uL Lymphocytes # (Auto) 0.83 K/uL Monocytes # (Auto) 0.65 K/uL Eosinophils # (Auto) 0.00 K/uL Basophils # (Auto) 0.01 K/uL RDW Standard Deviation 52.4 fL RDW Coefficient of Variation 14.7 % Immature Granulocyte % (Auto) 0.2 % Immature Granulocyte # (Auto) 0.02 K/uL Erythrocyte Sedimentation Rate 58 mm/hr Prothrombin Time 14.2 SECONDS Prothromb Time International Ratio 1.4 Activated Partial Thromboplast Time 24.0 SECONDS Partial Thromboplastin Ratio 0.9 Sodium Level 153 mmol/L Potassium Level 4.0 mmol/L Chloride Level 119 mmol/L Carbon Dioxide Level 28 mmol/L Anion Gap 6.0 mmol/L Blood Urea Nitrogen 23 mg/dl Creatinine 0.65 mg/dl Estimated GFR () 110.3 Estimated GFR (Non- 95.2 BUN/Creatinine Ratio 35.8 Random Glucose 105 mg/dl Osmolality 328 mOsm/kg Calcium Level 9.4 mg/dl Phosphorus Level 3.5 mg/dl Magnesium Level 2.5 mg/dl Total Bilirubin 0.5 mg/dl Aspartate Amino Transf (AST/SGOT) 44 U/L Alanine Aminotransferase (ALT/SGPT) 49 U/L Alkaline Phosphatase 119 U/L Total Creatine Kinase 15 U/L Creatine Kinase MB 0.9 ng/ml Creatine Kinase MB Ratio 6.0 Troponin I < 0.015 ng/ml C-Reactive Protein 0.57 mg/dl Pro-B-Type Natriuretic Peptide 325 pg/ml Total Protein 8.1 gm/dl Albumin 3.0 gm/dl Globulin 5.1 gm/dl Albumin/Globulin Ratio 0.6 Lipase 333 U/L Bedside Lactic Acid Venous 1.42 mmol/L Venous Blood pH 7.44 Venous Blood Partial Pressure CO2 42 mmHg Venous Blood Partial Pressure O2 87 mmHg Venous Blood HCO3 28 mmol/L Venous Blood Oxygen Saturation 96.6 % Venous Blood Base Excess 3.5 mEq/L Urine Color DK YELLOW Urine Appearance TURBID Urine pH 5.5 Urine Specific [place] 1.025 Urine Protein 2+ Urine Glucose (UA) NEG Urine Ketones 1+ Urine Occult Blood 3+ Urine Nitrite POS Urine Bilirubin NEG Urine Urobilinogen NEG Urine Leukocyte Esterase LARGE Urine WBC (Auto) >30 /hpf Urine RBC (Auto) >30 /hpf Urine Hyaline Casts (Auto) 0 /lpf Urine Epithelial Cells (Auto) 20-30 /lpf Urine Bacteria (Auto) 4+ Urine Pathogenic Casts /lpf Urine Yeast (Auto) Assessment & Plan 62-year-old female admitted on [id number] after being found unresponsive around 1530 (same day) at [facility]. PMH: Acute respiratory failure with hypoxia, C. difficile, ICH, seizure disorder , GERD, anemia, tobacco use. PSH: PEG tube placement, frontoparietal cranioplasty and right-sided supraclinoid aneurysm coil. - Note: Recent hospitalization from [id number] for acute respiratory failure requiring intubation, acute encephalopathy, aspiration, and C. difficile colitis. See related discharge summary. MAGNETIC TESTER: CAM-ICU positive. EMS reported no evidence of seizure-like activity. CT head non-contrast noted no interval change since 17Apr. ED staff noted patient had very poor top inventory control executive strength on arrival but no tremors. On my evaluation, patient had mild right-sided rhythmic movement. Given her normal dose of Keppra (this time IV) and movement ceased (? coincidental). Hypernatremia likely contributing to her AMS as well. - Presently sedated on propofol due to intubation. Will re-assess in a.m. during weaning trial. Pulm: EMS reportedly found patient hypoxic. VBG 7.44 / 42 / 28. Serial oxygen increases in the ED were unsuccessful, thus now s/p RSI. pCXR suggestive of pneumonia or aspiration pneumonitis. CTA chest not suggestive of PE, but suggestive of aspiration. Normal BMP. Per ED staff, patient was suctioned after intubation which was productive of very thick material. They reported significantly improved breath sounds immediately following this. - Will do a spontaneous awakening trial in the morning with a repeat CXR and repeat blood gases. CVS: Some initial mild hypotension, lowest 81/59, now s/p 3 L NS bolus in ED. Since stabilized. Initial EKG sinus tachycardia 122. Normal QTc. Troponin negative. Heart rate is improved to high 90s. Monitoring hemodynamics. - Is on Zocor at home. ID: Febrile on arrival, T 38.7. Tachycardic, tachypneic. WBC 9.6. Lactate 1.42. UA also highly suggestive of UTI. Present sepsis likely due to aspiration pneumonia as well as UTI. Treated in the emergency room with vancomycin, Levaquin, and imipenem/cilastatin. - 10Apr UCx was MDR E. coli. Was sensitive to imipenem. Thus will continue imipenem/cilastatin for suspected aspiration pneumonia as well coverage of her suspected UTI. 29Apr UCx and 29Apr BCx x 2 pending. Continuing on her outpatient vancomycin PO QID dosing through 02May for prior positive C. difficile. Infectious disease consulted as well. - KAIA, was on 7 days of IV ertapenem in mid-August. Endo: No known history of diabetes or thyroid issues. Tracking glucose here. Renal/Lytes: Admit Cr 0.65. Resendiz catheter in place, monitoring I's and O's. - Hypernatremia: Admit Na 153. Receiving 200 mL free water flush every 2 hours 5 doses. Also on D5 1/2 NS +40 KCl at 80 mL/hr. Acutely serially monitoring. - Hypocalcemia: Ca down to 7.9, but given hypoalbuminemia the Ca corrects to 10.2. Monitoring. GI: NPO upon admit. Started on Peptamen with goal 45 mL/hr continuous. On Protonix IV daily due to intubation. OG tube placed in ICU, good placement on follow-up KUB, safe to use. - Her discharge summary on most recent admission, speech therapy was following. Started on moist pureed diet with aspiration precautions. Similarly, GI was consulted and reportedly patient needs her C. difficile cleared before PEG tube can be considered. - Cholelithiasis seen on CT chest. Mild elevations in AST and alk phos. Will assess for abdominal tenderness when more awake in the morning. Heme: Admit hemoglobin 13.8, platelets 4 9, INR 1.4. No known acute issues. - Is on ferrous sulfate elixir TID at home. DVT prophy: Lovenox daily. Skin: Sacral decubital ulcer wound bandaged. Local care ongoing. Lines: PIV. OG tube. Intubated. Resendiz catheter. Code status: Full code. PT/OT: Deferred. Disposition: Admit to ICU. Resident Physician Supervision Note: Dr. Mendosa was resident physician during care of patient. I separately evaluated patient and did history and exam. I discussed the case with the resident and generally agree with the findings and plan. Patient with acute hypoxic respiratory failure most likely secondary to a left lower lobe pneumonia. On patient's previous hospital admission she had a multidrug-resistant E. coli that was a ESBL former. At this point I have started the patient on Primaxin, she was treated with ertapenem for her previous urinary tract infection. Her urine does appear to be dirty so that is a possible source in addition to the pneumonia. She was unable to produce a tracheal specimen likely secondary to profound dehydration and hyponatremia, this could be from continued GI losses secondary to C. difficile colitis which we are covering at this time. Patient had been previously seen by neurology on her last admission with a history of seizures following 2 aneurysm clippings and coiling's. Patient had tolerated propofol well and is following commands we will continue her antiepileptic medication regimen. Time of this dictation the patient tolerated a CPAP trial 5/5 with 30% FiO2 and was satting greater than 97%. I feel she is a candidate for a trial of extubation. Infectious disease has been called consulted for the Primaxin use. I have personally spent 35 minutes of critical care time in the direct management of this patient. This is a life/limb threatening event. This includes time spent evaluating patient, direct bedside care, chart review, placing orders, interpretation of diagnostic studies, discussion with consultants, patient, and/or family members regarding treatment decisions, as well as other required patient management activities. This time is exclusive of all separately billable procedures, and teaching time and separate from and in addition to any other critical care service time. Documented By: Ajay Kaur DO Resident Tracking Resident Involvement: Resident Care Provided Care Provided: Adult Hospital Medicine (ICU)
--- NOTE | 2017-09-13 21:47 | History and Physical ---
History & Physical Date & Time of Service: Sep 13, 2017 at 20:31 Chief Complaint: Diaphoretic, Unresponsive / [facility] Primary Care Physician: Dyan Campbell History of Present Illness Source: hospital records, EMS 62 yo F resident of [facility] with history fo SAH s/p aneurysm coiling in 2017, recent history of Cdiff , recent admission for AMS, Pneumonia,UTI presenting for Acute Altered Mental status as of 2:30 PM. Patient is sedated, intubated so history is per chart. On EMS arrival, patient was found to be hypoxic and placed on oxygen. On arrival to ED, patient was febrile, tachycardic, She was hypernatremic at 153. BUN/Cr wnl, ASL/ALT unremarkable, negative Trop. Lactate 1.42. UA was consistent with UTI. CT Head was negative for acute changes.She wasf ound to have CXR findings of LLL infiltrate. CT chest was negative fro PE but consistent with pneumonia. Patient was admitted to [facility] from 08/25 -09/07 for AMS, tachycardia, hypoxia and was intubated She completed 7 day course of IV Ertapenem for Pneumonia, UTI. Past Medical/Surgical History Past Medical History: 1. 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 Anterior cerebral artery aneurysm 3. Anemia 4. Tobacco abuse 5. Vitamin D deficiency 6. SAH in January 2017 Past Surgical History 1. Frontal parietal cranioplasty Family History Patient reports no known family medical history. unable to ask patient due to mental status Social History Smoking Status: Unknown if Ever Smoked Drug Use: none Marital Status: Housing status: assisted living Occupational Status: retired Allergies Coded Allergies: Ferrous Sulfate (Verified Allergy, Unknown, [facility], 09/13/17) Penicillins (Verified Allergy, Unknown, [facility], 09/13/17) Home Medications Scheduled Acetaminophen (Tylenol), 650 MG PO BID Ferrous Sulfate (Ferrous Sulfate), 220 MG PO TIDM Lactobacillus Acidophilus (Lactinex Granules), 1 GM PO TIDM Lansoprazole (Prevacid Solutab), 15 MG PO QAM Levetiractam (Keppra), 500 MG PO BID Potassium Ext Rel (Klor-Con), 20 MEQ PO DAILY Simvastatin (Zocor), 40 MG PO QPM Vancomycin HCl (Vancomycin HCl), 125 MG PO Q6H Wound Dressings (Aquacel Foam 3.2"X3.2"), 1 APPLN TD Q3DAYS. [Skin Prep], 1 APPLN TD DAILY Scheduled PRN Acetaminophen (Tylenol), 650 MG PO Q6H PRN for Pain or Fever Bisacodyl (Dulcolax), 1 SUPP PA DAILY PRN for NO BM AFTER MOM Magnesium Hydroxide (Milk of Magnesia), 30 ML PO DAILY PRN for NO BM IN 3 DAYS. Menthol-Methyl Salicylate (Vonda (Bengay Greaseless), 1 APPLN TD Q8 PRN for RIGHT RIB PAIN Sodium Phosphate/Biphosphate (Fleet Enema), 1 EA PA DAILY PRN for NO BM IN 3 DAYS. Review of Systems could not assess due to patient's sedation/intubation Physical Exam Vital Signs Date Time Temp Pulse Resp B/P (MAP) Pulse Ox O2 Delivery O2 Flow Rate FiO2 09/13/17 19:38 Mechanical Ventilator 09/13/17 19:31 120/80 09/13/17 19:30 102 24 92 09/13/17 19:16 127/94 09/13/17 19:15 97 19 95 09/13/17 19:11 37.5 09/13/17 19:07 97 09/13/17 19:01 114/62 09/13/17 19:00 99 16 94 09/13/17 18:46 98/70 09/13/17 18:45 102 16 98/70 93 Mechanical Ventilator 70 09/13/17 18:45 99 16 09/13/17 18:29 70 09/13/17 18:17 95 16 98/68 94 Mechanical Ventilator 70 09/13/17 16:52 121 09/13/17 16:43 38.7 120 24 130/98 100 Non-Rebreather 15.0 GENERAL: sedated, intubated EYE EXAM: normal conjunctiva, PERRL a OROPHARYNX: ET tube in place NECK: supple, no adenopathy LUNGS: Scattered rhonchi. Normal chest wall mechanics HEART: no murmurs, S1 normal and S2 normal ABDOMEN: abdomen soft, non-tender, normo-active bowel sounds, no masses, no rebound or guarding. SKIN: no rashes and no bruising UPPER EXTREMITIES: upper extremities are grossly normal. LOWER EXTREMITIES: No pitting edema. NEURO EXAM: sedated with propofol, responds to painful stimuli, follows commands Diagnostics Laboratory Results Results Past 24 Hours Test 4/29/18 16:54 09/13/17 16:59 09/13/17 17:05 09/13/17 17:44 Range/Units White Blood Count 9.60 4.8-10.8 K/uL Red Blood Count 4.52 4.2-5.4 M/uL Hemoglobin 13.8 12.0-16.0 g/dL Hematocrit 43.7 37-47 % Mean Corpuscular Volume 96.7 80-100 fL Mean Corpuscular Hemoglobin 30.5 25-34 pg Mean Corpuscular Hemoglobin Concent 31.6 32-36 g/dl Platelet Count 409 130-400 K/uL Mean Platelet Volume 9.9 7.4-10.4 fL Neutrophils (%) (Auto) 84.3 % Lymphocytes (%) (Auto) 8.6 % Monocytes (%) (Auto) 6.8 % Eosinophils (%) (Auto) 0.0 % Basophils (%) (Auto) 0.1 % Neutrophils # (Auto) 8.09 1.4-6.5 K/uL Lymphocytes # (Auto) 0.83 1.2-3.4 K/uL Monocytes # (Auto) 0.65 0.11-0.59 K/uL Eosinophils # (Auto) 0.00 0-0.5 K/uL Basophils # (Auto) 0.01 0-0.2 K/uL RDW Standard Deviation 52.4 36.4-46.3 fL RDW Coefficient of Variation 14.7 11.5-14.5 % Immature Granulocyte % (Auto) 0.2 % Immature Granulocyte # (Auto) 0.02 0.00-0.02 K/uL Erythrocyte Sedimentation Rate 58 0-21 mm/hr Prothrombin Time 14.2 9.0-12.0 SECONDS Prothromb Time International Ratio 1.4 0.9-1.1 Activated Partial Thromboplast Time 24.0 21.0-31.0 SECONDS Partial Thromboplastin Ratio 0.9 Sodium Level 153 136-145 mmol/L Potassium Level 4.0 3.5-5.1 mmol/L Chloride Level 119 98-107 mmol/L Carbon Dioxide Level 28 21-32 mmol/L Anion Gap 6.0 3-11 mmol/L Blood Urea Nitrogen 23 7-18 mg/dl Creatinine 0.65 0.60-1.20 mg/dl Estimated GFR () 110.3 Estimated GFR (Non- 95.2 BUN/Creatinine Ratio 35.8 10-20 Random Glucose 105 70-99 mg/dl Osmolality 328 280-300 mOsm/kg Calcium Level 9.4 8.5-10.1 mg/dl Phosphorus Level 3.5 2.5-4.9 mg/dl Magnesium Level 2.5 1.8-2.4 mg/dl Total Bilirubin 0.5 0.2-1 mg/dl Aspartate Amino Transf (AST/SGOT) 44 15-37 U/L Alanine Aminotransferase (ALT/SGPT) 49 12-78 U/L Alkaline Phosphatase 119 45-117 U/L Total Creatine Kinase 15 26-192 U/L Creatine Kinase MB 0.9 0.5-3.6 ng/ml Creatine Kinase MB Ratio 6.0 0-3.0 Troponin I < 0.015 0-0.045 ng/ml C-Reactive Protein 0.57 0-0.29 mg/dl Pro-B-Type Natriuretic Peptide 325 0-900 pg/ml Total Protein 8.1 6.4-8.2 gm/dl Albumin 3.0 3.4-5.0 gm/dl Globulin 5.1 2.5-4.0 gm/dl Albumin/Globulin Ratio 0.6 0.9-2 Lipase 333 73-393 U/L Bedside Lactic Acid Venous 1.42 0.90-1.70 mmol/L Venous Blood pH 7.44 7.36-7.41 Venous Blood Partial Pressure CO2 42 38.0-50.0 mmHg Venous Blood Partial Pressure O2 87 mmHg Venous Blood HCO3 28 mmol/L Venous Blood Oxygen Saturation 96.6 % Venous Blood Base Excess 3.5 mEq/L Urine Color DK YELLOW Urine Appearance TURBID CLEAR Urine pH 5.5 4.5-7.5 Urine Specific Villalba 1.025 1.000-1.030 Urine Protein 2+ NEG Urine Glucose (UA) NEG NEG Urine Ketones 1+ NEG Urine Occult Blood 3+ NEG Urine Nitrite POS NEG Urine Bilirubin NEG NEG Urine Urobilinogen NEG NEG Urine Leukocyte Esterase LARGE NEG Urine WBC (Auto) >30 0-5 /hpf Urine RBC (Auto) >30 0-4 /hpf Urine Hyaline Casts (Auto) 0 0-5 /lpf Urine Epithelial Cells (Auto) 20-30 0-5 /lpf Urine Bacteria (Auto) 4+ NEG Urine Pathogenic Casts 0 /lpf Urine Yeast (Auto) NONE PRSENT Microbiology Results 09/13/17 Blood Culture, Received Pending 09/13/17 Blood Culture, Received Pending 09/13/17 Urine Culture, Received Pending Diagnostic Radiology CT SCAN OF THE BRAIN WITHOUT IV CONTRAST CLINICAL HISTORY: Change in mental status COMPARISON STUDY: CT of the brain dated 09/01/2017. TECHNIQUE: Unenhanced axial CT scan of the brain is performed from the vertex to the skull base. A dose lowering technique was utilized adhering to the principles of ALARA. The examination is degraded by streak artifact from metallic surgical hardware. CT DOSE: 614.27 mGy.cm FINDINGS: Brain parenchyma: Foci of bitemporal encephalomalacia as well as the encephalomalacia in the left basal ganglia are consistent with remote insults. There are age-related involutional changes noting advanced confluent subcortical and periventricular microangiopathic change. There is no hemorrhage, mass effect, or evidence of acute territorial ischemia by CT criteria. Reveles-white matter is preserved. No extra-axial fluid collection is seen. Postoperative changes, possibly representing aneurysm coils are present in the suprasellar region bilaterally. Ventricles, sulci, cisterns: Prominent secondary to involutional change. Intracranial vasculature: There is atherosclerotic calcification of the cavernous carotid and vertebral arteries. Calvarium: There are postoperative changes from right temporal craniectomy, left temporal craniotomy, and right frontoparietal craniotomy. Sinuses and mastoids: The visualized paranasal sinuses are clear. There is a right mastoid effusion. The left mastoid air cells are well pneumatized. Fluid is seen in the pharynx. Orbits: The bony orbits are grossly intact. There are bilateral ocular lens implants. IMPRESSION: 1. There is no hemorrhage, mass effect, or evidence of acute territorial ischemia by CT criteria. There has been no significant change from 09/01/2017. 2. Chronic and postoperative changes as above. SINGLE VIEW CHEST CLINICAL HISTORY: Sepsis. FINDINGS: An AP, portable, upright chest radiograph is compared to study dated 09/01/2017. The examination is significantly degraded by portable technique and patient rotation. The cardiomediastinal silhouette is unremarkable. Chronic interstitial thickening is similar to previous. Patchy airspace opacities are present at the left lung base. The right lung appears clear. No large pleural effusion or pneumothorax is seen. The skeletal structures are osteopenic. Chronic posttraumatic deformity is seen in the right proximal humerus. IMPRESSION: There are patchy airspace opacities at the left lung base, likely representing pneumonia/aspiration pneumonitis. Clinical correlation will be required and radiographic follow-up to resolution is recommended. SINGLE VIEW CHEST CLINICAL HISTORY: Respiratory failure. FINDINGS: 2 AP, portable, upright chest radiographs are compared to study performed earlier the same day 09/13/2017. The examination is significantly degraded by portable technique and patient rotation. An endotracheal tube has been placed. The tip projects approximately 3 cm above the luann. The cardiomediastinal silhouette is unremarkable. Chronic interstitial thickening is similar to previous. Patchy airspace opacities are again seen at the left lung base. The right lung appears clear. No large pleural effusion or pneumothorax is identified. The skeletal structures are osteopenic. Chronic posttraumatic deformity is seen in the right proximal humerus. IMPRESSION: 1. An endotracheal tube has been placed. The tip projects approximately 3 cm above the luann. 2. Patchy airspace opacities are again seen at the left lung base, likely representing pneumonia/aspiration pneumonitis. Clinical correlation will be required and radiographic follow-up to resolution is recommended. Impression Assessment and Plan 62 yo F history fo SAH s/p aneurysm coiling in 01/2017, recent history of Cdiff , recent admission for AMS, Pneumonia,UTI requiring intubation and ICU stay - 09/07 treated with 7 day course of Ertapenem IV, presenting with Acute Encephalopathy in the setting of UTI, Pneumonia Admit to ICU Acute Hypoxia in the setting of Pneumonia, possible aspiration vs HCAP -s/p intubation, maintaining oxygenation -s/p Vanc 1gm in ED IV NS x2 -ID consulted -start imipenem-cilastatin as per Critical care orders -Daily cxr's -F/u repeat CBC's,BMP's Lactate AMS: likely secondary to sepsis in the setting of Pneumonia /UTI -CT Head negative so recurrence of SAH unlikely -sedated on propofol, intubated -IV Abx as above Hypernatremia - F/u ur osm, serum osm, random sodium - D5W and 1/2 NSS 40 meq K -f/u repeat bmp C diff history - PO vancomycin DVT ppx - Lovenox Resident Physician Supervision Note: I was present with Dr. Mosher during the history and exam. I discussed the case with the resident and agree with the findings and plan as documented in the note. Any exceptions or clarifications are listed here: 62 y/o F Hx SAH - aneurysm coiling in 2017, recent Cdiff , recent admission for AMS, UTI and PNM - she is a [facility] resident and was found acutely hypoxic. She was intubated emergently on arrival to the ER. Aspiration is strongly suspected. PNM is confirmed on CT. UA is angina (+). Initial labs are notable for hypernatremia. She is currently being treated for C diff. OE Intubated / sedated S1,2 R Lung exam is limited by large air noises Abdomen is nondistended No CCE Neuro status cannot be assessed P: Pt placed on antibiotics to cover both aspiration and HCAP which should cover her UTI as well Cont Vanc for C -diff Vent management per ICU Above discussed with resident - orderes reviewed and formulated with residence Documented By: Martin Yost Resuscitation Status VTE Prophylaxis Will order VTE Prophylaxis: Yes Note Total Time: Critical Care 30 - 74 minutes Resident Tracking Resident Involvement: Resident Care Provided Care Provided: Adult Hospital Medicine
[2017-09-13 22:46] VITALS: BP 107/63; PULSE 110; TEMP 37.7; O2SAT 100; BMI 21.5
[2017-09-13] MEDS ORDERED: D5W AND 1/2NSS + 40MEQ KCL 1,000 ML IV SCH (23:00)
[2017-09-13] MEDS: ENOXAPARIN 40 MG/0.4 ML SYR SQ SCH (23:54)
[2017-09-14] VITALS (17 sets, daily range): BP systolic 91–116; BP diastolic 63–77; PULSE 71–110; TEMP 36.8–37.8; O2SAT 93–100; Ht 157.5 cm; Wt 55.4 kg
[2017-09-14] MEDS ORDERED: PROPOFOL IV EMULSION 10 MG/ML 100 ML VIAL IV PRN (00:15)
[2017-09-14] MEDS: VANCOMYCIN HCL 250 MG/5 ML SOLN PO SCH ×4 (00:45→19:14)
[2017-09-14 01:06] LABS: CALCIUM 7.9 mg/dl (8.5-10.1); CREATININE 0.54 mg/dl (0.60-1.20); POTASSIUM 3.7 mmol/L (3.5-5.1)
[2017-09-14] MEDS ORDERED: CALCIUM GLUCONATE 10% 1,000 MG in SODIUM CHLORIDE 0.9% 50ML 50 ML IV STA (01:15)
[2017-09-14] MEDS ORDERED: VANCOMYCIN IV 750 MG in SODIUM CHLORIDE 0.9% 250ML 250 ML IV SCH (04:00)
[2017-09-14 05:02] LABS: HEMATOCRIT 33.5 % (37-47); HEMOGLOBIN 10.4 g/dL (12.0-16.0); IG# 0.02 K/uL (0.00-0.02); LYMPH % 8.5 %; MEAN CELL VOLUME 96.3 fL (80-100); MEAN CORPUSCULAR HEMOGLOBIN 29.9 pg (25-34); MEAN PLATELET VOLUME 9.3 fL (7.4-10.4); MONO % 5.5 %; MONO ABS # 0.59 K/uL (0.11-0.59); NEUT % 85.8 %; NEUT ABS # 9.14 K/uL (1.4-6.5); PLATELET COUNT 278 K/uL (130-400); RED CELL DISTRIBUTION WIDTH CV 14.8 % (11.5-14.5); RED CELL DISTRIBUTION WIDTH SD 52.1 fL (36.4-46.3); WHITE BLOOD COUNT 10.65 K/uL (4.8-10.8)
[2017-09-14 05:26] LABS: CALCIUM 7.7 mg/dl (8.5-10.1); CREATININE 0.48 mg/dl (0.60-1.20); POTASSIUM 3.4 mmol/L (3.5-5.1)
[2017-09-14 05:52] LABS: PHOSPHORUS 1.7 mg/dl (2.5-4.9)
[2017-09-14] MEDS ORDERED: IMIPENEM/CILASTATIN IV 500 MG in DEXTROSE 5% 100ML 100 ML IV SCH (06:00)
[2017-09-14] MEDS: RASPBERRY SYRUP 5 ML UDP PO SCH ×4 (06:00→19:14)
--- NOTE | 2017-09-14 07:21 | DIAGNOSTIC IMAGING REPORT ---
CHEST ONE VIEW PORTABLE CLINICAL HISTORY: 62 years-old Female presenting with serial PNA eval. TECHNIQUE: Portable supine AP view of the chest was obtained. COMPARISON: 09/13/2017. FINDINGS: Endotracheal tube terminates in the mid thoracic trachea over 4 cm from the luann. Nasogastric tube descends below the diaphragm though the side hole remains within the distal esophagus. Atherosclerosis of aortic arch. Cardiac silhouette normal in size. Stable to minimally increased opacities in the left lower lung. Right lung is radiographically clear. No large effusion or pneumothorax. Osteopenia suggested. Upper abdomen normal. IMPRESSION: 1. Appropriately positioned endotracheal tube. 2. Nasogastric tube with sidehole in the distal esophagus; advancement recommended. 3. Stable to minimally increased left basilar opacities, concerning for worsening consolidation/pneumonia. Electronically signed by: Juliano Piedra M.D. 09/14/2017 7:20 AM Dictated Date/Time: 09/14/2017 7:17 AM
--- NOTE | 2017-09-14 07:43 | DIAGNOSTIC IMAGING REPORT ---
KUB CLINICAL HISTORY: 62 years-old Female presenting with check OG placement. TECHNIQUE: Single supine view of the lower chest and upper abdomen was obtained. COMPARISON: 08/26/2017. FINDINGS: The weighted feeding catheter has been removed. A orogastric tube is now in place terminating within the proximal stomach, sidehole within the distal esophagus. Nonobstructive bowel gas pattern. No gross pneumoperitoneum allowing for supine technique. Excreted contrast noted in the urinary collecting systems from recently performed CTA chest with slightly greater retention of contrast on the right. Osseous structures normal. Lung bases clear. IMPRESSION: 1. Orogastric tube terminates in the proximal stomach with sidehole in the distal esophagus; advancement recommended. Electronically signed by: Juliano Piedra M.D. 09/14/2017 7:41 AM Dictated Date/Time: 09/14/2017 6:59 AM
[2017-09-14] MEDS ORDERED: POTASSIUM PHOS 3 MMOL/1 ML INFUSION IV STA (07:51)
[2017-09-14] MEDS ORDERED: POTASSIUM PHOSPHATE INJ 40 MMOL in SODIUM CHLORIDE 0.9% 1000ML 1,000 ML IV STA (07:55)
--- NOTE | 2017-09-14 08:31 | Family Medicine Progress Note ---
Progress Note Date of Service Sep 14, 2017. Subjective Pt evaluation today including: conversation w/ patient, conversation w/ family (Daughter Poppy), physical exam, chart review, lab review, review of studies , review of inpatient medication list Patient was s/p extubation this morning, and difficult to rouse. Re-evaluation this afternoon, patient was alert and responding appropriately with movement of the head and hand gestures. She states chest discomfort, but otherwise denies difficulty breathing. Also agrees that her throat is dry. All Other Systems: Reviewed and Negative Objective Vital Signs Date Time Temp Pulse Resp B/P (MAP) Pulse Ox O2 Delivery O2 Flow Rate FiO2 09/14/17 06:16 30 09/14/17 06:01 106 25 111/68 (82) 97 09/14/17 05:01 110 16 97/67 (77) 97 09/14/17 04:01 37.5 108 16 106/72 (83) 97 Mechanical Ventilator 35 09/14/17 04:00 Mechanical Ventilator 35 09/14/17 04:00 35 09/14/17 03:01 105 16 109/68 (82) 97 09/14/17 02:31 35 09/14/17 02:01 100 16 101/68 (79) 99 09/14/17 01:31 96 16 102/73 (83) 99 09/14/17 00:59 98 16 91/63 (72) 100 09/14/17 00:24 45 09/14/17 00:01 102 16 113/75 (88) 100 Mechanical Ventilator 45 09/13/17 22:46 37.7 110 20 107/63 100 Mechanical Ventilator 60 09/13/17 22:16 106/73 09/13/17 22:11 103 22 100 09/13/17 22:01 97/70 09/13/17 21:56 101 20 100 09/13/17 21:51 100 20 100 09/13/17 21:46 81/59 09/13/17 21:40 82/59 09/13/17 21:36 101 21 100 09/13/17 21:31 85/61 09/13/17 21:21 102 22 99 09/13/17 21:16 103/75 09/13/17 21:06 102 28 100 09/13/17 21:05 60 09/13/17 21:01 114/78 09/13/17 20:51 100 21 100 09/13/17 20:46 114/73 09/13/17 20:36 96 29 100 09/13/17 20:31 106/70 09/13/17 20:21 100 26 09/13/17 20:16 92/71 09/13/17 20:06 102 20 98 09/13/17 20:01 98/68 09/13/17 19:51 102 21 09/13/17 19:46 97/72 09/13/17 19:38 Mechanical Ventilator 09/13/17 19:36 100 21 93 09/13/17 19:31 120/80 09/13/17 19:30 102 24 92 09/13/17 19:16 127/94 09/13/17 19:15 97 19 95 09/13/17 19:11 37.5 09/13/17 19:07 97 09/13/17 19:01 114/62 09/13/17 19:00 99 16 94 09/13/17 18:46 98/70 09/13/17 18:45 102 16 98/70 93 Mechanical Ventilator 70 09/13/17 18:45 99 16 09/13/17 18:29 70 09/13/17 18:17 95 16 98/68 94 Mechanical Ventilator 70 09/13/17 16:52 121 09/13/17 16:43 38.7 120 24 130/98 100 Non-Rebreather 15.0 Physical Exam General Appearance: WD/WN, no apparent distress, + cachetic Eyes: sclerae normal ENT: hearing grossly normal Neck: supple Respiratory/Chest: no respiratory distress, no accessory muscle use, + decreased breath sounds Cardiovascular: regular rate, rhythm Abdomen: normal bowel sounds, non tender, soft Extremities: no pedal edema, no calf tenderness Neurologic/Psychiatric: alert, + depressed affect Skin: normal color, warm/dry, no rash Laboratory Results Results Past 24 Hours Test 09/13/17 22:51 09/14/17 00:15 09/14/17 02:50 09/14/17 04:51 Range/Units Bedside Glucose 106 70-90 mg/dl Sodium Level 153 150 136-145 mmol/L Potassium Level 3.7 3.4 3.5-5.1 mmol/L Chloride Level 121 122 98-107 mmol/L Carbon Dioxide Level 25 22 21-32 mmol/L Anion Gap 7.0 6.0 3-11 mmol/L Blood Urea Nitrogen 18 16 7-18 mg/dl Creatinine 0.54 0.48 0.60-1.20 mg/dl Est Creatinine Clear Calc Drug Dose 85.5 96.1 ml/min Estimated GFR () 117.2 121.8 Estimated GFR (Non- 101.1 105.1 BUN/Creatinine Ratio 32.7 33.3 10-20 Random Glucose 123 157 70-99 mg/dl Calcium Level 7.9 7.7 8.5-10.1 mg/dl Urine Osmolality 625 500-800 mOms/kg Urine Random Sodium 10 mEq/L White Blood Count 10.65 4.8-10.8 K/uL Red Blood Count 3.48 4.2-5.4 M/uL Hemoglobin 10.4 12.0-16.0 g/dL Hematocrit 33.5 37-47 % Mean Corpuscular Volume 96.3 80-100 fL Mean Corpuscular Hemoglobin 29.9 25-34 pg Mean Corpuscular Hemoglobin Concent 31.0 32-36 g/dl Platelet Count 278 130-400 K/uL Mean Platelet Volume 9.3 7.4-10.4 fL Neutrophils (%) (Auto) 85.8 % Lymphocytes (%) (Auto) 8.5 % Monocytes (%) (Auto) 5.5 % Eosinophils (%) (Auto) 0.0 % Basophils (%) (Auto) 0.0 % Neutrophils # (Auto) 9.14 1.4-6.5 K/uL Lymphocytes # (Auto) 0.90 1.2-3.4 K/uL Monocytes # (Auto) 0.59 0.11-0.59 K/uL Eosinophils # (Auto) 0.00 0-0.5 K/uL Basophils # (Auto) 0.00 0-0.2 K/uL RDW Standard Deviation 52.1 36.4-46.3 fL RDW Coefficient of Variation 14.8 11.5-14.5 % Immature Granulocyte % (Auto) 0.2 % Immature Granulocyte # (Auto) 0.02 0.00-0.02 K/uL Lactic Acid Level 1.4 0.4-2.0 mmol/L Phosphorus Level 1.7 2.5-4.9 mg/dl Magnesium Level 1.9 1.8-2.4 mg/dl Test 09/14/17 05:32 09/14/17 05:40 09/14/17 05:53 09/14/17 11:45 Range/Units Ionized Calcium 1.09 1.12-1.32 mmol/l Blood Gas Sample Site R Radial Bedside Blood Gas pH (LAB) 7.41 7.35-7.45 Bedside Blood Gas pCO2 (LAB) 33 35-46 mmHg Bedside Blood Gas pO2 (LAB) 111 80-95 mmHg Bedside Blood Gas HCO3 (LAB) 21 19-24 meq/L Bedside Blood Gas Total CO2 22 24-31 mEq/l Bedside Blood Gas Base Excess (LAB) -4.0 -9-1.8 meq/L Bedside Blood Gas O2 Saturation 98.0 90-95 % Darian Test Pass Oxygen Delivery Device Ventilator Bedside Oxygen Rate (breaths/min) 16 Blood Gas Minute Ventilation 7.3 Bedside FiO2 35 % Blood Gas Tidal Volume 450 Blood Gas PEEP 5 Bedside Glucose 153 70-90 mg/dl Sodium Level 153 136-145 mmol/L Potassium Level 4.1 3.5-5.1 mmol/L Chloride Level 121 98-107 mmol/L Carbon Dioxide Level 26 21-32 mmol/L Anion Gap 5.0 3-11 mmol/L Blood Urea Nitrogen 12 7-18 mg/dl Creatinine 0.52 0.60-1.20 mg/dl Est Creatinine Clear Calc Drug Dose 88.7 ml/min Estimated GFR () 118.7 Estimated GFR (Non- 102.4 BUN/Creatinine Ratio 23.3 10-20 Random Glucose 93 70-99 mg/dl Calcium Level 7.9 8.5-10.1 mg/dl Test 09/14/17 11:49 09/14/17 17:55 Range/Units Bedside Glucose 83 70-90 mg/dl Sodium Level 151 136-145 mmol/L Potassium Level 3.6 3.5-5.1 mmol/L Chloride Level 120 98-107 mmol/L Carbon Dioxide Level 23 21-32 mmol/L Anion Gap 7.0 3-11 mmol/L Blood Urea Nitrogen 9 7-18 mg/dl Creatinine 0.36 0.60-1.20 mg/dl Est Creatinine Clear Calc Drug Dose 128.2 ml/min Estimated GFR () 133.9 Estimated GFR (Non- 115.6 BUN/Creatinine Ratio 25.7 10-20 Random Glucose 87 70-99 mg/dl Calcium Level 7.7 8.5-10.1 mg/dl Phosphorus Level 3.8 2.5-4.9 mg/dl Microbiology Results 09/13/17 MRSA DNA Surveillance Screen - Final, Complete Specimen Negative for MRSA by DNA Probe Assessment and Plan 62 yo F resident of [facility] with history fo SAH s/p aneurysm coiling in 2017, recent history of Cdiff , recent admission for AMS, Pneumonia,UTI presenting for Acute Altered Mental status as of 2:30 PM. Patient is sedated, intubated so history is per chart. On EMS arrival, patient was found to be hypoxic and placed on oxygen. On arrival to ED, patient was febrile, tachycardic , She was hypernatremic at 153. BUN/Cr wnl, ASL/ALT unremarkable, negative Trop. Lactate 1.42. UA was consistent with UTI. CT Head was negative for acute changes.She wasf ound to have CXR findings of LLL infiltrate. CT chest was negative fro PE but consistent with pneumonia. Patient was admitted to [facility] from 08/25 - 09/07 for AMS, tachycardia, hypoxia and was intubated She completed 7 day course of IV Ertapenem for Pneumonia, UTI. Altered mental status - likely multifactorial related infection, hypoxia, electrolyte derangement. CT head negative for acute pathology. - Treat underlying conditions Pneumonia with acute hypoxic respiratory failure - requiring intubation (09/13). s/p extubation (09/14) - Supplemental O2 if sats <92% - ID consulted, recs appreciated - Empiric treatment with imipenem-cilastatin - Speech eval Sepsis secondary to UTI - as demonstrated by UA. H/o ESBL e.coli and proteus UTI - ID consulted, recs appreciated - Empiric treatment with imipenem-cilastatin - Prelim blood cultures and urine cultures show gram negative bacilli Hypernatremia - Continue gentle hydration with IVF 1/2 NSS @ 75cc/hr - Trend BMP H/o C.diff - Empiric treatment with PO vancomycin given recent c.diff infection and use of broad-spectrum antibiotics Idiopathic Epilepsy - Continue levetiracetam VTE ppx - Enoxaparin Resident Physician Supervision Note: I interviewed and examined the patient. Discussed with Dr. Dupree and agree with findings and plan as documented in the note. Any exceptions or clarifications are listed here: None Documented By: Ricky Clayton appearing better than when seen by dr dupree this AM - more alert and interactive , notes feeling thirsty no other acute complaints denies pain. full HPI / ROS still nearly impossible to ascertain but improving vitals noted fatigued and frail appearing lungs cta no pallor or icterus AMS - multifactorial sepsis - UTI/bacteremia/pneumonia pneumonia w hypoxia - MRSA nares neg, primaxin should cover, continue supportive care UTI/bacteremia - based on prior urine cultures, anticipate that primaxin will cover, clinically is improving hypernatremic dehydration - contineu gentle water replacement and close f/u Continued [facility] stay due to: multiple IV medications needed Discharge planning: [facility] facility Resident Tracking Resident Involvement: Resident Care Provided Care Provided: Adult Hospital Medicine
[2017-09-14] MEDS ORDERED: LEVETIRACETAM IV 500 MG in DEXTROSE 5% 100ML 100 ML IV SCH (09:00)
[2017-09-14] MEDS ORDERED: PEPTAMEN 1.5 CAL 1000ML BAG PO SCH (09:00)
--- NOTE | 2017-09-14 10:54 | Progress Note ---
Progress Note Date of Service Sep 14, 2017. Progress Note ID Consult Dictated #[id number] A/P: 1. UTI 2. C. diff (previously diagnosed) -Continue current abx, follow cultures, thank you
[2017-09-14] MEDS ORDERED: PANTOprazole INJ 40 MG in SYRINGE 0 ML IV SCH (11:00)
[2017-09-14] MEDS ORDERED: LEVETIRACETAM IV 500 MG in DEXTROSE 5% 100ML 100 ML IV ONE (11:30)
--- NOTE | 2017-09-14 11:39 | INFECT. DISEASE CONSULTATION ---
DATE OF CONSULTATION: 09/14/2017 HISTORY OF PRESENT ILLNESS: This is a 62-year-old female who was recently admitted to the hospital, was found to have C. diff at that time and has been on oral vancomycin. She was readmitted yesterday secondary to fever. Her T-max is 38.7. She is currently afebrile. She does have a history of cerebral aneurysm and is unable to provide any review of systems as she is nonverbal. She does appear comfortable on my exam. Infectious diseases was asked to see this patient in consultation for history of ESBL producing bacteria. She currently is on empiric antibiotics with imipenem and she is continued on oral vancomycin. Her urinalysis had a large leukocyte esterase, greater than 30 wbc's and 4+ bacteria. Her urine and blood cultures are pending. PAST MEDICAL HISTORY: Significant for cerebral aneurysm, anemia, vitamin D deficiency. PAST SURGICAL HISTORY: Significant for cranioplasty with stenting. FAMILY HISTORY: Noncontributory. SOCIAL HISTORY: Significant for resident at [facility]. ALLERGIES: INCLUDE IRON AND SULFA. MEDICATIONS: Protonix, Keppra, imipenem, Diprivan, oral vancomycin, Lovenox, Maalox, milk of magnesia, Zofran, morphine. PHYSICAL EXAMINATION: VITAL SIGNS: T-max is 38.7 on admission. She currently has a temperature of 37.8, pulse 81, respiratory rate 16, blood pressure 99/65, oxygen saturation is 100% on 2 L nasal cannula. GENERAL: She is awake but not responsive. HEART: Regular. LUNGS: Clear anteriorly. ABDOMEN: Soft. There is no edema. SKIN: Without rash. LABORATORY STUDIES: CBC: White blood cell count 10.6, hemoglobin 10.4, platelets 278. Sed rate is 58. Chemistry panel: Sodium 150, potassium 3.4, chloride 122, bicarbonate 16, BUN 16, creatinine 0.4, glucose is 153, AST was mildly elevated at 44, ALT is 49. CRP was 0.5. Lipase was normal. UA again had large leukocyte esterase, greater than 30 wbc's and 4+ bacteria. Urine culture is growing gram negative cecilio. Blood cultures are pending. Chest x-ray this morning shows questionable worsening consolidation. A CTA done on the was negative for PE with a left lower lobe opacity noted. ASSESSMENT AND PLAN: 1. Likely urinary tract infection. 2. Clostridium difficile, currently on oral vancomycin. This was diagnosed during her last hospital stay. She will continue on empiric antibiotics pending additional blood and urine culture results. We will follow along with you. Thank you for this consultation. MANNY
[2017-09-14] MEDS: IMIPENEM/CILASTATIN IV 400 MG in DEXTROSE 5% 100ML 100 ML IV SCH ×2 (11:58→18:41)
[2017-09-14 12:39] LABS: CALCIUM 7.9 mg/dl (8.5-10.1); CREATININE 0.52 mg/dl (0.60-1.20); POTASSIUM 4.1 mmol/L (3.5-5.1)
[2017-09-14] MEDS ORDERED: SODIUM CHLORIDE 0.45% 1000ML 1,000 ML IV SCH (15:00)
[2017-09-14 19:14] LABS: CALCIUM 7.7 mg/dl (8.5-10.1); CREATININE 0.36 mg/dl (0.60-1.20); PHOSPHORUS 3.8 mg/dl (2.5-4.9); POTASSIUM 3.6 mmol/L (3.5-5.1)
[2017-09-14] MEDS: LEVETIRACTAM 1000 MG in DEXTROSE 5% 100ML IV SCH (21:28)
[2017-09-14] MEDS: ENOXAPARIN 40 MG/0.4 ML SYR SQ SCH (21:29)
[2017-09-14] MEDS: POTASSIUM CHLORIDE INJ 40 MEQ in DEXTROSE 5% 1000ML 1,000 ML IV SCH (21:29)
[2017-09-15] VITALS (14 sets, daily range): BP systolic 90–121; BP diastolic 56–80; PULSE 65–94; TEMP 36.4–37; O2SAT 91–99
[2017-09-15] MEDS: VANCOMYCIN HCL 250 MG/5 ML SOLN PO SCH ×5 (00:33→23:25)
[2017-09-15] MEDS: IMIPENEM/CILASTATIN IV 400 MG in DEXTROSE 5% 100ML 100 ML IV SCH ×5 (00:33→23:26)
[2017-09-15] MEDS: RASPBERRY SYRUP 5 ML UDP PO SCH ×5 (00:33→23:25)
[2017-09-15] MEDS ORDERED: NURSING VERBAL MED ORDER ONE (04:15)
[2017-09-15 05:04] LABS: BASO % 0.1 %; BASO ABS # 0.01 K/uL (0-0.2); EOS % 0.5 %; EOS ABS # 0.04 K/uL (0-0.5); HEMATOCRIT 31.4 % (37-47); HEMOGLOBIN 9.9 g/dL (12.0-16.0); IG# 0.03 K/uL (0.00-0.02); LYMPH % 14.8 %; LYMPH ABS # 1.21 K/uL (1.2-3.4); MEAN CELL VOLUME 94.9 fL (80-100); MEAN CORPUSCULAR HEMOGLOBIN 29.9 pg (25-34); MEAN CORPUSCULAR HGB CONC 31.5 g/dl (32-36); MEAN PLATELET VOLUME 9.8 fL (7.4-10.4); MONO % 4.4 %; MONO ABS # 0.36 K/uL (0.11-0.59); NEUT % 79.8 %; PLATELET COUNT 202 K/uL (130-400); RED CELL DISTRIBUTION WIDTH CV 14.5 % (11.5-14.5); RED CELL DISTRIBUTION WIDTH SD 50.1 fL (36.4-46.3); WHITE BLOOD COUNT 8.15 K/uL (4.8-10.8)
[2017-09-15 05:21] LABS: BLOOD UREA NITROGEN 7 mg/dl (7-18); CALCIUM 7.8 mg/dl (8.5-10.1); CARBON DIOXIDE 24 mmol/L (21-32); CREATININE 0.25 mg/dl (0.60-1.20); GLUCOSE 90 mg/dl (70-99); POTASSIUM 3.1 mmol/L (3.5-5.1); SODIUM 149 mmol/L (136-145)
[2017-09-15 05:51] LABS: PHOSPHORUS 1.9 mg/dl (2.5-4.9)
[2017-09-15] MEDS ORDERED: POTASSIUM CHLR 10 MEQ / WTR 100 ML IV STA (06:05)
[2017-09-15] MEDS ORDERED: POTASSIUM PHOS 3 MMOL/1 ML INFUSION IV STA (06:21)
[2017-09-15] MEDS ORDERED: POTASSIUM PHOSPHATE INJ 15 MMOL in SODIUM CHLORIDE 0.9% 250ML 250 ML IV ONE (06:30)
--- NOTE | 2017-09-15 06:50 | Family Medicine Progress Note ---
Progress Note Date of Service September 15, 2017. Subjective Pt evaluation today including: conversation w/ patient, physical exam, chart review, lab review, review of studies, review of inpatient medication list Patient alert and responding to questions appropriately. She denies any pain or fevers/chills, CP, dyspnea, abdominal pain. She is requesting something for her dry mouth, although this is not a feasible option as she aspirates even on fluids from wet sponge. She appears sad but becomes passionate when discussing how much her daughter cares for her. NGT insertion with tube feeds was discussed but patient declined this. She is agreeable to IV feeds for now. She was asked to think about/reconsider tube feeds overnight versus a more palliative/hospice approach to her care, perhaps in discussion with her daughter. Patient agreeable. ROS is unremarkable except as noted above. Objective Vital Signs Date Time Temp Pulse Resp B/P (MAP) Pulse Ox O2 Delivery O2 Flow Rate FiO2 09/15/17 05:01 68 18 96/60 (72) 97 09/15/17 04:01 36.4 71 18 94/59 (71) 99 09/15/17 04:00 Nasal Cannula 2.0 09/15/17 03:01 69 20 96/59 (71) 98 09/15/17 03:00 66 17 98 09/15/17 02:45 71 19 94 09/15/17 02:30 68 19 93 09/15/17 02:01 73 20 90/56 (67) 92 Room Air 09/15/17 00:01 36.6 65 12 92/63 (73) 94 Room Air 09/14/17 23:59 94 Room Air 09/14/17 22:00 71 18 97/63 (74) 93 Room Air 09/14/17 20:00 96 Room Air 09/14/17 20:00 36.8 73 17 108/71 (83) 96 Room Air 09/14/17 18:00 77 16 116/75 (89) 98 Room Air 09/14/17 16:00 36.8 78 16 115/77 (90) 97 Room Air 09/14/17 16:00 97 Room Air 09/14/17 14:00 107 16 115/77 (90) 97 Room Air 09/14/17 12:24 Nasal Cannula 09/14/17 12:00 100 Nasal Cannula 2.0 09/14/17 12:00 36.9 79 16 100/70 (80) 100 Nasal Cannula 2.0 09/14/17 10:00 81 16 95/65 (75) 100 Room Air 2.0 09/14/17 08:00 99 Nasal Cannula 2.0 09/14/17 08:00 37.8 97 16 102/70 (81) 99 Nasal Cannula 2.0 Physical Exam Notes: General Appearance: WD/WN, no apparent distress, + cachetic, + pertinent findings (no voice, but answers appropriately with attempted speech/shaking of head) Eyes: sclerae normal ENT: hearing grossly normal, + pertinent findings (dry, cracked lips, and dry mucosal membranes) Neck: supple Respiratory/Chest: no respiratory distress, no accessory muscle use, + decreased breath sounds Cardiovascular: regular rate, rhythm Abdomen: normal bowel sounds, non tender, soft Extremities: no pedal edema, no calf tenderness Neurologic/Psychiatric: alert, + depressed affect Skin: normal color, warm/dry, no rash Laboratory Results Results Past 24 Hours Test 09/14/17 17:55 09/14/17 18:44 09/14/17 23:37 09/15/17 04:51 Range/Units Sodium Level 151 149 136-145 mmol/L Potassium Level 3.6 3.1 3.5-5.1 mmol/L Chloride Level 120 120 98-107 mmol/L Carbon Dioxide Level 23 24 21-32 mmol/L Anion Gap 7.0 5.0 3-11 mmol/L Blood Urea Nitrogen 9 7 7-18 mg/dl Creatinine 0.36 0.25 0.60-1.20 mg/dl Est Creatinine Clear Calc Drug Dose 128.2 184.6 ml/min Estimated GFR () 133.9 > 150.0 Estimated GFR (Non- 115.6 130.3 BUN/Creatinine Ratio 25.7 27.9 10-20 Random Glucose 87 90 70-99 mg/dl Calcium Level 7.7 7.8 8.5-10.1 mg/dl Phosphorus Level 3.8 1.9 2.5-4.9 mg/dl Bedside Glucose 86 86 70-90 mg/dl White Blood Count 8.15 4.8-10.8 K/uL Red Blood Count 3.31 4.2-5.4 M/uL Hemoglobin 9.9 12.0-16.0 g/dL Hematocrit 31.4 37-47 % Mean Corpuscular Volume 94.9 80-100 fL Mean Corpuscular Hemoglobin 29.9 25-34 pg Mean Corpuscular Hemoglobin Concent 31.5 32-36 g/dl Platelet Count 202 130-400 K/uL Mean Platelet Volume 9.8 7.4-10.4 fL Neutrophils (%) (Auto) 79.8 % Lymphocytes (%) (Auto) 14.8 % Monocytes (%) (Auto) 4.4 % Eosinophils (%) (Auto) 0.5 % Basophils (%) (Auto) 0.1 % Neutrophils # (Auto) 6.50 1.4-6.5 K/uL Lymphocytes # (Auto) 1.21 1.2-3.4 K/uL Monocytes # (Auto) 0.36 0.11-0.59 K/uL Eosinophils # (Auto) 0.04 0-0.5 K/uL Basophils # (Auto) 0.01 0-0.2 K/uL RDW Standard Deviation 50.1 36.4-46.3 fL RDW Coefficient of Variation 14.5 11.5-14.5 % Immature Granulocyte % (Auto) 0.4 % Immature Granulocyte # (Auto) 0.03 0.00-0.02 K/uL Magnesium Level 1.8 1.8-2.4 mg/dl Microbiology Results 09/15/17 Blood Culture, Received Pending 09/15/17 Blood Culture, Received Pending Assessment and Plan 62 yo F resident of [facility] with history fo SAH s/p aneurysm coiling in 2017, recent history of Cdiff , recent admission for AMS, Pneumonia,UTI presenting for Acute Altered Mental status as of 2:30 PM. Patient is sedated, intubated so history is per chart. On EMS arrival, patient was found to be hypoxic and placed on oxygen. On arrival to ED, patient was febrile, tachycardic , She was hypernatremic at 153. BUN/Cr wnl, ASL/ALT unremarkable, negative Trop. Lactate 1.42. UA was consistent with UTI. CT Head was negative for acute changes.She was found to have CXR findings of LLL infiltrate. CT chest was negative fro PE but consistent with pneumonia. Patient was admitted to [facility] from 08/25 - 09/07 for AMS, tachycardia, hypoxia and was intubated She completed 7 day course of IV Ertapenem for Pneumonia, UTI. Altered mental status - likely multifactorial related infection, hypoxia, electrolyte derangement. CT head negative for acute pathology. - Treat underlying conditions - shows marked improvement today, seems to be at baseline Sepsis secondary to UTI - as demonstrated by UA. H/o ESBL e.coli and proteus UTI - ID consulted, recs appreciated - Empiric treatment with imipenem-cilastatin - Prelim blood cultures and urine cultures show multi-drug resistant gram negative bacilli Pneumonia with acute hypoxic respiratory failure - requiring intubation (09/13). s/p extubation (09/14) - Supplemental O2 if sats <92% - ID consulted, recs appreciated - Continue treatment with imipenem-cilastatin Dysphagia, malnutrition - Speech eval ordered. Though patient was previously considering PEG tube insertion, she is currently declining NGT for tube feeds - Repeat blood cultures ordered to determine if safe for line (temporarily) for TPN/PPN Hypernatremia - Na 157 on admission, today Na 149 (appropriate improvement) - Continue gentle hydration with IVF 1/2 NSS @ 75cc/hr - Trend BMP H/o C.diff - Empiric treatment with PO vancomycin given recent c.diff infection and use of broad-spectrum antibiotics Idiopathic Epilepsy - Continue levetiracetam VTE ppx - Enoxaparin Code status - FULL CODE - reconfirmed today (09/15/17) - Palliative consulted - discussion of goals of care with daughter Poppy tentatively scheduled for 09/18/17 Resident Physician Supervision Note: I interviewed and examined the patient. Discussed with Dr. Gonzalez and agree with findings and plan as documented in the note. Any exceptions or clarifications are listed here: None Documented By: Ricky Clayton feeling better and more talkative still fairly difficult communication when discussing proceeding to NGT for segeway to PEG she notes clearly that she doesn't want feeding tube. 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 discussed that we want to help her through the decision making process - for now can cautiously use IV nutrition while she is processing all of this, but that not proceeding with enteral nutrition would likely mean a more palliative/hsopice type approach she expressed understanding, seemed to appreciate time to think/process vitals noted nad breathing unlabored aspiration pneumonia, severe dysphagia, malnutrition, ESBL UTI/bacteremia, hypernatremic dehydration, recent Cdiff -continue imipenem, resume PO vanco when possible -- since on broad abx and recent Cdiff will give IV metro to treat since risk of recurrence would be at least 20% under current circunstances, likely higher -work towards IV nutrition if she's still making decisions - can't use PPN after d/w pharmacy - concern on refeeding is real, and they can't give enough electrolytes through peripheral to mitigate this --> can't safely place PICC for TPN until negative blood cultures (ordered) and pt clearly does not want NGT at this time -continue current care, continue discussions to work on her clearly defining goals (especially since they seems so different from her discussions with Dr Jones just a few weeks ago) otherwise as above Continued [facility] stay due to: inadequate po fluid intake, multiple IV medications needed Discharge planning: detention facility Resident Tracking Resident Involvement: Resident Care Provided Care Provided: Adult Hospital Medicine
--- NOTE | 2017-09-15 07:25 | DIAGNOSTIC IMAGING REPORT ---
CHEST ONE VIEW PORTABLE CLINICAL HISTORY: Pneumonia. COMPARISON STUDY: Chest CT September 13, 2017 and chest radiograph September 14, 2017. FINDINGS: There is no pneumothorax. Patient is rotated. The endotracheal and nasogastric tubes have been removed. A small left pleural effusion is noted. Left basilar opacity persists. Cardiomediastinal silhouette is unremarkable. IMPRESSION: Persistent left basilar consolidation suggestive of pneumonia. Electronically signed by: Cristopher Oviedo M.D. 09/15/2017 7:24 AM Dictated Date/Time: 09/15/2017 7:23 AM
[2017-09-15] MEDS: LEVETIRACTAM 1000 MG in DEXTROSE 5% 100ML IV SCH ×2 (08:23→20:30)
--- NOTE | 2017-09-15 08:43 | Palliative Care Consultation ---
Consultation Date of Consultation: September 15, 2017. Requesting Physician: Dr. Kaur Attending Physician: Dr. Gonzalez Reason for Consultation: Goals of Care History of Present Illness This patient is a 62 year-old female who was transferred to [facility] from [facility] for lethargy and hypoxia and was found to have PNA and a UTI. She has had a recent admission from August 25-2017 for hypoxia/PNA as well. She has additional PMH that includes microaspiration with recurrent PNA, ICH s/p cranioplasty and coiling in Jan 2017, seizure disorder (unsure if this is related to the ICH or note). Multiple head CT scans (most recent 09/14) have been obtained without any acute changes. On previous admissions, she was evaluated by GI to discuss possible PEG tube placement, but was diagnosed with C -Diff and was advised to complete treatment prior to any surgical intervention ( she is on po Vanco and course to be completed on 09/16). Both admissions, she was intubated and extubated successfully. The patient is still currently FULL CODE. Case management stated that her daughter, Poppy ([phone]), had some questions about the process once she returns to [facility] - it appears that a GOALS OF CARE discussion and a POLST form would be ideal to be completed prior to her return back to [facility]. Upon assessment, she was lying in bed, with her eyes closed. She opened her eyes on command and was able to talk to me with a very weak, quiet voice. She followed commands appropriately and answered questions. I asked her if she remembered having the breathing tube in her mouth and she said yes - I asked her , if she would end up needing it again, if she would like to be intubated and she shook her head 'no'. I did discuss CPR with her and painted the picture of what that would entail, and she said 'you do what you have to do'. While, the patient was appropriate, I am unsure she understands the extent of what CPR means - She agreed that I could speak with her daughter, Poppy about it. I spoke with daughter, Poppy, on the phone. She stated she has not been able to see her since she has been admitted to the hospital this time. We talked at length about her current aspiration risk and the reality of the fact that we anticipate this to continue - we are unsure if this recurrent aspiration is due to the detention affects of the ICH that the patient had in January, or due to the gradual decline overall of the patient.She has stated that at this time, she would like her to remain FULL CODE and does understand that it is unlikely she would improve and return to her baseline. She did state that she would like to discuss further in person and would like to fill out a POLST form prior to her Mom's discharge. She agreed that she could meet on , but not before, because she is recovering from an illness. Thank you kindly for this consult - we will follow throughout this patient's hospitalization and offer support as needed. Past Medical/Surgical History Medical History: ICH acute respiratory failure C-Diff UTI aspiration Surgical History: cranioplasty with coiling 01/2017 Social History Smoking Status: Former Smoker History of Alcohol Use: No Drug Use: none Marital Status: Housing Status: assisted living Occupation Status: retired Review of Systems Pt with a very weak voice and patient falling in and out of sleep while I was in the room - unable to complete full ROS. Pt does deny pain, difficulty breathing, CP, dizziness, visual changes Allergies Coded Allergies: Ferrous Sulfate (Verified Allergy, Unknown, CENTRE CREST LIST, 09/13/17) Penicillins (Verified Allergy, Unknown, CENTRE CREST LIST, 09/13/17) Medications Current Inpatient Medications Medications (Trade) Dose Ordered Sig/Larry Route Start Time Stop Time Status Last Admin Dose Admin Vancomycin HCl (Vancomycin Oral Soln) 250 mg Q6 PO 09/14/17 00:00 09/28/17 00:00 09/15/17 05:18 250 MG Ioversol (Optiray 320) 116 ml UD PRN IV 09/13/17 18:30 09/17/17 18:29 Al Hydrox/Mg Hydrox/Simethicone (Maalox Max Susp) 15 ml Q4H PRN PO 09/13/17 20:45 10/13/17 20:44 Magnesium Hydroxide (Milk Of Magnesia Susp) 30 ml Q12H PRN PO 09/13/17 20:45 10/13/17 20:44 Ondansetron HCl (Zofran Inj) 4 mg Q6H PRN IV 09/13/17 20:45 10/13/17 20:44 Morphine Sulfate (MoRPHine SULFATE INJ) 4 mg Q2H PRN IV 09/13/17 20:45 09/27/17 20:44 Miscellaneous Information (Icu Protocol For Hyperglycemia) 1 ea PRN PRN N/A 09/13/17 20:45 09/15/17 20:44 Enoxaparin Sodium (Lovenox Inj) 40 mg Q24H SQ 09/13/17 21:30 10/13/17 21:29 09/14/17 21:29 40 MG Raspberry (Raspberry Syrup 5ml Cup) 5 ml Q6 PO 09/14/17 00:00 09/28/17 00:00 09/15/17 05:19 5 ML Pantoprazole Sodium 40 mg/ Syringe 10 ml @ 5 mls/min DAILY@11 IV 09/14/17 11:00 10/14/17 10:59 09/14/17 11:36 5 MLS/MIN Levetiracetam 1000 mg/Dextrose 110 ml @ 440 mls/hr BID IV 09/14/17 21:00 10/14/17 20:59 09/15/17 08:23 440 MLS/HR Imipenem/ Cilastatin Sodium 400 mg/Dextrose 108 ml @ 108 mls/hr Q6 IV 09/14/17 12:00 09/28/17 11:59 09/15/17 05:18 108 MLS/HR Potassium Chloride 40 meq/ Dextrose 1,020 ml @ 50 mls/hr [id number] IV 09/14/17 21:00 10/14/17 20:59 09/14/17 21:29 50 MLS/HR Potassium Chloride (Allegra Ciel Elix) 40 meq NOW ONCE PO 09/15/17 09:00 09/15/17 09:01 Potassium Phosphate 15 mmol/ Sodium Chloride 255 ml @ 88 mls/hr ONE ONCE IV 09/15/17 06:30 09/15/17 09:23 09/15/17 07:39 88 MLS/HR Physical Exam Date Time Temp Pulse Resp B/P (MAP) Pulse Ox O2 Delivery O2 Flow Rate FiO2 09/15/17 05:01 68 18 96/60 (72) 97 09/15/17 04:01 36.4 71 18 94/59 (71) 99 09/15/17 04:00 Nasal Cannula 2.0 09/15/17 03:01 69 20 96/59 (71) 98 09/15/17 03:00 66 17 98 09/15/17 02:45 71 19 94 09/15/17 02:30 68 19 93 09/15/17 02:01 73 20 90/56 (67) 92 Room Air 09/15/17 00:01 36.6 65 12 92/63 (73) 94 Room Air 09/14/17 23:59 94 Room Air 09/14/17 22:00 71 18 97/63 (74) 93 Room Air 09/14/17 20:00 96 Room Air 09/14/17 20:00 36.8 73 17 108/71 (83) 96 Room Air 09/14/17 18:00 77 16 116/75 (89) 98 Room Air 09/14/17 16:00 36.8 78 16 115/77 (90) 97 Room Air 09/14/17 16:00 97 Room Air 09/14/17 14:00 107 16 115/77 (90) 97 Room Air 09/14/17 12:24 Nasal Cannula 09/14/17 12:00 100 Nasal Cannula 2.0 09/14/17 12:00 36.9 79 16 100/70 (80) 100 Nasal Cannula 2.0 09/14/17 10:00 81 16 95/65 (75) 100 Room Air 2.0 General Appearance: no apparent distress ENT: + pertinent finding (weak voice) Neck: no JVD Cardiovascular: regular rate, rhythm, no edema, no gallop, no JVD, no murmur Abdomen: normal bowel sounds, non tender, soft Musculoskeletal: pertinent finding (B/L UE 3+/5 B/L LE 3+/5) Skin: warm/dry, no rash Laboratory Results Last 24 Hours Test 09/14/17 11:45 09/14/17 11:49 09/14/17 17:55 09/14/17 18:44 Sodium Level 153 mmol/L 151 mmol/L Potassium Level 4.1 mmol/L 3.6 mmol/L Chloride Level 121 mmol/L 120 mmol/L Carbon Dioxide Level 26 mmol/L 23 mmol/L Anion Gap 5.0 mmol/L 7.0 mmol/L Blood Urea Nitrogen 12 mg/dl 9 mg/dl Creatinine 0.52 mg/dl 0.36 mg/dl Est Creatinine Clear Calc Drug Dose 88.7 ml/min 128.2 ml/min Estimated GFR () 118.7 133.9 Estimated GFR (Non- 102.4 115.6 BUN/Creatinine Ratio 23.3 25.7 Random Glucose 93 mg/dl 87 mg/dl Calcium Level 7.9 mg/dl 7.7 mg/dl Bedside Glucose 83 mg/dl 86 mg/dl Phosphorus Level 3.8 mg/dl Test 09/14/17 23:37 09/15/17 04:51 Bedside Glucose 86 mg/dl White Blood Count 8.15 K/uL Red Blood Count 3.31 M/uL Hemoglobin 9.9 g/dL Hematocrit 31.4 % Mean Corpuscular Volume 94.9 fL Mean Corpuscular Hemoglobin 29.9 pg Mean Corpuscular Hemoglobin Concent 31.5 g/dl Platelet Count 202 K/uL Mean Platelet Volume 9.8 fL Neutrophils (%) (Auto) 79.8 % Lymphocytes (%) (Auto) 14.8 % Monocytes (%) (Auto) 4.4 % Eosinophils (%) (Auto) 0.5 % Basophils (%) (Auto) 0.1 % Neutrophils # (Auto) 6.50 K/uL Lymphocytes # (Auto) 1.21 K/uL Monocytes # (Auto) 0.36 K/uL Eosinophils # (Auto) 0.04 K/uL Basophils # (Auto) 0.01 K/uL RDW Standard Deviation 50.1 fL RDW Coefficient of Variation 14.5 % Immature Granulocyte % (Auto) 0.4 % Immature Granulocyte # (Auto) 0.03 K/uL Sodium Level 149 mmol/L Potassium Level 3.1 mmol/L Chloride Level 120 mmol/L Carbon Dioxide Level 24 mmol/L Anion Gap 5.0 mmol/L Blood Urea Nitrogen 7 mg/dl Creatinine 0.25 mg/dl Est Creatinine Clear Calc Drug Dose 184.6 ml/min Estimated GFR () > 150.0 Estimated GFR (Non- 130.3 BUN/Creatinine Ratio 27.9 Random Glucose 90 mg/dl Calcium Level 7.8 mg/dl Phosphorus Level 1.9 mg/dl Magnesium Level 1.8 mg/dl Assessment & Plan Palliative Performance Scale: 30 % Palliative Care Encounter Goals of Care Acute Respiratory Failure Aspiration PNA C-Diff Seizure disorder ICH Palliative Care Recommendations: -Patient to remain FULL CODE per daughter - see note - I plan to meet with the daughter to discuss GOALS OF CARE more in depth when she is ready. -For C-Diff treatment, continue oral Vancomycin and consider re- consulting GI, for discussion of PEG tube. -ST to evaluate the patient for swallowing ability and aspiration risks. -Patient downgraded to medical status - will transfer to . Counseling and Coordination Total time spent 70 minutes with > 50% of that time spent assessing patient, discussing GOALS of CARE with patient and patients daughter
[2017-09-15] MEDS ORDERED: POTASSIUM CHLORIDE 20 MEQ/15 ML UDC PO ONE (09:00)
--- NOTE | 2017-09-15 11:13 | Critical Care Progress Note ---
Critical Care Progress Note Date of Service September 15, 2017. Attending Dr. Kaur Subjective Found patient sitting up in bed, awake and alert. She would mouth the word "good morning" and nodded her head stating that she had no present pain to include chest pain or shortness of breath. Would follow some commands but not all. Unable to determine full orientation. Very dry oral mucous membranes. Did not appear in acute distress. Objective General Appearance: Awake, alert, unable to determine orientation. Responds to commands and mouths words. Does not appear in acute distress. Oral: Notably very dry oral mucous memories. CV: +S1S2 RRR, no murmur. Not presently on oxygen Pulm: Scattered rhonchi throughout. Abdomen: +BS, soft, non-distended. Resendiz cath in place. Extremities: No pretibial edema bilaterally. Bilateral waffle boots in place. Neuro: Awake, alert, responding to commands. Will very lightly squeeze both hands bilaterally. Would not wiggle toes on command. No resting tremor. Assessment & Plan 62-year-old female admitted on 13Sep2017 after being found unresponsive around 1530 (same day) at [facility]. PMH: Acute respiratory failure with hypoxia, C. difficile, ICH, seizure disorder , GERD, anemia, tobacco use. PSH: PEG tube placement, frontoparietal cranioplasty and right-sided supraclinoid aneurysm coil. [employer]: CAM-ICU positive. Extubated yesterday morning. This morning will mouth words and follow commands but not verbalizing to answer further questions. No acute head CT findings. PMH seizures. On Keppra. Her acute AMS was likely a combination of hypoxia, sepsis, and hypernatremia. At present, she may be at her baseline mental status. Pulm: Acute hypoxic respiratory failure secondary to LLL PNA. 30Apr s/p extubation, presently SpO2 97% on room air. CTA chest suggestive of aspiration and left basilar consolidation. This morning's CXR unchanged. See "ID" below. CVS: Her initial hypotension has improved/stabilized. No longer tachycardic. Monitoring. Was on Zocor at home. ID: Sepsis likely due to aspiration pneumonia as well as UTI. History of MDR E. coli. 30Apr started on imipenem/cilastatin for planned 14 day course, with de-escalation recommendations per ID. Initial BCx is positive for gram- negative bacilli. She has a complicated UTI and initial UCx here is positive for MDR E. coli, sensitive to imipenem. Patient remains on her outpatient vancomycin PO regimen for prior positive C. difficile. ID onboard, see related notes. Endo: No known history of diabetes or thyroid issues. Blood sugars currently controlled here. Renal/Lytes: Cr 0.5. Good urine output, will d/c Resendiz. Ongoing electrolyte monitoring. Complicated UTI as above. She may benefit from urology consult as outpatient. - Hypernatremia: Admit Na 153, improved to 149. Received free water flushes via OG tube. Transitioned to D5W +40 of KCl at 100 mL/hr. - Hypocalcemia: Ca down to 7.8, but given hypoalbuminemia the Ca corrects to 8.6. Monitoring. - Hypophosphatemia: Replacing. GI: Stopped her Peptamen and Protonix now that extubated. PO diet per speech recommendations. Cholelithiasis seen on CT chest. Mild elevations in AST and alk phos. - See her discharge summary on most recent admission. Speech therapy was following, started then on moist pureed diet with aspiration precautions. Similarly, GI was consulted and reportedly patient needs her C. difficile cleared before PEG tube can be considered. Heme: Hb 9.9, platelets 90, INR 1.4. Monitoring. - Is on ferrous sulfate elixir TID at home. DVT prophy: Lovenox daily. Skin: Sacral decubital ulcer wound bandaged. Local care ongoing. Wound care consulted. Lines: PIV. Code status: Full code. Palliative care consult placed. PT/OT: Ordered. Disposition: Stable for transfer to [facility]. Patient is a resident of [facility]. Resident Physician Supervision Note: Dr. Mendosa was resident physician during care of patient. I separately evaluated patient and did history and exam. I discussed the case with the resident and generally agree with the findings and plan. Continue free water supplementation secondary to hypernatremia. Continue with imipenem for multidrug-resistant ESBL E. coli. Will require an extended course of treatment as this is a complicated urinary tract infection. Still needing formal swallow study, medications given intravenously at this time. Discontinue PPI secondary to C. difficile infection and no strong indication to continue GI prophylaxis at this point. Will check repeat electrolytes later on today and hopefully be able to decrease free water administration. Stable for downgrade out of ICU. Documented By: Ajay Kaur DO Consults & Procedures Consultants: Infectious disease, palliative care. Data Medications: Current Inpatient Medications Medications (Trade) Dose Ordered Sig/Larry Route Start Time Stop Time Status Last Admin Dose Admin Vancomycin HCl (Vancomycin Oral Soln) 250 mg Q6 PO 09/14/17 00:00 09/28/17 00:00 09/15/17 05:18 250 MG Ioversol (Optiray 320) 116 ml UD PRN IV 09/13/17 18:30 09/17/17 18:29 Al Hydrox/Mg Hydrox/Simethicone (Maalox Max Susp) 15 ml Q4H PRN PO 09/13/17 20:45 10/13/17 20:44 Magnesium Hydroxide (Milk Of Magnesia Susp) 30 ml Q12H PRN PO 09/13/17 20:45 10/13/17 20:44 Ondansetron HCl (Zofran Inj) 4 mg Q6H PRN IV 09/13/17 20:45 10/13/17 20:44 Morphine Sulfate (MoRPHine SULFATE INJ) 4 mg Q2H PRN IV 09/13/17 20:45 09/27/17 20:44 Miscellaneous Information (Icu Protocol For Hyperglycemia) 1 ea PRN PRN N/A 09/13/17 20:45 09/15/17 20:44 Enoxaparin Sodium (Lovenox Inj) 40 mg Q24H SQ 09/13/17 21:30 10/13/17 21:29 09/14/17 21:29 40 MG Raspberry (Raspberry Syrup 5ml Cup) 5 ml Q6 PO 09/14/17 00:00 09/28/17 00:00 09/15/17 05:19 5 ML Levetiracetam 1000 mg/Dextrose 110 ml @ 440 mls/hr BID IV 09/14/17 21:00 10/14/17 20:59 09/15/17 08:23 440 MLS/HR Imipenem/ Cilastatin Sodium 400 mg/Dextrose 108 ml @ 108 mls/hr Q6 IV 09/14/17 12:00 09/28/17 11:59 09/15/17 05:18 108 MLS/HR Potassium Chloride 40 meq/ Dextrose 1,020 ml @ 50 mls/hr [id number] IV 09/14/17 21:00 10/14/17 20:59 09/14/17 21:29 50 MLS/HR Vital Signs: Date Time Temp Pulse Resp B/P (MAP) Pulse Ox O2 Delivery O2 Flow Rate FiO2 09/15/17 10:30 37.0 74 18 121/80 (94) 96 Room Air 09/15/17 09:30 36.9 71 18 97 09/15/17 08:00 36.9 71 20 110/79 (89) 97 Room Air 09/15/17 08:00 97 Room Air 09/15/17 05:01 68 18 96/60 (72) 97 09/15/17 04:01 36.4 71 18 94/59 (71) 99 09/15/17 04:00 Nasal Cannula 2.0 09/15/17 03:01 69 20 96/59 (71) 98 09/15/17 03:00 66 17 98 09/15/17 02:45 71 19 94 09/15/17 02:30 68 19 93 09/15/17 02:01 73 20 90/56 (67) 92 Room Air 09/15/17 00:01 36.6 65 12 92/63 (73) 94 Room Air 09/14/17 23:59 94 Room Air 09/14/17 22:00 71 18 97/63 (74) 93 Room Air 09/14/17 20:00 96 Room Air 09/14/17 20:00 36.8 73 17 108/71 (83) 96 Room Air 09/14/17 18:00 77 16 116/75 (89) 98 Room Air 09/14/17 16:00 36.8 78 16 115/77 (90) 97 Room Air 09/14/17 16:00 97 Room Air 09/14/17 14:00 107 16 115/77 (90) 97 Room Air 09/14/17 12:24 Nasal Cannula 09/14/17 12:00 100 Nasal Cannula 2.0 09/14/17 12:00 36.9 79 16 100/70 (80) 100 Nasal Cannula 2.0 Laboratory Results: Last 24 Hours Test 09/14/17 11:45 09/14/17 11:49 09/14/17 17:55 09/14/17 18:44 Sodium Level 153 mmol/L 151 mmol/L Potassium Level 4.1 mmol/L 3.6 mmol/L Chloride Level 121 mmol/L 120 mmol/L Carbon Dioxide Level 26 mmol/L 23 mmol/L Anion Gap 5.0 mmol/L 7.0 mmol/L Blood Urea Nitrogen 12 mg/dl 9 mg/dl Creatinine 0.52 mg/dl 0.36 mg/dl Est Creatinine Clear Calc Drug Dose 88.7 ml/min 128.2 ml/min Estimated GFR () 118.7 133.9 Estimated GFR (Non- 102.4 115.6 BUN/Creatinine Ratio 23.3 25.7 Random Glucose 93 mg/dl 87 mg/dl Calcium Level 7.9 mg/dl 7.7 mg/dl Bedside Glucose 83 mg/dl 86 mg/dl Phosphorus Level 3.8 mg/dl Test 09/14/17 23:37 09/15/17 04:51 Bedside Glucose 86 mg/dl White Blood Count 8.15 K/uL Red Blood Count 3.31 M/uL Hemoglobin 9.9 g/dL Hematocrit 31.4 % Mean Corpuscular Volume 94.9 fL Mean Corpuscular Hemoglobin 29.9 pg Mean Corpuscular Hemoglobin Concent 31.5 g/dl Platelet Count 202 K/uL Mean Platelet Volume 9.8 fL Neutrophils (%) (Auto) 79.8 % Lymphocytes (%) (Auto) 14.8 % Monocytes (%) (Auto) 4.4 % Eosinophils (%) (Auto) 0.5 % Basophils (%) (Auto) 0.1 % Neutrophils # (Auto) 6.50 K/uL Lymphocytes # (Auto) 1.21 K/uL Monocytes # (Auto) 0.36 K/uL Eosinophils # (Auto) 0.04 K/uL Basophils # (Auto) 0.01 K/uL RDW Standard Deviation 50.1 fL RDW Coefficient of Variation 14.5 % Immature Granulocyte % (Auto) 0.4 % Immature Granulocyte # (Auto) 0.03 K/uL Sodium Level 149 mmol/L Potassium Level 3.1 mmol/L Chloride Level 120 mmol/L Carbon Dioxide Level 24 mmol/L Anion Gap 5.0 mmol/L Blood Urea Nitrogen 7 mg/dl Creatinine 0.25 mg/dl Est Creatinine Clear Calc Drug Dose 184.6 ml/min Estimated GFR () > 150.0 Estimated GFR (Non- 130.3 BUN/Creatinine Ratio 27.9 Random Glucose 90 mg/dl Calcium Level 7.8 mg/dl Phosphorus Level 1.9 mg/dl Magnesium Level 1.8 mg/dl Resident Tracking Resident Involvement: Resident Care Provided Care Provided: Adult Hospital Medicine (ICU)
[2017-09-15] MEDS ORDERED: TPN/PPN CONSULT PHARMACY PRN (12:03)
--- NOTE | 2017-09-15 15:12 | Progress Note ---
Subjective Date of Service: September 15, 2017. Subjective Pt evaluation today including: conversation w/ patient, physical exam, chart review, lab review pt transferred from ICU, more awake, shakes head yes/no. denies fevers. Blood cultures now with gnr, urine with E.coli, remains on imipenem. repeat blood cultures pending. remains on po vanco as well. Problem List Medical Problems: (1) Change in mental status Status: Acute (2) Dehydration Status: Acute (3) Dehydration Status: Acute (4) Hypoxia Status: Acute (5) Pneumonia Status: Acute (6) Respiratory failure Status: Acute (7) Respiratory failure Status: Acute (8) Sepsis Status: Acute (9) Sepsis Status: Acute (10) Tachycardia Status: Acute (11) Urinary tract infection Status: Acute (12) UTI (urinary tract infection) Status: Acute Objective Vital Signs Date Time Temp Pulse Resp B/P (MAP) Pulse Ox O2 Delivery O2 Flow Rate FiO2 09/15/17 10:30 37.0 74 18 121/80 (94) 96 Room Air 09/15/17 09:30 36.9 71 18 97 09/15/17 08:00 36.9 71 20 110/79 (89) 97 Room Air 09/15/17 08:00 97 Room Air 09/15/17 05:01 68 18 96/60 (72) 97 09/15/17 04:01 36.4 71 18 94/59 (71) 99 09/15/17 04:00 Nasal Cannula 2.0 09/15/17 03:01 69 20 96/59 (71) 98 09/15/17 03:00 66 17 98 09/15/17 02:45 71 19 94 09/15/17 02:30 68 19 93 09/15/17 02:01 73 20 90/56 (67) 92 Room Air 09/15/17 00:01 36.6 65 12 92/63 (73) 94 Room Air 09/14/17 23:59 94 Room Air 09/14/17 22:00 71 18 97/63 (74) 93 Room Air 09/14/17 20:00 96 Room Air 09/14/17 20:00 36.8 73 17 108/71 (83) 96 Room Air 09/14/17 18:00 77 16 116/75 (89) 98 Room Air 4/30/18 16:00 36.8 78 16 115/77 (90) 97 Room Air 09/14/17 16:00 97 Room Air Physical Exam General Appearance: WD/WN, no apparent distress ENT: + pertinent finding (mmd) Neck: supple Respiratory/Chest: lungs clear, + decreased breath sounds Cardiovascular: regular rate, rhythm, no edema Abdomen: soft Extremities: non-tender, no pedal edema Skin: normal color Laboratory Results Item Value Date Time Urine Culture - Final Complete 09/13/17 1744 Urine,Catheterized Escherichia Coli Esbl Blood Culture - Preliminary Resulted 09/13/17 1654 Blood Gram Negative Bacilli Last 24 Hours Test 09/14/17 17:55 09/14/17 18:44 09/14/17 23:37 09/15/17 04:51 Sodium Level 151 mmol/L 149 mmol/L Potassium Level 3.6 mmol/L 3.1 mmol/L Chloride Level 120 mmol/L 120 mmol/L Carbon Dioxide Level 23 mmol/L 24 mmol/L Anion Gap 7.0 mmol/L 5.0 mmol/L Blood Urea Nitrogen 9 mg/dl 7 mg/dl Creatinine 0.36 mg/dl 0.25 mg/dl Est Creatinine Clear Calc Drug Dose 128.2 ml/min 184.6 ml/min Estimated GFR () 133.9 > 150.0 Estimated GFR (Non- 115.6 130.3 BUN/Creatinine Ratio 25.7 27.9 Random Glucose 87 mg/dl 90 mg/dl Calcium Level 7.7 mg/dl 7.8 mg/dl Phosphorus Level 3.8 mg/dl 1.9 mg/dl Bedside Glucose 86 mg/dl 86 mg/dl White Blood Count 8.15 K/uL Red Blood Count 3.31 M/uL Hemoglobin 9.9 g/dL Hematocrit 31.4 % Mean Corpuscular Volume 94.9 fL Mean Corpuscular Hemoglobin 29.9 pg Mean Corpuscular Hemoglobin Concent 31.5 g/dl Platelet Count 202 K/uL Mean Platelet Volume 9.8 fL Neutrophils (%) (Auto) 79.8 % Lymphocytes (%) (Auto) 14.8 % Monocytes (%) (Auto) 4.4 % Eosinophils (%) (Auto) 0.5 % Basophils (%) (Auto) 0.1 % Neutrophils # (Auto) 6.50 K/uL Lymphocytes # (Auto) 1.21 K/uL Monocytes # (Auto) 0.36 K/uL Eosinophils # (Auto) 0.04 K/uL Basophils # (Auto) 0.01 K/uL RDW Standard Deviation 50.1 fL RDW Coefficient of Variation 14.5 % Immature Granulocyte % (Auto) 0.4 % Immature Granulocyte # (Auto) 0.03 K/uL Magnesium Level 1.8 mg/dl Assessment and Plan (1) E. coli septicemia Assessment & Plan: continue imipenem, follow repeat cultures. (2) UTI (urinary tract infection) (3) C. difficile colitis Assessment & Plan: continue po vanco Continued [facility] stay due to: multiple IV medications needed Discharge planning: [facility] facility
[2017-09-15] MEDS: POTASSIUM CHLORIDE INJ 40 MEQ in DEXTROSE 5% 1000ML 1,000 ML IV SCH (19:15)
[2017-09-15 20:07] LABS: CALCIUM 8.4 mg/dl (8.5-10.1); CREATININE 0.31 mg/dl (0.60-1.20); POTASSIUM 4.6 mmol/L (3.5-5.1)
[2017-09-15] MEDS: METRONIDAZOLE / NSS 500 MG in PREMIXED NSS 100 ML IV SCH (20:35)
[2017-09-15] MEDS: ENOXAPARIN 40 MG/0.4 ML SYR SQ SCH (20:37)
[2017-09-15] MEDS: MoRPHine SULFATE 4 MG/ML 1 ML CARP\\VIAL IV PRN (20:41)
[2017-09-16] MEDS: METRONIDAZOLE / NSS 500 MG in PREMIXED NSS 100 ML IV SCH ×3 (03:38→21:03)
[2017-09-16] MEDS: IMIPENEM/CILASTATIN IV 400 MG in DEXTROSE 5% 100ML 100 ML IV SCH ×2 (05:34→12:11)
[2017-09-16] MEDS: RASPBERRY SYRUP 5 ML UDP PO SCH ×2 (05:35→11:58)
[2017-09-16] MEDS: VANCOMYCIN HCL 250 MG/5 ML SOLN PO SCH ×2 (05:35→11:58)
[2017-09-16 05:52] LABS: BASO % 0.1 %; BASO ABS # 0.01 K/uL (0-0.2); EOS % 0.6 %; EOS ABS # 0.05 K/uL (0-0.5); HEMATOCRIT 37.1 % (37-47); HEMOGLOBIN 11.8 g/dL (12.0-16.0); IG# 0.05 K/uL (0.00-0.02); LYMPH % 12.2 %; LYMPH ABS # 0.98 K/uL (1.2-3.4); MEAN CORPUSCULAR HEMOGLOBIN 29.6 pg (25-34); MEAN CORPUSCULAR HGB CONC 31.8 g/dl (32-36); MEAN PLATELET VOLUME 10.3 fL (7.4-10.4); MONO % 5.5 %; MONO ABS # 0.44 K/uL (0.11-0.59); NEUT ABS # 6.49 K/uL (1.4-6.5); PLATELET COUNT 247 K/uL (130-400); RED CELL DISTRIBUTION WIDTH SD 47.6 fL (36.4-46.3); WHITE BLOOD COUNT 8.02 K/uL (4.8-10.8)
[2017-09-16 06:31] LABS: CALCIUM 8.5 mg/dl (8.5-10.1); CREATININE 0.32 mg/dl (0.60-1.20); POTASSIUM 3.9 mmol/L (3.5-5.1)
--- NOTE | 2017-09-16 07:16 | DIAGNOSTIC IMAGING REPORT ---
CHEST ONE VIEW PORTABLE CLINICAL HISTORY: pna pneumonia COMPARISON STUDY: 09/15/2017 FINDINGS: Unchanging left basilar infiltrate. Lungs otherwise appear clear. Diaphragms are smooth. IMPRESSION: Unchanging left basilar infiltrate. The above report was generated using voice recognition software. It may contain grammatical, syntax or spelling errors. Electronically signed by: Lenny Banuelos M.D. 09/16/2017 7:15 AM Dictated Date/Time: 09/16/2017 7:14 AM
[2017-09-16 07:50] VITALS: BP 128/84; PULSE 81; TEMP 36.7; O2SAT 92
[2017-09-16] MEDS: LEVETIRACTAM 1000 MG in DEXTROSE 5% 100ML IV SCH ×2 (07:51→21:57)
--- NOTE | 2017-09-16 08:27 | Family Medicine Progress Note ---
Progress Note Date of Service September 16, 2017. Subjective Pt evaluation today including: conversation w/ patient, physical exam, chart review, lab review, review of studies, review of inpatient medication list Patient alert. Though she appears sad, she is responding to questions appropriately. She denies any pain or fevers/chills, CP, dyspnea, abdominal pain. IV nutrition discussed but patient declined signing consent without daughter present. Ultimate short and long terms goal discussion pending daughter 's arrival. ROS is unremarkable except as noted above. Objective Vital Signs Date Time Temp Pulse Resp B/P (MAP) Pulse Ox O2 Delivery O2 Flow Rate FiO2 09/16/17 07:50 36.7 81 14 128/84 (99) 92 2.0 09/16/17 00:00 Room Air 2.0 09/15/17 23:13 36.9 78 16 119/79 (92) 97 Nasal Cannula 1.0 09/15/17 16:00 91 Room Air 30 09/15/17 15:12 36.5 94 19 112/75 (87) 91 Room Air 09/15/17 10:30 37.0 74 18 121/80 (94) 96 Room Air 09/15/17 09:30 36.9 71 18 97 Physical Exam Notes: General Appearance: WD/WN, no apparent distress, + cachetic, + pertinent findings (no voice, but answers appropriately with attempted speech/shaking of head) Eyes: sclerae normal ENT: hearing grossly normal, + pertinent findings (dry, cracked lips, and dry mucosal membranes) Neck: supple Respiratory/Chest: no respiratory distress, no accessory muscle use, + decreased breath sounds Cardiovascular: regular rate, rhythm Abdomen: normal bowel sounds, non tender, soft Extremities: no pedal edema, no calf tenderness, + pertinent findings (right hand swollen from fluid extravasation at previous PIV site) Neurologic/Psychiatric: alert, + depressed affect Skin: normal color, warm/dry, no rash Laboratory Results Results Past 24 Hours Test 09/15/17 19:32 09/16/17 05:29 Range/Units Sodium Level 142 140 136-145 mmol/L Potassium Level 4.6 3.9 3.5-5.1 mmol/L Chloride Level 114 110 98-107 mmol/L Carbon Dioxide Level 22 24 21-32 mmol/L Anion Gap 6.0 6.0 3-11 mmol/L Blood Urea Nitrogen 4 3 7-18 mg/dl Creatinine 0.31 0.32 0.60-1.20 mg/dl Est Creatinine Clear Calc Drug Dose 148.8 144.2 ml/min Estimated GFR () 140.7 139.2 Estimated GFR (Non- 121.4 120.1 BUN/Creatinine Ratio 13.1 9.5 10-20 Random Glucose 88 84 70-99 mg/dl Calcium Level 8.4 8.5 8.5-10.1 mg/dl White Blood Count 8.02 4.8-10.8 K/uL Red Blood Count 3.99 4.2-5.4 M/uL Hemoglobin 11.8 12.0-16.0 g/dL Hematocrit 37.1 37-47 % Mean Corpuscular Volume 93.0 80-100 fL Mean Corpuscular Hemoglobin 29.6 25-34 pg Mean Corpuscular Hemoglobin Concent 31.8 32-36 g/dl Platelet Count 247 130-400 K/uL Mean Platelet Volume 10.3 7.4-10.4 fL Neutrophils (%) (Auto) 81.0 % Lymphocytes (%) (Auto) 12.2 % Monocytes (%) (Auto) 5.5 % Eosinophils (%) (Auto) 0.6 % Basophils (%) (Auto) 0.1 % Neutrophils # (Auto) 6.49 1.4-6.5 K/uL Lymphocytes # (Auto) 0.98 1.2-3.4 K/uL Monocytes # (Auto) 0.44 0.11-0.59 K/uL Eosinophils # (Auto) 0.05 0-0.5 K/uL Basophils # (Auto) 0.01 0-0.2 K/uL RDW Standard Deviation 47.6 36.4-46.3 fL RDW Coefficient of Variation 14.0 11.5-14.5 % Immature Granulocyte % (Auto) 0.6 % Immature Granulocyte # (Auto) 0.05 0.00-0.02 K/uL Assessment and Plan 62 yo F resident of [facility] with history fo SAH s/p aneurysm coiling in 2017, recent history of Cdiff , recent admission for AMS, Pneumonia,UTI presenting for Acute Altered Mental status as of 2:30 PM. Patient is sedated, intubated so history is per chart. On EMS arrival, patient was found to be hypoxic and placed on oxygen. On arrival to ED, patient was febrile, tachycardic , She was hypernatremic at 153. BUN/Cr wnl, ASL/ALT unremarkable, negative Trop. Lactate 1.42. UA was consistent with UTI. CT Head was negative for acute changes.She was found to have CXR findings of LLL infiltrate. CT chest was negative fro PE but consistent with pneumonia. Patient was admitted to [facility] from 08/25 - 09/07 for AMS, tachycardia, hypoxia and was intubated She completed 7 day course of IV Ertapenem for Pneumonia, UTI. Altered mental status - likely multifactorial related infection, hypoxia, electrolyte derangement. CT head negative for acute pathology. - Treat underlying conditions - shows marked improvement today, seems to be at baseline Sepsis secondary to UTI - as demonstrated by UA. H/o ESBL e.coli and proteus UTI. ID consulted, recs appreciated. Initial blood and urine cultures show multi -drug resistant E.coli - Treatment with IV ertapenem - Repeat blood cultures pending - prelim negative Pneumonia with acute hypoxic respiratory failure - requiring intubation (09/13). s/p extubation (09/14) - Supplemental O2 if sats <92% - ID consulted, recs appreciated - Continue treatment with IV ertapenem Dysphagia, malnutrition - Though patient was previously considering PEG tube insertion, she is currently declining NGT for tube feeds - Repeat blood cultures ordered to determine if safe for line (temporarily) for TPN/PPN - Prelim cultures negative, but patient unwilling to sign PICC consent without further discussion with daughter - will speak with daughter tomorrow Hypernatremia - Na 157 on admission, today Na 140 (appropriate improvement) - Continue gentle hydration with IVF 1/2 NSS @ 75cc/hr - Trend BMP H/o C.diff - Empiric treatment with IV metronidazole (unable to take PO vancomycin) given recent c.diff infection and use of broad-spectrum antibiotics Idiopathic Epilepsy - Continue levetiracetam VTE ppx - Enoxaparin Code status - FULL CODE - reconfirmed today (09/15/17) - Palliative consulted - discussion of goals of care with daughter Poppy tentatively scheduled for 09/18/17 Resident Physician Supervision Note: I interviewed and examined the patient. Discussed with Dr. Gonzalez and agree with findings and plan as documented in the note. Any exceptions or clarifications are listed here: None Documented By: Ricky Clayton feeling better but seems overwhelmed with everything still fairly difficult communication discussed goals of care - tried to discuss openly but presenting all viable options as equal for her to consider. after discussion, she stared blankly to the point that i actually proceeded with a neuro exam to ensure she was ok - when it was clear that she was, i asked her if she shut down just because she is so overwhelmed with the decision making - she expressed that she was, i offered empathy and support, guided her to considering TPN for now so that it can allow her more time to consider/process/pray without losing ground medically should she choose to follow aggressive plan vitals noted nad breathing unlabored aspiration pneumonia, severe dysphagia, malnutrition, ESBL UTI/bacteremia, hypernatremic dehydration, recent Cdiff -change to ertapenem (equal BUTCH on Cx), resume PO vanco when possible -- but since recent Cdiff and can't take PO for now will give IV metro to treat since risk of recurrence would be at least 20% under current circumstances, likely higher -f/u cultures negative >24hrs, PICC//start TPN while 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
--- NOTE | 2017-09-16 14:58 | Progress Note ---
Subjective Date of Service: September 16, 2017. Subjective repeat blood cultures pending, afebrile. tolerating abx. Problem List Medical Problems: (1) Change in mental status Status: Acute (2) Dehydration Status: Acute (3) Dehydration Status: Acute (4) Hypoxia Status: Acute (5) Pneumonia Status: Acute (6) Respiratory failure Status: Acute (7) Respiratory failure Status: Acute (8) Sepsis Status: Acute (9) Sepsis Status: Acute (10) Tachycardia Status: Acute (11) Urinary tract infection Status: Acute (12) UTI (urinary tract infection) Status: Acute Objective Vital Signs Date Time Temp Pulse Resp B/P (MAP) Pulse Ox O2 Delivery O2 Flow Rate FiO2 09/16/17 08:00 Room Air 09/16/17 07:50 36.7 81 14 128/84 (99) 92 2.0 09/16/17 00:00 Room Air 2.0 09/15/17 23:13 36.9 78 16 119/79 (92) 97 Nasal Cannula 1.0 09/15/17 16:00 91 Room Air 30 09/15/17 15:12 36.5 94 19 112/75 (87) 91 Room Air Laboratory Results Item Value Date Time Urine Culture - Final Complete 09/13/17 1744 Urine,Catheterized Escherichia Coli Esbl Blood Culture - Preliminary Resulted 09/13/17 1654 Blood Escherichia Coli Esbl Last 24 Hours Test 09/15/17 19:32 09/16/17 05:29 Sodium Level 142 mmol/L 140 mmol/L Potassium Level 4.6 mmol/L 3.9 mmol/L Chloride Level 114 mmol/L 110 mmol/L Carbon Dioxide Level 22 mmol/L 24 mmol/L Anion Gap 6.0 mmol/L 6.0 mmol/L Blood Urea Nitrogen 4 mg/dl 3 mg/dl Creatinine 0.31 mg/dl 0.32 mg/dl Est Creatinine Clear Calc Drug Dose 148.8 ml/min 144.2 ml/min Estimated GFR () 140.7 139.2 Estimated GFR (Non- 121.4 120.1 BUN/Creatinine Ratio 13.1 9.5 Random Glucose 88 mg/dl 84 mg/dl Calcium Level 8.4 mg/dl 8.5 mg/dl White Blood Count 8.02 K/uL Red Blood Count 3.99 M/uL Hemoglobin 11.8 g/dL Hematocrit 37.1 % Mean Corpuscular Volume 93.0 fL Mean Corpuscular Hemoglobin 29.6 pg Mean Corpuscular Hemoglobin Concent 31.8 g/dl Platelet Count 247 K/uL Mean Platelet Volume 10.3 fL Neutrophils (%) (Auto) 81.0 % Lymphocytes (%) (Auto) 12.2 % Monocytes (%) (Auto) 5.5 % Eosinophils (%) (Auto) 0.6 % Basophils (%) (Auto) 0.1 % Neutrophils # (Auto) 6.49 K/uL Lymphocytes # (Auto) 0.98 K/uL Monocytes # (Auto) 0.44 K/uL Eosinophils # (Auto) 0.05 K/uL Basophils # (Auto) 0.01 K/uL RDW Standard Deviation 47.6 fL RDW Coefficient of Variation 14.0 % Immature Granulocyte % (Auto) 0.6 % Immature Granulocyte # (Auto) 0.05 K/uL Assessment and Plan (1) E. coli septicemia Assessment & Plan: continue imipenem, follow repeat cultures. will need 14 days. (2) UTI (urinary tract infection) (3) C. difficile colitis Continued [facility] stay due to: inadequate po fluid intake, multiple IV medications needed Discharge planning: snf facility
[2017-09-16 15:09] VITALS: BP 119/77; PULSE 75; TEMP 36.6; O2SAT 95
[2017-09-16] MEDS ORDERED: ERTAPENEM IV 1 GM in SODIUM CHLOR 0.9% AD-VAN 50ML 50 ML IV SCH (15:30)
[2017-09-16 16:00] VITALS: O2SAT 90
[2017-09-16] MEDS: ERTAPENEM IV 1 GM in SODIUM CHLOR 0.9% AD-VAN 50ML 50 ML IV SCH (19:09)
[2017-09-16] MEDS: ENOXAPARIN 40 MG/0.4 ML SYR SQ SCH (21:57)
--- NOTE | 2017-09-16 21:58 | Progress Note ---
Post ICU Progress Note Date & Time September 16, 2017 at 21:57 Vital Signs Vital Signs Past 12 Hours Date Time Temp Pulse Resp B/P (MAP) Pulse Ox O2 Delivery O2 Flow Rate FiO2 09/16/17 16:00 90 Nasal Cannula 1.0 09/16/17 15:09 36.6 75 18 119/77 (91) 95 Nasal Cannula 1.0 Notes Mental Status: participated in evaluation Nausea / Vomiting: adequately controlled Pain: adequately controlled Airway Patency, RR, SpO2: stable & adequate BP & HR: stable & adequate Patient is a 62-year-old female with significant past medical history of aneurysmal lesions with recent intervention who was admitted to the ICU for hypoxemic respiratory failure in the setting of LEFT lower lobe pneumonia. She remained intubated for less than 24 hours and was successfully extubated without issue. Patient was also found to have an ESBL UTI. She had great improvement throughout her stay in the ICU and was eventually downgraded from ICU status. On evaluation, the patient is resting comfortably. She is able to answer simple questions yes or no. Otherwise, she offers no complaints. Consider outpatient follow up in 1 to 2 weeks with: PCP Repeat imaging needed: ?CXR for evaluation of resolution of PNA. Follow up cultures: Agree with repeat blood Cxs w/ ESBL in initial Cx. Reviewed progress notes, labs, and inpatient medication list Continue current management Additional recommendations: None at this time. Thank you for allowing us to participate in the care of this patient. At this time, Critical Care Services will sign off on this case. Please feel free to reconsult as needed. ADDENDUM At approximately 4:30 AM, I was approached by respiratory therapy informed me that a recent ICU patient who was intubated had been placed on BiPAP. I did immediately evaluate the patient on the floor. Apparently, she had been found with oxygen saturations in the 70s with poor inspiratory effort and blank staring without response. She was placed on BiPAP at 12/6 100%. This did help increase her O2 saturation. By the time I evaluated the patient, she appeared to be back at her baseline and was able to slowly respond to yes and no questions. An ABG was obtained which demonstrated respiratory alkalosis with BiPAP in place. Adjustments were made to the BiPAP settings and her FiO2 was decreased. This is not a gradient issue. Chest x-ray shows improvement from priors. At this point, patient is back to her baseline. Given her recent presentation with hypoxia and quick turnaround while intubated , I question if the patient could be experiencing breakthrough seizure-like activity with pauses in her respiratory drive. I was unable to witness the entire process, however it does appear suspicious in the setting of acute respiratory decompensation with abrupt return in spontaneous breathing and history of seizure disorder. I do agree with transfer the patient to monitored bed temporarily. Consults & Procedures Consultants: Infectious disease, palliative care.
[2017-09-17] VITALS (20 sets, daily range): BP systolic 99–144; BP diastolic 67–96; PULSE 78–88; TEMP 36.5–37; O2SAT 76–100
[2017-09-17] MEDS: POTASSIUM CHLORIDE INJ 40 MEQ in DEXTROSE 5% 1000ML 1,000 ML IV SCH ×2 (02:27→10:31)
[2017-09-17 03:59] LABS: BASO % 0.1 %; BASO ABS # 0.01 K/uL (0-0.2); EOS % 0.7 %; EOS ABS # 0.05 K/uL (0-0.5); HEMOGLOBIN 11.8 g/dL (12.0-16.0); IG# 0.07 K/uL (0.00-0.02); LYMPH % 9.3 %; LYMPH ABS # 0.68 K/uL (1.2-3.4); MEAN CELL VOLUME 90.9 fL (80-100); MEAN CORPUSCULAR HEMOGLOBIN 29.8 pg (25-34); MEAN CORPUSCULAR HGB CONC 32.8 g/dl (32-36); MEAN PLATELET VOLUME 10.2 fL (7.4-10.4); MONO % 6.9 %; NEUT ABS # 5.98 K/uL (1.4-6.5); PLATELET COUNT 270 K/uL (130-400); RED CELL DISTRIBUTION WIDTH CV 13.8 % (11.5-14.5); WHITE BLOOD COUNT 7.29 K/uL (4.8-10.8)
[2017-09-17 04:17] LABS: CALCIUM 8.4 mg/dl (8.5-10.1); CREATININE 0.28 mg/dl (0.60-1.20); POTASSIUM 3.6 mmol/L (3.5-5.1)
[2017-09-17 04:18] LABS: PHOSPHORUS 2.4 mg/dl (2.5-4.9)
[2017-09-17] MEDS: METRONIDAZOLE / NSS 500 MG in PREMIXED NSS 100 ML IV SCH ×3 (04:27→21:54)
--- NOTE | 2017-09-17 06:40 | DIAGNOSTIC IMAGING REPORT ---
CHEST ONE VIEW PORTABLE CLINICAL HISTORY: hypoxia dyspnea COMPARISON STUDY: 09/16/2017 FINDINGS: Unchanging parenchymal infiltrate left base. Lungs otherwise appear clear. Diaphragms smooth. No significant cardiac enlargement. IMPRESSION: Unchanging infiltrate left base. The above report was generated using voice recognition software. It may contain grammatical, syntax or spelling errors. Electronically signed by: Lenny Banuelos M.D. 09/17/2017 6:39 AM Dictated Date/Time: 09/17/2017 6:38 AM
--- NOTE | 2017-09-17 06:57 | Family Medicine Progress Note ---
Progress Note Date of Service September 17, 2017. Subjective Pt evaluation today including: conversation w/ patient, conversation w/ family (daughter Poppy), physical exam, chart review, lab review, review of studies , conversation w/ event management consultant, review of inpatient medication list Patient alert but appears more fatigued today. She desaturated last night and was transferred to telemetry with Bipap. Though she appears sad, she is responding to questions appropriately. Attempts to remove Bipap mask, results in desaturations. As such, it has been kept on. She denies any pain or fevers/ chills, CP, dyspnea, abdominal pain. Patient still unwilling to commit to IV nutrition. Daughter Poppy was called and updated. Her questions were answered. She will visit hospital tomorrow to discuss ultimate short and long terms goals with her mother. ROS is unremarkable except as noted above. Objective Vital Signs Date Time Temp Pulse Resp B/P (MAP) Pulse Ox O2 Delivery O2 Flow Rate FiO2 09/17/17 05:19 36.6 84 18 134/87 (103) 94 BiPAP 09/17/17 04:00 144/83 (103) 09/17/17 03:59 37.0 84 22 128/87 (101) 100 BiPAP 50 09/17/17 03:35 88 100 50 09/17/17 03:20 85 85 100 09/17/17 02:53 83 Non-Rebreather 15.0 09/17/17 02:45 106/68 (81) 09/17/17 02:44 88 26 99/67 (78) 76 Oxymask 5.0 09/17/17 00:19 36.5 84 18 113/70 (84) 98 Mask 2.0 09/17/17 00:00 98 Oxymask 2.0 09/16/17 16:00 90 Nasal Cannula 1.0 09/16/17 15:09 36.6 75 18 119/77 (91) 95 Nasal Cannula 1.0 09/16/17 08:00 Room Air 09/16/17 07:50 36.7 81 14 128/84 (99) 92 2.0 Physical Exam Notes: General Appearance: WD/WN, no apparent distress, + cachetic, + pertinent findings (no voice, but answers appropriately with attempted speech/shaking of head) Eyes: sclerae normal ENT: hearing grossly normal, + pertinent findings (Bipap mask in place) Neck: supple Respiratory/Chest: no respiratory distress, no accessory muscle use, + decreased breath sounds Cardiovascular: regular rate, rhythm Abdomen: normal bowel sounds, non tender, soft Extremities: no pedal edema, no calf tenderness, + pertinent findings (hand swollen from fluid) Neurologic/Psychiatric: alert, + depressed affect Skin: normal color, warm/dry, no rash Laboratory Results Results Past 24 Hours Test 09/17/17 03:38 09/17/17 15:33 Range/Units White Blood Count 7.29 4.8-10.8 K/uL Red Blood Count 3.96 4.2-5.4 M/uL Hemoglobin 11.8 12.0-16.0 g/dL Hematocrit 36.0 37-47 % Mean Corpuscular Volume 90.9 80-100 fL Mean Corpuscular Hemoglobin 29.8 25-34 pg Mean Corpuscular Hemoglobin Concent 32.8 32-36 g/dl Platelet Count 270 130-400 K/uL Mean Platelet Volume 10.2 7.4-10.4 fL Neutrophils (%) (Auto) 82.0 % Lymphocytes (%) (Auto) 9.3 % Monocytes (%) (Auto) 6.9 % Eosinophils (%) (Auto) 0.7 % Basophils (%) (Auto) 0.1 % Neutrophils # (Auto) 5.98 1.4-6.5 K/uL Lymphocytes # (Auto) 0.68 1.2-3.4 K/uL Monocytes # (Auto) 0.50 0.11-0.59 K/uL Eosinophils # (Auto) 0.05 0-0.5 K/uL Basophils # (Auto) 0.01 0-0.2 K/uL RDW Standard Deviation 46.0 36.4-46.3 fL RDW Coefficient of Variation 13.8 11.5-14.5 % Immature Granulocyte % (Auto) 1.0 % Immature Granulocyte # (Auto) 0.07 0.00-0.02 K/uL Sodium Level 138 136-145 mmol/L Potassium Level 3.6 3.5-5.1 mmol/L Chloride Level 108 98-107 mmol/L Carbon Dioxide Level 26 21-32 mmol/L Anion Gap 4.0 3-11 mmol/L Blood Urea Nitrogen 3 7-18 mg/dl Creatinine 0.28 0.60-1.20 mg/dl Est Creatinine Clear Calc Drug Dose 164.8 ml/min Estimated GFR () 145.5 Estimated GFR (Non- 125.5 BUN/Creatinine Ratio 11.1 10-20 Random Glucose 90 70-99 mg/dl Calcium Level 8.4 8.5-10.1 mg/dl Phosphorus Level 2.4 2.5-4.9 mg/dl Magnesium Level 1.8 1.8-2.4 mg/dl Arterial Blood pH 7.47 7.35-7.45 Arterial Blood Partial Pressure CO2 35 35-46 mmHg Arterial Blood Partial Pressure O2 69 80-95 mm/Hg Arterial Blood HCO3 24 19-24 mmol/L Arterial Blood Oxygen Saturation 92.9 90-95 % Arterial Blood Base Excess 0.8 -9-1.8 mEq/L Arterial Blood Gas Delivery 60% Darian Test POS POS Assessment and Plan 62 yo F resident of [facility] with history fo SAH s/p aneurysm coiling in 2017, recent history of Cdiff , recent admission for AMS, Pneumonia,UTI presenting for Acute Altered Mental status as of 2:30 PM. Patient is sedated, intubated so history is per chart. On EMS arrival, patient was found to be hypoxic and placed on oxygen. On arrival to ED, patient was febrile, tachycardic , She was hypernatremic at 153. BUN/Cr wnl, ASL/ALT unremarkable, negative Trop. Lactate 1.42. UA was consistent with UTI. CT Head was negative for acute changes.She was found to have CXR findings of LLL infiltrate. CT chest was negative fro PE but consistent with pneumonia. Patient was admitted to [facility] from 08/25 - 09/07 for AMS, tachycardia, hypoxia and was intubated She completed 7 day course of IV Ertapenem for Pneumonia, UTI. Altered mental status - likely multifactorial related infection, hypoxia, electrolyte derangement. CT head negative for acute pathology. - Treat underlying conditions - cognitions appears to be at baseline Sepsis secondary to UTI - as demonstrated by UA. H/o ESBL e.coli and proteus UTI. ID consulted, recs appreciated. Initial blood and urine cultures show multi -drug resistant E.coli - Continue IVF - BPs acceptable - Treatment with IV ertapenem - day 5 - Repeat blood cultures pending - prelim negative Pneumonia with acute hypoxic respiratory failure - requiring intubation (09/13). s/p extubation (09/14). ID consulted, recs appreciated - Supplemental O2 if sats <92% (use forehead sats monitor, NOT peripheral) - requiring Bipap now to maintain sats, likely secondary to ongoing aspiration - Continue treatment with IV ertapenem, as above Dysphagia, malnutrition - Though patient was previously considering PEG tube insertion, she is currently declining NGT for tube feeds. She is also unsure/unable to commit to TPN/PPN - Daughter aware, and will discuss long and short term goals with patient tomorrow Hypernatremia - Na 157 on admission, today Na 138 (appropriate improvement) - Continue gentle hydration with IVF - Trend BMP H/o C.diff - Empiric treatment with IV metronidazole (unable to take PO vancomycin) given recent c.diff infection and use of broad-spectrum antibiotics Idiopathic Epilepsy - Continue levetiracetam VTE ppx - Enoxaparin Code status - FULL CODE - reconfirmed on (09/15/17) - Palliative consulted - discussion of goals of care with daughter Poppy tentatively scheduled for 09/18/17 Resident Physician Supervision Note: I interviewed and examined the patient. Discussed with Dr. Gonzalez and agree with findings and plan as documented in the note. Any exceptions or clarifications are listed here: None Documented By: Ricky Clayton feeling better but seems overwhelmed with everything still fairly difficult communication discussed goals of care - tried to discuss openly but presenting all viable options as equal for her to consider. after discussion, she stared blankly to the point that i actually proceeded with a neuro exam to ensure she was ok - when it was clear that she was, i asked her if she shut down just because she is so overwhelmed with the decision making - she expressed that she was, i offered empathy and support, guided her to considering TPN for now so that it can allow her more time to consider/process/pray without losing ground medically should she choose to follow aggressive plan vitals noted nad breathing unlabored aspiration pneumonia, severe dysphagia, malnutrition, ESBL UTI/bacteremia, hypernatremic dehydration, recent Cdiff -changed to ertapenem (equal BUTCH on Cx), resume PO vanco when possible -- but since recent Cdiff and can't take PO for now will continue IV metro to treat since risk of recurrence would be at least 20% under current circumstances, likely higher -f/u cultures negative >24hrs, PICC//start TPN while she is deciding on detention goals if she allows (has been difficult as she shuts down when discussion of big picture goals is brought up - so she doesn't say she wants palliative/ comfort but also refuses to consent for PICC/TPN/etc) -awaiting dtr as pt hints that dtr being present will allow her to discuss further -continue current care, continue discussions to work on her clearly defining goals (especially since they seems so different from her discussions with Dr Jones just a few weeks ago) otherwise as above Continued [facility] stay due to: multiple IV medications needed Resident Tracking Resident Involvement: Resident Care Provided Care Provided: Adult [facility]
[2017-09-17] MEDS ORDERED: POTASSIUM PHOS 3 MMOL/1 ML INFUSION IV STA (07:02)
[2017-09-17] MEDS ORDERED: POTASSIUM PHOSPHATE INJ 15 MMOL in SODIUM CHLORIDE 0.9% 250ML 250 ML IV ONE (07:30)
[2017-09-17] MEDS: LEVETIRACTAM 1000 MG in DEXTROSE 5% 100ML IV SCH (08:51)
[2017-09-17] MEDS: MoRPHine SULFATE 4 MG/ML 1 ML CARP\\VIAL IV PRN (11:45)
--- NOTE | 2017-09-17 13:57 | Progress Note ---
Subjective Date of Service: September 17, 2017. Subjective Pt evaluation today including: conversation w/ patient, physical exam, chart review, lab review overnight events noted, resp distress ? seizure activity, now pt lethargic, min arouses on my exam, mask O2 in place. remains on abx for bsi secondary to uti. repeat blood cultures negative. Also on talavera now as unable to take po vanco. decision regarding feeding tube pending. afebrile overnight. uto ros. Problem List Medical Problems: (1) Change in mental status Status: Acute (2) Dehydration Status: Acute (3) Dehydration Status: Acute (4) Hypoxia Status: Acute (5) Pneumonia Status: Acute (6) Respiratory failure Status: Acute (7) Respiratory failure Status: Acute (8) Sepsis Status: Acute (9) Sepsis Status: Acute (10) Tachycardia Status: Acute (11) Urinary tract infection Status: Acute (12) UTI (urinary tract infection) Status: Acute Objective Vital Signs Date Time Temp Pulse Resp B/P (MAP) Pulse Ox O2 Delivery O2 Flow Rate FiO2 09/17/17 12:00 BiPAP 15.0 50 09/17/17 08:00 BiPAP 15.0 50 09/17/17 07:34 36.5 82 18 135/89 (104) 100 BiPAP 09/17/17 05:19 36.6 84 18 134/87 (103) 94 BiPAP 09/17/17 04:00 144/83 (103) 09/17/17 03:59 37.0 84 22 128/87 (101) 100 BiPAP 50 09/17/17 03:35 88 100 50 09/17/17 03:20 85 85 100 09/17/17 02:53 83 Non-Rebreather 15.0 09/17/17 02:45 106/68 (81) 09/17/17 02:44 88 26 99/67 (78) 76 Oxymask 5.0 09/17/17 00:19 36.5 84 18 113/70 (84) 98 Mask 2.0 09/17/17 00:00 98 Oxymask 2.0 09/16/17 16:00 90 Nasal Cannula 1.0 09/16/17 15:09 36.6 75 18 119/77 (91) 95 Nasal Cannula 1.0 Physical Exam General Appearance: no apparent distress, + pertinent finding (lethargic) Eyes: normal inspection, EOMI Neck: supple Respiratory/Chest: + decreased breath sounds, + rhonchi Abdomen: soft Extremities: no pedal edema Skin: normal color Laboratory Results Item Value Date Time Blood Culture - Preliminary Resulted 09/15/17 1402 Blood NO GROWTH TO DATE. Blood Culture - Preliminary Resulted 09/15/17 1400 Blood NO GROWTH TO DATE. Urine Culture - Final Complete 09/13/17 1744 Urine,Catheterized Escherichia Coli Esbl Blood Culture - Preliminary Resulted 09/13/17 1654 Blood Escherichia Coli Esbl Last 24 Hours Test 09/17/17 03:38 White Blood Count 7.29 K/uL Red Blood Count 3.96 M/uL Hemoglobin 11.8 g/dL Hematocrit 36.0 % Mean Corpuscular Volume 90.9 fL Mean Corpuscular Hemoglobin 29.8 pg Mean Corpuscular Hemoglobin Concent 32.8 g/dl Platelet Count 270 K/uL Mean Platelet Volume 10.2 fL Neutrophils (%) (Auto) 82.0 % Lymphocytes (%) (Auto) 9.3 % Monocytes (%) (Auto) 6.9 % Eosinophils (%) (Auto) 0.7 % Basophils (%) (Auto) 0.1 % Neutrophils # (Auto) 5.98 K/uL Lymphocytes # (Auto) 0.68 K/uL Monocytes # (Auto) 0.50 K/uL Eosinophils # (Auto) 0.05 K/uL Basophils # (Auto) 0.01 K/uL RDW Standard Deviation 46.0 fL RDW Coefficient of Variation 13.8 % Immature Granulocyte % (Auto) 1.0 % Immature Granulocyte # (Auto) 0.07 K/uL Sodium Level 138 mmol/L Potassium Level 3.6 mmol/L Chloride Level 108 mmol/L Carbon Dioxide Level 26 mmol/L Anion Gap 4.0 mmol/L Blood Urea Nitrogen 3 mg/dl Creatinine 0.28 mg/dl Est Creatinine Clear Calc Drug Dose 164.8 ml/min Estimated GFR () 145.5 Estimated GFR (Non- 125.5 BUN/Creatinine Ratio 11.1 Random Glucose 90 mg/dl Calcium Level 8.4 mg/dl Phosphorus Level 2.4 mg/dl Magnesium Level 1.8 mg/dl Assessment and Plan (1) E. coli septicemia Assessment & Plan: continue imipenem, follow repeat cultures. will need 14 days. (2) UTI (urinary tract infection) (3) C. difficile colitis Continued [facility] stay due to: multiple IV medications needed Discharge planning: residential facility
[2017-09-17] MEDS: ERTAPENEM IV 1 GM in SODIUM CHLOR 0.9% AD-VAN 50ML 50 ML IV SCH ×2 (18:24→19:59)
[2017-09-17] MEDS: ENOXAPARIN 40 MG/0.4 ML SYR SQ SCH (22:36)
[2017-09-17] MEDS: LEVETIRACETAM IV 500 MG in DEXTROSE 5% 100ML 100 ML IV SCH (22:39)
[2017-09-18] VITALS (9 sets, daily range): BP systolic 115–141; BP diastolic 81–89; PULSE 84–95; TEMP 36.3–37; O2SAT 90–97
[2017-09-18] MEDS: METRONIDAZOLE / NSS 500 MG in PREMIXED NSS 100 ML IV SCH ×3 (05:48→20:58)
[2017-09-18 05:53] LABS: BASO % 0.1 %; BASO ABS # 0.01 K/uL (0-0.2); EOS % 1.2 %; EOS ABS # 0.08 K/uL (0-0.5); HEMATOCRIT 37.9 % (37-47); HEMOGLOBIN 12.5 g/dL (12.0-16.0); LYMPH % 12.5 %; LYMPH ABS # 0.85 K/uL (1.2-3.4); MEAN CELL VOLUME 90.9 fL (80-100); MEAN PLATELET VOLUME 10.1 fL (7.4-10.4); MONO % 7.9 %; MONO ABS # 0.54 K/uL (0.11-0.59); NEUT % 76.8 %; NEUT ABS # 5.22 K/uL (1.4-6.5); PLATELET COUNT 298 K/uL (130-400); RED CELL DISTRIBUTION WIDTH CV 14.1 % (11.5-14.5); RED CELL DISTRIBUTION WIDTH SD 46.7 fL (36.4-46.3)
[2017-09-18 06:28] LABS: ALBUMIN 2.2 gm/dl (3.4-5.0); CALCIUM 8.8 mg/dl (8.5-10.1); CREATININE 0.28 mg/dl (0.60-1.20)
[2017-09-18 06:30] LABS: PHOSPHORUS 2.4 mg/dl (2.5-4.9); TOTAL PROTEIN 6.3 gm/dl (6.4-8.2)
[2017-09-18] MEDS: POTASSIUM CHLORIDE INJ 40 MEQ in DEXTROSE 5% 1000ML 1,000 ML IV SCH (08:28)
[2017-09-18] MEDS: LEVETIRACETAM IV 500 MG in DEXTROSE 5% 100ML 100 ML IV SCH ×2 (08:28→22:18)
--- NOTE | 2017-09-18 14:02 | Progress Note ---
Subjective Date of Service: September 18, 2017. Subjective Pt evaluation today including: physical exam, chart review, lab review pt remains on O2. tolerating abx, repeat cultures negatie. afebrile overnight. nonverbal on my exam Problem List Medical Problems: (1) Change in mental status Status: Acute (2) Dehydration Status: Acute (3) Dehydration Status: Acute (4) Hypoxia Status: Acute (5) Pneumonia Status: Acute (6) Respiratory failure Status: Acute (7) Respiratory failure Status: Acute (8) Sepsis Status: Acute (9) Sepsis Status: Acute (10) Tachycardia Status: Acute (11) Urinary tract infection Status: Acute (12) UTI (urinary tract infection) Status: Acute Objective Vital Signs Date Time Temp Pulse Resp B/P (MAP) Pulse Ox O2 Delivery O2 Flow Rate FiO2 09/18/17 12:10 BiPAP 09/18/17 11:23 36.8 95 16 125/89 (101) 97 BiPAP 09/18/17 08:25 BiPAP 09/18/17 07:32 36.5 90 18 141/86 (104) 90 BiPAP 09/18/17 05:33 89 92 30 09/18/17 04:42 37.0 85 18 122/82 (95) 95 BiPAP 09/18/17 04:00 BiPAP 09/18/17 01:54 84 97 40 09/17/17 23:59 BiPAP 09/17/17 23:59 BiPAP 09/17/17 22:58 36.5 80 20 129/89 (102) 96 09/17/17 22:10 78 97 50 09/17/17 20:20 36.6 83 18 133/96 (108) 100 BiPAP 09/17/17 20:00 95 BiPAP 09/17/17 19:01 83 98 50 09/17/17 16:00 95 BiPAP 09/17/17 15:23 36.5 82 20 130/88 (102) 90 6.0 09/17/17 14:41 90 BiPAP 09/17/17 14:41 85 Oxymask 6.0 09/17/17 14:02 99 Oxymask 6.0 Physical Exam General Appearance: no apparent distress ENT: + pertinent finding (mmd) Neck: supple Respiratory/Chest: lungs clear, + decreased breath sounds Cardiovascular: regular rate, rhythm, no edema Abdomen: soft Extremities: no pedal edema Skin: normal color Laboratory Results Item Value Date Time Blood Culture - Preliminary Resulted 09/15/17 1402 Blood NO GROWTH TO DATE. Blood Culture - Preliminary Resulted 09/15/17 1400 Blood NO GROWTH TO DATE. Urine Culture - Final Complete 09/13/17 1744 Urine,Catheterized Escherichia Coli Esbl Blood Culture - Preliminary Resulted 09/13/17 1654 Blood Escherichia Coli Esbl Last 24 Hours Test 09/17/17 15:33 09/17/17 21:44 09/18/17 05:27 Arterial Blood pH 7.47 Arterial Blood Partial Pressure CO2 35 mmHg Arterial Blood Partial Pressure O2 69 mm/Hg Arterial Blood HCO3 24 mmol/L Arterial Blood Oxygen Saturation 92.9 % Arterial Blood Base Excess 0.8 mEq/L Arterial Blood Gas Delivery 60% Darian Test POS Bedside Glucose 90 mg/dl White Blood Count 6.80 K/uL Red Blood Count 4.17 M/uL Hemoglobin 12.5 g/dL Hematocrit 37.9 % Mean Corpuscular Volume 90.9 fL Mean Corpuscular Hemoglobin 30.0 pg Mean Corpuscular Hemoglobin Concent 33.0 g/dl Platelet Count 298 K/uL Mean Platelet Volume 10.1 fL Neutrophils (%) (Auto) 76.8 % Lymphocytes (%) (Auto) 12.5 % Monocytes (%) (Auto) 7.9 % Eosinophils (%) (Auto) 1.2 % Basophils (%) (Auto) 0.1 % Neutrophils # (Auto) 5.22 K/uL Lymphocytes # (Auto) 0.85 K/uL Monocytes # (Auto) 0.54 K/uL Eosinophils # (Auto) 0.08 K/uL Basophils # (Auto) 0.01 K/uL RDW Standard Deviation 46.7 fL RDW Coefficient of Variation 14.1 % Immature Granulocyte % (Auto) 1.5 % Immature Granulocyte # (Auto) 0.10 K/uL Sodium Level 140 mmol/L Potassium Level 4.0 mmol/L Chloride Level 110 mmol/L Carbon Dioxide Level 25 mmol/L Anion Gap 5.0 mmol/L Blood Urea Nitrogen 2 mg/dl Creatinine 0.28 mg/dl Est Creatinine Clear Calc Drug Dose 164.8 ml/min Estimated GFR () 145.5 Estimated GFR (Non- 125.5 BUN/Creatinine Ratio 6.2 Random Glucose 96 mg/dl Calcium Level 8.8 mg/dl Phosphorus Level 2.4 mg/dl Magnesium Level 1.9 mg/dl Total Bilirubin 0.4 mg/dl Aspartate Amino Transf (AST/SGOT) 7 U/L Alanine Aminotransferase (ALT/SGPT) 14 U/L Alkaline Phosphatase 96 U/L Total Protein 6.3 gm/dl Albumin 2.2 gm/dl Globulin 4.1 gm/dl Albumin/Globulin Ratio 0.5 Assessment and Plan (1) E. coli septicemia Assessment & Plan: continue imipenem, follow repeat cultures. will need 14 days. (2) UTI (urinary tract infection) (3) C. difficile colitis Continued [facility] stay due to: multiple IV medications needed Discharge planning: [facility] facility
[2017-09-18] MEDS ORDERED: TPN/PPN CONSULT PHARMACY STA (17:15)
[2017-09-18] MEDS: ERTAPENEM IV 1 GM in SODIUM CHLOR 0.9% AD-VAN 50ML 50 ML IV SCH (17:22)
[2017-09-18] MEDS: LACTATED RINGER'S 1000ML 1,000 ML IV SCH (18:40)
[2017-09-18] MEDS ORDERED: NURSING VERBAL MED ORDER ONE (19:15)
--- NOTE | 2017-09-18 20:25 | Family Medicine Progress Note ---
Progress Note Date of Service September 18, 2017. Subjective Pt evaluation today including: conversation w/ patient, conversation w/ family , physical exam, chart review, lab review Unable to obtain history and ROS due to patient inability to vocalize. Medications Current Inpatient Medications Medications (Trade) Dose Ordered Sig/Larry Route Start Time Stop Time Status Last Admin Dose Admin Al Hydrox/Mg Hydrox/Simethicone (Maalox Max Susp) 15 ml Q4H PRN PO 09/13/17 20:45 10/13/17 20:44 Magnesium Hydroxide (Milk Of Magnesia Susp) 30 ml Q12H PRN PO 09/13/17 20:45 10/13/17 20:44 Ondansetron HCl (Zofran Inj) 4 mg Q6H PRN IV 09/13/17 20:45 10/13/17 20:44 Morphine Sulfate (MoRPHine SULFATE INJ) 4 mg Q2H PRN IV 09/13/17 20:45 09/27/17 20:44 09/17/17 11:45 4 MG Enoxaparin Sodium (Lovenox Inj) 40 mg Q24H SQ 09/13/17 21:30 10/13/17 21:29 09/17/17 22:36 40 MG Miscellaneous Information (Pharmacy Tpn/ Ppn Consult Active) 1 ea UD PRN N/A 09/15/17 12:03 10/15/17 12:02 Future hold Metronidazole 500 mg/Prmx 100 ml @ 100 mls/hr Q8H IV 09/15/17 20:00 09/25/17 18:59 09/18/17 12:08 100 MLS/HR Ertapenem 1 gm/ Sodium Chloride 50 ml @ 120 mls/hr Q24H IV 09/16/17 18:00 09/26/17 17:59 09/18/17 17:22 120 MLS/HR Levetiracetam 500 mg/Dextrose 105 ml @ 440 mls/hr BID IV 09/17/17 21:00 10/14/17 20:59 09/18/17 08:28 440 MLS/HR Lactated Ringer's 1,000 ml @ 75 mls/hr [id number] IV 09/18/17 18:30 10/18/17 18:29 09/18/17 18:40 75 MLS/HR Objective Vital Signs Date Time Temp Pulse Resp B/P (MAP) Pulse Ox O2 Delivery O2 Flow Rate FiO2 09/18/17 19:27 BiPAP 09/18/17 16:19 BiPAP 09/18/17 15:06 36.6 89 16 115/81 (92) 94 BiPAP 09/18/17 12:10 BiPAP 09/18/17 11:23 36.8 95 16 125/89 (101) 97 BiPAP 09/18/17 08:25 BiPAP 09/18/17 07:32 36.5 90 18 141/86 (104) 90 BiPAP 09/18/17 05:33 89 92 30 09/18/17 04:42 37.0 85 18 122/82 (95) 95 BiPAP 09/18/17 04:00 BiPAP 09/18/17 01:54 84 97 40 09/17/17 23:59 BiPAP 09/17/17 23:59 BiPAP 09/17/17 22:58 36.5 80 20 129/89 (102) 96 09/17/17 22:10 78 97 50 Physical Exam General Appearance: WD/WN, no apparent distress Neck: supple, no adenopathy, thyroid normal Respiratory/Chest: chest non-tender, lungs clear, normal breath sounds, no respiratory distress Cardiovascular: regular rate, rhythm, no edema, no gallop, no murmur Abdomen: normal bowel sounds, non tender, soft, no organomegaly Extremities: non-tender, normal inspection Neurologic/Psychiatric: alert Skin: normal color, warm/dry, no rash Laboratory Results 09/18/17 05:27 Red Blood Count 4.17, Mean Corpuscular Volume 90.9, Mean Corpuscular Hemoglobin 30.0, Mean Corpuscular Hemoglobin Concent 33.0, Mean Platelet Volume 10.1, Neutrophils (%) (Auto) 76.8, Lymphocytes (%) (Auto) 12.5, Monocytes (%) (Auto) 7.9, Eosinophils (%) (Auto) 1.2, Basophils (%) (Auto) 0.1, Neutrophils # (Auto) 5.22, Lymphocytes # (Auto) 0.85, Monocytes # (Auto) 0.54, Eosinophils # (Auto) 0.08, Basophils # (Auto) 0.01 09/18/17 05:27 Test 09/17/17 21:44 09/18/17 05:27 Bedside Glucose 90 mg/dl (70-90) White Blood Count 6.80 K/uL (4.8-10.8) Red Blood Count 4.17 M/uL (4.2-5.4) Hemoglobin 12.5 g/dL (12.0-16.0) Hematocrit 37.9 % (37-47) Mean Corpuscular Volume 90.9 fL (80-100) Mean Corpuscular Hemoglobin 30.0 pg (25-34) Mean Corpuscular Hemoglobin Concent 33.0 g/dl (32-36) Platelet Count 298 K/uL (130-400) Mean Platelet Volume 10.1 fL (7.4-10.4) Neutrophils (%) (Auto) 76.8 % Lymphocytes (%) (Auto) 12.5 % Monocytes (%) (Auto) 7.9 % Eosinophils (%) (Auto) 1.2 % Basophils (%) (Auto) 0.1 % Neutrophils # (Auto) 5.22 K/uL (1.4-6.5) Lymphocytes # (Auto) 0.85 K/uL (1.2-3.4) Monocytes # (Auto) 0.54 K/uL (0.11-0.59) Eosinophils # (Auto) 0.08 K/uL (0-0.5) Basophils # (Auto) 0.01 K/uL (0-0.2) RDW Standard Deviation 46.7 fL (36.4-46.3) RDW Coefficient of Variation 14.1 % (11.5-14.5) Immature Granulocyte % (Auto) 1.5 % Immature Granulocyte # (Auto) 0.10 K/uL (0.00-0.02) Anion Gap 5.0 mmol/L (3-11) Est Creatinine Clear Calc Drug Dose 164.8 ml/min Estimated GFR () 145.5 Estimated GFR (Non- 125.5 BUN/Creatinine Ratio 6.2 (10-20) Calcium Level 8.8 mg/dl (8.5-10.1) Phosphorus Level 2.4 mg/dl (2.5-4.9) Magnesium Level 1.9 mg/dl (1.8-2.4) Total Bilirubin 0.4 mg/dl (0.2-1) Aspartate Amino Transf (AST/SGOT) 7 U/L (15-37) Alanine Aminotransferase (ALT/SGPT) 14 U/L (12-78) Alkaline Phosphatase 96 U/L (45-117) Total Protein 6.3 gm/dl (6.4-8.2) Albumin 2.2 gm/dl (3.4-5.0) Globulin 4.1 gm/dl (2.5-4.0) Albumin/Globulin Ratio 0.5 (0.9-2) Assessment and Plan 62 yo F resident of [facility] with history fo SAH, stroke, epilepsy presents with AMS. Treated with BIPAP Assessment; Patient is on BIPAP. She is alert and understands questioning, but has difficulty with vocalizing responding. Daughter was present to today-- discussed plan moving forward. Introduced concepts of comfort care, parental nutrition. Plan; Picc placed this evening. Wean Bipap tomorrow. Started TPN tomorrow. Dispo; Dc to [facility] Altered mental status - likely multifactorial related infection, hypoxia, electrolyte derangement. CT head negative for acute pathology. - Treat underlying conditions - cognitions appears to be at baseline Sepsis secondary to UTI - as demonstrated by UA. H/o ESBL e.coli and proteus UTI. ID consulted, recs appreciated. Initial blood and urine cultures show multi -drug resistant E.coli - Continue IVF - BPs acceptable - Treatment with IV ertapenem - day 6 - Repeat blood cultures pending - prelim negative Pneumonia with acute hypoxic respiratory failure - requiring intubation (09/13). s/p extubation (09/14). ID consulted, recs appreciated - Supplemental O2 if sats <92% (use forehead sats monitor, NOT peripheral) - requiring Bipap now to maintain sats, likely secondary to ongoing aspiration - Continue treatment with IV ertapenem, as above -Wean bipap tomorrow Dysphagia, malnutrition - Though patient was previously considering PEG tube insertion, she is currently declining NGT for tube feeds. -TPN/PPN start tomorrow Hypernatremia - Resolved - Continue gentle hydration with IVF - Trend BMP H/o C.diff - Empiric treatment with IV metronidazole (unable to take PO vancomycin) given recent c.diff infection and use of broad-spectrum antibiotics Idiopathic Epilepsy - Continue levetiracetam VTE ppx - Enoxaparin Code status - FULL CODE - reconfirmed on (09/15/17) - Palliative consulted - discussion of goals of care with daughter Poppy Continued [facility] stay due to: multiple IV medications needed Resident Physician Supervision Note: I interviewed and examined the patient. Discussed with Dr. Gonzalez and agree with findings and plan as documented in the note. Any exceptions or clarifications are listed here: None Documented By: Ricky Clayton dtr present - extensive discussion updated on events of last few days and updated on concerns of goals of care - she expressed very good understanding agrees with the assessment that her mom is not answering out of being overwhelmed and probably equally considreing both options - agreed that by her not decidiing anything including not allowing TPN she is unwittingly moving to [employer]. wanted TPN - pt agreed. pt wanted dtr (who is POA) to sign for PICC to make it less overwleming for her vitals ntoed fatigued but nad breathing unlabored aspiration pneumonia, severe dysphagia, malnutrition, ESBL UTI/bacteremia, hypernatremic dehydration, recent Cdiff -changed to ertapenem (equal BUTCH on Cx), resume PO vanco when possible -- but since recent Cdiff and can't take PO for now continue IV metro to treat since risk of recurrence would be at least 20% under current circumstances, likely higher -try PICC - IV team couldn't get - IVF through the night try again in AM -continue current care, continue discussions to work on her clearly defining goals otherwise as above
[2017-09-18] MEDS: ENOXAPARIN 40 MG/0.4 ML SYR SQ SCH (22:18)
[2017-09-19] VITALS (10 sets, daily range): BP systolic 119–141; BP diastolic 80–97; PULSE 72–87; TEMP 36.2–36.8; O2SAT 94–100
[2017-09-19] MEDS: METRONIDAZOLE / NSS 500 MG in PREMIXED NSS 100 ML IV SCH ×3 (04:52→21:07)
--- NOTE | 2017-09-19 06:50 | Family Medicine Progress Note ---
Progress Note Date of Service September 19, 2017. Subjective Pt evaluation today including: conversation w/ patient Pt was wearing BiPAP today, pointing at her BiPAP when I asked if she had any concerns. Denies pain. Daughter not present in room at time of my exam. Constitutional: No fever, No chills Eyes: No worsening of vision Respiratory: + shortness of breath, No cough All Other Systems: Reviewed and Negative Medications Current Inpatient Medications Medications (Trade) Dose Ordered Sig/Larry Route Start Time Stop Time Status Last Admin Dose Admin Al Hydrox/Mg Hydrox/Simethicone (Maalox Max Susp) 15 ml Q4H PRN PO 09/13/17 20:45 10/13/17 20:44 Magnesium Hydroxide (Milk Of Magnesia Susp) 30 ml Q12H PRN PO 09/13/17 20:45 10/13/17 20:44 Ondansetron HCl (Zofran Inj) 4 mg Q6H PRN IV 09/13/17 20:45 10/13/17 20:44 Morphine Sulfate (MoRPHine SULFATE INJ) 4 mg Q2H PRN IV 09/13/17 20:45 09/27/17 20:44 09/17/17 11:45 4 MG Enoxaparin Sodium (Lovenox Inj) 40 mg Q24H SQ 09/13/17 21:30 10/13/17 21:29 09/18/17 22:18 40 MG Miscellaneous Information (Pharmacy Tpn/ Ppn Consult Active) 1 ea UD PRN N/A 09/15/17 12:03 10/15/17 12:02 Future hold Metronidazole 500 mg/Prmx 100 ml @ 100 mls/hr Q8H IV 09/15/17 20:00 09/25/17 18:59 09/19/17 04:52 100 MLS/HR Ertapenem 1 gm/ Sodium Chloride 50 ml @ 120 mls/hr Q24H IV 09/16/17 18:00 09/26/17 17:59 09/18/17 17:22 120 MLS/HR Levetiracetam 500 mg/Dextrose 105 ml @ 440 mls/hr BID IV 09/17/17 21:00 10/14/17 20:59 09/19/17 09:15 440 MLS/HR Lactated Ringer's 1,000 ml @ 75 mls/hr [id number] IV 09/18/17 18:30 10/18/17 18:29 09/19/17 09:15 75 MLS/HR Objective Vital Signs Date Time Temp Pulse Resp B/P (MAP) Pulse Ox O2 Delivery O2 Flow Rate FiO2 09/19/17 08:30 BiPAP 09/19/17 07:57 81 94 30 09/19/17 07:05 36.3 87 18 119/82 (94) 100 BiPAP 09/19/17 04:31 36.7 80 20 120/84 (96) 95 CPAP 09/19/17 03:58 BiPAP 09/19/17 00:29 BiPAP 09/19/17 00:09 36.8 72 18 138/80 (99) 99 CPAP 09/18/17 21:06 87 93 30 09/18/17 19:48 36.3 85 24 119/84 (96) 97 BiPAP 09/18/17 19:45 36.3 85 24 119/84 (96) 97 Room Air 09/18/17 19:27 BiPAP 09/18/17 16:19 BiPAP 09/18/17 15:06 36.6 89 16 115/81 (92) 94 BiPAP 09/18/17 12:10 BiPAP 09/18/17 11:23 36.8 95 16 125/89 (101) 97 BiPAP Physical Exam General Appearance: WD/WN, + thin Eyes: normal inspection, PERRL ENT: hearing grossly normal Neck: supple, no JVD Respiratory/Chest: lungs clear, normal breath sounds, no respiratory distress Cardiovascular: regular rate, rhythm, no murmur Abdomen: non tender, soft Extremities: non-tender, no pedal edema Neurologic/Psychiatric: alert Laboratory Results Last 24 Hours Test 09/19/17 07:24 White Blood Count 8.96 K/uL Red Blood Count 4.17 M/uL Hemoglobin 12.5 g/dL Hematocrit 38.1 % Mean Corpuscular Volume 91.4 fL Mean Corpuscular Hemoglobin 30.0 pg Mean Corpuscular Hemoglobin Concent 32.8 g/dl RDW Standard Deviation 47.1 fL RDW Coefficient of Variation 14.1 % Platelet Count 334 K/uL Mean Platelet Volume 10.5 fL Sodium Level 141 mmol/L Potassium Level 3.5 mmol/L Chloride Level 108 mmol/L Carbon Dioxide Level 26 mmol/L Anion Gap 7.0 mmol/L Blood Urea Nitrogen 2 mg/dl Creatinine 0.25 mg/dl Est Creatinine Clear Calc Drug Dose 184.5 ml/min Estimated GFR () > 150.0 Estimated GFR (Non- 130.3 BUN/Creatinine Ratio 7.6 Random Glucose 85 mg/dl Calcium Level 8.5 mg/dl Phosphorus Level 2.4 mg/dl Magnesium Level 1.8 mg/dl C-Reactive Protein 2.92 mg/dl Albumin 2.4 gm/dl Triglycerides Level 106 mg/dl Assessment and Plan 62 yo F, currently being treated for E coli septicemia & C diff colitis, remains on BiPAP & pending PICC line for TPN Acute hypoxic resp failure - Intubated (09/13), Extubated (09/14) - Wean BiPAP to Oxymask as tolerated so she can talk to her daughter bet Sepsis from ESBL UTI - Ertapenem IV day 7 Dysphagia, Malnutrition - PEG tube still being discussed by pt / daughter - In meantime can start PICC line once able to get one, then can start TPN *PICC line unable to be obtained today so will do 2L PPN x 1 day Hx of C Diff (recent) - Prophylactic Flagyl IV until can go to PO Vanco Hx of Epilepsy - Suly Thomas Palliative consulted, appreciate recommendations FULL CODE Please call me when daughter arrives to discuss further management plans Resident Physician Supervision Note: I interviewed and examined the patient. Discussed with Dr. Garcia and agree with findings and plan as documented in the note. Any exceptions or clarifications are listed here: None Documented By: Ricky Clayton feeling ok waiting for dtr to return, waiting for re-try on PICC - may need alternate central access if unable to place vitals noted nad breathing unlabored no pallor or icterus aspiration pneumonia, severe dysphagia, malnutrition, ESBL UTI/bacteremia, hypernatremic dehydration, recent Cdiff -changed to ertapenem (equal BUTCH on Cx), resume PO vanco when possible -- but since recent Cdiff and can't take PO for now continue IV metro to treat since risk of recurrence would be at least 20% under current circumstances, likely higher - infections have been getting better -needs central access for TPN once possible to be placed -continue current care, continue discussions to work on her clearly defining goals otherwise as above Resident Tracking Resident Involvement: Resident Care Provided Care Provided: Adult Hospital Medicine
[2017-09-19 08:02] LABS: HEMATOCRIT 38.1 % (37-47); HEMOGLOBIN 12.5 g/dL (12.0-16.0); MEAN CELL VOLUME 91.4 fL (80-100); MEAN CORPUSCULAR HGB CONC 32.8 g/dl (32-36); MEAN PLATELET VOLUME 10.5 fL (7.4-10.4); PLATELET COUNT 334 K/uL (130-400); RED CELL DISTRIBUTION WIDTH CV 14.1 % (11.5-14.5); RED CELL DISTRIBUTION WIDTH SD 47.1 fL (36.4-46.3); WHITE BLOOD COUNT 8.96 K/uL (4.8-10.8)
[2017-09-19 08:30] LABS: ALBUMIN 2.4 gm/dl (3.4-5.0); BLOOD UREA NITROGEN 2 mg/dl (7-18); CALCIUM 8.5 mg/dl (8.5-10.1); CARBON DIOXIDE 26 mmol/L (21-32); CREATININE 0.25 mg/dl (0.60-1.20); GLUCOSE 85 mg/dl (70-99); PHOSPHORUS 2.4 mg/dl (2.5-4.9); POTASSIUM 3.5 mmol/L (3.5-5.1); SODIUM 141 mmol/L (136-145)
[2017-09-19] MEDS: LEVETIRACETAM IV 500 MG in DEXTROSE 5% 100ML 100 ML IV SCH ×2 (09:15→23:28)
[2017-09-19] MEDS: LACTATED RINGER'S 1000ML 1,000 ML IV SCH (09:15)
[2017-09-19] MEDS ORDERED: DEXTROSE 10% 1,000 ML IV PRN (16:00)
[2017-09-19] MEDS ORDERED: CUSTOM PERIPHERAL PN 1 BAG IV SCH (16:00)
[2017-09-19] MEDS: ERTAPENEM IV 1 GM in SODIUM CHLOR 0.9% AD-VAN 50ML 50 ML IV SCH (18:14)
[2017-09-19] MEDS: ENOXAPARIN 40 MG/0.4 ML SYR SQ SCH (21:07)
[2017-09-20] VITALS (9 sets, daily range): BP systolic 115–152; BP diastolic 64–101; PULSE 80–86; TEMP 36.1–36.7; O2SAT 96–100
[2017-09-20] MEDS: METRONIDAZOLE / NSS 500 MG in PREMIXED NSS 100 ML IV SCH ×3 (03:45→20:28)
[2017-09-20 06:30] LABS: CALCIUM 8.3 mg/dl (8.5-10.1); CREATININE 0.32 mg/dl (0.60-1.20); POTASSIUM 3.5 mmol/L (3.5-5.1)
[2017-09-20 06:52] LABS: BASO % 0.4 %; BASO ABS # 0.03 K/uL (0-0.2); EOS % 0.7 %; EOS ABS # 0.05 K/uL (0-0.5); HEMATOCRIT 37.6 % (37-47); HEMOGLOBIN 12.2 g/dL (12.0-16.0); IG# 0.26 K/uL (0.00-0.02); LYMPH % 16.6 %; LYMPH ABS # 1.23 K/uL (1.2-3.4); MEAN CORPUSCULAR HEMOGLOBIN 29.5 pg (25-34); MEAN CORPUSCULAR HGB CONC 32.4 g/dl (32-36); MEAN PLATELET VOLUME 10.7 fL (7.4-10.4); MONO % 9.6 %; MONO ABS # 0.71 K/uL (0.11-0.59); NEUT % 69.2 %; NEUT ABS # 5.12 K/uL (1.4-6.5); PLATELET COUNT 326 K/uL (130-400); RED CELL DISTRIBUTION WIDTH CV 14.2 % (11.5-14.5); RED CELL DISTRIBUTION WIDTH SD 47.9 fL (36.4-46.3)
[2017-09-20] MEDS: LEVETIRACETAM IV 500 MG in DEXTROSE 5% 100ML 100 ML IV SCH ×2 (08:47→21:39)
--- NOTE | 2017-09-20 09:24 | Family Medicine Progress Note ---
Progress Note Date of Service September 20, 2017. Subjective Pt evaluation today including: conversation w/ patient, conversation w/ family Patient was weaned to room air this AM. no new concerns, was still not speaking very much. Met with daughter around 11am - she reports her Mom was awake and alert last night and agreed to PEG tube placement for nutrition. Daughter concerned about overall prognosis but wants her to still have a trial of measures to help get her back to her most recent baseline, prior to her most recent steep decline in July. POLST form completed - in event of cardiac arrest, DNR, but if reversible causes occurred (infections, seizures) she would want full tx for her mother. Regarding intubation, she would only want if it was likely temporary and not prolonged. IV fluids / Abx for comfort. Medications Current Inpatient Medications Medications (Trade) Dose Ordered Sig/Larry Route Start Time Stop Time Status Last Admin Dose Admin Al Hydrox/Mg Hydrox/Simethicone (Maalox Max Susp) 15 ml Q4H PRN PO 09/13/17 20:45 10/13/17 20:44 Magnesium Hydroxide (Milk Of Magnesia Susp) 30 ml Q12H PRN PO 09/13/17 20:45 10/13/17 20:44 Ondansetron HCl (Zofran Inj) 4 mg Q6H PRN IV 09/13/17 20:45 10/13/17 20:44 Morphine Sulfate (MoRPHine SULFATE INJ) 4 mg Q2H PRN IV 09/13/17 20:45 09/27/17 20:44 09/17/17 11:45 4 MG Enoxaparin Sodium (Lovenox Inj) 40 mg Q24H SQ 09/13/17 21:30 10/13/17 21:29 09/19/17 21:07 40 MG Miscellaneous Information (Pharmacy Tpn/ Ppn Consult Active) 1 ea UD PRN N/A 09/15/17 12:03 10/15/17 12:02 Future hold Metronidazole 500 mg/Prmx 100 ml @ 100 mls/hr Q8H IV 09/15/17 20:00 09/25/17 18:59 09/20/17 03:45 100 MLS/HR Ertapenem 1 gm/ Sodium Chloride 50 ml @ 120 mls/hr Q24H IV 09/16/17 18:00 09/26/17 17:59 09/19/17 18:14 120 MLS/HR Levetiracetam 500 mg/Dextrose 105 ml @ 440 mls/hr BID IV 09/17/17 21:00 10/14/17 20:59 09/20/17 08:47 440 MLS/HR Nutrition (Parenteral) 0 ml @ 0 mls/hr TODAY@1600 IV 09/19/17 16:00 09/20/17 15:59 09/19/17 17:00 0 MLS/HR Dextrose 1,000 ml @ 0 mls/hr Q0M PRN IV 09/19/17 16:00 10/19/17 15:59 Objective Vital Signs Date Time Temp Pulse Resp B/P (MAP) Pulse Ox O2 Delivery O2 Flow Rate FiO2 09/20/17 08:30 Room Air BiPAP 09/20/17 07:20 36.3 86 16 115/80 (92) 100 BiPAP 09/20/17 04:40 36.3 83 20 147/101 (116) 100 BiPAP 09/20/17 04:16 BiPAP 09/20/17 00:20 Room Air 09/20/17 00:19 36.1 84 17 138/94 (109) 99 CPAP 09/19/17 22:13 78 96 30 09/19/17 20:13 98 Room Air 15.0 30 09/19/17 19:08 36.4 76 15 139/91 (107) 98 Room Air 09/19/17 16:00 BiPAP 09/19/17 14:45 36.2 75 15 141/97 (112) 96 Room Air 09/19/17 12:47 98 Room Air 09/19/17 12:16 36.5 75 19 133/90 (104) 99 BiPAP 30 09/19/17 12:00 Room Air BiPAP Physical Exam General Appearance: WD/WN, no apparent distress, + cachetic Eyes: PERRL ENT: hearing grossly normal Neck: supple, no JVD Respiratory/Chest: lungs clear, normal breath sounds, no respiratory distress Cardiovascular: regular rate, rhythm, no murmur Abdomen: non tender, soft Extremities: non-tender Neurologic/Psychiatric: alert Skin: no rash Laboratory Results Last 24 Hours Test 09/20/17 00:13 09/20/17 06:02 09/20/17 06:35 Bedside Glucose 116 mg/dl 101 mg/dl White Blood Count 7.40 K/uL Red Blood Count 4.13 M/uL Hemoglobin 12.2 g/dL Hematocrit 37.6 % Mean Corpuscular Volume 91.0 fL Mean Corpuscular Hemoglobin 29.5 pg Mean Corpuscular Hemoglobin Concent 32.4 g/dl Platelet Count 326 K/uL Mean Platelet Volume 10.7 fL Neutrophils (%) (Auto) 69.2 % Lymphocytes (%) (Auto) 16.6 % Monocytes (%) (Auto) 9.6 % Eosinophils (%) (Auto) 0.7 % Basophils (%) (Auto) 0.4 % Neutrophils # (Auto) 5.12 K/uL Lymphocytes # (Auto) 1.23 K/uL Monocytes # (Auto) 0.71 K/uL Eosinophils # (Auto) 0.05 K/uL Basophils # (Auto) 0.03 K/uL RDW Standard Deviation 47.9 fL RDW Coefficient of Variation 14.2 % Immature Granulocyte % (Auto) 3.5 % Immature Granulocyte # (Auto) 0.26 K/uL Sodium Level 138 mmol/L Potassium Level 3.5 mmol/L Chloride Level 108 mmol/L Carbon Dioxide Level 24 mmol/L Anion Gap 6.0 mmol/L Blood Urea Nitrogen 8 mg/dl Creatinine 0.32 mg/dl Est Creatinine Clear Calc Drug Dose 144.2 ml/min Estimated GFR () 139.2 Estimated GFR (Non- 120.1 BUN/Creatinine Ratio 24.6 Random Glucose 109 mg/dl Calcium Level 8.3 mg/dl Assessment and Plan 62 yo F w/hx of SAH and recurrent aspiration, currently being treated for E coli septicemia & C diff colitis, pending PEG tube placement. Acute hypoxic resp failure - Intubated (09/13), Extubated (09/14), and weaned to room air by / Sepsis from ESBL UTI - Ertapenem IV day 8 Dysphagia, Malnutrition - Discussed with daughter (POA) Natalia today, she and pt agree for PEG tube - PPN in meantime as we were unable to get a PICC line for TPN Hx of C Diff (recent) - Prophylactic Flagyl IV until can go to PO Vanco Hx of Epilepsy - Keppra Lovenox Full code - although she would be a DNR as outpt, for reversible causes in hospital she would want all measures done Resident Physician Supervision Note: I interviewed and examined the patient. Discussed with Dr. Garcia and agree with findings and plan as documented in the note. Any exceptions or clarifications are listed here: None Documented By: Ricky Clayton no significant HPI or ROS at the time i see her dr garcia then had good discussion later with pt and dtr - wants to proceed with PEG vitals noted nad breathing unlabored no pallor or icterus lungs clear, 92-94% on RA at rest aspiration pneumonia, severe dysphagia, malnutrition, ESBL UTI/bacteremia, hypernatremic dehydration, recent Cdiff -changed to ertapenem (equal BUTCH on Cx), resume PO vanco when possible -- but since recent Cdiff and can't take PO for now continue IV metro to treat since risk of recurrence would be at least 20% under current circumstances, likely higher - infections have been getting better -continue supportive care dysphagia and malnutrition (see above as well) -she has d/w prior hospitalists wanting PEG, and while initially reconsidered during this admission, she is again (consistent wtih her prior wishes) wanting PEG - while it would be ideal of course to wait until better baseline state to place PEG, i don't believe she realistically is going to be able to improve much beyond current status, and will be quite high risk for yet another decompensation without adequate nutrition. PICC was unable to be placed so she currently is getting PPN since TPN not possible - rather than adding the risk of a true central line for TPN temporarily, will ask if GI feels they can safely place PEG near the end of this admission, while pt still on IV abx, to try to move her journey forward more and have less risk of setbacks otherwise as above Resident Tracking Resident Involvement: Resident Care Provided Care Provided: Adult Hospital Medicine
[2017-09-20 13:27] LABS: PHOSPHORUS 2.9 mg/dl (2.5-4.9)
[2017-09-20] MEDS ORDERED: CUSTOM PERIPHERAL PN 1 BAG IV SCH (16:00)
[2017-09-20] MEDS: ERTAPENEM IV 1 GM in SODIUM CHLOR 0.9% AD-VAN 50ML 50 ML IV SCH (18:18)
[2017-09-20] MEDS: ENOXAPARIN 40 MG/0.4 ML SYR SQ SCH (21:52)
[2017-09-21] VITALS (10 sets, daily range): BP systolic 119–133; BP diastolic 77–85; PULSE 82–92; TEMP 36.4–36.7; O2SAT 92–98
[2017-09-21] MEDS: METRONIDAZOLE / NSS 500 MG in PREMIXED NSS 100 ML IV SCH ×3 (04:34→21:17)
[2017-09-21 07:22] LABS: CALCIUM 8.1 mg/dl (8.5-10.1); CREATININE 0.28 mg/dl (0.60-1.20); PHOSPHORUS 2.5 mg/dl (2.5-4.9); POTASSIUM 3.5 mmol/L (3.5-5.1)
[2017-09-21] MEDS: LEVETIRACETAM IV 500 MG in DEXTROSE 5% 100ML 100 ML IV SCH ×2 (08:15→21:17)
--- NOTE | 2017-09-21 10:07 | Gastrointestinal Consultation ---
Gastrointestinal Consultation Date of Consultation: September 21, 2017 Attending Physician: Dr. Clayton Consulting Physician: Dr. Hayes/SPIKE Pabon Reason for Consultation: PEG placement History of Present Illness Patient is a 62 year old female with a history of intracranial hemorrhage and craniotomy admitted on 09/13/17 with acute mental status changes in the setting of recent C Diff colitis and E coli septicemia. She has been having overall decline and has required supplemental nutrition. She is non-verbal and is unable to provide any history. Per review of hospital records, she was considered for possible PEG tube placement during her last admission but this was deferred due to acute infection. Patient was to have as an outpatient but was subsequently re-admitted prior to scheduling the PEG placement. Daughter is now requesting a PEG tube to be placed during this admission to support her mother nutritionally. She is currently receiving IV nutrition with PPN as PICC line insertion was unsuccessful. Blood cultures x 2 have been negative. Patient has been afebrile and remains hemodynamically stable at this time. Past Medical/Surgical History Medical Problems: (1) Change in mental status Status: Acute (2) Dehydration Status: Acute (3) Dehydration Status: Acute (4) Hypoxia Status: Acute (5) Pneumonia Status: Acute (6) Respiratory failure Status: Acute (7) Respiratory failure Status: Acute (8) Sepsis Status: Acute (9) Sepsis Status: Acute (10) Tachycardia Status: Acute (11) Urinary tract infection Status: Acute (12) UTI (urinary tract infection) Status: Acute Past Medical History: 1. Subarachnoid hemorrhage 2. Cerebral artery aneurysm 3. Vitamin D deficiency 4. Anemia 5. C. diff colitis 6. Acute respiratory failure with hypoxia 7. Nonspecific encephalopathy 8. UTI with sepsis Past Surgical History: Frontoparietal cranioplasty Family History Patient reports no known family medical history. Unable to be obtained as patient is nonverbal. Social History Smoking Status: Former Smoker Drug Use: none Marital Status: Housing Status: assisted living Occupation Status: retired Allergies Coded Allergies: Ferrous Sulfate (Verified Allergy, Unknown, CENTRE CREST LIST, 09/13/17) Penicillins (Verified Allergy, Unknown, CENTRE CREST LIST, 09/13/17) Current Medications Home Meds and Scripts Medications Dose Route/Sig Max Daily Dose Days Date Category Dose Instructions Keppra (Levetiractam) 250 Mg Tab 500 Mg PO BID 09/13/17 Reported Lactinex Granules (Lactobacillus Acidophilus) 1 Gm Pkt 1 Gm PO TIDM 09/13/17 Reported [Skin Prep] 1 Appln TD DAILY 09/13/17 Reported APPLY TO BILATERAL HEELS FOR PROTECTANT TO SKIN. Vancomycin HCl 50 Mg/1 Ml Inj 125 Mg PO Q6H 09/13/17 Reported STARTED 09/08/17 FOR 10 DAYS. ENDS 09/16/17 AM DOSE. Zocor (Simvastatin) 40 Mg Tab 40 Mg PO QPM 09/13/17 Reported Aquacel Foam 3.2"X3.2" (Wound Dressings) 1 Pad Pad 1 Appln TD Q3DAYS. 09/13/17 Reported APPLY TO SMALL OPEN AREA ON SACRUM. DUE TO CHANGE 09/14/17. Dulcolax (Bisacodyl) 10 Mg Sup 1 Supp ID DAILY PRN 09/13/17 Reported Klor-Con (Potassium Chloride) 20 Meq Tabcr 20 Meq PO DAILY 08/25/17 Reported Tylenol (Acetaminophen) 325 Mg Tab 650 Mg PO Q6H PRN 08/16/17 Reported NTE 3GM APAP/24HRS Milk of Magnesia (Magnesium Hydroxide) 30 Ml Susp 30 Ml PO DAILY PRN 08/16/17 Reported Prevacid Solutab (Lansoprazole) 15 Mg Bev 15 Mg PO QAM 08/16/17 Reported Fleet Enema (Sodium Phosphate/Biphosphate) Brigette 1 Ea ID DAILY PRN 08/16/17 Reported Ferrous Sulfate 220 Mg/5 Ml Elix 220 Mg PO TIDM 08/16/17 Reported Bengay Greaseless (Menthol-Methyl Salicylate (Vonda) 1 Cre Cre 1 Appln TD Q8 PRN 08/16/17 Reported Tylenol (Acetaminophen) 325 Mg Tab 650 Mg PO BID 08/16/17 Reported NTE 3GM APAP/24HRS Review of Systems Unable to obtain Physical Exam Date Time Temp Pulse Resp B/P (MAP) Pulse Ox O2 Delivery O2 Flow Rate FiO2 09/21/17 08:00 Room Air BiPAP 09/21/17 07:06 36.7 84 17 123/79 (94) 98 Room Air 09/21/17 04:00 Room Air 09/21/17 03:44 36.5 82 18 132/85 (101) 95 Room Air 09/21/17 00:00 Room Air 09/20/17 23:35 36.7 83 17 132/81 (98) 96 Room Air 09/20/17 20:00 97 Room Air 09/20/17 19:03 36.7 85 15 152/92 (112) 97 Room Air 09/20/17 16:00 99 Room Air 09/20/17 15:24 36.3 85 15 118/78 (91) 99 Room Air 09/20/17 12:00 Room Air BiPAP 09/20/17 11:54 36.3 80 18 124/64 (84) 98 Room Air General Appearance: no apparent distress Respiratory/Chest: lungs clear, no respiratory distress Cardiovascular: regular rate, rhythm Abdomen: normal bowel sounds, soft Extremities: + pedal edema Neurologic/Psych: alert Skin: warm/dry Laboratory Results Last 24 Hours Test 09/20/17 11:57 09/20/17 12:39 09/20/17 19:27 09/20/17 23:58 Bedside Glucose 115 mg/dl 95 mg/dl 104 mg/dl Phosphorus Level 2.9 mg/dl Magnesium Level 2.0 mg/dl Test 09/21/17 06:18 Sodium Level 142 mmol/L Potassium Level 3.5 mmol/L Chloride Level 112 mmol/L Carbon Dioxide Level 24 mmol/L Anion Gap 6.0 mmol/L Blood Urea Nitrogen 10 mg/dl Creatinine 0.28 mg/dl Est Creatinine Clear Calc Drug Dose 164.8 ml/min Estimated GFR () 145.5 Estimated GFR (Non- 125.5 BUN/Creatinine Ratio 34.6 Random Glucose 105 mg/dl Calcium Level 8.1 mg/dl Phosphorus Level 2.5 mg/dl Magnesium Level 2.0 mg/dl Impression Patient is a 61-year-old female with a history of intracranial hemorrhage status post aneurysm coiling on 02/04/2017 who presented with acute mental status change in the setting of recent diagnosis of Clostridium difficile colitis and E coli septicemia (now with neg cultures) with no ability for oral intake. Plan 1. Patient remains NPO. 2. PEG tube placement tomorrow at 9:45. Will need consent from patient's daughter who is the legal POA. 3. Continue medical management per primary team and ID. Thank you for allowing us to participate in the care of this patient. If you have any questions or concerns, please do not hesitate to contact us. Agree with SPIKE Pabon as above Abd: Soft, ND, +BS PEG tube in AM
--- NOTE | 2017-09-21 10:48 | Progress Note ---
Subjective Date of Service: September 21, 2017. Subjective pt resting comfortably, nonverbal. awake, no on RA, for PEG tube. tolerating abx. repeat cultures negative and final. receiving ppn. afebrile. unable to obtain ros. Problem List Medical Problems: (1) Change in mental status Status: Acute (2) Dehydration Status: Acute (3) Dehydration Status: Acute (4) Hypoxia Status: Acute (5) Pneumonia Status: Acute (6) Respiratory failure Status: Acute (7) Respiratory failure Status: Acute (8) Sepsis Status: Acute (9) Sepsis Status: Acute (10) Tachycardia Status: Acute (11) Urinary tract infection Status: Acute (12) UTI (urinary tract infection) Status: Acute Objective Vital Signs Date Time Temp Pulse Resp B/P (MAP) Pulse Ox O2 Delivery O2 Flow Rate FiO2 09/21/17 08:00 Room Air BiPAP 09/21/17 07:06 36.7 84 17 123/79 (94) 98 Room Air 09/21/17 04:00 Room Air 09/21/17 03:44 36.5 82 18 132/85 (101) 95 Room Air 09/21/17 00:00 Room Air 09/20/17 23:35 36.7 83 17 132/81 (98) 96 Room Air 09/20/17 20:00 97 Room Air 09/20/17 19:03 36.7 85 15 152/92 (112) 97 Room Air 09/20/17 16:00 99 Room Air 09/20/17 15:24 36.3 85 15 118/78 (91) 99 Room Air 09/20/17 12:00 Room Air BiPAP 09/20/17 11:54 36.3 80 18 124/64 (84) 98 Room Air Physical Exam General Appearance: WD/WN Eyes: normal inspection Neck: supple Respiratory/Chest: normal breath sounds Cardiovascular: regular rate, rhythm, no edema Abdomen: soft Extremities: non-tender, no pedal edema Neurologic/Psychiatric: alert, oriented x 3 Skin: normal color Laboratory Results Item Value Date Time Blood Culture - Final Complete 09/15/17 1402 Blood NO GROWTH Blood Culture - Final Complete 09/15/17 1400 Blood NO GROWTH Urine Culture - Final Complete 09/13/17 1744 Urine,Catheterized Escherichia Coli Esbl Blood Culture - Final Complete 09/13/17 1654 Blood Escherichia Coli Esbl Last 24 Hours Test 09/20/17 11:57 09/20/17 12:39 09/20/17 19:27 09/20/17 23:58 Bedside Glucose 115 mg/dl 95 mg/dl 104 mg/dl Phosphorus Level 2.9 mg/dl Magnesium Level 2.0 mg/dl Test 09/21/17 06:18 Sodium Level 142 mmol/L Potassium Level 3.5 mmol/L Chloride Level 112 mmol/L Carbon Dioxide Level 24 mmol/L Anion Gap 6.0 mmol/L Blood Urea Nitrogen 10 mg/dl Creatinine 0.28 mg/dl Est Creatinine Clear Calc Drug Dose 164.8 ml/min Estimated GFR () 145.5 Estimated GFR (Non- 125.5 BUN/Creatinine Ratio 34.6 Random Glucose 105 mg/dl Calcium Level 8.1 mg/dl Phosphorus Level 2.5 mg/dl Magnesium Level 2.0 mg/dl Assessment and Plan (1) E. coli septicemia Assessment & Plan: continue imipenem, follow repeat cultures. will need 14 days. (2) UTI (urinary tract infection) (3) C. difficile colitis Continued [facility] stay due to: multiple IV medications needed Discharge planning: longterm facility
[2017-09-21] MEDS ORDERED: CUSTOM PERIPHERAL PN 1 BAG IV SCH (16:00)
[2017-09-21] MEDS: ERTAPENEM IV 1 GM in SODIUM CHLOR 0.9% AD-VAN 50ML 50 ML IV SCH (18:06)
[2017-09-21] MEDS: ENOXAPARIN 40 MG/0.4 ML SYR SQ SCH (21:18)
--- NOTE | 2017-09-21 21:39 | Family Medicine Progress Note ---
Progress Note Date of Service September 21, 2017. Subjective Pt evaluation today including: conversation w/ patient, physical exam, chart review, lab review, review of studies Pain: No pain reported this morning Voiding: coffey catheter in place Patient assessed this morning and resting comfortably in bed. Discussed with patient upcoming PEG tube placement scheduled for tomorrow. Called about patient in the evening after patient was found to have pulse ox of 81% and ripping off NC. BiPAP was placed (patient wears qHS) and sats returned to 96%. Continuing to be NPO with PPN. All Other Systems: Reviewed and Negative Medications Current Inpatient Medications Medications (Trade) Dose Ordered Sig/Larry Route Start Time Stop Time Status Last Admin Dose Admin Al Hydrox/Mg Hydrox/Simethicone (Maalox Max Susp) 15 ml Q4H PRN PO 09/13/17 20:45 10/13/17 20:44 Magnesium Hydroxide (Milk Of Magnesia Susp) 30 ml Q12H PRN PO 09/13/17 20:45 10/13/17 20:44 Ondansetron HCl (Zofran Inj) 4 mg Q6H PRN IV 09/13/17 20:45 10/13/17 20:44 Morphine Sulfate (MoRPHine SULFATE INJ) 4 mg Q2H PRN IV 09/13/17 20:45 09/27/17 20:44 09/17/17 11:45 4 MG Enoxaparin Sodium (Lovenox Inj) 40 mg Q24H SQ 09/13/17 21:30 10/13/17 21:29 09/21/17 21:18 40 MG Miscellaneous Information (Pharmacy Tpn/ Ppn Consult Active) 1 ea UD PRN N/A 09/15/17 12:03 10/15/17 12:02 Future hold Metronidazole 500 mg/Prmx 100 ml @ 100 mls/hr Q8H IV 09/15/17 20:00 09/25/17 18:59 09/21/17 21:17 100 MLS/HR Ertapenem 1 gm/ Sodium Chloride 50 ml @ 120 mls/hr Q24H IV 09/16/17 18:00 09/26/17 17:59 09/21/17 18:06 120 MLS/HR Levetiracetam 500 mg/Dextrose 105 ml @ 440 mls/hr BID IV 09/17/17 21:00 10/14/17 20:59 09/21/17 21:17 440 MLS/HR Dextrose 1,000 ml @ 0 mls/hr Q0M PRN IV 09/19/17 16:00 10/19/17 15:59 Nutrition (Parenteral) 0 ml @ 0 mls/hr TODAY@1600 IV 09/21/17 16:00 09/22/17 15:59 09/21/17 16:13 0 MLS/HR Objective Vital Signs Date Time Temp Pulse Resp B/P (MAP) Pulse Ox O2 Delivery O2 Flow Rate FiO2 09/21/17 20:04 36.5 90 20 119/82 (94) 98 BiPAP 09/21/17 18:59 86 98 40 09/21/17 16:03 92 BiPAP 09/21/17 15:27 92 40 09/21/17 15:12 36.4 92 18 121/77 (92) 09/21/17 12:00 Room Air BiPAP 09/21/17 11:51 36.7 83 16 133/77 (95) 94 Room Air 09/21/17 08:00 Room Air BiPAP 09/21/17 07:06 36.7 84 17 123/79 (94) 98 Room Air 09/21/17 04:00 Room Air 09/21/17 03:44 36.5 82 18 132/85 (101) 95 Room Air 09/21/17 00:00 Room Air 09/20/17 23:35 36.7 83 17 132/81 (98) 96 Room Air Physical Exam General Appearance: no apparent distress, + cachetic Eyes: normal inspection, sclerae normal Neck: supple, no carotid bruits Respiratory/Chest: chest non-tender, no respiratory distress, no accessory muscle use, + decreased breath sounds Cardiovascular: regular rate, rhythm, no edema, no gallop Abdomen: normal bowel sounds, non tender, soft Extremities: no pedal edema, no calf tenderness Neurologic/Psychiatric: alert, normal mood/affect Laboratory Results Results Past 24 Hours Test 09/20/17 23:58 09/21/17 06:18 09/21/17 11:25 09/21/17 18:45 Range/Units Bedside Glucose 104 105 100 70-90 mg/dl Sodium Level 142 136-145 mmol/L Potassium Level 3.5 3.5-5.1 mmol/L Chloride Level 112 98-107 mmol/L Carbon Dioxide Level 24 21-32 mmol/L Anion Gap 6.0 3-11 mmol/L Blood Urea Nitrogen 10 7-18 mg/dl Creatinine 0.28 0.60-1.20 mg/dl Est Creatinine Clear Calc Drug Dose 164.8 ml/min Estimated GFR () 145.5 Estimated GFR (Non- 125.5 BUN/Creatinine Ratio 34.6 10-20 Random Glucose 105 70-99 mg/dl Calcium Level 8.1 8.5-10.1 mg/dl Phosphorus Level 2.5 2.5-4.9 mg/dl Magnesium Level 2.0 1.8-2.4 mg/dl Assessment and Plan Patient is a 62 year old female with a pmh of SAH and recurrent aspiration that presented with acute respiratory failure requiring intubation and E Coli septicemia / UTI Acute hypoxic resp failure secondary to aspiration pneumonia - resolved - Intubated (09/13), Extubated (09/14) - Weaned to room air on 09/20 - Currently on BiPAP due to noncompliance with NC Sepsis from ESBL UTI - Ertapenem IV day 01/29 Dysphagia, Malnutrition - Plan for PEG tube placement tomorrow - Currently nourishing with PPN in meantime Hx of C Diff (recent) - Prophylactic Flagyl IV until can go to PO Vanco Hx of Epilepsy - Keppra DVT - Lovenox Code Status - POLST form filed out --> Intubation for reversible causes, DNR Resident Tracking Resident Involvement: Resident Care Provided Care Provided: Adult Hospital Medicine Reviewed: Pt Seen/Exam by Me History responsive - answers by nodding head. denied any complains Constitutional: denies: fever Respiratory: negative: short of breath Cardiovascular: denies chest pain General Appearance: no apparent distress Respiratory: lungs clear, no respiratory distress Cardiovascular: regular rate, rhythm Gastrointestinal: soft Neurologic/Psychiatric: alert Skin Characteristics: warm/dry Assessment/Plan Resident Physician Supervision Note: I independently interviewed and examined the patient and verified the bergeron history and physical, reviewed labs and image studies, discussed the case with the resident Dr. Wilson and agree with the findings and care plan.
[2017-09-22] VITALS (15 sets, daily range): BP systolic 110–146; BP diastolic 76–94; PULSE 89–104; TEMP 36.2–37.2; O2SAT 92–97
[2017-09-22] MEDS: METRONIDAZOLE / NSS 500 MG in PREMIXED NSS 100 ML IV SCH ×3 (05:05→21:43)
[2017-09-22 06:34] LABS: CREATININE 0.27 mg/dl (0.60-1.20); PHOSPHORUS 2.7 mg/dl (2.5-4.9); POTASSIUM 4.1 mmol/L (3.5-5.1)
[2017-09-22] MEDS: LEVETIRACETAM IV 500 MG in DEXTROSE 5% 100ML 100 ML IV SCH ×2 (08:22→21:44)
--- NOTE | 2017-09-22 09:55 | Gastroenterology Progress Note ---
Progress Note Date of Service: September 22, 2017 Subjective Pt evaluation today including: conversation w/ patient, physical exam, chart review, lab review, review of inpatient medication list Patient with oxygen desaturation last evening which required her to be placed on BIPAP. Anesthesia has evaluated the patient and has deemed her too high risk for any anesthesia at this time. Review of Systems unable to obtain Medications Current Inpatient Medications Medications (Trade) Dose Ordered Sig/Larry Route Start Time Stop Time Status Last Admin Dose Admin Al Hydrox/Mg Hydrox/Simethicone (Maalox Max Susp) 15 ml Q4H PRN PO 09/13/17 20:45 10/13/17 20:44 Magnesium Hydroxide (Milk Of Magnesia Susp) 30 ml Q12H PRN PO 09/13/17 20:45 10/13/17 20:44 Ondansetron HCl (Zofran Inj) 4 mg Q6H PRN IV 09/13/17 20:45 10/13/17 20:44 Morphine Sulfate (MoRPHine SULFATE INJ) 4 mg Q2H PRN IV 09/13/17 20:45 09/27/17 20:44 09/17/17 11:45 4 MG Enoxaparin Sodium (Lovenox Inj) 40 mg Q24H SQ 09/13/17 21:30 10/13/17 21:29 09/21/17 21:18 40 MG Miscellaneous Information (Pharmacy Tpn/ Ppn Consult Active) 1 ea UD PRN N/A 09/15/17 12:03 10/15/17 12:02 Future hold Metronidazole 500 mg/Prmx 100 ml @ 100 mls/hr Q8H IV 09/15/17 20:00 09/25/17 18:59 09/22/17 05:05 100 MLS/HR Ertapenem 1 gm/ Sodium Chloride 50 ml @ 120 mls/hr Q24H IV 09/16/17 18:00 09/26/17 17:59 09/21/17 18:06 120 MLS/HR Levetiracetam 500 mg/Dextrose 105 ml @ 440 mls/hr BID IV 09/17/17 21:00 10/14/17 20:59 09/22/17 08:22 440 MLS/HR Dextrose 1,000 ml @ 0 mls/hr Q0M PRN IV 09/19/17 16:00 10/19/17 15:59 Nutrition (Parenteral) 0 ml @ 0 mls/hr TODAY@1600 IV 09/21/17 16:00 09/22/17 15:59 09/21/17 16:13 0 MLS/HR Objective Vital Signs Date Time Temp Pulse Resp B/P (MAP) Pulse Ox O2 Delivery O2 Flow Rate FiO2 09/22/17 07:46 36.2 89 18 117/82 (94) 97 Room Air 09/22/17 05:15 102 95 30 09/22/17 05:04 37.1 93 128/89 (102) 96 BiPAP 09/22/17 04:00 BiPAP 09/22/17 03:16 94 97 30 09/22/17 00:00 37.2 93 16 110/76 (87) 94 BiPAP 09/22/17 00:00 Room Air 09/21/17 22:01 84 98 30 09/21/17 20:09 98 BiPAP 09/21/17 20:04 36.5 90 20 119/82 (94) 98 BiPAP 09/21/17 18:59 86 98 40 09/21/17 16:03 92 BiPAP 09/21/17 15:27 92 40 09/21/17 15:12 36.4 92 18 121/77 (92) 09/21/17 12:00 Room Air BiPAP 09/21/17 11:51 36.7 83 16 133/77 (95) 94 Room Air Physical Exam General Appearance: no apparent distress Respiratory/Chest: + decreased breath sounds (bases), + pertinent finding ( BIPAP) Cardiovascular: regular rate, rhythm Abdomen: normal bowel sounds, soft Neurologic/Psych: alert Skin: warm/dry Laboratory Results Last 24 Hours Test 09/21/17 11:25 09/21/17 18:45 09/21/17 23:59 09/22/17 05:10 Bedside Glucose 105 mg/dl 100 mg/dl 112 mg/dl 110 mg/dl Test 09/22/17 05:38 Prothrombin Time 10.9 SECONDS Prothromb Time International Ratio 1.0 Sodium Level 141 mmol/L Potassium Level 4.1 mmol/L Chloride Level 110 mmol/L Carbon Dioxide Level 24 mmol/L Anion Gap 7.0 mmol/L Blood Urea Nitrogen 10 mg/dl Creatinine 0.27 mg/dl Est Creatinine Clear Calc Drug Dose 170.9 ml/min Estimated GFR () 147.2 Estimated GFR (Non- 127.0 BUN/Creatinine Ratio 37.3 Random Glucose 114 mg/dl Calcium Level 8.0 mg/dl Phosphorus Level 2.7 mg/dl Magnesium Level 1.8 mg/dl Assessment and Plan Patient is a 61-year-old female with a history of intracranial hemorrhage status post aneurysm coiling on 02/04/2017 who presented with acute mental status change in the setting of recent diagnosis of Clostridium difficile colitis and E coli septicemia (now with neg cultures) with no ability for oral intake. 1. Patient on BIPAP and is not currently a candidate for anesthesia. 2. PEG placement has been cancelled for today. 3. Reconsideration of PEG once acute medical issues have improved.
--- NOTE | 2017-09-22 12:15 | Family Medicine Progress Note ---
Progress Note Date of Service September 22, 2017. Subjective Pt evaluation today including: conversation w/ patient, physical exam, chart review, lab review, review of studies Pain: Patient lethargic this morning an non verbal Voiding: coffey catheter in place Patient has continued to require BiPAP overnight and remains lethargic this morning. Discussed case with anesthesiology as patient was scheduled for PEG tube placement in the surgical center although at this time was deemed too high risk for surgery. Additional Comments: Unable to obtain complete review of systems at this time due to the lethargy of the patient Medications Current Inpatient Medications Medications (Trade) Dose Ordered Sig/Larry Route Start Time Stop Time Status Last Admin Dose Admin Al Hydrox/Mg Hydrox/Simethicone (Maalox Max Susp) 15 ml Q4H PRN PO 09/13/17 20:45 10/13/17 20:44 Magnesium Hydroxide (Milk Of Magnesia Susp) 30 ml Q12H PRN PO 09/13/17 20:45 10/13/17 20:44 Ondansetron HCl (Zofran Inj) 4 mg Q6H PRN IV 09/13/17 20:45 10/13/17 20:44 Morphine Sulfate (MoRPHine SULFATE INJ) 4 mg Q2H PRN IV 09/13/17 20:45 09/27/17 20:44 09/17/17 11:45 4 MG Enoxaparin Sodium (Lovenox Inj) 40 mg Q24H SQ 09/13/17 21:30 10/13/17 21:29 09/21/17 21:18 40 MG Miscellaneous Information (Pharmacy Tpn/ Ppn Consult Active) 1 ea UD PRN N/A 09/15/17 12:03 10/15/17 12:02 Future hold Metronidazole 500 mg/Prmx 100 ml @ 100 mls/hr Q8H IV 09/15/17 20:00 09/25/17 18:59 09/22/17 05:05 100 MLS/HR Ertapenem 1 gm/ Sodium Chloride 50 ml @ 120 mls/hr Q24H IV 09/16/17 18:00 09/26/17 17:59 09/21/17 18:06 120 MLS/HR Levetiracetam 500 mg/Dextrose 105 ml @ 440 mls/hr BID IV 09/17/17 21:00 10/14/17 20:59 09/22/17 08:22 440 MLS/HR Dextrose 1,000 ml @ 0 mls/hr Q0M PRN IV 09/19/17 16:00 10/19/17 15:59 Nutrition (Parenteral) 0 ml @ 0 mls/hr TODAY@1600 IV 09/21/17 16:00 09/22/17 15:59 09/21/17 16:13 0 MLS/HR Nutrition (Parenteral) 0 ml @ 0 mls/hr TODAY@1600 IV 09/22/17 16:00 09/23/17 15:59 Objective Vital Signs Date Time Temp Pulse Resp B/P (MAP) Pulse Ox O2 Delivery O2 Flow Rate FiO2 09/22/17 10:35 97 BiPAP 15.0 30 09/22/17 07:46 36.2 89 18 117/82 (94) 97 Room Air 09/22/17 05:15 102 95 30 09/22/17 05:04 37.1 93 128/89 (102) 96 BiPAP 09/22/17 04:00 BiPAP 09/22/17 03:16 94 97 30 09/22/17 00:00 37.2 93 16 110/76 (87) 94 BiPAP 09/22/17 00:00 Room Air 09/21/17 22:01 84 98 30 09/21/17 20:09 98 BiPAP 09/21/17 20:04 36.5 90 20 119/82 (94) 98 BiPAP 09/21/17 18:59 86 98 40 09/21/17 16:03 92 BiPAP 09/21/17 15:27 92 40 09/21/17 15:12 36.4 92 18 121/77 (92) 09/21/17 12:00 Room Air BiPAP Physical Exam General Appearance: + cachetic, + pertinent finding Respiratory/Chest: chest non-tender, no respiratory distress, no accessory muscle use, + decreased breath sounds Cardiovascular: regular rate, rhythm, no edema, no gallop Abdomen: normal bowel sounds, non tender, soft Neurologic/Psychiatric: + pertinent finding (lethargic) Laboratory Results Results Past 24 Hours Test 09/21/17 18:45 09/21/17 23:59 09/22/17 05:10 09/22/17 05:38 Range/Units Bedside Glucose 100 112 110 70-90 mg/dl Prothrombin Time 10.9 9.0-12.0 SECONDS Prothromb Time International Ratio 1.0 0.9-1.1 Sodium Level 141 136-145 mmol/L Potassium Level 4.1 3.5-5.1 mmol/L Chloride Level 110 98-107 mmol/L Carbon Dioxide Level 24 21-32 mmol/L Anion Gap 7.0 3-11 mmol/L Blood Urea Nitrogen 10 7-18 mg/dl Creatinine 0.27 0.60-1.20 mg/dl Est Creatinine Clear Calc Drug Dose 170.9 ml/min Estimated GFR () 147.2 Estimated GFR (Non- 127.0 BUN/Creatinine Ratio 37.3 10-20 Random Glucose 114 70-99 mg/dl Calcium Level 8.0 8.5-10.1 mg/dl Phosphorus Level 2.7 2.5-4.9 mg/dl Magnesium Level 1.8 1.8-2.4 mg/dl Test 09/22/17 11:35 Range/Units Bedside Glucose 117 70-90 mg/dl Assessment and Plan Patient is a 62 year old female with a pmh of SAH and recurrent aspiration that presented with acute respiratory failure requiring intubation and E Coli septicemia 2/2 UTI Acute hypoxic resp failure secondary to aspiration pneumonia - Intubated (09/13), Extubated (09/14) - Weaned to room air on 09/20 - Currently on BiPAP due to noncompliance with NC - Repeat Chest X-Ray this morning - Due to continued use of BiPAP, cancelled PEG tube placement at this time - If continuing to aspirate while NPO, may need to consider palliative care consult. Will discuss with daughter Sepsis from ESBL UTI - Ertapenem IV day 02/28 Dysphagia, Malnutrition - PEG tube placement cancelled due to worsening respiratory status - Currently nourishing with PPN in meantime Hx of C Diff (recent) - Prophylactic Flagyl IV until can go to PO Vanco Hx of Epilepsy - Keppra DVT - Lovenox Code Status - POLST form filed out this admission --> Intubation for reversible causes, DNR Resident Tracking Resident Involvement: Resident Care Provided Care Provided: Adult [facility] Medicine Reviewed: Pt Seen/Exam by Me History has been on bipap now. couldn't get PEG tube placed this morning due to being on bipap. unable to get much history from her. Constitutional: denies: fever General Appearance: other (comfortable on bipap) Respiratory: decreased breath sounds (base), other (on bipap) Cardiovascular: regular rate, rhythm Neurologic/Psychiatric: other (arousable) Skin Characteristics: warm/dry Assessment/Plan Resident Physician Supervision Note: I independently interviewed and examined the patient and verified the bergeron history and physical, reviewed labs and image studies, discussed the case with the resident Dr. Wilson and agree with the findings and care plan.
--- NOTE | 2017-09-22 13:22 | DIAGNOSTIC IMAGING REPORT ---
CHEST ONE VIEW PORTABLE CLINICAL HISTORY: 62 years-old Female presenting with Hypoxia. TECHNIQUE: AP view of the chest was obtained. COMPARISON: 09/17/2017. FINDINGS: Atherosclerosis of the aortic arch. Cardiac silhouette normal in size. Significantly diminished opacity at the left base. No new focal opacity. No large effusion or pneumothorax. Osteopenia suspected. Upper abdomen normal. IMPRESSION: 1. Significantly diminished left basilar infiltrate compatible with resolving pneumonia. Electronically signed by: Juliano Piedra M.D. 09/22/2017 1:21 PM Dictated Date/Time: 09/22/2017 1:16 PM
[2017-09-22] MEDS ORDERED: CUSTOM PERIPHERAL PN 1 BAG IV SCH (16:00)
[2017-09-22] MEDS: ERTAPENEM IV 1 GM in SODIUM CHLOR 0.9% AD-VAN 50ML 50 ML IV SCH (16:39)
[2017-09-22] MEDS: ENOXAPARIN 40 MG/0.4 ML SYR SQ SCH (21:43)
[2017-09-23] VITALS (11 sets, daily range): BP systolic 126–154; BP diastolic 85–99; PULSE 91–122; TEMP 36.4–37; O2SAT 92–100
[2017-09-23] MEDS: METRONIDAZOLE / NSS 500 MG in PREMIXED NSS 100 ML IV SCH ×3 (04:40→20:14)
[2017-09-23 06:19] LABS: BLOOD UREA NITROGEN 8 mg/dl (7-18); CARBON DIOXIDE 25 mmol/L (21-32); CREATININE 0.22 mg/dl (0.60-1.20); GLUCOSE 111 mg/dl (70-99); PHOSPHORUS 2.8 mg/dl (2.5-4.9); POTASSIUM 4.2 mmol/L (3.5-5.1); SODIUM 140 mmol/L (136-145)
[2017-09-23] MEDS: LEVETIRACETAM IV 500 MG in DEXTROSE 5% 100ML 100 ML IV SCH ×2 (10:04→21:14)
--- NOTE | 2017-09-23 11:20 | Progress Note ---
Subjective Date of Service: September 23, 2017. Subjective peg placement held yesterday due to resp distress and need for bipap, today pt with mask. awake, nonverbal, uto ros. repeat cultures negative and final. on talavera for c diff pending peg. afebrile. Problem List Medical Problems: (1) Change in mental status Status: Acute (2) Dehydration Status: Acute (3) Dehydration Status: Acute (4) Hypoxia Status: Acute (5) Pneumonia Status: Acute (6) Respiratory failure Status: Acute (7) Respiratory failure Status: Acute (8) Sepsis Status: Acute (9) Sepsis Status: Acute (10) Tachycardia Status: Acute (11) Urinary tract infection Status: Acute (12) UTI (urinary tract infection) Status: Acute Objective Vital Signs Date Time Temp Pulse Resp B/P (MAP) Pulse Ox O2 Delivery O2 Flow Rate FiO2 09/23/17 08:02 36.5 102 16 132/87 (102) 92 Nasal Cannula 4.0 BiPAP 09/23/17 08:00 96 BiPAP 4.0 09/23/17 07:20 96 09/23/17 04:30 BiPAP 09/23/17 04:00 36.6 95 16 127/85 (99) 96 BiPAP 09/23/17 00:45 BiPAP 09/22/17 23:47 36.6 92 18 125/87 (100) 95 BiPAP 09/22/17 22:12 95 96 29.0 30 09/22/17 20:09 92 Oxymask 4.0 09/22/17 18:58 36.7 99 20 146/94 (111) 92 09/22/17 16:03 92 Oxymask 4.0 09/22/17 15:10 36.7 97 20 137/86 (103) 95 5.0 09/22/17 14:38 104 93 30 09/22/17 12:00 96 BiPAP 15.0 30 09/22/17 11:51 36.4 94 20 112/79 (90) 96 BiPAP Physical Exam General Appearance: WD/WN Neck: supple Respiratory/Chest: normal breath sounds, no respiratory distress, + decreased breath sounds Cardiovascular: regular rate, rhythm, no edema Abdomen: soft Extremities: non-tender, no pedal edema Skin: normal color Laboratory Results Item Value Date Time Blood Culture - Final Complete 09/15/17 1402 Blood NO GROWTH Blood Culture - Final Complete 09/15/17 1400 Blood NO GROWTH Urine Culture - Final Complete 09/13/17 1744 Urine,Catheterized Escherichia Coli Esbl Blood Culture - Final Complete 09/13/17 1654 Blood Escherichia Coli Esbl Last 24 Hours Test 09/22/17 11:35 09/23/17 05:32 Bedside Glucose 117 mg/dl Sodium Level 140 mmol/L Potassium Level 4.2 mmol/L Chloride Level 109 mmol/L Carbon Dioxide Level 25 mmol/L Anion Gap 6.0 mmol/L Blood Urea Nitrogen 8 mg/dl Creatinine 0.22 mg/dl Est Creatinine Clear Calc Drug Dose 209.7 ml/min Estimated GFR () > 150.0 Estimated GFR (Non- 135.9 BUN/Creatinine Ratio 37.3 Random Glucose 111 mg/dl Calcium Level 8.0 mg/dl Phosphorus Level 2.8 mg/dl Magnesium Level 1.8 mg/dl Triglycerides Level 131 mg/dl Assessment and Plan (1) E. coli septicemia Assessment & Plan: continue imipenem, follow repeat cultures. will need 14 days. (2) UTI (urinary tract infection) (3) C. difficile colitis Continued [facility] stay due to: multiple IV medications needed Discharge planning: [facility]
--- NOTE | 2017-09-23 12:25 | Pharmacy Progress Note ---
Parenteral Nutrition Consult Date of Service September 23, 2017. [facility] was consulted on 09/19/17 to manage parenteral nutrition orders for this patient. Subjective The patient is currently on day5 of peripheral parenteral nutrition for prolonged NPO status. Objective Height (Feet): 5 Height (Inches): 2.00 Weight (Kilograms): 52.700 Diet: NPO Intake & Output (Last 72 Hr): 09/22/17 09/23/17 09/24/17 08:00 08:00 08:00 Intake Total 2808 ml 1631 ml Output Total 1350 ml 2275 ml Balance 1458 ml -644 ml Laboratory Data (Last 24 Hr): Test 09/23/17 05:32 Blood Urea Nitrogen 8 mg/dl (7-18) Calcium Level 8.0 mg/dl (8.5-10.1) Carbon Dioxide Level 25 mmol/L (21-32) Chloride Level 109 mmol/L (98-107) Creatinine 0.22 mg/dl (0.60-1.20) Magnesium Level 1.8 mg/dl (1.8-2.4) Phosphorus Level 2.8 mg/dl (2.5-4.9) Potassium Level 4.2 mmol/L (3.5-5.1) Random Glucose 111 mg/dl (70-99) Sodium Level 140 mmol/L (136-145) Triglycerides Level 131 mg/dl (0-150) Nutrition Assessment Please refer to the Notes section of the EMR for the most recent nurse quality note. Plan For day #5 of PN administration, the following will be ordered: Macronutrients Amino acids 60 grams/day Dextrose 85 grams/day Lipids 30 grams/day Micronutrients Potassium phosphate 33 mMol Potassium acetate 20 mEq Magnesium sulfate 10.15 mEq Multivitamins 10 mL Trace Elements 1 mL if additional electrolyte replacement is needed, this will need to be ordered separate from the PPN. Unable to increase electrolytes in the PPN due to max osmolarity reached . Total volume 2000 mL to be infused over 24 hrs will provide 829 kcal/day Final osmolarity 600.32 mOsm/L (maximum for PPN is 600 mOsm/L) PPN is recommended for short term use (< 5 days) due to inability to provide full caloric needs without significantly increasing the volume. There is increased risk of thrombophlebitis with PPN, especially with osmolarity exceeding 600. Placement of a PICC line was previously attempted but unsuccessful. PEG tube placement was planned for 09/22 but was held due to respiratory issues. I have notified Dr. Wilson that today is day #5 of PPN. He plans to discuss re- evaluation of PEG tube placement with GI today. Labs, as indicated, will be ordered per protocol Thank you for allowing us to participate in the care of this patient.
[2017-09-23] MEDS ORDERED: CUSTOM PERIPHERAL PN 1 BAG IV SCH (16:00)
[2017-09-23] MEDS: ERTAPENEM IV 1 GM in SODIUM CHLOR 0.9% AD-VAN 50ML 50 ML IV SCH (17:48)
--- NOTE | 2017-09-23 20:27 | Family Medicine Progress Note ---
Progress Note Date of Service September 23, 2017. Subjective Pt evaluation today including: conversation w/ patient, physical exam, chart review, lab review, review of studies Pain: Denies any pain Voiding: no voiding problems, no incontinence Patient resting comfortably in bed this morning and appears to be in no acute distress. The patient continues to pull off her oxygen mask. We will need to continue the use of PPN at this time as the PEG tube was not placed yesterday. Constitutional: No fever, No sweats Cardiovascular: No chest pain, No palpitations Abdomen: No pain, No nausea, No vomiting, No diarrhea, No constipation Medications Current Inpatient Medications Medications (Trade) Dose Ordered Sig/Larry Route Start Time Stop Time Status Last Admin Dose Admin Al Hydrox/Mg Hydrox/Simethicone (Maalox Max Susp) 15 ml Q4H PRN PO 09/13/17 20:45 10/13/17 20:44 Magnesium Hydroxide (Milk Of Magnesia Susp) 30 ml Q12H PRN PO 09/13/17 20:45 10/13/17 20:44 Ondansetron HCl (Zofran Inj) 4 mg Q6H PRN IV 09/13/17 20:45 10/13/17 20:44 Morphine Sulfate (MoRPHine SULFATE INJ) 4 mg Q2H PRN IV 09/13/17 20:45 09/27/17 20:44 09/17/17 11:45 4 MG Enoxaparin Sodium (Lovenox Inj) 40 mg Q24H SQ 09/13/17 21:30 10/13/17 21:29 09/22/17 21:43 40 MG Miscellaneous Information (Pharmacy Tpn/ Ppn Consult Active) 1 ea UD PRN N/A 09/15/17 12:03 10/15/17 12:02 Future hold Metronidazole 500 mg/Prmx 100 ml @ 100 mls/hr Q8H IV 09/15/17 20:00 09/25/17 18:59 09/23/17 13:42 100 MLS/HR Ertapenem 1 gm/ Sodium Chloride 50 ml @ 120 mls/hr Q24H IV 09/16/17 18:00 09/26/17 17:59 09/23/17 17:48 120 MLS/HR Levetiracetam 500 mg/Dextrose 105 ml @ 440 mls/hr BID IV 09/17/17 21:00 10/14/17 20:59 09/23/17 10:04 440 MLS/HR Dextrose 1,000 ml @ 0 mls/hr Q0M PRN IV 09/19/17 16:00 10/19/17 15:59 Nutrition (Parenteral) 0 ml @ 0 mls/hr TODAY@1600 IV 09/23/17 16:00 09/24/17 15:59 09/23/17 16:22 83.3 MLS/HR Objective Vital Signs Date Time Temp Pulse Resp B/P (MAP) Pulse Ox O2 Delivery O2 Flow Rate FiO2 09/23/17 19:53 36.4 122 18 145/99 (114) 93 Room Air 09/23/17 19:08 36.9 119 16 154/96 (115) 99 3.0 09/23/17 16:00 Oxymask 4.0 09/23/17 15:39 37.0 104 16 126/89 (101) 100 4.0 09/23/17 12:00 92 Oxymask 4.0 09/23/17 11:27 37.0 91 16 143/92 (109) 92 Oxymask 4.0 09/23/17 08:02 36.5 102 16 132/87 (102) 92 Nasal Cannula 4.0 BiPAP 09/23/17 08:00 96 Oxymask 4.0 09/23/17 07:20 96 09/23/17 04:30 BiPAP 09/23/17 04:00 36.6 95 16 127/85 (99) 96 BiPAP 09/23/17 00:45 BiPAP 09/22/17 23:47 36.6 92 18 125/87 (100) 95 BiPAP 09/22/17 22:12 95 96 29.0 30 Physical Exam General Appearance: WD/WN, no apparent distress Eyes: normal inspection, sclerae normal Neck: supple, trachea midline Respiratory/Chest: chest non-tender, no respiratory distress, no accessory muscle use, + decreased breath sounds Cardiovascular: regular rate, rhythm, no JVD, no murmur Abdomen: non tender, soft Extremities: normal range of motion, non-tender, no calf tenderness Neurologic/Psychiatric: alert Laboratory Results Results Past 24 Hours Test 09/23/17 05:32 09/23/17 11:46 Range/Units Sodium Level 140 136-145 mmol/L Potassium Level 4.2 3.5-5.1 mmol/L Chloride Level 109 98-107 mmol/L Carbon Dioxide Level 25 21-32 mmol/L Anion Gap 6.0 3-11 mmol/L Blood Urea Nitrogen 8 7-18 mg/dl Creatinine 0.22 0.60-1.20 mg/dl Est Creatinine Clear Calc Drug Dose 209.7 ml/min Estimated GFR () > 150.0 Estimated GFR (Non- 135.9 BUN/Creatinine Ratio 37.3 10-20 Random Glucose 111 70-99 mg/dl Calcium Level 8.0 8.5-10.1 mg/dl Phosphorus Level 2.8 2.5-4.9 mg/dl Magnesium Level 1.8 1.8-2.4 mg/dl Triglycerides Level 131 0-150 mg/dl Bedside Glucose 106 70-90 mg/dl Assessment and Plan Patient is a 62 year old female with a pmh of SAH and recurrent aspiration that presented with acute respiratory failure requiring intubation and E Coli septicemia 2/2 UTI Acute hypoxic resp failure secondary to aspiration pneumonia - Intubated (09/13), Extubated (09/14) - Weaned to room air on 09/20 - Currently on BiPAP due to noncompliance with NC - Repeat CXR 09/22: Slightly diminished L basilar infiltrate compatible with resolving pneumonia - Due to continued use of BiPAP yesterday, cancelled PEG tube placement at that time - Will re-evaluate with GI if candidate for surgery - If continuing to aspirate while NPO, may need to consider palliative care consult. Will discuss with daughter Sepsis from ESBL UTI - Ertapenem IV day 03/31 Dysphagia, Malnutrition - PEG tube placement cancelled due to worsening respiratory status - Currently nourishing with PPN in meantime Hx of C Diff (recent) - Prophylactic Flagyl IV until can go to PO Vanco Hx of Epilepsy - Keppra DVT - Lovenox Code Status - POLST form filed out this admission --> Intubation for reversible causes, DNR Resident Tracking Resident Involvement: Resident Care Provided Care Provided: Adult Hospital Medicine Reviewed: Pt Seen/Exam by Me History has been off of bipap and oxygenating well on ventimask. somnolent - unable to arouse Constitutional: denies: fever General Appearance: no apparent distress Respiratory: no respiratory distress, decreased breath sounds Cardiovascular: regular rate, rhythm Neurologic/Psychiatric: other (somnolent) Skin Characteristics: warm/dry Assessment/Plan Resident Physician Supervision Note: I independently interviewed and examined the patient and verified the bergeron history and physical, reviewed labs and image studies, discussed the case with the resident Dr. Wilson and agree with the findings and care plan.
[2017-09-23] MEDS: ENOXAPARIN 40 MG/0.4 ML SYR SQ SCH (21:15)
[2017-09-24] VITALS (13 sets, daily range): BP systolic 107–122; BP diastolic 72–84; PULSE 93–122; TEMP 36.3–36.6; O2SAT 95–99
[2017-09-24] MEDS: METRONIDAZOLE / NSS 500 MG in PREMIXED NSS 100 ML IV SCH ×3 (04:00→20:10)
--- NOTE | 2017-09-24 10:50 | Progress Note ---
Subjective Date of Service: September 24, 2017. Subjective Peg placement remains on hold secondary to continued respiratory distress and likely aspiration. The patient remains NPO. She is tolerating antibiotics well. She continues on ertapenem for E coli septicemia her repeat blood cultures are negative and final. She is currently on IV Flagyl she is unable take oral vancomycin for previously diagnosed C diff. She has been afebrile overnight. Problem List Medical Problems: (1) Change in mental status Status: Acute (2) Dehydration Status: Acute (3) Dehydration Status: Acute (4) Hypoxia Status: Acute (5) Pneumonia Status: Acute (6) Respiratory failure Status: Acute (7) Respiratory failure Status: Acute (8) Sepsis Status: Acute (9) Sepsis Status: Acute (10) Tachycardia Status: Acute (11) Urinary tract infection Status: Acute (12) UTI (urinary tract infection) Status: Acute Objective Vital Signs Date Time Temp Pulse Resp B/P (MAP) Pulse Ox O2 Delivery O2 Flow Rate FiO2 09/24/17 08:04 36.3 102 18 116/84 (95) 98 BiPAP 3.0 09/24/17 08:00 96 BiPAP 4.0 25 09/24/17 07:22 101 96 25 09/24/17 05:15 113 96 25 09/24/17 04:00 36.4 116 16 107/72 (84) 99 BiPAP 09/24/17 04:00 BiPAP 30 09/24/17 02:37 122 97 25 09/24/17 00:00 BiPAP 30 09/23/17 23:01 120 16 127/86 (100) 98 BiPAP 09/23/17 22:26 98 95 30 09/23/17 20:00 Oxymask 4.0 09/23/17 19:53 36.4 122 18 145/99 (114) 93 Room Air 09/23/17 19:08 36.9 119 16 154/96 (115) 99 3.0 09/23/17 16:00 Oxymask 4.0 09/23/17 15:39 37.0 104 16 126/89 (101) 100 4.0 09/23/17 12:00 92 Oxymask 4.0 09/23/17 11:27 37.0 91 16 143/92 (109) 92 Oxymask 4.0 Laboratory Results Item Value Date Time Blood Culture - Final Complete 09/15/17 1402 Blood NO GROWTH Blood Culture - Final Complete 09/15/17 1400 Blood NO GROWTH Blood Culture - Final Complete 09/13/17 1654 Blood Escherichia Coli Esbl Last 24 Hours Test 09/23/17 11:46 09/23/17 23:57 09/24/17 00:52 Bedside Glucose 106 mg/dl 122 mg/dl Arterial Blood pH 7.45 Arterial Blood Partial Pressure CO2 34 mmHg Arterial Blood Partial Pressure O2 125 mm/Hg Arterial Blood HCO3 23 mmol/L Arterial Blood Oxygen Saturation 98.7 % Arterial Blood Base Excess -0.6 mEq/L Arterial Blood Gas Delivery 30% BiPAP Darian Test POS Assessment and Plan (1) E. coli septicemia Assessment & Plan: continue imipenem, follow repeat cultures. will need 14 days. (2) UTI (urinary tract infection) (3) C. difficile colitis Continued [facility] stay due to: multiple IV medications needed [facility]charge planning: [facility] facility
[2017-09-24] MEDS: LEVETIRACETAM IV 500 MG in DEXTROSE 5% 100ML 100 ML IV SCH ×2 (12:25→21:28)
[2017-09-24 12:45] LABS: CALCIUM 8.5 mg/dl (8.5-10.1); CREATININE 0.32 mg/dl (0.60-1.20); PHOSPHORUS 3.2 mg/dl (2.5-4.9); POTASSIUM 4.6 mmol/L (3.5-5.1)
[2017-09-24] MEDS ORDERED: CUSTOM PERIPHERAL PN 1 BAG IV SCH (16:00)
--- NOTE | 2017-09-24 17:30 | Family Medicine Progress Note ---
Progress Note Date of Service September 24, 2017. Subjective Pt evaluation today including: conversation w/ patient, physical exam, chart review, lab review, review of studies Pain: No pain reported this morning Voiding: no voiding problems, no incontinence Patient in bed this morning and appears more alert than yesterday. Discussed the patients current status with the Daughter who would like to meet with palliative at this time to discuss options going forward as the PEG tube at this time is most likely not an option. The patient denies any pain when asked and denies any other issues. Constitutional: No fever, No chills, No sweats, No fatigue Respiratory: No cough, No sputum, No wheezing, No shortness of breath Abdomen: No pain, No nausea, No vomiting, No diarrhea, No constipation Female : No dysuria, No incontinence Medications Current Inpatient Medications Medications (Trade) Dose Ordered Sig/Larry Route Start Time Stop Time Status Last Admin Dose Admin Al Hydrox/Mg Hydrox/Simethicone (Maalox Max Susp) 15 ml Q4H PRN PO 09/13/17 20:45 10/13/17 20:44 Magnesium Hydroxide (Milk Of Magnesia Susp) 30 ml Q12H PRN PO 09/13/17 20:45 10/13/17 20:44 Ondansetron HCl (Zofran Inj) 4 mg Q6H PRN IV 09/13/17 20:45 10/13/17 20:44 Morphine Sulfate (MoRPHine SULFATE INJ) 4 mg Q2H PRN IV 09/13/17 20:45 09/27/17 20:44 09/17/17 11:45 4 MG Enoxaparin Sodium (Lovenox Inj) 40 mg Q24H SQ 09/13/17 21:30 10/13/17 21:29 09/24/17 21:29 40 MG Metronidazole 500 mg/Prmx 100 ml @ 100 mls/hr Q8H IV 09/15/17 20:00 09/25/17 18:59 09/25/17 12:34 100 MLS/HR Ertapenem 1 gm/ Sodium Chloride 50 ml @ 120 mls/hr Q24H IV 09/16/17 18:00 09/26/17 17:59 09/24/17 18:08 120 MLS/HR Levetiracetam 500 mg/Dextrose 105 ml @ 440 mls/hr BID IV 09/17/17 21:00 10/14/17 20:59 09/25/17 09:48 440 MLS/HR Dextrose 1,000 ml @ 0 mls/hr Q0M PRN IV 09/19/17 16:00 10/19/17 15:59 Cholestyramine Resin (Questran Powder Light) 4 gm BID@10,22 PO 09/25/17 22:00 10/25/17 21:59 Objective Vital Signs Date Time Temp Pulse Resp B/P (MAP) Pulse Ox O2 Delivery O2 Flow Rate FiO2 09/25/17 15:37 36.3 100 18 114/80 (91) 94 09/25/17 12:34 36.3 104 18 112/81 (91) 94 Room Air 09/25/17 12:00 Room Air 09/25/17 09:18 Room Air 09/25/17 08:55 36.4 96 20 113/75 (88) 96 Room Air 09/25/17 04:03 36.7 111 18 113/74 (87) 96 Room Air 09/25/17 04:00 Room Air 09/25/17 00:32 Room Air 09/24/17 23:32 36.5 104 18 114/75 (88) 98 Room Air 09/24/17 20:00 97 Room Air 09/24/17 19:10 36.6 93 18 115/76 (89) 97 Room Air Physical Exam General Appearance: + cachetic Eyes: normal inspection, sclerae normal Neck: supple, no carotid bruits, trachea midline Respiratory/Chest: chest non-tender, no respiratory distress, no accessory muscle use, + decreased breath sounds Cardiovascular: regular rate, rhythm, no edema, no gallop Abdomen: normal bowel sounds, non tender, soft Neurologic/Psychiatric: alert, + pertinent finding (opens eyes to verbal stimuli) Laboratory Results Results Past 24 Hours Test 09/24/17 23:54 09/25/17 06:24 09/25/17 07:20 09/25/17 13:38 Range/Units Bedside Glucose 95 100 97 70-90 mg/dl Sodium Level 139 136-145 mmol/L Potassium Level 3.9 3.5-5.1 mmol/L Chloride Level 107 98-107 mmol/L Carbon Dioxide Level 25 21-32 mmol/L Anion Gap 6.0 3-11 mmol/L Blood Urea Nitrogen 14 7-18 mg/dl Creatinine 0.25 0.60-1.20 mg/dl Est Creatinine Clear Calc Drug Dose 184.5 ml/min Estimated GFR () > 150.0 Estimated GFR (Non- 130.3 BUN/Creatinine Ratio 56.4 10-20 Random Glucose 113 70-99 mg/dl Calcium Level 8.1 8.5-10.1 mg/dl Phosphorus Level 3.0 2.5-4.9 mg/dl Magnesium Level 1.7 1.8-2.4 mg/dl Assessment and Plan Patient is a 62 year old female with a pmh of SAH and recurrent aspiration that presented with acute respiratory failure requiring intubation and E Coli septicemia / UTI Acute hypoxic resp failure secondary to aspiration pneumonia - Intubated (09/13), Extubated (09/14) - Weaned to room air on 09/20 - Currently on room air after being waned off of BiPAP - Repeat CXR 09/22: Slightly diminished L basilar infiltrate compatible with resolving pneumonia - Due to continued use of BiPAP, cancelled PEG tube placement - At this point will contact palliative care for further intervention and decision making Sepsis from ESBL UTI - Ertapenem IV day 04/30 Dysphagia, Malnutrition - PEG tube placement cancelled due to worsening respiratory status - Currently nourishing with PPN in meantime Hx of C Diff (recent) - Prophylactic Flagyl IV Hx of Epilepsy - Keppra DVT - Lovenox Code Status - POLST form filed out this admission --> Intubation for reversible causes, DNR Resident Tracking Resident Involvement: Resident Care Provided Care Provided: Adult Hospital Medicine Reviewed: Pt Seen/Exam by Me History on bipap again. Constitutional: denies: fever General Appearance: no apparent distress (on bipap) Respiratory: decreased breath sounds, other (on bipap) Cardiovascular: regular rate, rhythm Skin Characteristics: warm/dry Assessment/Plan Resident Physician Supervision Note: I independently interviewed and examined the patient and verified the bergeron history and physical, reviewed labs and image studies, discussed the case with the resident Dr. Wilson and agree with the findings and care plan.
[2017-09-24] MEDS: ERTAPENEM IV 1 GM in SODIUM CHLOR 0.9% AD-VAN 50ML 50 ML IV SCH (18:08)
[2017-09-24] MEDS: ENOXAPARIN 40 MG/0.4 ML SYR SQ SCH (21:29)
[2017-09-25] VITALS (8 sets, daily range): BP systolic 112–114; BP diastolic 74–82; PULSE 94–111; TEMP 36.3–36.7; O2SAT 94–96
[2017-09-25] MEDS: METRONIDAZOLE / NSS 500 MG in PREMIXED NSS 100 ML IV SCH ×2 (04:37→12:34)
[2017-09-25 08:20] LABS: BLOOD UREA NITROGEN 14 mg/dl (7-18); CALCIUM 8.1 mg/dl (8.5-10.1); CARBON DIOXIDE 25 mmol/L (21-32); CREATININE 0.25 mg/dl (0.60-1.20); GLUCOSE 113 mg/dl (70-99); POTASSIUM 3.9 mmol/L (3.5-5.1); SODIUM 139 mmol/L (136-145)
[2017-09-25] MEDS ORDERED: MAGNESIUM SULFATE 1GM / D5W 100 ML IV STA (08:37)
[2017-09-25] MEDS: LEVETIRACETAM IV 500 MG in DEXTROSE 5% 100ML 100 ML IV SCH ×2 (09:48→20:35)
--- NOTE | 2017-09-25 13:31 | Family Medicine Progress Note ---
Progress Note Date of Service September 25, 2017. Subjective Pt evaluation today including: conversation w/ patient patient minimally conversation Denies any concerns. Respiratory: No cough, No sputum, No shortness of breath Cardiovascular: No chest pain Medications Medications (Trade) Dose Ordered Sig/Larry Route Start Time Stop Time Status Last Admin Dose Admin Nutrition (Parenteral) 0 ml @ 0 mls/hr TODAY@1600 IV 09/24/17 16:00 09/25/17 15:59 09/24/17 16:21 0 MLS/HR Magnesium Sulfate 100 ml @ 100 mls/hr NOW STAT IV 09/25/17 08:37 09/25/17 09:36 DC 09/25/17 09:48 100 MLS/HR Objective Vital Signs Date Time Temp Pulse Resp B/P (MAP) Pulse Ox O2 Delivery O2 Flow Rate FiO2 09/25/17 12:34 36.3 104 18 112/81 (91) 94 Room Air 09/25/17 12:00 Room Air 09/25/17 09:18 Room Air 09/25/17 08:55 36.4 96 20 113/75 (88) 96 Room Air 09/25/17 04:03 36.7 111 18 113/74 (87) 96 Room Air 09/25/17 04:00 Room Air 09/25/17 00:32 Room Air 09/24/17 23:32 36.5 104 18 114/75 (88) 98 Room Air 09/24/17 20:00 97 Room Air 09/24/17 19:10 36.6 93 18 115/76 (89) 97 Room Air 09/24/17 16:00 95 Room Air 09/24/17 15:20 36.4 98 18 122/83 (96) 99 Room Air Physical Exam General Appearance: + cachetic Eyes: normal inspection ENT: hearing grossly normal Respiratory/Chest: + decreased breath sounds (at the bases bilaterally) Cardiovascular: regular rate, rhythm Abdomen: normal bowel sounds, non tender, soft Extremities: non-tender, no pedal edema, no calf tenderness Laboratory Results Last 24 Hours Test 09/24/17 17:55 09/24/17 23:54 09/25/17 06:24 09/25/17 07:20 Bedside Glucose 116 mg/dl 95 mg/dl 100 mg/dl Sodium Level 139 mmol/L Potassium Level 3.9 mmol/L Chloride Level 107 mmol/L Carbon Dioxide Level 25 mmol/L Anion Gap 6.0 mmol/L Blood Urea Nitrogen 14 mg/dl Creatinine 0.25 mg/dl Est Creatinine Clear Calc Drug Dose 184.5 ml/min Estimated GFR () > 150.0 Estimated GFR (Non- 130.3 BUN/Creatinine Ratio 56.4 Random Glucose 113 mg/dl Calcium Level 8.1 mg/dl Phosphorus Level 3.0 mg/dl Magnesium Level 1.7 mg/dl Test 09/25/17 13:38 Bedside Glucose 97 mg/dl Assessment and Plan Patient is a 62 year old female with a pmh of SAH and recurrent aspiration that presented with acute respiratory failure requiring intubation and E Coli septicemia / UTI Acute hypoxic resp failure secondary to aspiration pneumonia - Intubated (09/13), Extubated (09/14), Weaned to room air on 09/20 - Currently on room air after being weaned off of BiPAP - Repeat CXR 09/22: Slightly diminished L basilar infiltrate compatible with resolving pneumonia - h/o Recurrent Aspiration Sepsis from ESBL UTI - Ertapenem IV day Dysphagia, Malnutrition, recurrent asp - PEG tube placement cancelled due to need for Bipap. - While she has been weaned to RA, PEG placement can be done outpatient per GI if decided by family - Currently nourishing with PPN in meantime Hx of C Diff (recent) Diarrhea today D/C IV Flagyl (completed treatment for C.Diff) Recheck stool for C diff Hx of Epilepsy - Keppra DVT - Lovenox Code Status - POLST form filed out this admission --> Intubation for reversible causes, DNR Prognosis/Palliative care - Overall prognosis remains poor given recurrent aspirations and pmh. Daughter aware - waiting to meet with Palliative care (possibly this afternoon) to further discuss goals of care. Need to readdress code status. History stays off bipap. stool loose this am Constitutional: denies: fever General Appearance: no apparent distress (comfortable and alert) Respiratory: lungs clear, no respiratory distress Cardiovascular: regular rate, rhythm Neurologic/Psychiatric: alert Skin Characteristics: warm/dry Assessment/Plan Resident Physician Supervision Note: I independently interviewed and examined the patient and verified the bergeron history and physical, reviewed labs and image studies, discussed the case with the resident Dr. Delgado and agree with the findings and care plan.
--- NOTE | 2017-09-25 14:04 | Palliative Care Progress Note ---
Palliative Care Progress Note Date of Service September 25, 2017. Subjective Pt evaluation today including: conversation w/ patient, conversation w/ family , physical exam Pain: appears comfortable PO Intake: receiving PPN Voiding: coffey catheter in place This patient is a 62 year-old female who was transferred to [facility] from [facility] for lethargy and hypoxia and was found to have PNA and a UTI. She has had a recent admission from August 25-2017 for hypoxia/PNA as well. She has additional PMH that includes microaspiration with recurrent PNA, ICH s/p cranioplasty and coiling in Jan 2017, seizure disorder (unsure if this is related to the ICH or note). Multiple head CT scans (most recent 09/14) have been obtained without any acute changes. On previous admissions, she was evaluated by GI to discuss possible PEG tube placement, but was diagnosed with C -Diff and was advised to complete treatment prior to any surgical intervention ( she is on po Vanco and course to be completed on 09/16). Both admissions, she was intubated and extubated successfully. This patient has declined over the past few days. She is lying in bed, cachectic around her temples and has been receiving PPN as PEG placement has been on hold due to the patient requiring BiPAP and not a candidate. I talked at length with the patients daughter Poppy and she notes her decline and is accepting that she is not showing improvement. We discussed CODE STATUS and she would like the patient to be DNR/DNI at this time. She would also like to stop the PPN as this is what she considers a trial feeding that was discussed on the previous POLST form. We did discuss intubation and she understands that in her case if she would aspirate, we know this risk, and will offer food for comfort. Upon assessment, she was lying in bed, with her eyes closed. She opened her eyes on command and was able to talk to me with a very weak, quiet voice. She followed commands appropriately and answered questions and stated she was "tired " and I asked if she wanted to leave the hospital and she said "If they'll let me". I asked if she wanted to be kept comfortable and she said "that's all I can hope for". The daughter wanted to meet with me on Thursday 09/28 at 1100 to discuss further stopping of lab draws, etc. I updated the attending provider and case management with the plan to continue care through the weekend and we will work towards full comfort on Thursday, with eventual return to [facility]. . Review of Systems Patient with weak frail voice. She said she was not in pain and denied other symptoms Objective Vital Signs Date Time Temp Pulse Resp B/P (MAP) Pulse Ox O2 Delivery O2 Flow Rate FiO2 09/25/17 12:34 36.3 104 18 112/81 (91) 94 Room Air 09/25/17 12:00 Room Air 09/25/17 09:18 Room Air 09/25/17 08:55 36.4 96 20 113/75 (88) 96 Room Air 09/25/17 04:03 36.7 111 18 113/74 (87) 96 Room Air 09/25/17 04:00 Room Air 09/25/17 00:32 Room Air 09/24/17 23:32 36.5 104 18 114/75 (88) 98 Room Air 09/24/17 20:00 97 Room Air 09/24/17 19:10 36.6 93 18 115/76 (89) 97 Room Air 09/24/17 16:00 95 Room Air 09/24/17 15:20 36.4 98 18 122/83 (96) 99 Room Air Physical Exam General Appearance: no apparent distress Respiratory/Chest: chest non-tender, normal breath sounds, no respiratory distress, no accessory muscle use, + decreased breath sounds Cardiovascular: regular rate, rhythm Abdomen: normal bowel sounds, non tender, soft Neurologic/Psychiatric: + pertinent finding (oriented to self and location. Unsure if patient understands the complexity of the medical situation) Skin: warm/dry Laboratory Results Last 24 Hours Test 09/24/17 17:55 09/24/17 23:54 09/25/17 06:24 09/25/17 07:20 Bedside Glucose 116 mg/dl 95 mg/dl 100 mg/dl Sodium Level 139 mmol/L Potassium Level 3.9 mmol/L Chloride Level 107 mmol/L Carbon Dioxide Level 25 mmol/L Anion Gap 6.0 mmol/L Blood Urea Nitrogen 14 mg/dl Creatinine 0.25 mg/dl Est Creatinine Clear Calc Drug Dose 184.5 ml/min Estimated GFR () > 150.0 Estimated GFR (Non- 130.3 BUN/Creatinine Ratio 56.4 Random Glucose 113 mg/dl Calcium Level 8.1 mg/dl Phosphorus Level 3.0 mg/dl Magnesium Level 1.7 mg/dl Test 09/25/17 13:38 Bedside Glucose 97 mg/dl Assessment and Plan Palliative Care Encounter Goals of Care Acute Respiratory Failure Aspiration PNA C-Diff Seizure disorder ICH Palliative Care Recommendations: -Patient to be changed to DNR/DNI -Patient daughter to fill out new POLST that is now on the chart and awaiting patient daughter to sign on Thursday -Per daughter request, we can discontinue the PPN and offer comfort feedings with known risk of aspiration -Continue other supportive medications throughout the weekend. Patient/ patient daughter no longer want to pursue PEG placement -For C-Diff treatment, continue oral Vancomycin and consider re- consulting GI, for discussion of PEG tube. Palliative Performance Scale: 20 % Continued [facility] stay due to: multiple IV medications needed Discharge planning: halfway facility Counseling and Coordination Total time spent 35 minutes with > 50% of that time spent assessing patient and discussing CODE STATUS and filling out a POLST form over the phone with the patients daughter.
[2017-09-25] MEDS ORDERED: CUSTOM PERIPHERAL PN 1 BAG IV SCH (16:00)
[2017-09-25] MEDS: ERTAPENEM IV 1 GM in SODIUM CHLOR 0.9% AD-VAN 50ML 50 ML IV SCH (18:15)
[2017-09-25] MEDS: ENOXAPARIN 40 MG/0.4 ML SYR SQ SCH (20:38)
[2017-09-25] MEDS: CHOLESTYRAMINE LIGHT 4 GM PKT PO SCH (22:00)
[2017-09-26 03:46] VITALS: BP 115/78; PULSE 100; TEMP 37; O2SAT 95
[2017-09-26 06:05] LABS: CALCIUM 8.3 mg/dl (8.5-10.1); CREATININE 0.27 mg/dl (0.60-1.20); POTASSIUM 3.8 mmol/L (3.5-5.1)
[2017-09-26 06:08] LABS: PHOSPHORUS 3.3 mg/dl (2.5-4.9)
--- NOTE | 2017-09-26 07:36 | Family Medicine Progress Note ---
Progress Note Date of Service September 26, 2017. Subjective Pt evaluation today including: conversation w/ patient Was sleeping comfortably, difficult to wake up but eventually nodded her head no to when I asked if there was any pain Additional Comments: unable to obtain due to mental status Medications Current Inpatient Medications Medications (Trade) Dose Ordered Sig/Larry Route Start Time Stop Time Status Last Admin Dose Admin Al Hydrox/Mg Hydrox/Simethicone (Maalox Max Susp) 15 ml Q4H PRN PO 09/13/17 20:45 10/13/17 20:44 Magnesium Hydroxide (Milk Of Magnesia Susp) 30 ml Q12H PRN PO 09/13/17 20:45 10/13/17 20:44 Ondansetron HCl (Zofran Inj) 4 mg Q6H PRN IV 09/13/17 20:45 10/13/17 20:44 Morphine Sulfate (MoRPHine SULFATE INJ) 4 mg Q2H PRN IV 09/13/17 20:45 09/27/17 20:44 09/17/17 11:45 4 MG Enoxaparin Sodium (Lovenox Inj) 40 mg Q24H SQ 09/13/17 21:30 10/13/17 21:29 09/25/17 20:38 40 MG Ertapenem 1 gm/ Sodium Chloride 50 ml @ 120 mls/hr Q24H IV 09/16/17 18:00 09/26/17 17:59 09/25/17 18:15 120 MLS/HR Levetiracetam 500 mg/Dextrose 105 ml @ 440 mls/hr BID IV 09/17/17 21:00 10/14/17 20:59 09/26/17 08:44 440 MLS/HR Dextrose 1,000 ml @ 0 mls/hr Q0M PRN IV 09/19/17 16:00 10/19/17 15:59 Cholestyramine Resin (Questran Powder Light) 4 gm BID@10,22 PO 09/25/17 22:00 10/25/17 21:59 Objective Vital Signs Date Time Temp Pulse Resp B/P (MAP) Pulse Ox O2 Delivery O2 Flow Rate FiO2 09/26/17 08:00 Room Air 09/26/17 04:00 Room Air 09/26/17 03:46 37.0 100 16 115/78 (90) 95 Room Air 09/26/17 00:05 Room Air 09/25/17 23:30 36.3 94 18 113/76 (88) 95 Room Air 09/25/17 20:00 94 Room Air 09/25/17 19:06 36.3 98 18 112/82 (92) 94 09/25/17 16:00 94 Room Air 09/25/17 15:37 36.3 100 18 114/80 (91) 94 09/25/17 12:34 36.3 104 18 112/81 (91) 94 Room Air 09/25/17 12:00 Room Air Physical Exam General Appearance: WD/WN, no apparent distress, + thin Eyes: normal inspection, PERRL ENT: hearing grossly normal Neck: supple, no JVD Respiratory/Chest: lungs clear Cardiovascular: regular rate, rhythm, no murmur Abdomen: non tender, soft Extremities: non-tender Neurologic/Psychiatric: + disoriented Laboratory Results Last 24 Hours Test 09/25/17 13:38 09/26/17 05:29 Bedside Glucose 97 mg/dl Sodium Level 143 mmol/L Potassium Level 3.8 mmol/L Chloride Level 113 mmol/L Carbon Dioxide Level 26 mmol/L Anion Gap 4.0 mmol/L Blood Urea Nitrogen 9 mg/dl Creatinine 0.27 mg/dl Est Creatinine Clear Calc Drug Dose 170.9 ml/min Estimated GFR () 147.2 Estimated GFR (Non- 127.0 BUN/Creatinine Ratio 33.0 Random Glucose 89 mg/dl Calcium Level 8.3 mg/dl Phosphorus Level 3.3 mg/dl Magnesium Level 1.8 mg/dl Total Bilirubin 0.3 mg/dl Aspartate Amino Transf (AST/SGOT) 10 U/L Alanine Aminotransferase (ALT/SGPT) 16 U/L Alkaline Phosphatase 72 U/L Prealbumin 13.2 mg/dl Assessment and Plan Patient is a 62 year old female with a pmh of SAH and recurrent aspiration that presented with acute respiratory failure requiring intubation and E Coli septicemia 2/2 UTI *Discussed care w/daughter - she is ok with doing comfort feeds starting today, will move patient up to 4E as well Acute hypoxic resp failure secondary to aspiration pneumonia - Intubated (09/13), Extubated (09/14), Weaned to room air on 09/20 - Currently on room air after being weaned off of BiPAP - Repeat CXR 09/22: Slightly diminished L basilar infiltrate compatible with resolving pneumonia - h/o Recurrent Aspiration Sepsis from ESBL UTI - Ertapenem IV day Dysphagia, Malnutrition, recurrent asp - PEG tube placement cancelled due to need for Bipap. - While she has been weaned to RA, PEG placement can be done outpatient per GI if decided by family - Currently nourishing with PPN in meantime - Last palliative care note reports daughter was ok w/comfort feeding, will discuss with her again Hx of C Diff (recent) Diarrhea today D/C IV Flagyl (completed treatment for C.Diff) Recheck stool for C diff Hx of Epilepsy - Keppra DVT - Lovenox Code Status - POLST form filed out this admission --> Intubation for reversible causes, DNR Prognosis/Palliative care - Overall prognosis remains poor Resident Tracking Resident Involvement: Resident Care Provided Care Provided: Adult Hospital Medicine Reviewed: Pt Seen/Exam by Me History no new concerns overnight transitioning to comfort care today Constitutional: denies: fever General Appearance: no apparent distress Respiratory: decreased breath sounds Cardiovascular: regular rate, rhythm Gastrointestinal: soft Neurologic/Psychiatric: other (somnolent) Assessment/Plan Resident Physician Supervision Note: I independently interviewed and examined the patient and verified the bergeron history and physical, reviewed labs and image studies, discussed the case with the resident Dr. Garcia and agree with the findings and care plan.
[2017-09-26] MEDS: LEVETIRACETAM IV 500 MG in DEXTROSE 5% 100ML 100 ML IV SCH ×2 (08:44→20:38)
[2017-09-26] MEDS: CHOLESTYRAMINE LIGHT 4 GM PKT PO SCH (10:00)
[2017-09-26 12:08] VITALS: BP 109/74; PULSE 112; TEMP 36.5; O2SAT 91
[2017-09-26] MEDS ORDERED: MoRPHine SULFATE 2.5 MG/0.125 ML UDP PO PRN (12:15)
[2017-09-26] MEDS: ENOXAPARIN 40 MG/0.4 ML SYR SQ SCH (20:39)
[2017-09-27] MEDS: LEVETIRACETAM IV 500 MG in DEXTROSE 5% 100ML 100 ML IV SCH ×2 (07:27→20:00)
--- NOTE | 2017-09-27 10:42 | Family Medicine Progress Note ---
Progress Note Date of Service September 27, 2017. Subjective Pt evaluation today including: conversation w/ family Sleeping comfortably. No new RN concerns overnight. Constitutional: No fever ENT: No hearing loss Respiratory: No cough Medications Current Inpatient Medications Medications (Trade) Dose Ordered Sig/Larry Route Start Time Stop Time Status Last Admin Dose Admin Al Hydrox/Mg Hydrox/Simethicone (Maalox Max Susp) 15 ml Q4H PRN PO 09/13/17 20:45 10/13/17 20:44 Magnesium Hydroxide (Milk Of Magnesia Susp) 30 ml Q12H PRN PO 09/13/17 20:45 10/13/17 20:44 Ondansetron HCl (Zofran Inj) 4 mg Q6H PRN IV 09/13/17 20:45 10/13/17 20:44 Morphine Sulfate (MoRPHine SULFATE INJ) 4 mg Q2H PRN IV 09/13/17 20:45 09/27/17 20:44 09/17/17 11:45 4 MG Enoxaparin Sodium (Lovenox Inj) 40 mg Q24H SQ 09/13/17 21:30 10/13/17 21:29 09/26/17 20:39 40 MG Levetiracetam 500 mg/Dextrose 105 ml @ 440 mls/hr BID IV 09/17/17 21:00 10/14/17 20:59 09/27/17 07:27 440 MLS/HR Dextrose 1,000 ml @ 0 mls/hr Q0M PRN IV 09/19/17 16:00 10/19/17 15:59 Morphine Sulfate (Roxanol Oral Soln) 2.5 mg Q2H PRN PO 09/26/17 12:15 10/10/17 12:14 Objective Vital Signs Date Time Temp Pulse Resp B/P (MAP) Pulse Ox O2 Delivery O2 Flow Rate FiO2 09/27/17 07:42 Room Air 09/27/17 00:15 Room Air 09/26/17 12:08 36.5 112 24 109/74 (86) 91 Room Air 09/26/17 12:00 Room Air Physical Exam General Appearance: WD/WN, no apparent distress, + thin Eyes: PERRL ENT: hearing grossly normal Neck: supple, no JVD Respiratory/Chest: lungs clear Cardiovascular: regular rate, rhythm Abdomen: soft Extremities: non-tender Neurologic/Psychiatric: + disoriented Assessment and Plan Patient is a 62 year old female with a pmh of SAH and recurrent aspiration that presented with acute respiratory failure requiring intubation and E Coli septicemia 2/2 UTI, now receiving comfort care. Acute hypoxic resp failure secondary to aspiration pneumonia - Intubated (09/13), Extubated (09/14), Weaned to room air on 09/20 - Currently on room air after being weaned off of BiPAP - Repeat CXR 09/22: Slightly diminished L basilar infiltrate compatible with resolving pneumonia Sepsis from ESBL UTI - Ertapenem completed x 14 days Dysphagia, Malnutrition, recurrent asp - PEG tube placement cancelled due to need for Bipap. - While she has been weaned to RA, PEG placement can be done outpatient per GI if decided by family - Currently nourishing with PPN in meantime - Last palliative care note reports daughter was ok w/comfort feeding, confirmed with daughter over the weekend that we can start doing this Hx of C Diff (recent) Diarrhea today D/C IV Flagyl (completed treatment for C.Diff) Recheck stool for C diff Hx of Epilepsy - Keppra DVT - Lovenox Code Status - DNR Prognosis/Palliative care - Overall prognosis remains poor Resident Tracking Resident Involvement: Resident Care Provided Care Provided: Adult Hospital Medicine Reviewed: Pt Seen/Exam by Me History no new concerns somnolent comfortable Constitutional: denies: fever General Appearance: no apparent distress Respiratory: no respiratory distress, decreased breath sounds Cardiovascular: regular rate, rhythm Neurologic/Psychiatric: other (somnolent) Skin Characteristics: warm/dry Assessment/Plan Resident Physician Supervision Note: I independently interviewed and examined the patient and verified the bergeron history and physical, reviewed labs and image studies, discussed the case with the resident Dr. Garcia and agree with the findings and care plan.
[2017-09-27] MEDS: MoRPHine SULFATE 4 MG/ML 1 ML CARP\\VIAL IV PRN (11:33)
[2017-09-27] MEDS ORDERED: MoRPHine SULFATE 10 MG/0.5 ML UDP ONE (11:44)
[2017-09-27] MEDS ORDERED: MoRPHine SULFATE 5 MG/0.25 ML UDP PO PRN (11:45)
[2017-09-27] MEDS ORDERED: LORAZEPAM 1 MG TAB PO PRN (11:45)
[2017-09-27] MEDS: ENOXAPARIN 40 MG/0.4 ML SYR SQ SCH (21:37)
[2017-09-28] VITALS: O2SAT 91
[2017-09-28 06:47] VITALS: BP 100/65; PULSE 85; TEMP 36.7; O2SAT 94
[2017-09-28] MEDS ORDERED: LEVETIRACETAM SOLN 500 MG/5 ML UDP PO SCH (09:00)
--- NOTE | 2017-09-28 11:05 | Palliative Care Progress Note ---
Palliative Care Progress Note Date of Service September 28, 2017. Subjective Pt evaluation today including: conversation w/ patient, conversation w/ family , physical exam Pain: appears comfortable PO Intake: minimal Patient was evaluated for follow up. Patient is sitting up in her bed looking at the newspaper, which is a marked improvement from an interactive standpoint. Her voice remains frail and weak - she has signs of being cachectic. The patient denies pain, but is confused and did not realize that she was in the hospital. The patient does have Roxanol ordered in the event she has pain, and she has received a dose for pain early this morning. Patient to be receiving comfort feedings. I met with patients daughter, Poppy, and had the POLST form signed that we discussed on Thursday. The original was placed on the chart. I spoke at length with Poppy regarding anticipating and signs to observe - all questions were answered. All labs and vital signs have been discontinued. Planning for the patient to return back to [facility] on comfort - Case management aware. Review of Systems Patient denies pain, difficulty breathing, and chest pain. P Objective Vital Signs Date Time Temp Pulse Resp B/P (MAP) Pulse Ox O2 Delivery O2 Flow Rate FiO2 09/28/17 09:07 Room Air 09/28/17 06:47 36.7 85 14 100/65 (77) 94 Nasal Cannula 2.0 09/28/17 00:00 91 Room Air 25 Physical Exam General Appearance: no apparent distress Neck: no JVD Respiratory/Chest: chest non-tender, lungs clear, normal breath sounds, no respiratory distress, no accessory muscle use Cardiovascular: regular rate, rhythm, no edema, no gallop, no JVD, no murmur Abdomen: normal bowel sounds, non tender, soft Extremities: no pedal edema Neurologic/Psychiatric: + disoriented (oriented to self) Skin: warm/dry Assessment and Plan Palliative Care Encounter Goals of Care Acute Respiratory Failure Aspiration PNA C-Diff Seizure disorder ICH Palliative Care Recommendations: -Continue with Roxanol for comfort while here at the hospital -POLST form signed and placed on the chart -Case Management arranging transport back to [facility] on comfort - plan for transportation at 1400. Palliative Performance Scale: 20 % Continued [facility] stay due to: multiple IV medications needed Discharge planning: [facility] Counseling and Coordination Total time spent 35 minutes with > 50% of that time assessing the patient and discussing discharge planning and reviewing the POLST form with the daughter.
[2017-09-28 13:13] VITALS: BP 100/65; PULSE 85; TEMP 36.7; O2SAT 94
[2017-09-28] MEDS ORDERED: KPPSUDL500 PO (13:33)
[2017-09-28] MEDS ORDERED: RXNS10 PO (13:33)
--- NOTE | 2017-09-28 13:40 | Discharge Instructions ---
Discharge Instructions Date of Service September 28, 2017. Admission Reason for Admission: Hypoxia,Pneumonia,Uti Discharge Discharge Diagnosis / Problem: Aspiration Pneumonia, UTI Discharge Goals Goal(s): Decrease discomfort, Improve function, Therapeutic intervention Activity Recommendations Activity Limitations: resume your previous activity . Instructions / Follow-Up Instructions / Follow-Up New Medication: - Keppra --> converted medication from Tablet to Solution form - Roxanol 5-10mg PO Q1H PRN for Pain and Dyspnea - Discontinue antibiotics for C Diff after continuing course of IV Zosyn. If necessary can restart PO Vancomycin if retest positive for C Diff, approved by family Changed During Hospitalization - Pain made DNR/DNI - Comfort feeding at this time. No PEG tube planned due to significant illness during hospitalizations Patient is a 62 year old female with a pmh of SAH and recurrent aspiration that presented with acute respiratory failure requiring intubation and E Coli septicemia 2/2 UTI, now receiving comfort care. Acute hypoxic resp failure secondary to aspiration pneumonia - Intubated (09/13), Extubated (09/14), Weaned to room air on 09/20 - Currently on room air after being weaned off of BiPAP - Repeat CXR 09/22: Slightly diminished L basilar infiltrate compatible with resolving pneumonia Sepsis from ESBL UTI - Ertapenem completed x 14 days Dysphagia, Malnutrition, recurrent asp - PEG tube placement cancelled due to need for BiPAP. - While she has been weaned to RA, PEG placement can be done outpatient per GI if decided by family - Was receiving PPN for majority of hospitalization - Now on comfort feeding Hx of C Diff (recent) Diarrhea today D/C IV Flagyl (completed treatment for C.Diff) Recheck stool for C diff Hx of Epilepsy - Keppra DVT - Lovenox Code Status - DNR Prognosis/Palliative care - Overall prognosis remains poor Current Hospital Diet Patient's current hospital diet: Regular Diet Discharge Diet Recommended Diet: Regular Diet Diet Texture: Mechanical Soft (ground) Pending Studies Studies pending at discharge: no Laboratory Results Lipid Panel Test 09/23/17 05:32 Range/Units Triglycerides Level 131 0-150 mg/dl Medical Emergencies . Who to Call and When: Medical Emergencies: If at any time you feel your situation is an emergency, please call 911 immediately. . Non-Emergent Contact Non-Emergency issues call your: Primary Care Provider . . "Provider Documentation" section prepared by Hank Wilson. .
--- NOTE | 2017-09-28 14:16 | Discharge Summary ---
Discharge Summary Date of Service September 28, 2017. Discharge Summary Admission Date: Sep 13, 2017 at 21:15 Discharge Date: September 28, 2017 Discharge Disposition: Home Principal Diagnosis: Aspiration Pneumonia Problems/Secondary Diagnoses: Sepsis from ESBL UTI Dysphagia Hx of C Diff (recent) Hx of Epilepsy Medication Reconciliation New Medications: Levetiractam (Levetiracetam) 500 Mg/5 Ml Soln 500 MG PO Q12 for 30 Days, #30 GM Morphine Sulfate (Morphine Sulfate) 10 Mg/0.5 Ml Soln 5-10 MG PO Q1H PRN for Pain/dyspnea for 30 Days, #200 MG Continued Medications: Acetaminophen (Tylenol) 325 Mg Tab 650 MG PO BID, TAB NTE 3GM APAP/24HRS Acetaminophen (Tylenol) 325 Mg Tab 650 MG PO Q6H PRN for Pain or Fever, TAB NTE 3GM APAP/24HRS Bisacodyl (Dulcolax) 10 Mg Sup 1 SUPP IL DAILY PRN for NO BM AFTER MOM, SUP Ferrous Sulfate (Ferrous Sulfate) 220 Mg/5 Ml Elix 220 MG PO TIDM Lactobacillus Acidophilus (Lactinex Granules) 1 Gm Pkt 1 GM PO TIDM Lansoprazole (Prevacid Solutab) 15 Mg Bev 15 MG PO QAM, TAB Magnesium Hydroxide (Milk of Magnesia) 30 Ml Susp 30 ML PO DAILY PRN for NO BM IN 3 DAYS. Menthol-Methyl Salicylate (Vonda (Bengay Greaseless) 1 Cre Cre 1 APPLN TD Q8 PRN for RIGHT RIB PAIN Potassium Ext Rel (Klor-Con) 20 Meq Tabcr 20 MEQ PO DAILY, TAB Simvastatin (Zocor) 40 Mg Tab 40 MG PO QPM, TAB Sodium Phosphate/Biphosphate (Fleet Enema) Brigette 1 EA IL DAILY PRN for NO BM IN 3 DAYS., BTL Wound Dressings (Aquacel Foam 3.2"X3.2") 1 Pad Pad 1 APPLN TD Q3DAYS. APPLY TO SMALL OPEN AREA ON SACRUM. DUE TO CHANGE 09/14/17. [Skin Prep] () 1 APPLN TD DAILY APPLY TO BILATERAL HEELS FOR PROTECTANT TO SKIN. Discontinued Medications: Levetiractam (Keppra) 250 Mg Tab 500 MG PO BID, TAB Vancomycin HCl (Vancomycin HCl) 50 Mg/1 Ml Inj 125 MG PO Q6H STARTED 09/08/17 FOR 10 DAYS. ENDS 09/16/17 AM DOSE. Discharge Exam Review of Systems: Constitutional: + fatigue, No fever, No chills, No weakness Respiratory: No cough, No sputum, No shortness of breath Cardiovascular: No chest pain, No palpitations Abdomen: No pain, No nausea, No vomiting, No diarrhea, No constipation Musculoskeletal: No joint pain, No calf pain Genitourinary - Female: No dysuria, No urinary frequency, No urinary urgency Neurologic: No memory loss, No numbness/tingling, No vertigo Physical Exam: General Appearance: no apparent distress, + cachetic Eyes: normal inspection, sclerae normal Neck: supple, no carotid bruits, trachea midline Respiratory/Chest: no respiratory distress, no accessory muscle use, + rhonchi Cardiovascular: regular rate, rhythm, no edema, no gallop Abdomen / GI: normal bowel sounds, non tender, soft Extremities: no calf tenderness, no pedal edema Neurologic/Psychiatric: alert, oriented x 3 Hospital Course Patient is a 62 year old female with a pmh of SAH and recurrent aspiration that presented with acute respiratory failure requiring intubation and E Coli septicemia 2/2 UTI, now receiving comfort care. Acute hypoxic resp failure secondary to aspiration pneumonia - Intubated (09/13), Extubated (09/14), Weaned to room air on 09/20 - Currently on room air after being weaned off of BiPAP - Repeat CXR 09/22: Slightly diminished L basilar infiltrate compatible with resolving pneumonia Sepsis from ESBL UTI - Ertapenem completed x 14 days - Complete Dysphagia, Malnutrition, recurrent asp - PEG tube placement cancelled due to need for BiPAP - While she has been weaned to RA, PEG placement can be done outpatient per GI if decided by family - Was treated with PPN during hospitalization - Discharged on comfort feeding - Last palliative care note reports daughter was ok w/comfort feeding, confirmed with daughter over the weekend that we can start doing this Hx of C Diff (recent) - Diarrhea today - D/C IV Flagyl (completed treatment for C.Diff) Hx of Epilepsy - Keppra DVT - Lovenox Code Status - DNR Prognosis/Palliative care - Overall prognosis remains poor Resident Physician Supervision Note: I interviewed and examined the patient. Discussed with Dr. Wilson and agree with findings and plan as documented in the note. Any exceptions or clarifications are listed here: None Documented By: Ricky Clayton feeling ok for discharge asked her about PEG - right now she states clearly she would not want it. asked her if this is something she thinks is a permanent decision (given her understandable changes in choices over the last month) - right now she says it is - she would not want PEG. discussed that with comfort feeds she'll likely aspirate again - she would currently want those events treated but is understanding and aware they're likley to happen aspiration/dysphagia w repeated pneumonias - stable for SNF / comfort feeds as above Total Time Spent: Less than 30 minutes This includes examination of the patient, discharge planning, medication reconciliation, and communication with other providers. Discharge Instructions Please refer to the electronic Patient Visit Report (Discharge Instructions) for additional information. Additional Copies To Dyan Campbell Resident Tracking Resident Involvement: Resident Care Provided Care Provided: Adult [facility] Medicine
== END 2017-09-28 15:03 | DRG 871 ==
LOC: EDBD 16:38 → C.EDB 16:39 → UNDOADMIN 21:15 → C.MSICU 21:15 → ENRESERV 21:23 → C.4E 09-15 08:18 → ENRESERV 09-15 08:32 → EDBEDREQ 09-17 04:28 → ENRESERV 09-17 04:36 → C.MED 09-17 04:53 → ENRESERV 09-26 12:32 → C.4E 09-26 13:57
PROVIDERS: ADMIT Internal Medicine; ATTEND Family Medicine
PROC: 5A1935Z Respiratory Ventilation, Less than 24 Consecutive Hours (ICD-10-PCS; principal; 2017-09-13)
PROC: 0BH17EZ Insertion of Endotracheal Airway into Trachea, Via Natural or Artificial Opening (ICD-10-PCS; principal; 2017-09-13)
DX: A41.51 Sepsis due to Escherichia coli [E. coli] (principal); J96.01 Acute respiratory failure with hypoxia; J69.0 Pneumonitis due to inhalation of food and vomit; E87.0 Hyperosmolality and hypernatremia; N39.0 Urinary tract infection, site not specified; A04.7 Enterocolitis due to Clostridium difficile; E46 Unspecified protein-calorie malnutrition; K21.9 Gastro-esophageal reflux disease without esophagitis; D64.9 Anemia, unspecified; G40.909 Epilepsy, unspecified, not intractable, without status epilepticus; R41.82 Altered mental status, unspecified; R13.10 Dysphagia, unspecified; E86.0 Dehydration; Z51.5 Encounter for palliative care; Z66 Do not resuscitate; Z68.22 Body mass index [BMI] 22.0-22.9, adult; Z79.2 Long term (current) use of antibiotics; Z79.899 Other long term (current) drug therapy; Z88.0 Allergy status to penicillin; Z88.8 Allergy status to other drugs, medicaments and biological substances